=== PATIENT | female | born 1945 | race Caucasian/White ===

== ENCOUNTER 2017-01-12 16:17 | Emergency (ER) | payer MEDICARE ==
[~2017-01-12] VITALS: Ht 167.6 cm; Wt 72.6 kg
[2017-01-12] MEDS ORDERED: TETANUS,DIPTH,PERTUSS P/F (BOOSTRIX) 0.5 ML VIAL IM STA (16:45)
[2017-01-12] MEDS ORDERED: LIDOCAINE/EPI 1%-1:100,000 (XYLOCAINE) 20ML INJ STA (16:45)
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
--- NOTE | 2017-01-12 17:32 | Diagnostic Imaging Report ---
INDICATION: Bilateral leg injury. Pain in the lower legs. AP and lateral views of the bilateral tibia and fibula were obtained. FINDINGS: There is no fracture, dislocation, or other acute bony abnormality seen on either side. IMPRESSION: No acute abnormality is seen on either side. Dictated by: Dictated on workstation # [id number]
[2017-01-12] MEDS ORDERED: TRAM50TA2 PO (17:36)
[2017-01-12] MEDS ORDERED: HYDROcodone/APAP 5 MG/325 MG (LORTAB) TAB PO STA (18:27)
[2017-01-12] MEDS ORDERED: HYDR-3812 PO (18:27)
[2017-01-12 18:55] VITALS: BP 174/82
== END 2017-01-12 18:55 | disposition home or self-care (01) ==
LOC: EDUNIT# 16:17 → ER 16:19
DX: S81.811A Laceration without foreign body, right lower leg, initial encounter (principal); S80.12XA Contusion of left lower leg, initial encounter; Z23 Encounter for immunization; W23.0XXA Caught, crushed, jammed, or pinched between moving objects, initial encounter; Y99.8 Other external cause status
CPT/HCPCS: 12002; 90715; 96372

== ENCOUNTER → 2017-05-03 | Outpatient (CLI) | payer MEDICARE ==
[~2017-05-03] MED LIST: HYDR-3812 PO; TRAM50TA2 PO
== END ==
LOC: RAD 11:28
PROVIDERS: ATTEND Nurse Practitioner Family
DX: Z12.31 Encounter for screening mammogram for malignant neoplasm of breast (principal)
CPT/HCPCS: 77067

== ENCOUNTER 2017-05-21 09:10 | Outpatient (RCR) | payer MEDICARE | END 2017-05-21 09:59 | disposition home or self-care (01) | PROVIDERS: ATTEND Nurse Practitioner Family | DX: S82.832D Other fracture of upper and lower end of left fibula, subsequent encounter for closed fracture with routine healing (principal) ==

== ENCOUNTER → 2018-04-11 | Outpatient (CLI) | payer MEDICARE, OTHER ==
[~2018-04-11] MED LIST changes: +ACHD5005 PO; -HYDR-3812 PO
== END ==
LOC: CARD 07:58
PROVIDERS: ATTEND Family Medicine
DX: R06.09 Other forms of dyspnea (principal); I10 Essential (primary) hypertension
CPT/HCPCS: 93225; 93226

== ENCOUNTER → 2018-05-04 | Outpatient (CLI) | payer MEDICARE, OTHER | LOC: CARD 11:38 | PROVIDERS: ATTEND Internal Medicine Interventional Cardiology | DX: R06.02 Shortness of breath (principal); I10 Essential (primary) hypertension; E78.5 Hyperlipidemia, unspecified; M79.604 Pain in right leg; M79.605 Pain in left leg | CPT/HCPCS: 93306 ==

== ENCOUNTER → 2018-09-09 | Outpatient (CLI) | payer MEDICARE, OTHER ==
--- NOTE | 2018-09-09 10:08 | Diagnostic Imaging Report ---
PROCEDURE: MRI right joint upper extremity without contrast. TECHNIQUE: Multiplanar, multisequence non contrast-enhanced MRI of the right upper extremity was accomplished. INDICATION: Right shoulder pain. COMPARISON: There are no prior studies available for comparison. FINDINGS: This exam is less than optimal due to motion artifact. On the T2 fat-saturated coronal series, there is a small area of increased signal along the anterior most insertion of the rotator cuff. This does suggest a small rim rent tear. The supraspinatus muscle itself is not retracted or bunched however. There is hypertrophy of the acromioclavicular joint and this does result in mild narrowing of the outlet for the supraspinatus muscle. There is also small amount of fluid in the subacromial and subdeltoid bursa. This does suggest that there is an element of inflammation present. There is a thin linear area of increased signal within the biceps tendon as it courses over the proximal humerus. This may represent a partial tear of the tendon. The subscapularis tendon is intact. The labrum is thinned posteriorly and most likely torn on a degenerative basis. There is no significant joint effusion identified. There is no abnormal signal arising from the osseous structures to suggest bone edema or fracture. IMPRESSION: 1. There is a small rim rent tear along the anterior insertion of the rotator cuff. The supraspinatus muscle is not retracted or bunched however. 2. There is hypertrophy of the acromioclavicular joint and this does result in mild narrowing of the outlet for the supraspinatus muscle. The fluid in the subacromial and subdeltoid bursa also suggests that there is a small amount of inflammation present. 3. There appears to be a partial tear of the biceps tendon as it courses over the humeral head. 4. The labrum is thinned posteriorly and most likely torn on a degenerative basis. 5. There is no acute bony abnormality noted. Dictated by: Dictated on workstation # [id number]
== END ==
LOC: RAD 08:26
PROVIDERS: ATTEND Orthopaedic Surgery
DX: M75.101 Unspecified rotator cuff tear or rupture of right shoulder, not specified as traumatic (principal); M62.89 Other specified disorders of muscle
CPT/HCPCS: 73221

== ENCOUNTER → 2018-10-05 | Outpatient (CLI) | payer MEDICARE, OTHER ==
--- NOTE | 2018-10-05 09:54 | Diagnostic Imaging Report ---
INDICATION: Cough x4 weeks. EXAMINATION: PA and lateral chest. FINDINGS: Heart size and pulmonary vascularity are normal. Lungs are clear. There are no effusions or pneumothoraces. IMPRESSION: Negative chest. Dictated by: Dictated on workstation # [id number]
== END ==
LOC: RAD 08:56
PROVIDERS: ATTEND Nurse Practitioner Family
DX: R05 Cough (principal)
CPT/HCPCS: 71046

== ENCOUNTER 2019-01-31 06:42 | Emergency (ER) | payer MEDICARE, OTHER ==
[~2019-01-31] VITALS: Ht 157.5 cm; Wt 72.6 kg
--- OUTSIDE RECORDS SUMMARY | 2019-01-31 06:48 | XMS REPORT ---
Author Author MONO CARMEN Organization [facility] Address [address] [place] [address] Care Team Providers Care Sem Manager Name Role Phone MONO CARMEN Unavailable PROBLEMS Unknown Problems ALLERGIES No Information ENCOUNTERS Encounter Location Date Diagnosis [facility] [address] [facility] [id number] [place] [address] Jun, Encounter for immunization Z23 IMMUNIZATIONS Vaccine Route Administration Date Status FLULAVAL QUAD 0.5ML (6 MO & UP) 2018 IM Intramuscular Jul 08, 2018 Administered SOCIAL HISTORY Never Assessed REASON FOR VISIT Flu shot PLAN OF CARE VITAL SIGNS MEDICATIONS Unknown Medications RESULTS No Results PROCEDURES Procedure Date Ordered Result Body Site FLULAVAL QUAD 0.5ML (6 MO & UP) 2017Jul 08, 2018 ADMN FLU VAC NO FEE SCHED SAME DAY Jul 08, 2018 SINGLE IMMUNIZATION ADMIN Jul 08, 2018 INSTRUCTIONS MEDICATIONS ADMINISTERED No Known Medications
--- OUTSIDE RECORDS SUMMARY | 2019-01-31 06:50 | XMS REPORT | CCD ---
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 10/29/2016 Gastrointestinal No abdominal pain 2016 Gastrointestinal No constipation 2016 Gastrointestinal No diarrhea 10/29/2016 Gastrointestinal No nausea 10/29/2016 Gastrointestinal No vomiting 10/29/2016 Genitourinary/Nephrology No dysuria 10/29 Dermatologic No rash 10/29/2016 Psychiatric No anxiety 10/29/2016 Psychiatric No depression 10/29/2016 Constitutional No recent illness 2015 Constitutional No diaphoresis 07/20/2016 Eyes No eye discharge 07/20/2016 Eyes No eye erythema 07/20/2016 Eyes No vision change 07/20/2016 Ears/Nose/Throat/Neck No dizziness 2015 Ears/Nose/Throat/Neck No headache 2015 Ears/Nose/Throat/Neck No hoarseness 07/20 Ears/Nose/Throat/Neck No nasal discharge 07/20/2016 Ears/Nose/Throat/Neck No sore throat Ears/Nose/Throat/Neck No sinus congestion 07/20/2016 Cardiovascular No chest pain/pressure Respiratory No chest tightness 2015 Respiratory No cigarette smoking 2015 Respiratory No cough 07/20/2016 Respiratory No dyspnea 07/20/2016 Respiratory No pedal edema 07/20/2016 Respiratory No snoring 07/20/2016 Respiratory No wheezing 07/20/2016 Gastrointestinal No abdominal pain 2015 Gastrointestinal No constipation 2015 Gastrointestinal No diarrhea 07/20/2016 Gastrointestinal No nausea 07/20/2016 Gastrointestinal No vomiting 07/20/2016 Genitourinary/Nephrology No dysuria 07/20 Dermatologic No rash 07/20/2016 Psychiatric No anxiety 07/20/2016 Psychiatric No depression 07/20/2016 Constitutional No chills 06/24/2016 Constitutional No diaphoresis 06/24/2016 Constitutional No fever 06/24/2016 Eyes No eye discharge 06/24/2016 Eyes No eye erythema 06/24/2016 Cardiovascular No chest pain/pressure Cardiovascular No dyspnea 06/24/2016 Respiratory No cough 06/24/2016 Neurologic No alteration of consciousness 06/24/2016 Constitutional No recent illness 2015 Ears/Nose/Throat/Neck No nasal allergies 06/24/2016 Dermatologic actinic keratosis 2015 Neurologic No mental status change 2015 Constitutional recent illness 06/15/2016 Constitutional No night sweats 2015 Constitutional No anorexia 06/15/2016 Constitutional No chills 06/15/2016 Constitutional No diaphoresis 06/15/2016 Constitutional No fatigue 06/15/2016 Constitutional No fever 06/15/2016 Constitutional No insomnia 06/15/2016 Constitutional No malaise 06/15/2016 Constitutional No weight loss 06/15/2016 Constitutional weight gain 06/15/2016 Eyes No eye erythema 06/15/2016 Eyes No eye discharge 06/15/2016 Ears/Nose/Throat/Neck No dizziness 2015 Ears/Nose/Throat/Neck No headache 2015 Cardiovascular No chest pain/pressure Cardiovascular No dyspnea 06/15/2016 Cardiovascular No edema 06/15/2016 Respiratory No cough 06/15/2016 Gastrointestinal No abdominal pain 2015 Gastrointestinal No constipation 2015 Gastrointestinal No diarrhea 06/15/2016 Gastrointestinal gastroesophageal reflux 06/15/2016 Genitourinary/Nephrology No dysuria 06/15 Musculoskeletal joint complaint 2015 Neurologic No alteration of consciousness 06/15/2016 Dermatologic No erythema 06/15/2016 Constitutional No chills 01/15/2016 Constitutional No diaphoresis 01/15/2016 Constitutional fatigue 01/15/2016 Constitutional No fever 01/15/2016 Constitutional No insomnia 01/15/2016 Constitutional No malaise 01/15/2016 Eyes No eye discharge 01/15/2016 Eyes No eye erythema 01/15/2016 Ears/Nose/Throat/Neck No nasal allergies 01/15/2016 Ears/Nose/Throat/Neck No nasal discharge 01/15/2016 Cardiovascular No chest pain/pressure Gastrointestinal No abdominal pain 2015 Gastrointestinal No constipation 2015 Gastrointestinal No diarrhea 01/15/2016 Gastrointestinal No nausea 01/15/2016 Musculoskeletal No joint complaint 2015 Dermatologic rash 01/15/2016 Dermatologic sores 01/15/2016 Psychiatric No anxiety 01/15/2016 Psychiatric No depression 01/15/2016 Gastrointestinal No vomiting 01/15/2016 Neurologic No alteration of consciousness 01/15/2016 Constitutional recent illness 12/11/2015 Constitutional No anorexia 12/11/2015 Constitutional No night sweats 2015 Constitutional No chills 12/11/2015 Constitutional No diaphoresis 12/11/2015 Constitutional fatigue 12/11/2015 Constitutional No fever 12/11/2015 Constitutional No insomnia 12/11/2015 Constitutional No malaise 12/11/2015 Eyes No eye discharge 12/11/2015 Eyes No eye erythema 12/11/2015 Ears/Nose/Throat/Neck headache 2015 Ears/Nose/Throat/Neck nasal allergies Ears/Nose/Throat/Neck nasal discharge Ears/Nose/Throat/Neck sinus congestion Ears/Nose/Throat/Neck No sore throat Cardiovascular No chest pain/pressure Gastrointestinal No abdominal pain 2015 Gastrointestinal No constipation 2015 Gastrointestinal No diarrhea 12/11/2015 Gastrointestinal No nausea 12/11/2015 Gastrointestinal No vomiting 12/11/2015 Genitourinary/Nephrology No dysuria 12/10 Musculoskeletal No joint complaint 2015 Dermatologic No rash 12/11/2015 Dermatologic No sores 12/11/2015 Psychiatric No anxiety 12/11/2015 Psychiatric No depression 12/11/2015 Constitutional No recent illness 2014 Constitutional No anorexia 08/13/2015 Constitutional No night sweats 2014 Constitutional No chills 08/13/2015 Constitutional No diaphoresis 08/13/2015 Constitutional No fatigue 08/13/2015 Constitutional No fever 08/13/2015 Constitutional No insomnia 08/13/2015 Constitutional No malaise 08/13/2015 Eyes No eye discharge 08/13/2015 Eyes No eye erythema 08/13/2015 Ears/Nose/Throat/Neck No dizziness 2014 Ears/Nose/Throat/Neck nasal allergies Ears/Nose/Throat/Neck nasal discharge Ears/Nose/Throat/Neck No otalgia 2014 Ears/Nose/Throat/Neck No sinus congestion 08/13/2015 Ears/Nose/Throat/Neck No sore throat Cardiovascular No chest pain/pressure Respiratory No cough 08/13/2015 Gastrointestinal No nausea 08/13/2015 Gastrointestinal No vomiting 08/13/2015 Musculoskeletal No joint complaint 2014 Dermatologic No rash 08/13/2015 Dermatologic No sores 08/13/2015 Ears/Nose/Throat/Neck tinnitus 2014 Cardiovascular No dyspnea 08/13/2015 Cardiovascular No edema 08/13/2015 Respiratory No chest congestion 2014 Gastrointestinal No constipation 2014 Gastrointestinal No diarrhea 08/13/2015 Neurologic No alteration of consciousness 08/13/2015 Neurologic tinnitus 08/13/2015 Constitutional No recent illness 2014 Constitutional No anorexia 01/24/2015 Constitutional No night sweats 2014 Constitutional No chills 01/24/2015 Constitutional No diaphoresis 01/24/2015 Constitutional No fatigue 01/24/2015 Constitutional No fever 01/24/2015 Constitutional No insomnia 01/24/2015 Constitutional No malaise 01/24/2015 Constitutional No weight loss 01/24/2015 Constitutional No weight gain 01/24/2015 Eyes No eye discharge 01/24/2015 Eyes No eye erythema 01/24/2015 Eyes eye tearing 01/24/2015 Ears/Nose/Throat/Neck No dizziness 2014 Ears/Nose/Throat/Neck nasal allergies Ears/Nose/Throat/Neck nasal discharge Ears/Nose/Throat/Neck No otalgia 2014 Ears/Nose/Throat/Neck sinus congestion Ears/Nose/Throat/Neck No sore throat Cardiovascular No chest pain/pressure Respiratory No cough 01/24/2015 Gastrointestinal No vomiting 01/24/2015 Gastrointestinal No nausea 01/24/2015 Genitourinary/Nephrology No dysuria 01/24 Musculoskeletal No joint complaint 2014 Dermatologic No sores 01/24/2015 Dermatologic No rash 01/24/2015 Constitutional No recent illness 2013 Constitutional No diaphoresis 07/26/2014 Eyes No eye discharge 07/26/2014 Eyes No eye erythema 07/26/2014 Eyes No vision change 07/26/2014 Ears/Nose/Throat/Neck No dizziness 2013 Ears/Nose/Throat/Neck No headache 2013 Ears/Nose/Throat/Neck No hoarseness 07/26 Ears/Nose/Throat/Neck No nasal discharge 07/26/2014 Ears/Nose/Throat/Neck No sore throat Ears/Nose/Throat/Neck No sinus congestion 07/26/2014 Cardiovascular No chest pain/pressure Respiratory No chest tightness 2013 Respiratory No cigarette smoking 2013 Respiratory No cough 07/26/2014 Respiratory No dyspnea 07/26/2014 Respiratory No pedal edema 07/26/2014 Respiratory No snoring 07/26/2014 Respiratory No wheezing 07/26/2014 Gastrointestinal No abdominal pain 2013 Gastrointestinal No constipation 2013 Gastrointestinal No diarrhea 07/26/2014 Gastrointestinal No nausea 07/26/2014 Gastrointestinal No vomiting 07/26/2014 Genitourinary/Nephrology No dysuria 07/26 Dermatologic No rash 07/26/2014 Psychiatric No anxiety 07/26/2014 Psychiatric No depression 07/26/2014 Dermatologic mole change 07/26/2014 Constitutional recent illness 01/01/2014 Constitutional No anorexia 01/01/2014 Constitutional No night sweats 2013 Constitutional No chills 01/01/2014 Constitutional fatigue 01/01/2014 Constitutional No diaphoresis 01/01/2014 Constitutional No fever 01/01/2014 Constitutional No insomnia 01/01/2014 Constitutional No malaise 01/01/2014 Eyes No eye erythema 01/01/2014 Eyes No eye discharge 01/01/2014 Ears/Nose/Throat/Neck headache 2013 Ears/Nose/Throat/Neck nasal discharge 03/2014 Ears/Nose/Throat/Neck nasal allergies 03/2014 Ears/Nose/Throat/Neck sinus congestion Ears/Nose/Throat/Neck No sore throat 03/2014 Cardiovascular No chest pain/pressure 03/2014 Gastrointestinal No abdominal pain 2013 Gastrointestinal No constipation 2013 Gastrointestinal No diarrhea 01/01/2014 Gastrointestinal No vomiting 01/01/2014 Gastrointestinal No nausea 01/01/2014 Genitourinary/Nephrology No dysuria 01/01 Musculoskeletal No joint complaint 2013 Dermatologic No sores 01/01/2014 Dermatologic No rash 01/01/2014 Constitutional No recent illness 2013 Constitutional No anorexia 12/01/2013 Constitutional No night sweats 2013 Constitutional No chills 12/01/2013 Constitutional No diaphoresis 12/01/2013 Constitutional No fatigue 12/01/2013 Constitutional No fever 12/01/2013 Constitutional No insomnia 12/01/2013 Constitutional No malaise 12/01/2013 Eyes No eye discharge 12/01/2013 Eyes No eye erythema 12/01/2013 Cardiovascular No chest pain/pressure 03/2014 Respiratory No productive sputum 2013 Respiratory No chest congestion 2013 Respiratory No cough 12/01/2013 Gastrointestinal No abdominal pain 2013 Gastrointestinal No diarrhea 12/01/2013 Gastrointestinal No constipation 2013 Gastrointestinal No vomiting 12/01/2013 Gastrointestinal No nausea 12/01/2013 Genitourinary/Nephrology No dysuria 12/01 Dermatologic No rash 12/01/2013 Dermatologic No sores 12/01/2013 Constitutional No recent illness 2013 Constitutional No diaphoresis 10/31/2013 Eyes No eye discharge 10/31/2013 Eyes No eye erythema 10/31/2013 Eyes No vision change 10/31/2013 Ears/Nose/Throat/Neck No dizziness 2013 Ears/Nose/Throat/Neck No headache 2013 Ears/Nose/Throat/Neck No hoarseness 10/31 Ears/Nose/Throat/Neck No nasal discharge 10/31/2013 Ears/Nose/Throat/Neck No sinus congestion 10/31/2013 Ears/Nose/Throat/Neck No sore throat 12/2013 Cardiovascular No chest pain/pressure 12/2013 Gastrointestinal No abdominal pain 2013 Gastrointestinal No constipation 2013 Gastrointestinal No diarrhea 10/31/2013 Gastrointestinal No nausea 10/31/2013 Gastrointestinal No vomiting 10/31/2013 Genitourinary/Nephrology No dysuria 10/31 Dermatologic No rash 10/31/2013 Psychiatric No anxiety 10/31/2013 Psychiatric No depression 10/31/2013 Respiratory No chest tightness 2013 Respiratory No cigarette smoking 2013 Respiratory No cough 10/31/2013 Respiratory No dyspnea 10/31/2013 Respiratory No pedal edema 10/31/2013 Respiratory No snoring 10/31/2013 Respiratory No wheezing 10/31/2013 Constitutional No recent illness 2012 Constitutional No anorexia 06/29/2013 Constitutional No night sweats 2012 Constitutional No chills 06/29/2013 Constitutional No diaphoresis 06/29/2013 Constitutional No fatigue 06/29/2013 Constitutional No fever 06/29/2013 Constitutional No insomnia 06/29/2013 Constitutional No malaise 06/29/2013 Constitutional recent illness 02/08/2013 Constitutional No chills 02/08/2013 Constitutional No fatigue 02/08/2013 Constitutional No fever 02/08/2013 Constitutional No insomnia 02/08/2013 Constitutional No malaise 02/08/2013 Cardiovascular No chest pain/pressure Cardiovascular No dyspnea 02/08/2013 Cardiovascular No edema 02/08/2013 Cardiovascular No exercise intolerance Cardiovascular No fatigue 02/08/2013 Cardiovascular No near-syncope/dizziness 02/08/2013 Musculoskeletal No stiffness 02/08/2013 Musculoskeletal No swelling 02/08/2013 Musculoskeletal No muscle weakness 2012 Musculoskeletal No myalgias 02/08/2013 Dermatologic No rash 02/08/2013 Dermatologic No scar 02/08/2013 Psychiatric No anxiety 02/08/2013 Psychiatric No depression 02/08/2013 Ears/Nose/Throat/Neck No dizziness 2012 Ears/Nose/Throat/Neck No dysphagia 2012 Ears/Nose/Throat/Neck No headache 2012 Ears/Nose/Throat/Neck No hearing loss Ears/Nose/Throat/Neck No nasal allergies 02/08/2013 Ears/Nose/Throat/Neck sore throat 2012 Ears/Nose/Throat/Neck No postnasal drip 02/08/2013 Ears/Nose/Throat/Neck No sinus congestion 02/08/2013 Ears/Nose/Throat/Neck hoarseness 2012 Genitourinary/Nephrology urinary urgency 02/08/2013 Neurologic No dizziness 02/08/2013 Neurologic No dyskinesia or tremor 2012 Neurologic No gait abnormality 2012 Constitutional No recent illness 2012 Constitutional No chills 01/02/2013 Constitutional No fatigue 01/02/2013 Constitutional No fever 01/02/2013 Constitutional No insomnia 01/02/2013 Constitutional No malaise 01/02/2013 Cardiovascular No chest pain/pressure 04/2013 Cardiovascular No dyspnea 01/02/2013 Cardiovascular No edema 01/02/2013 Cardiovascular No exercise intolerance Cardiovascular No fatigue 01/02/2013 Cardiovascular No near-syncope/dizziness 01/02/2013 Respiratory No chest tightness 2012 Respiratory No cigarette smoking 2012 Respiratory No cough 01/02/2013 Respiratory No dyspnea 01/02/2013 Respiratory No pedal edema 01/02/2013 Respiratory No snoring 01/02/2013 Respiratory No wheezing 01/02/2013 Musculoskeletal No stiffness 01/02/2013 Musculoskeletal No swelling 01/02/2013 Musculoskeletal No muscle weakness 2012 Musculoskeletal No myalgias 01/02/2013 Dermatologic No rash 01/02/2013 Dermatologic No scar 01/02/2013 Psychiatric No anxiety 01/02/2013 Psychiatric No depression 01/02/2013 Constitutional No recent illness 2011 Constitutional No anorexia 05/16/2012 Constitutional No night sweats 2011 Constitutional No chills 05/16/2012 Constitutional No diaphoresis 05/16/2012 Constitutional No fatigue 05/16/2012 Constitutional No fever 05/16/2012 Constitutional No insomnia 05/16/2012 Constitutional No malaise 05/16/2012 Eyes No eye discharge 05/16/2012 Eyes No eye erythema 05/16/2012 Eyes No vision change 05/16/2012 Ears/Nose/Throat/Neck No dizziness 2011 Ears/Nose/Throat/Neck No headache 2011 Ears/Nose/Throat/Neck No hoarseness 05/16 Ears/Nose/Throat/Neck No nasal discharge 05/16/2012 Ears/Nose/Throat/Neck No sinus congestion 05/16/2012 Ears/Nose/Throat/Neck No sore throat Gastrointestinal No abdominal pain 2011 Gastrointestinal No constipation 2011 Gastrointestinal No diarrhea 05/16/2012 Gastrointestinal No nausea 05/16/2012 Gastrointestinal No vomiting 05/16/2012 Dermatologic No rash 05/16/2012 Constitutional No recent illness 2011 Constitutional No diaphoresis 04/25/2012 Eyes No eye discharge 04/25/2012 Eyes No eye erythema 04/25/2012 Eyes No vision change 04/25/2012 Ears/Nose/Throat/Neck No dizziness 2011 Ears/Nose/Throat/Neck No headache 2011 Ears/Nose/Throat/Neck No hoarseness 04/25 Ears/Nose/Throat/Neck No nasal discharge 04/25/2012 Ears/Nose/Throat/Neck No sinus congestion 04/25/2012 Ears/Nose/Throat/Neck No sore throat Gastrointestinal No abdominal pain 2011 Gastrointestinal No constipation 2011 Gastrointestinal No diarrhea 04/25/2012 Gastrointestinal No nausea 04/25/2012 Gastrointestinal No vomiting 04/25/2012 Genitourinary/Nephrology No dysuria 04/25 Dermatologic No rash 04/25/2012 Psychiatric No anxiety 04/25/2012 Psychiatric No depression 04/25/2012 Constitutional No fever 04/25/2012 Constitutional No fatigue 04/25/2012 Psychiatric No depression 12/07/2011 Eyes No vision change 12/07/2011 Ears/Nose/Throat/Neck No headache 2011 Constitutional fever 12/07/2011 Constitutional fatigue 12/07/2011 Ears/Nose/Throat/Neck No dizziness 2011 Cardiovascular No chest pain/pressure 08/2012 Gastrointestinal No constipation 2011 Gastrointestinal No diarrhea 12/07/2011 Gastrointestinal No nausea 12/07/2011 Gastrointestinal No vomiting 12/07/2011 Constitutional No recent illness 2011 Constitutional No diaphoresis 12/07/2011 Eyes No eye discharge 12/07/2011 Eyes No eye erythema 12/07/2011 Ears/Nose/Throat/Neck No hoarseness 12/06 Ears/Nose/Throat/Neck No nasal discharge 12/07/2011 Ears/Nose/Throat/Neck No sinus congestion 12/07/2011 Ears/Nose/Throat/Neck No sore throat 08/2012 Gastrointestinal No abdominal pain 2011 Genitourinary/Nephrology No dysuria 12/06 Dermatologic No rash 12/07/2011 Psychiatric No anxiety 12/07/2011 Constitutional No recent illness 2011 Constitutional No diaphoresis 11/17/2011 Constitutional fatigue 11/17/2011 Constitutional fever 11/17/2011 Eyes No eye discharge 11/17/2011 Eyes No eye erythema 11/17/2011 Ears/Nose/Throat/Neck No dizziness 2011 Ears/Nose/Throat/Neck No hoarseness 11/17 Ears/Nose/Throat/Neck No nasal discharge 11/17/2011 Ears/Nose/Throat/Neck No sinus congestion 11/17/2011 Ears/Nose/Throat/Neck No sore throat Cardiovascular No chest pain/pressure Gastrointestinal No abdominal pain 2011 Gastrointestinal No constipation 2011 Gastrointestinal No diarrhea 11/17/2011 Gastrointestinal No nausea 11/17/2011 Gastrointestinal No vomiting 11/17/2011 Genitourinary/Nephrology No dysuria 11/17 Dermatologic No rash 11/17/2011 Psychiatric No anxiety 11/17/2011 Psychiatric No depression 11/17/2011 Constitutional No recent illness 2010 Constitutional No fever 08/18/2011 Eyes No eye discharge 08/18/2011 Eyes No eye erythema 08/18/2011 Cardiovascular No chest pain/pressure Gastrointestinal No nausea 08/18/2011 Gastrointestinal No vomiting 08/18/2011 Gastrointestinal No constipation 2010 Gastrointestinal No diarrhea 08/18/2011 Gastrointestinal No abdominal pain 2010 Ears/Nose/Throat/Neck No dizziness 2010 Ears/Nose/Throat/Neck No hoarseness 08/18 Ears/Nose/Throat/Neck No nasal discharge 08/18/2011 Ears/Nose/Throat/Neck No sinus congestion 08/18/2011 Ears/Nose/Throat/Neck No sore throat Genitourinary/Nephrology No dysuria 08/18 Dermatologic No rash 08/18/2011 Constitutional fatigue 08/18/2011 Constitutional No diaphoresis 08/18/2011 Respiratory cough 08/18/2011 Respiratory No productive sputum 2010 Respiratory No chest tightness 2010 Respiratory No chest congestion 2010 Psychiatric No anxiety 08/18/2011 Psychiatric No depression 08/18/2011 Physical Exam Exam Name System Name Item Name Status Result Effective Dates Notes Full Exam - Dermatology Constitutional general appearance Overall: well nourished 02/25/2017 None Full Exam - Dermatology Constitutional general appearance Overall: well developed 02/25/2017 None Full Exam - Dermatology Constitutional general appearance Overall: in no acute distress 02/25/2017 None Full Exam - Dermatology Constitutional general appearance Overall: of normal body habitus 02/25/2017 None Full Exam - Dermatology Constitutional general appearance Overall: well groomed 02/25/2017 None Full Exam - Dermatology Respiratory auscultation Overall: breath sounds clear bilaterally 02/25/2017 None Full Exam - Dermatology Respiratory respiratory effort/rhythm Overall: no retractions 02/25/2017 None Full Exam - Dermatology Respiratory respiratory effort/rhythm Overall: normal rate 02/25/2017 None Full Exam - Dermatology Cardiovascular peripheral vascular system Overall: warm extremities 02/25/2017 None Full Exam - Dermatology Cardiovascular peripheral vascular system Edema present: pitting 02/25/2017 None Full Exam - Dermatology Cardiovascular peripheral vascular system Edema present: of severity 1+ - 4+: L>R 02/25/2017 None Full Exam - Dermatology Cardiovascular peripheral vascular system Tenderness: the left leg 02/25/2017 None Full Exam - Dermatology Cardiovascular peripheral vascular system Tenderness: the right leg 02/25/2017 None Full Exam - Dermatology Integument insp & palp - left lower extremity Location: on the [place] 02/25/2017 large hematoma left lower leg --Improved Full Exam - Dermatology Psychiatric orientation Overall: oriented to person, place and time 02/25/2017 None Full Exam - Dermatology Constitutional general appearance Overall: well nourished 01/15/2017 None Full Exam - Dermatology Constitutional general appearance Overall: well developed 01/15/2017 None Full Exam - Dermatology Constitutional general appearance Overall: in no acute distress 01/15/2017 None Full Exam - Dermatology Constitutional general appearance Overall: of normal body habitus 01/15/2017 None Full Exam - Dermatology Constitutional general appearance Overall: well groomed 01/15/2017 None Full Exam - Dermatology Psychiatric orientation Overall: oriented to person, place and time 01/15/2017 None Full Exam - Dermatology Respiratory auscultation Overall: breath sounds clear bilaterally 01/15/2017 None Full Exam - Dermatology Respiratory respiratory effort/rhythm Overall: no retractions 01/15/2017 None Full Exam - Dermatology Respiratory respiratory effort/rhythm Overall: normal rate 01/15/2017 None Full Exam - Dermatology Cardiovascular peripheral vascular system Overall: warm extremities 01/15/2017 None Full Exam - Dermatology Cardiovascular peripheral vascular system Edema present: pitting 01/15/2017 None Full Exam - Dermatology Cardiovascular peripheral vascular system Edema present: of severity 1+ - 4+: L>R 01/15/2017 None Full Exam - Dermatology Cardiovascular peripheral vascular system Tenderness: the left leg 01/15/2017 None Full Exam - Dermatology Cardiovascular peripheral vascular system Tenderness: the right leg 01/15/2017 None Full Exam - Dermatology Integument insp & palp - left lower extremity Location: on the [place] 01/15/2017 large hematoma left lower leg Full Exam - Dermatology Integument insp & palp - right lower extremity Location: on the [place] 01/15/2017 laceration with sutures x 4 with surrounding erythema to mid lower leg noted, warm to touch Full Exam - General 1994 Constitutional general appearance Development: well developed 10/29/2016 None Full Exam - General 1994 Constitutional general appearance Development: appears stated age 0210/29/2016 None Full Exam - General 1994 Constitutional general appearance Hygiene/Attention to Grooming: good hygiene 10/29/2016 None Full Exam - General 1994 Eyes conjunctiva /eyelids Overall: conjunctiva clear 10/29/2016 None Full Exam - General 1994 Eyes conjunctiva /eyelids Overall: cornea clear 10/29/2016 None Full Exam - General 1994 Eyes conjunctiva /eyelids Overall: eyelids normal 10/29/2016 None Full Exam - General 1994 Eyes pupils and irises Overall: pupils equal, round, reactive to light and accomodation 10/29/2016 None Full Exam - General 1994 Ears/Nose/Throat otoscopic exam Overall: external auditory canals clear 10/29/2016 None Full Exam - General 1994 Ears/Nose/Throat otoscopic exam Overall: tympanic membranes clear 10/29/2016 None Full Exam - General 1994 Ears/Nose/Throat lips/teeth/gingiva Overall: benign lips 10/29/2016 None Full Exam - General 1995 Ears/Nose/Throat lips/teeth/gingiva Overall: normal dentition 10/29/2016 None Full Exam - General 1994 Ears/Nose/Throat oral cavity/pharynx/larynx Overall: oral mucosa clear 10/29/2016 None Full Exam - General 1995 Ears/Nose/Throat oral cavity/pharynx/larynx Overall: oropharyngeal mucosa clear 10/29/2016 None Full Exam - General 1995 Ears/Nose/Throat oral cavity/pharynx/larynx Overall: hypopharynx benign 10/29/2016 None Full Exam - General 1995 Ears/Nose/Throat oral cavity/pharynx/larynx Overall: no masses 10/29/2016 None Full Exam - General 1994 Respiratory auscultation Overall: breath sounds clear bilaterally 10/29/2016 None Full Exam - General 1994 Respiratory respiratory effort/rhythm Overall: no retractions 10/29/2016 None Full Exam - General 1994 Respiratory respiratory effort/rhythm Overall: normal rate 10/29/2016 None Full Exam - General 1994 Cardiovascular extremities Overall: no clubbing 10/29/2016 None Full Exam - General 1994 Cardiovascular auscultation of heart Overall: regular rate 10/29/2016 None Full Exam - General 1994 Cardiovascular auscultation of heart Overall: normal heart sounds 10/29/2016 None Full Exam - General 1994 Abdomen abdominal exam Overall: no tenderness 10/29/2016 None Full Exam - General 1994 Abdomen abdominal exam Overall: normal bowel sounds 10/29/2016 None Full Exam - General 1994 Integument inspection of skin Overall: few scattered moles, no gross abnormalities 10/29/2016 None Full Exam - General 1994 Neurologic deep tendon reflexes Overall: deep tendon reflexes intact 10/29/2016 None Full Exam - General 1994 Neurologic cranial nerves Overall: crainial nerves 2 - 12 grossly intact 10/29/2016 None Full Exam - General 1994 Psychiatric orientation/consciousness Overall: oriented to person, place and time 10/29/2016 None Full Exam - General 1994 Psychiatric mood and affect Overall: normal mood and affect 10/29/2016 None Full Exam - General 1994 Constitutional general appearance Development: well developed 07/20/2016 None Full Exam - General 1994 Constitutional general appearance Development: appears stated age 1007/20/2016 None Full Exam - General 1994 Constitutional general appearance Hygiene/Attention to Grooming: good hygiene 07/20/2016 None Full Exam - General 1994 Eyes conjunctiva /eyelids Overall: conjunctiva clear 07/20/2016 None Full Exam - General 1994 Eyes conjunctiva /eyelids Overall: cornea clear 07/20/2016 None Full Exam - General 1994 Eyes conjunctiva /eyelids Overall: eyelids normal 07/20/2016 None Full Exam - General 1994 Eyes pupils and irises Overall: pupils equal, round, reactive to light and accomodation 07/20/2016 None Full Exam - General 1994 Ears/Nose/Throat otoscopic exam Overall: external auditory canals clear 07/20/2016 None Full Exam - General 1994 Ears/Nose/Throat otoscopic exam Overall: tympanic membranes clear 07/20/2016 None Full Exam - General 1994 Ears/Nose/Throat lips/teeth/gingiva Overall: benign lips 07/20/2016 None Full Exam - General 1994 Ears/Nose/Throat lips/teeth/gingiva Overall: normal dentition 07/20/2016 None Full Exam - General 1994 Ears/Nose/Throat oral cavity/pharynx/larynx Overall: oral mucosa clear 07/20/2016 None Full Exam - General 1994 Ears/Nose/Throat oral cavity/pharynx/larynx Overall: oropharyngeal mucosa clear 07/20/2016 None Full Exam - General 1994 Ears/Nose/Throat oral cavity/pharynx/larynx Overall: hypopharynx benign 07/20/2016 None Full Exam - General 1994 Ears/Nose/Throat oral cavity/pharynx/larynx Overall: no masses 07/20/2016 None Full Exam - General 1994 Respiratory auscultation Overall: breath sounds clear bilaterally 07/20/2016 None Full Exam - General 1994 Respiratory respiratory effort/rhythm Overall: no retractions 07/20/2016 None Full Exam - General 1994 Respiratory respiratory effort/rhythm Overall: normal rate 07/20/2016 None Full Exam - General 1994 Cardiovascular extremities Overall: no clubbing 07/20/2016 None Full Exam - General 1994 Cardiovascular auscultation of heart Overall: regular rate 07/20/2016 None Full Exam - General 1994 Cardiovascular auscultation of heart Overall: normal heart sounds 07/20/2016 None Full Exam - General 1994 Abdomen abdominal exam Overall: no tenderness 07/20/2016 None Full Exam - General 1994 Abdomen abdominal exam Overall: normal bowel sounds 07/20/2016 None Full Exam - General 1994 Integument inspection of skin Overall: few scattered moles, no gross abnormalities 07/20/2016 None Full Exam - General 1994 Neurologic deep tendon reflexes Overall: deep tendon reflexes intact 07/20/2016 None Full Exam - General 1994 Neurologic cranial nerves Overall: crainial nerves 2 - 12 grossly intact 07/20/2016 None Full Exam - General 1994 Psychiatric orientation/consciousness Overall: oriented to person, place and time 07/20/2016 None Full Exam - General 1994 Psychiatric mood and affect Overall: normal mood and affect 07/20/2016 None Full Exam - General 1994 Constitutional general appearance Hygiene/Attention to Grooming: good hygiene 06/24/2016 None Full Exam - General 1994 Eyes conjunctiva /eyelids Overall: conjunctiva clear 06/24/2016 None Full Exam - General 1994 Eyes conjunctiva /eyelids Overall: cornea clear 06/24/2016 None Full Exam - General 1994 Eyes conjunctiva /eyelids Overall: eyelids normal 06/24/2016 None Full Exam - General 1994 Ears/Nose/Throat lips/teeth/gingiva Overall: benign lips 06/24/2016 None Full Exam - General 1994 Ears/Nose/Throat lips/teeth/gingiva Overall: normal dentition 06/24/2016 None Full Exam - General 1994 Ears/Nose/Throat oral cavity/pharynx/larynx Overall: oral mucosa clear 06/24/2016 None Full Exam - General 1994 Respiratory respiratory effort/rhythm Overall: no retractions 06/24/2016 None Full Exam - General 1994 Respiratory respiratory effort/rhythm Overall: normal rate 06/24/2016 None Full Exam - General 1994 Cardiovascular extremities Overall: no clubbing 06/24/2016 None Full Exam - General 1994 Neurologic cranial nerves Overall: crainial nerves 2 - 12 grossly intact 06/24/2016 None Full Exam - General 1994 Psychiatric orientation/consciousness Overall: oriented to person, place and time 06/24/2016 None Full Exam - General 1994 Psychiatric mood and affect Overall: normal mood and affect 06/24/2016 None Full Exam - General 1994 Constitutional general appearance Overall: well developed 06/24/2016 None Full Exam - General 1994 Constitutional general appearance Overall: in no acute distress 06/24/2016 None Full Exam - General 1994 Constitutional general appearance Overall: well nourished 06/24/2016 None Full Exam - General 1994 Integument inspection of skin Location: right leg 06/24/2016 lateral thigh - AK - Cryotherapy performed Full Exam - General 1994 Psychiatric appearance Overall: well-groomed, good eye contact 06/24/2016 None Full Exam - General 1994 Constitutional general appearance Development: well developed 06/15/2016 None Full Exam - General 1994 Constitutional general appearance Development: appears stated age 0906/15/2016 None Full Exam - General 1994 Constitutional general appearance Hygiene/Attention to Grooming: good hygiene 06/15/2016 None Full Exam - General 1994 Eyes conjunctiva /eyelids Overall: conjunctiva clear 06/15/2016 None Full Exam - General 1994 Eyes conjunctiva /eyelids Overall: cornea clear 06/15/2016 None Full Exam - General 1994 Eyes conjunctiva /eyelids Overall: eyelids normal 06/15/2016 None Full Exam - General 1994 Eyes pupils and irises Overall: pupils equal, round, reactive to light and accomodation 06/15/2016 None Full Exam - General 1994 Ears/Nose/Throat otoscopic exam Overall: external auditory canals clear 06/15/2016 None Full Exam - General 1994 Ears/Nose/Throat otoscopic exam Overall: tympanic membranes clear 06/15/2016 None Full Exam - General 1994 Ears/Nose/Throat lips/teeth/gingiva Overall: benign lips 06/15/2016 None Full Exam - General 1994 Ears/Nose/Throat lips/teeth/gingiva Overall: normal dentition 06/15/2016 None Full Exam - General 1994 Ears/Nose/Throat oral cavity/pharynx/larynx Overall: oral mucosa clear 06/15/2016 None Full Exam - General 1994 Ears/Nose/Throat oral cavity/pharynx/larynx Overall: oropharyngeal mucosa clear 06/15/2016 None Full Exam - General 1994 Ears/Nose/Throat oral cavity/pharynx/larynx Overall: hypopharynx benign 06/15/2016 None Full Exam - General 1994 Ears/Nose/Throat oral cavity/pharynx/larynx Overall: no masses 06/15/2016 None Full Exam - General 1994 Respiratory auscultation Overall: breath sounds clear bilaterally 06/15/2016 None Full Exam - General 1994 Respiratory respiratory effort/rhythm Overall: no retractions 06/15/2016 None Full Exam - General 1994 Respiratory respiratory effort/rhythm Overall: normal rate 06/15/2016 None Full Exam - General 1994 Cardiovascular extremities Overall: no clubbing 06/15/2016 None Full Exam - General 1994 Cardiovascular auscultation of heart Overall: regular rate 06/15/2016 None Full Exam - General 1994 Cardiovascular auscultation of heart Overall: normal heart sounds 06/15/2016 None Full Exam - General 1994 Abdomen abdominal exam Overall: no tenderness 06/15/2016 None Full Exam - General 1994 Abdomen abdominal exam Overall: normal bowel sounds 06/15/2016 None Full Exam - General 1994 Neurologic deep tendon reflexes Overall: deep tendon reflexes intact 06/15/2016 None Full Exam - General 1994 Neurologic cranial nerves Overall: crainial nerves 2 - 12 grossly intact 06/15/2016 None Full Exam - General 1994 Psychiatric orientation/consciousness Overall: oriented to person, place and time 06/15/2016 None Full Exam - General 1994 Psychiatric mood and affect Overall: normal mood and affect 06/15/2016 None Full Exam - General 1994 Integument inspection of skin Overall: no rash, lesions 06/15/2016 skin color slightly darker at ankles Full Exam - ENT Constitutional general appearance Overall: well nourished 01/15/2016 None Full Exam - ENT Constitutional general appearance Overall: well developed 01/15/2016 None Full Exam - ENT Constitutional general appearance Overall: in no acute distress 01/15/2016 None Full Exam - ENT Respiratory inspection Overall: no retractions 01/15/2016 None Full Exam - ENT Respiratory inspection Overall: normal rate None Full Exam - ENT Cardiovascular auscultation of heart Overall: regular rate 01/15/2016 None Full Exam - ENT Cardiovascular auscultation of heart Overall: normal heart sounds 01/15/2016 None Full Exam - ENT Cardiovascular auscultation of heart Overall: no murmurs 01/15/2016 None Full Exam - ENT Lymphatic palpation of lymph nodes Overall: anterior cervical chain benign 01/15/2016 None Full Exam - ENT Lymphatic palpation of lymph nodes Overall: posterior cervical chain benign 01/15/2016 None Full Exam - ENT Neurologic orientation Overall: oriented to person, place and time 01/15/2016 None Full Exam - ENT Ears/Nose/Throat lips/ teeth/gingiva Overall: benign lips 01/15/2016 None Full Exam - ENT Neurologic mood and affect Overall: normal mood 01/15/2016 None Full Exam - ENT Neurologic mood and affect Overall: normal affect 01/15/2016 None Full Exam - ENT Integument inspection of skin Location: right arm 01/15/2016 wrist area Full Exam - ENT Integument inspection of skin Rash/Lesions: patch 01/15/2016 erythematous, with sore in the middle and small area of induration Full Exam - ENT Constitutional general appearance Overall: well nourished 12/11/2015 None Full Exam - ENT Constitutional general appearance Overall: well developed 12/11/2015 None Full Exam - ENT Constitutional general appearance Overall: in no acute distress 12/11/2015 None Full Exam - ENT Ears/Nose/Throat otoscopic exam Overall: external auditory canals normal 12/11/2015 None Full Exam - ENT Ears/Nose/Throat otoscopic exam Overall: tympanic membranes normal 12/11/2015 None Full Exam - ENT Ears/Nose/Throat oropharynx Overall: oral mucosa clear 12/11/2015 None Full Exam - ENT Face and Head palpation Left maxillary sinus: tender 12/11/2015 None Full Exam - ENT Face and Head palpation Right maxillary sinus: tender 12/11/2015 None Full Exam - ENT Face and Head palpation Left frontal sinus: tender 12/11/2015 None Full Exam - ENT Face and Head palpation Right frontal sinus: tender 12/11/2015 None Full Exam - ENT Respiratory inspection Overall: no retractions 12/11/2015 None Full Exam - ENT Respiratory inspection Overall: normal rate None Full Exam - ENT Respiratory inspection Rate: a normal exam None Full Exam - ENT Respiratory inspection Rhythm: a normal exam None Full Exam - ENT Respiratory auscultation Overall: breath sounds clear bilaterally 12/11/2015 None Full Exam - ENT Respiratory auscultation Diffuse: a normal exam 12/11/2015 None Full Exam - ENT Respiratory auscultation Left upper lung field: a normal exam 12/11/2015 None Full Exam - ENT Respiratory auscultation Left lower lung field: a normal exam 12/11/2015 None Full Exam - ENT Respiratory auscultation Right upper lung field: a normal exam 12/11/2015 None Full Exam - ENT Respiratory auscultation Right middle lung field: a normal exam 12/11/2015 None Full Exam - ENT Respiratory auscultation Right lower lung field: a normal exam 12/11/2015 None Full Exam - ENT Cardiovascular auscultation of heart Overall: regular rate 12/11/2015 None Full Exam - ENT Cardiovascular auscultation of heart Overall: normal heart sounds 12/11/2015 None Full Exam - ENT Cardiovascular auscultation of heart Overall: no murmurs 12/11/2015 None Full Exam - ENT Cardiovascular auscultation of heart Rate: normal rate 12/11/2015 None Full Exam - ENT Cardiovascular auscultation of heart Rhythm: regular rhythm 12/11/2015 None Full Exam - ENT Cardiovascular auscultation of heart S1: a normal exam 12/11/2015 None Full Exam - ENT Cardiovascular auscultation of heart S2: a normal exam 12/11/2015 None Full Exam - ENT Cardiovascular auscultation of heart S3 (ventricular gallop): present 12/11/2015 None Full Exam - ENT Cardiovascular auscultation of heart S4 (atrial gallop): present 12/11/2015 None Full Exam - ENT Lymphatic palpation of lymph nodes Overall: anterior cervical chain benign 12/11/2015 None Full Exam - ENT Lymphatic palpation of lymph nodes Overall: posterior cervical chain benign 12/11/2015 None Full Exam - ENT Neurologic orientation Overall: oriented to person, place and time 12/11/2015 None Full Exam - ENT Constitutional general appearance Overall: well nourished 08/13/2015 None Full Exam - ENT Constitutional general appearance Overall: well developed 08/13/2015 None Full Exam - ENT Constitutional general appearance Overall: in no acute distress 08/13/2015 None Full Exam - ENT Ears/Nose/Throat otoscopic exam Overall: external auditory canals normal 08/13/2015 None Full Exam - ENT Ears/Nose/Throat otoscopic exam Overall: tympanic membranes normal 08/13/2015 None Full Exam - ENT Ears/Nose/Throat oropharynx Overall: oral mucosa clear 08/13/2015 None Full Exam - ENT Face and Head palpation Overall: no sinus tenderness 08/13/2015 None Full Exam - ENT Respiratory inspection Overall: no retractions 08/13/2015 None Full Exam - ENT Respiratory inspection Overall: normal rate None Full Exam - ENT Respiratory auscultation Overall: breath sounds clear bilaterally 08/13/2015 None Full Exam - ENT Cardiovascular auscultation of heart Overall: regular rate 08/13/2015 None Full Exam - ENT Cardiovascular auscultation of heart Overall: normal heart sounds 08/13/2015 None Full Exam - ENT Lymphatic palpation of lymph nodes Overall: anterior cervical chain benign 08/13/2015 None Full Exam - ENT Lymphatic palpation of lymph nodes Overall: posterior cervical chain benign 08/13/2015 None Full Exam - ENT Neurologic orientation Overall: oriented to person, place and time 08/13/2015 None Full Exam - ENT Constitutional general appearance Overall: well nourished 01/24/2015 None Full Exam - ENT Constitutional general appearance Overall: well developed 01/24/2015 None Full Exam - ENT Constitutional general appearance Overall: in no acute distress 01/24/2015 None Full Exam - ENT Ears/Nose/Throat otoscopic exam Overall: external auditory canals normal 01/24/2015 None Full Exam - ENT Ears/Nose/Throat otoscopic exam Overall: tympanic membranes normal 01/24/2015 None Full Exam - ENT Ears/Nose/Throat oropharynx Overall: oral mucosa clear 01/24/2015 None Full Exam - ENT Face and Head palpation Overall: no sinus tenderness 01/24/2015 None Full Exam - ENT Respiratory inspection Overall: no retractions 01/24/2015 None Full Exam - ENT Respiratory inspection Overall: normal rate None Full Exam - ENT Respiratory auscultation Overall: breath sounds clear bilaterally 01/24/2015 None Full Exam - ENT Cardiovascular auscultation of heart Overall: regular rate 01/24/2015 None Full Exam - ENT Cardiovascular auscultation of heart Overall: normal heart sounds 01/24/2015 None Full Exam - ENT Lymphatic palpation of lymph nodes Overall: anterior cervical chain benign 01/24/2015 None Full Exam - ENT Lymphatic palpation of lymph nodes Overall: posterior cervical chain benign 01/24/2015 None Full Exam - ENT Neurologic orientation Overall: oriented to person, place and time 01/24/2015 None Full Exam - General 1994 Constitutional general appearance Development: well developed 07/26/2014 None Full Exam - General 1994 Constitutional general appearance Development: appears stated age 1007/26/2014 None Full Exam - General 1994 Constitutional general appearance Hygiene/Attention to Grooming: good hygiene 07/26/2014 None Full Exam - General 1994 Eyes conjunctiva /eyelids Overall: conjunctiva clear 07/26/2014 None Full Exam - General 1994 Eyes conjunctiva /eyelids Overall: cornea clear 07/26/2014 None Full Exam - General 1994 Eyes conjunctiva /eyelids Overall: eyelids normal 07/26/2014 None Full Exam - General 1994 Eyes pupils and irises Overall: pupils equal, round, reactive to light and accomodation 07/26/2014 None Full Exam - General 1994 Ears/Nose/Throat otoscopic exam Overall: external auditory canals clear 07/26/2014 None Full Exam - General 1994 Ears/Nose/Throat otoscopic exam Overall: tympanic membranes clear 07/26/2014 None Full Exam - General 1994 Ears/Nose/Throat lips/teeth/gingiva Overall: benign lips 07/26/2014 None Full Exam - General 1994 Ears/Nose/Throat lips/teeth/gingiva Overall: normal dentition 07/26/2014 None Full Exam - General 1994 Ears/Nose/Throat oral cavity/pharynx/larynx Overall: oral mucosa clear 07/26/2014 None Full Exam - General 1994 Ears/Nose/Throat oral cavity/pharynx/larynx Overall: oropharyngeal mucosa clear 07/26/2014 None Full Exam - General 1994 Ears/Nose/Throat oral cavity/pharynx/larynx Overall: hypopharynx benign 07/26/2014 None Full Exam - General 1994 Ears/Nose/Throat oral cavity/pharynx/larynx Overall: no masses 07/26/2014 None Full Exam - General 1994 Respiratory auscultation Overall: breath sounds clear bilaterally 07/26/2014 None Full Exam - General 1994 Respiratory respiratory effort/rhythm Overall: no retractions 07/26/2014 None Full Exam - General 1994 Respiratory respiratory effort/rhythm Overall: normal rate 07/26/2014 None Full Exam - General 1994 Cardiovascular extremities Overall: no clubbing 07/26/2014 None Full Exam - General 1994 Cardiovascular auscultation of heart Overall: regular rate 07/26/2014 None Full Exam - General 1994 Cardiovascular auscultation of heart Overall: normal heart sounds 07/26/2014 None Full Exam - General 1994 Abdomen abdominal exam Overall: no tenderness 07/26/2014 None Full Exam - General 1994 Abdomen abdominal exam Overall: normal bowel sounds 07/26/2014 None Full Exam - General 1994 Neurologic deep tendon reflexes Overall: deep tendon reflexes intact 07/26/2014 None Full Exam - General 1994 Neurologic cranial nerves Overall: crainial nerves 2 - 12 grossly intact 07/26/2014 None Full Exam - General 1994 Psychiatric orientation/consciousness Overall: oriented to person, place and time 07/26/2014 None Full Exam - General 1994 Psychiatric mood and affect Overall: normal mood and affect 07/26/2014 None Full Exam - General 1994 Integument inspection of skin Consistency: thick 07/26/2014 None Full Exam - General 1994 Integument inspection of skin Consistency: dry 07/26/2014 None Full Exam - General 1994 Integument inspection of skin Location: chest 07/26/2014 one nodular seborrheic keratosis on chest and a small red skin tag on right nipple Full Exam - ENT Constitutional general appearance Overall: well nourished 01/01/2014 None Full Exam - ENT Constitutional general appearance Overall: well developed 01/01/2014 None Full Exam - ENT Constitutional general appearance Overall: in no acute distress 01/01/2014 None Full Exam - ENT Neurologic orientation Overall: oriented to person, place and time 01/01/2014 None Full Exam - ENT Lymphatic palpation of lymph nodes Overall: anterior cervical chain benign 01/01/2014 None Full Exam - ENT Lymphatic palpation of lymph nodes Overall: posterior cervical chain benign 01/01/2014 None Full Exam - ENT Cardiovascular auscultation of heart S4 (atrial gallop): present 01/01/2014 None Full Exam - ENT Cardiovascular auscultation of heart S2: a normal exam 01/01/2014 None Full Exam - ENT Cardiovascular auscultation of heart S3 (ventricular gallop): present 01/01/2014 None Full Exam - ENT Cardiovascular auscultation of heart Rhythm: regular rhythm 01/01/2014 None Full Exam - ENT Cardiovascular auscultation of heart S1: a normal exam 01/01/2014 None Full Exam - ENT Cardiovascular auscultation of heart Rate: normal rate 01/01/2014 None Full Exam - ENT Cardiovascular auscultation of heart Overall: normal heart sounds 01/01/2014 None Full Exam - ENT Cardiovascular auscultation of heart Overall: no murmurs 01/01/2014 None Full Exam - ENT Cardiovascular auscultation of heart Overall: regular rate 01/01/2014 None Full Exam - ENT Respiratory inspection Rhythm: a normal exam None Full Exam - ENT Respiratory inspection Overall: no retractions 01/01/2014 None Full Exam - ENT Respiratory inspection Overall: normal rate 03/2014 None Full Exam - ENT Respiratory inspection Rate: a normal exam 03/2014 None Full Exam - ENT Respiratory auscultation Overall: breath sounds clear bilaterally 01/01/2014 None Full Exam - ENT Respiratory auscultation Left upper lung field: a normal exam 01/01/2014 None Full Exam - ENT Respiratory auscultation Right lower lung field: a normal exam 01/01/2014 None Full Exam - ENT Respiratory auscultation Right upper lung field: a normal exam 01/01/2014 None Full Exam - ENT Respiratory auscultation Right middle lung field: a normal exam 01/01/2014 None Full Exam - ENT Respiratory auscultation Diffuse: a normal exam 01/01/2014 None Full Exam - ENT Respiratory auscultation Left lower lung field: a normal exam 01/01/2014 None Full Exam - ENT Ears/Nose/Throat otoscopic exam Overall: external auditory canals normal 01/01/2014 None Full Exam - ENT Ears/Nose/Throat otoscopic exam Overall: tympanic membranes normal 01/01/2014 None Full Exam - ENT Ears/Nose/Throat oropharynx Overall: oral mucosa clear 01/01/2014 None Full Exam - ENT Face and Head palpation Left maxillary sinus: tender 01/01/2014 None Full Exam - ENT Face and Head palpation Right maxillary sinus: tender 01/01/2014 None Full Exam - ENT Face and Head palpation Left frontal sinus: tender 01/01/2014 None Full Exam - ENT Face and Head palpation Right frontal sinus: tender 01/01/2014 None Full Exam - ENT Neurologic orientation Overall: oriented to person, place and time 12/01/2013 None Full Exam - ENT Lymphatic palpation of lymph nodes Overall: anterior cervical chain benign 12/01/2013 None Full Exam - ENT Lymphatic palpation of lymph nodes Overall: posterior cervical chain benign 12/01/2013 None Full Exam - ENT Cardiovascular auscultation of heart Overall: regular rate 12/01/2013 None Full Exam - ENT Cardiovascular auscultation of heart Overall: normal heart sounds 12/01/2013 None Full Exam - ENT Respiratory inspection Overall: no retractions 12/01/2013 None Full Exam - ENT Respiratory inspection Overall: normal rate 03/2014 None Full Exam - ENT Respiratory auscultation Overall: breath sounds clear bilaterally 12/01/2013 None Full Exam - ENT Face and Head palpation Overall: no sinus tenderness 12/01/2013 None Full Exam - ENT Ears/Nose/Throat otoscopic exam Overall: external auditory canals normal 12/01/2013 None Full Exam - ENT Ears/Nose/Throat otoscopic exam Overall: tympanic membranes normal 12/01/2013 None Full Exam - ENT Ears/Nose/Throat oropharynx Overall: oral mucosa clear 12/01/2013 None Full Exam - ENT Constitutional general appearance Overall: well nourished 12/01/2013 None Full Exam - ENT Constitutional general appearance Overall: well developed 12/01/2013 None Full Exam - ENT Constitutional general appearance Overall: in no acute distress 12/01/2013 None Full Exam - General 1994 Constitutional general appearance Development: appears stated age 0210/31/2013 None Full Exam - General 1994 Constitutional general appearance Development: well developed 10/31/2013 None Full Exam - General 1994 Constitutional general appearance Hygiene/Attention to Grooming: good hygiene 10/31/2013 None Full Exam - General 1994 Eyes conjunctiva /eyelids Overall: conjunctiva clear 10/31/2013 None Full Exam - General 1994 Eyes conjunctiva /eyelids Overall: cornea clear 10/31/2013 None Full Exam - General 1994 Eyes conjunctiva /eyelids Overall: eyelids normal 10/31/2013 None Full Exam - General 1994 Eyes pupils and irises Overall: pupils equal, round, reactive to light and accomodation 10/31/2013 None Full Exam - General 1994 Ears/Nose/Throat otoscopic exam Overall: external auditory canals clear 10/31/2013 None Full Exam - General 1994 Ears/Nose/Throat otoscopic exam Overall: tympanic membranes clear 10/31/2013 None Full Exam - General 1994 Ears/Nose/Throat lips/teeth/gingiva Overall: benign lips 10/31/2013 None Full Exam - General 1995 Ears/Nose/Throat lips/teeth/gingiva Overall: normal dentition 10/31/2013 None Full Exam - General 1994 Ears/Nose/Throat oral cavity/pharynx/larynx Overall: hypopharynx benign 10/31/2013 None Full Exam - General 1994 Ears/Nose/Throat oral cavity/pharynx/larynx Overall: no masses 10/31/2013 None Full Exam - General 1995 Ears/Nose/Throat oral cavity/pharynx/larynx Overall: oral mucosa clear 10/31/2013 None Full Exam - General 1994 Ears/Nose/Throat oral cavity/pharynx/larynx Overall: oropharyngeal mucosa clear 10/31/2013 None Full Exam - General 1994 Respiratory auscultation Overall: breath sounds clear bilaterally 10/31/2013 None Full Exam - General 1994 Respiratory respiratory effort/rhythm Overall: no retractions 10/31/2013 None Full Exam - General 1994 Respiratory respiratory effort/rhythm Overall: normal rate 10/31/2013 None Full Exam - General 1994 Cardiovascular extremities Overall: no clubbing 10/31/2013 None Full Exam - General 1994 Cardiovascular auscultation of heart Overall: normal heart sounds 10/31/2013 None Full Exam - General 1994 Cardiovascular auscultation of heart Overall: regular rate 10/31/2013 None Full Exam - General 1994 Abdomen abdominal exam Overall: no tenderness 10/31/2013 None Full Exam - General 1994 Abdomen abdominal exam Overall: normal bowel sounds 10/31/2013 None Full Exam - General 1994 Integument inspection of skin Overall: few scattered moles, no gross abnormalities 10/31/2013 None Full Exam - General 1994 Neurologic deep tendon reflexes Overall: deep tendon reflexes intact 10/31/2013 None Full Exam - General 1994 Neurologic cranial nerves Overall: crainial nerves 2 - 12 grossly intact 10/31/2013 None Full Exam - General 1994 Psychiatric orientation/consciousness Overall: oriented to person, place and time 10/31/2013 None Full Exam - General 1994 Psychiatric mood and affect Overall: normal mood and affect 10/31/2013 None Full Exam - General 1994 Constitutional general appearance Overall: well developed 06/29/2013 None Full Exam - General 1994 Constitutional general appearance Overall: in no acute distress 06/29/2013 None Full Exam - General 1994 Constitutional general appearance Overall: well nourished 06/29/2013 None Full Exam - General 1994 Psychiatric orientation/consciousness Overall: oriented to person, place and time 06/29/2013 None Full Exam - General 1994 Integument inspection of skin Location: neck 06/29/2013 irritated skin tag right neck Full Exam - General 1994 Integument inspection of skin Location: chest 06/29/2013 None Full Exam - General 1994 Integument inspection of skin Rash/Lesions: papule 06/29/2013 thick "stuck on" lesion near collar bone. Full Exam - Pulmonary Constitutional general appearance Overall: well nourished 02/08/2013 None Full Exam - Pulmonary Constitutional general appearance Overall: well developed 02/08/2013 None Full Exam - Pulmonary Constitutional general appearance Overall: in no acute distress 02/08/2013 None Full Exam - Pulmonary Eyes conjunctiva/ eyelids Overall: conjunctiva clear 02/08/2013 None Full Exam - Pulmonary Eyes pupils and irises Overall: pupils equal, round, reactive to light and accomodation 02/08/2013 None Full Exam - Pulmonary Ears/Nose/Throat oropharynx Overall: oral mucosa clear 02/08/2013 None Full Exam - Pulmonary Respiratory auscultation Left upper lung field: a normal exam 02/08/2013 None Full Exam - Pulmonary Respiratory auscultation Left lower lung field: crackles 02/08/2013 None Full Exam - Pulmonary Respiratory auscultation Right upper lung field: a normal exam 02/08/2013 None Full Exam - Pulmonary Respiratory auscultation Right middle lung field: a normal exam 02/08/2013 None Full Exam - Pulmonary Respiratory auscultation Right lower lung field: a normal exam 02/08/2013 None Full Exam - Pulmonary Respiratory respiratory effort/rhythm Overall: no retractions 02/08/2013 None Full Exam - Pulmonary Respiratory respiratory effort/rhythm Overall: normal rate 02/08/2013 None Full Exam - Pulmonary Cardiovascular auscultation of heart Overall: regular rate 02/08/2013 None Full Exam - Pulmonary Cardiovascular auscultation of heart Overall: normal heart sounds 02/08/2013 None Full Exam - Pulmonary Cardiovascular auscultation of heart Overall: no murmurs 02/08/2013 None Full Exam - Pulmonary Cardiovascular examination of vasculature Overall: no clubbing 02/08/2013 None Full Exam - Pulmonary Cardiovascular examination of vasculature Overall: no varicose veins 02/08/2013 None Full Exam - Pulmonary Cardiovascular examination of vasculature Overall: normal pulses 02/08/2013 None Full Exam - Pulmonary Abdomen abdominal exam Bowel sounds: hyperactive 02/08/2013 None Full Exam - Pulmonary Abdomen abdominal exam Left upper quadrant: non-tender to palpation 02/08/2013 None Full Exam - Pulmonary Abdomen abdominal exam Left lower quadrant: tender to palpation 02/08/2013 None Full Exam - Pulmonary Abdomen abdominal exam Right upper quadrant: tender to palpation 02/08/2013 None Full Exam - Pulmonary Abdomen abdominal exam Right lower quadrant: non-tender to palpation 02/08/2013 None Full Exam - Pulmonary Lymphatic palpation of nodes Overall: anterior cervical chain benign 02/08/2013 None Full Exam - Pulmonary Lymphatic palpation of nodes Overall: posterior cervical chain benign 02/08/2013 None Full Exam - Pulmonary Neurologic gait Overall: no ataxia, no unsteadiness 02/08/2013 None Full Exam - Pulmonary Psychiatric orientation/consciousness Overall: oriented to person, place and time 02/08/2013 None Full Exam - Pulmonary Respiratory auscultation Right lower lung field: expiratory wheezes 02/08/2013 None Full Exam - Pulmonary Constitutional general appearance Overall: well nourished 01/02/2013 None Full Exam - Pulmonary Constitutional general appearance Overall: well developed 01/02/2013 None Full Exam - Pulmonary Constitutional general appearance Overall: in no acute distress 01/02/2013 None Full Exam - Pulmonary Eyes conjunctiva/ eyelids Overall: conjunctiva clear 01/02/2013 None Full Exam - Pulmonary Eyes pupils and irises Overall: pupils equal, round, reactive to light and accomodation 01/02/2013 None Full Exam - Pulmonary Ears/Nose/Throat oropharynx Overall: oral mucosa clear 01/02/2013 None Full Exam - Pulmonary Respiratory auscultation Left upper lung field: a normal exam 01/02/2013 None Full Exam - Pulmonary Respiratory auscultation Left lower lung field: crackles 01/02/2013 None Full Exam - Pulmonary Respiratory auscultation Right upper lung field: a normal exam 01/02/2013 None Full Exam - Pulmonary Respiratory auscultation Right middle lung field: a normal exam 01/02/2013 None Full Exam - Pulmonary Respiratory auscultation Right lower lung field: a normal exam 01/02/2013 None Full Exam - Pulmonary Respiratory respiratory effort/rhythm Overall: no retractions 01/02/2013 None Full Exam - Pulmonary Respiratory respiratory effort/rhythm Overall: normal rate 01/02/2013 None Full Exam - Pulmonary Cardiovascular auscultation of heart Overall: regular rate 01/02/2013 None Full Exam - Pulmonary Cardiovascular auscultation of heart Overall: normal heart sounds 01/02/2013 None Full Exam - Pulmonary Cardiovascular auscultation of heart Overall: no murmurs 01/02/2013 None Full Exam - Pulmonary Cardiovascular examination of vasculature Overall: no clubbing 01/02/2013 None Full Exam - Pulmonary Cardiovascular examination of vasculature Overall: no varicose veins 01/02/2013 None Full Exam - Pulmonary Cardiovascular examination of vasculature Overall: normal pulses 01/02/2013 None Full Exam - Pulmonary Lymphatic palpation of nodes Overall: anterior cervical chain benign 01/02/2013 None Full Exam - Pulmonary Lymphatic palpation of nodes Overall: posterior cervical chain benign 01/02/2013 None Full Exam - Pulmonary Neurologic gait Overall: no ataxia, no unsteadiness 01/02/2013 None Full Exam - Pulmonary Psychiatric orientation/consciousness Overall: oriented to person, place and time 01/02/2013 None Full Exam - Pulmonary Abdomen abdominal exam Bowel sounds: hyperactive 01/02/2013 None Full Exam - Pulmonary Abdomen abdominal exam Left upper quadrant: non-tender to palpation 01/02/2013 None Full Exam - Pulmonary Abdomen abdominal exam Left lower quadrant: tender to palpation 01/02/2013 None Full Exam - Pulmonary Abdomen abdominal exam Right upper quadrant: tender to palpation 01/02/2013 None Full Exam - Pulmonary Abdomen abdominal exam Right lower quadrant: non-tender to palpation 01/02/2013 None Full Exam - Pulmonary Respiratory auscultation Left upper lung field: a normal exam 05/16/2012 None Full Exam - Pulmonary Respiratory auscultation Right upper lung field: a normal exam 05/16/2012 None Full Exam - Pulmonary Respiratory auscultation Right middle lung field: a normal exam 05/16/2012 None Full Exam - Pulmonary Respiratory auscultation Right lower lung field: a normal exam 05/16/2012 None Full Exam - Pulmonary Respiratory respiratory effort/rhythm Overall: no retractions 05/16/2012 None Full Exam - Pulmonary Respiratory respiratory effort/rhythm Overall: normal rate 05/16/2012 None Full Exam - Pulmonary Cardiovascular auscultation of heart Overall: regular rate 05/16/2012 None Full Exam - Pulmonary Cardiovascular auscultation of heart Overall: normal heart sounds 05/16/2012 None Full Exam - Pulmonary Cardiovascular auscultation of heart Overall: no murmurs 05/16/2012 None Full Exam - Pulmonary Cardiovascular examination of vasculature Overall: no clubbing 05/16/2012 None Full Exam - Pulmonary Cardiovascular examination of vasculature Overall: no varicose veins 05/16/2012 None Full Exam - Pulmonary Cardiovascular examination of vasculature Overall: normal pulses 05/16/2012 None Full Exam - Pulmonary Cardiovascular examination of vasculature Edema: pitting 05/16/2012 1 Full Exam - Pulmonary Cardiovascular examination of vasculature Edema: to leg 05/16/2012 left leg Full Exam - Pulmonary Constitutional general appearance Overall: well nourished 05/16/2012 None Full Exam - Pulmonary Constitutional general appearance Overall: well developed 05/16/2012 None Full Exam - Pulmonary Constitutional general appearance Overall: in no acute distress 05/16/2012 None Full Exam - Pulmonary Eyes conjunctiva/ eyelids Overall: conjunctiva clear 05/16/2012 None Full Exam - Pulmonary Eyes pupils and irises Overall: pupils equal, round, reactive to light and accomodation 05/16/2012 None Full Exam - Pulmonary Ears/Nose/Throat oropharynx Overall: oral mucosa clear 05/16/2012 None Full Exam - Pulmonary Lymphatic palpation of nodes Overall: anterior cervical chain benign 05/16/2012 None Full Exam - Pulmonary Lymphatic palpation of nodes Overall: posterior cervical chain benign 05/16/2012 None Full Exam - Pulmonary Neurologic gait Overall: no ataxia, no unsteadiness 05/16/2012 None Full Exam - Pulmonary Psychiatric orientation/consciousness Overall: oriented to person, place and time 05/16/2012 None Full Exam - Pulmonary Constitutional general appearance Overall: well nourished 04/25/2012 None Full Exam - Pulmonary Constitutional general appearance Overall: well developed 04/25/2012 None Full Exam - Pulmonary Constitutional general appearance Overall: in no acute distress 04/25/2012 None Full Exam - Pulmonary Eyes conjunctiva/ eyelids Overall: conjunctiva clear 04/25/2012 None Full Exam - Pulmonary Eyes pupils and irises Overall: pupils equal, round, reactive to light and accomodation 04/25/2012 None Full Exam - Pulmonary Ears/Nose/Throat oropharynx Overall: oral mucosa clear 04/25/2012 None Full Exam - Pulmonary Respiratory auscultation Left upper lung field: a normal exam 04/25/2012 None Full Exam - Pulmonary Respiratory auscultation Left lower lung field: crackles 04/25/2012 None Full Exam - Pulmonary Respiratory auscultation Right upper lung field: a normal exam 04/25/2012 None Full Exam - Pulmonary Respiratory auscultation Right middle lung field: a normal exam 04/25/2012 None Full Exam - Pulmonary Respiratory auscultation Right lower lung field: a normal exam 04/25/2012 None Full Exam - Pulmonary Respiratory respiratory effort/rhythm Overall: no retractions 04/25/2012 None Full Exam - Pulmonary Respiratory respiratory effort/rhythm Overall: normal rate 04/25/2012 None Full Exam - Pulmonary Cardiovascular auscultation of heart Overall: regular rate 04/25/2012 None Full Exam - Pulmonary Cardiovascular auscultation of heart Overall: normal heart sounds 04/25/2012 None Full Exam - Pulmonary Cardiovascular auscultation of heart Overall: no murmurs 04/25/2012 None Full Exam - Pulmonary Cardiovascular examination of vasculature Overall: no clubbing 04/25/2012 None Full Exam - Pulmonary Cardiovascular examination of vasculature Overall: no varicose veins 04/25/2012 None Full Exam - Pulmonary Cardiovascular examination of vasculature Overall: normal pulses 04/25/2012 None Full Exam - Pulmonary Lymphatic palpation of nodes Overall: anterior cervical chain benign 04/25/2012 None Full Exam - Pulmonary Lymphatic palpation of nodes Overall: posterior cervical chain benign 04/25/2012 None Full Exam - Pulmonary Neurologic gait Overall: no ataxia, no unsteadiness 04/25/2012 None Full Exam - Pulmonary Psychiatric orientation/consciousness Overall: oriented to person, place and time 04/25/2012 None Full Exam - Pulmonary Cardiovascular examination of vasculature Edema: pitting 04/25/2012 1 Full Exam - Pulmonary Cardiovascular examination of vasculature Edema: to leg 04/25/2012 left leg Full Exam - Pulmonary Neurologic gait Overall: no ataxia, no unsteadiness 12/07/2011 None Full Exam - Pulmonary Psychiatric orientation/consciousness Overall: oriented to person, place and time 12/07/2011 None Full Exam - Pulmonary Respiratory respiratory effort/rhythm Overall: no retractions 12/07/2011 None Full Exam - Pulmonary Respiratory respiratory effort/rhythm Overall: normal rate 12/07/2011 None Full Exam - Pulmonary Respiratory auscultation Left upper lung field: a normal exam 12/07/2011 None Full Exam - Pulmonary Respiratory auscultation Left lower lung field: crackles 12/07/2011 None Full Exam - Pulmonary Respiratory auscultation Right upper lung field: a normal exam 12/07/2011 None Full Exam - Pulmonary Respiratory auscultation Right middle lung field: a normal exam 12/07/2011 None Full Exam - Pulmonary Respiratory auscultation Right lower lung field: a normal exam 12/07/2011 None Full Exam - Pulmonary Cardiovascular auscultation of heart Overall: regular rate 12/07/2011 None Full Exam - Pulmonary Cardiovascular auscultation of heart Overall: normal heart sounds 12/07/2011 None Full Exam - Pulmonary Cardiovascular auscultation of heart Overall: no murmurs 12/07/2011 None Full Exam - Pulmonary Cardiovascular examination of vasculature Overall: no clubbing 12/07/2011 None Full Exam - Pulmonary Cardiovascular examination of vasculature Overall: no varicose veins 12/07/2011 None Full Exam - Pulmonary Cardiovascular examination of vasculature Overall: normal pulses 12/07/2011 None Full Exam - Pulmonary Constitutional general appearance Overall: well nourished 12/07/2011 None Full Exam - Pulmonary Constitutional general appearance Overall: well developed 12/07/2011 None Full Exam - Pulmonary Constitutional general appearance Overall: in no acute distress 12/07/2011 None Full Exam - Pulmonary Ears/Nose/Throat oropharynx Overall: oral mucosa clear 12/07/2011 None Full Exam - Pulmonary Eyes conjunctiva/ eyelids Overall: conjunctiva clear 12/07/2011 None Full Exam - Pulmonary Eyes pupils and irises Overall: pupils equal, round, reactive to light and accomodation 12/07/2011 None Full Exam - Pulmonary Lymphatic palpation of nodes Overall: anterior cervical chain benign 12/07/2011 None Full Exam - Pulmonary Lymphatic palpation of nodes Overall: posterior cervical chain benign 12/07/2011 None Full Exam - Pulmonary Constitutional general appearance Overall: well nourished 11/17/2011 None Full Exam - Pulmonary Constitutional general appearance Overall: well developed 11/17/2011 None Full Exam - Pulmonary Constitutional general appearance Overall: in no acute distress 11/17/2011 None Full Exam - Pulmonary Eyes conjunctiva/ eyelids Overall: conjunctiva clear 11/17/2011 None Full Exam - Pulmonary Eyes pupils and irises Overall: pupils equal, round, reactive to light and accomodation 11/17/2011 None Full Exam - Pulmonary Ears/Nose/Throat oropharynx Overall: oral mucosa clear 11/17/2011 None Full Exam - Pulmonary Respiratory respiratory effort/rhythm Overall: no retractions 11/17/2011 None Full Exam - Pulmonary Respiratory respiratory effort/rhythm Overall: normal rate 11/17/2011 None Full Exam - Pulmonary Cardiovascular auscultation of heart Overall: regular rate 11/17/2011 None Full Exam - Pulmonary Cardiovascular auscultation of heart Overall: normal heart sounds 11/17/2011 None Full Exam - Pulmonary Cardiovascular auscultation of heart Overall: no murmurs 11/17/2011 None Full Exam - Pulmonary Cardiovascular examination of vasculature Overall: no clubbing 11/17/2011 None Full Exam - Pulmonary Cardiovascular examination of vasculature Overall: no varicose veins 11/17/2011 None Full Exam - Pulmonary Cardiovascular examination of vasculature Overall: normal pulses 11/17/2011 None Full Exam - Pulmonary Lymphatic palpation of nodes Overall: anterior cervical chain benign 11/17/2011 None Full Exam - Pulmonary Lymphatic palpation of nodes Overall: posterior cervical chain benign 11/17/2011 None Full Exam - Pulmonary Neurologic gait Overall: no ataxia, no unsteadiness 11/17/2011 None Full Exam - Pulmonary Psychiatric orientation/consciousness Overall: oriented to person, place and time 11/17/2011 None Full Exam - Pulmonary Respiratory auscultation Left upper lung field: a normal exam 11/17/2011 None Full Exam - Pulmonary Respiratory auscultation Left lower lung field: crackles 11/17/2011 None Full Exam - Pulmonary Respiratory auscultation Right upper lung field: a normal exam 11/17/2011 None Full Exam - Pulmonary Respiratory auscultation Right middle lung field: a normal exam 11/17/2011 None Full Exam - Pulmonary Respiratory auscultation Right lower lung field: a normal exam 11/17/2011 None Full Exam - Pulmonary Constitutional general appearance Overall: well nourished 08/18/2011 None Full Exam - Pulmonary Constitutional general appearance Overall: well developed 08/18/2011 None Full Exam - Pulmonary Constitutional general appearance Overall: in no acute distress 08/18/2011 None Full Exam - Pulmonary Eyes conjunctiva/ eyelids Overall: conjunctiva clear 08/18/2011 None Full Exam - Pulmonary Eyes pupils and irises Overall: pupils equal, round, reactive to light and accomodation 08/18/2011 None Full Exam - Pulmonary Ears/Nose/Throat oropharynx Overall: oral mucosa clear 08/18/2011 None Full Exam - Pulmonary Respiratory auscultation Overall: breath sounds clear bilaterally 08/18/2011 None Full Exam - Pulmonary Respiratory respiratory effort/rhythm Overall: no retractions 08/18/2011 None Full Exam - Pulmonary Respiratory respiratory effort/rhythm Overall: normal rate 08/18/2011 None Full Exam - Pulmonary Cardiovascular auscultation of heart Overall: regular rate 08/18/2011 None Full Exam - Pulmonary Cardiovascular auscultation of heart Overall: normal heart sounds 08/18/2011 None Full Exam - Pulmonary Cardiovascular auscultation of heart Overall: no murmurs 08/18/2011 None Full Exam - Pulmonary Cardiovascular examination of vasculature Overall: no clubbing 08/18/2011 None Full Exam - Pulmonary Cardiovascular examination of vasculature Overall: no varicose veins 08/18/2011 None Full Exam - Pulmonary Cardiovascular examination of vasculature Overall: normal pulses 08/18/2011 None Full Exam - Pulmonary Lymphatic palpation of nodes Overall: anterior cervical chain benign 08/18/2011 None Full Exam - Pulmonary Lymphatic palpation of nodes Overall: posterior cervical chain benign 08/18/2011 None Full Exam - Pulmonary Psychiatric orientation/consciousness Overall: oriented to person, place and time 08/18/2011 None Full Exam - Pulmonary Neurologic gait Overall: no ataxia, no unsteadiness 08/18/2011 None Procedures Procedure Codes Date DESTRUCT PREMALG LESION CPT-4: 49427Krcfpps ADMIN INFLUENZA VIRUS VAC CPT-4: Q6312Corzevk ADMIN PNEUMOCOCCAL VACCINE SNOMED CT: 40180311 CPT-4: A0855Yuqnqdj 06/15/2016 PNEUMOCOCCAL VACC [address]: 68755697 CPT-4: 55353Mycreht 06/15/2016 FLU VACC PRSV FREE INC ANTIG Formatting Model/CDA Sections, Assigned to/Vianney Bronson CPT-4: 68468Pohtkeo 06/15/2016 THER/PROPH/DIAG INJ SC/IM CPT-4: 01374Olthrtf TRIAMCINOLONE ACET INJ NOS CPT-4: S3957Bvqqnzg TRIAMCINOLONE ACET INJ NOS CPT-4: Q7813Oahhknw IMMUNIZATION ADMIN CPT-4: 16893Cglbhwd 08/2014 FLU VAC NO PRSV 4 DARREL 3 YRS+ Assigned to CPT-4: 07193Xhyshov 08/08/2014 TRIAMCINOLONE ACET INJ NOS CPT-4: H0280Fbyrbuj 03/2014 ROCEPHIN, PER 250 MG CPT-4: Z7315Bycyuhz 03/2014 TRIAMCINOLONE ACET INJ NOS CPT-4: V3032Tzelyuu 03/2014 REMOVAL OF SKIN TAGS <W/15 CPT-4: 30610Qthvywl 11/2012 TRIAMCINOLONE ACET INJ NOS CPT-4: Z9620Ujsxcgk ROCEPHIN, PER 250 MG CPT-4: C2844Nvwdaqt 90587 EST. PATIENT, LEVEL III CPT-4: 96888Lxdalaz TRIAMCINOLONE ACET INJ NOS CPT-4: I0720Marqskg ROCEPHIN, PER 250 MG CPT-4: P8373Mqpgqbw TRIAMCINOLONE ACET INJ NOS CPT-4: S1219Mbggpmx THER/PROPH/DIAG INJ SC/IM CPT-4: 49766Lbreyqk Vital Signs Date Vital 02/25/2017 Blood Pressure 1: 126/78 Code : 8480-6 Heart Rate 1: 81 bpm Height: 5'4" SpO2: 95% Weight: 01/15/2017 Blood Pressure 1: 136/78 Code : 8480-6 Heart Rate 1: 80 bpm Height: 5'4" SpO2: 96% Temperature: 37.0 (C) / 98.6 (F) Weight: 10/29/2016 Blood Pressure 1: 124/70 Code : 8480-6 BMI: 37.8 Code : 86688-0 Heart Rate 1 : 74 bpm Height: 5'4" SpO2: 97% Temperature: 37.1 (C) / 98.7 (F) Weight: 220 lbs 07/20/2016 Blood Pressure 1: 134/80 Code : 8480-6 BMI: 36.9 Code : 92464-5 Heart Rate 1 : 71 bpm Height: 5'4" SpO2: 98% Weight: 215 lbs 06/24/2016 Blood Pressure 1: 134/74 Code : 8480-6 BMI: 37.1 Code : 27653-0 Heart Rate 1 : 85 bpm Height: 5'4" SpO2: 97% Weight: 216 lbs 06/15/2016 Blood Pressure 1: 130/80 Code : 8480-6 BMI: 37.1 Code : 90830-2 Heart Rate 1 : 73 bpm Height: 5'4" SpO2: 97% Weight: 216 lbs 01/15/2016 Blood Pressure 1: 128/80 Code : 8480-6 BMI: 35.7 Code : 07094-0 Heart Rate 1 : 79 bpm Height: 5'4" SpO2: 97% Weight: 208 lbs 12/11/2015 Blood Pressure 1: 134/80 Code : 8480-6 BMI: 34.7 Code : 85185-0 Heart Rate 1 : 65 bpm Height: 5'4" SpO2: 98% Temperature: 36.7 (C) / 98.1 (F) Weight: 202 lbs 08/13/2015 Blood Pressure 1: 120/82 Code : 8480-6 BMI: 34.2 Code : 20935-8 Heart Rate 1 : 74 bpm Height: 5'4" SpO2: 98% Weight: 199 lbs 01/24/2015 Blood Pressure 1: 138/82 Code : 8480-6 BMI: 36.2 Code : 36480-2 Heart Rate 1 : 69 bpm Height: 5'6" SpO2: 94% Temperature: 36.5 (C) / 97.7 (F) Weight: 224 lbs 07/26/2014 Blood Pressure 1: 142/96 Code : 8480-6 BMI: 35.2 Code : 07910-3 Heart Rate 1 : 68 bpm Height: 5'6" Weight: 218 lbs 01/01/2014 Blood Pressure 1: 104/70 Code : 8480-6 BMI: 35.0 Code : 39111-1 Heart Rate 1 : 68 bpm Height: 5'6" Temperature: 36.8 (C) / 98.2 (F) Weight: 217 lbs 12/01/2013 Blood Pressure 1: 112/78 Code : 8480-6 Heart Rate 1: 84 bpm Temperature: 36.7 (C) / 98.0 (F) Weight: 213 lbs 10/31/2013 Blood Pressure 1: 102/70 Code : 8480-6 BMI: 34.9 Code : 80544-1 Heart Rate 1 : 64 bpm Height: 5'6" Weight: 216 lbs 06/29/2013 Blood Pressure 1: 130/84 Code : 8480-6 BMI: 34.5 Code : 34618-9 Heart Rate 1 : 80 bpm Height: 5'6" Weight: 214 lbs 02/08/2013 Blood Pressure 1: 122/80 Code : 8480-6 BMI: 32.9 Code : 59277-0 Heart Rate 1 : 72 bpm Height: 5'6" Temperature: 37.4 (C) / 99.3 (F) Weight: 204 lbs 01/02/2013 Blood Pressure 1: 118/88 Code : 8480-6 BMI: 34.7 Code : 27441-8 Heart Rate 1 : 88 bpm Height: 5'6" Weight: 215 lbs 05/16/2012 Blood Pressure 1: 132/88 Code : 8480-6 Heart Rate 1: 71 bpm Weight: 216 lbs 8 oz 04/25/2012 Blood Pressure 1: 116/72 Code : 8480-6 Heart Rate 1: 72 bpm Respiratory Rate : 16 bpm Weight: 216 lbs 12/07/2011 Blood Pressure 1: 120/82 Code : 8480-6 Heart Rate 1: 72 bpm Respiratory Rate : 16 bpm Weight: 11/17/2011 Blood Pressure 1: 98/60 Code : 8480-6 Heart Rate 1: 80 bpm SpO2: 98% Temperature: 36.4 (C) / 97.6 (F) Weight: 218 lbs 08/18/2011 Blood Pressure 1: 112/76 Code : 8480-6 BMI: 35.3 Code : 66522-6 Heart Rate 1 : 68 bpm Height: 5'6" Respiratory Rate: 16 bpm Temperature: 36.5 ( C) / 97.7 (F) Weight: 219 lbs Functional Status No Functional Status data History of Present Illness Symptom Name Status Result Effective Date Notes Hospital Follow Up _ pain 02/25/2017 laceration right anterior leg, hematoma left lower anterior leg Hospital Follow Up Quality acute illness 02/25/2017 None Hospital Follow Up Location bilateral lower legs 02/25/2017 None Hospital Follow Up Onset of Symptom 3 days ago 02/25/201701/12 Hospital Follow Up Onset and Resolution sudden in onset 02/25/2017 None Hospital Follow Up Severity moderate 02/25/2017 None Hospital Follow Up Significant Medical Conditions trauma 02/25/2017 None Hospital Follow Up Pertinent Findings pain 02/25/2017 None Hospital Follow Up Pertinent Findings Denies fever 02/25/2017 None office procedure Procedure to be performed cryosurgery 02/25/2017 None office procedure Procedure to be performed other:skin tag removal 02/25/2017 None office procedure Reason for Procedure patient preference 02/25/2017 None Hospital Follow Up _ pain 01/15/2017 laceration right anterior leg, hematoma left lower anterior leg Hospital Follow Up Quality acute illness 01/15/2017 None Hospital Follow Up Location bilateral lower legs 01/15/2017 None Hospital Follow Up Onset of Symptom 3 days ago 01/15/201718 Hospital Follow Up Onset and Resolution sudden in onset 01/15/2017 None Hospital Follow Up Severity moderate 01/15/2017 None Hospital Follow Up Significant Medical Conditions trauma 01/15/2017 None Hospital Follow Up Mechanism of injury direct trauma 01/15/2017 None Hospital Follow Up Pertinent Findings pain 01/15/2017 None Hospital Follow Up Pertinent Findings Denies fever 01/15/2017 None sinus congestion Quality constant 10/29/2016 None sinus congestion Onset and Resolution ongoing 10/29/2016 None cough Location in the throat 10/29/2016 None cough Location in the lung 10/29/2016 None cough Quality constant 10/29/2016 None cough Quality dry 10/2016 None cough Onset and Resolution ongoing 10/29/2016 None cough Onset of Symptom 4 weeks ago 10/29/2016 None hypertension Onset and Resolution ongoing 07/20/2016 None hypertension Onset of Symptom during adulthood 07/20/2016 None hypertension Blood Pressure Values not checking blood pressure at home 07/20/2016 None hypertension Alleviating Factors medication 07/20/2016 None hypertension Pertinent Findings Denies dizziness 07/20/2016 None hypertension Pertinent Findings Denies dyspnea 07/20/2016 None hypertension Pertinent Findings edema 07/20/2016 None edema Onset and Resolution ongoing 07/20/2016 None edema Location on the left leg 07/20/2016 None edema Location on the right leg 07/20/2016 None actinic keratosis Location on the right leg 07/20/2016 None actinic keratosis Onset and Resolution ongoing 07/20/2016 None skin lesion Quality enlarging 06/24/2016 None skin lesion Quality flat 06/24/2016 None skin lesion Location right Hip 06/24/2016 None skin lesion Pertinent Findings Denies fever 06/24/2016 None edema Onset and Resolution ongoing 06/15/2016 None edema Limitation on Activities does not limit activities 06/15/2016 None edema Frequency of Episodes daily 06/15/2016 None edema Pertinent Findings Denies dyspnea 06/15/2016 None edema Pertinent Findings Denies limb pain / tenderness 06/15/2016 None edema Pertinent Findings Denies limb redness 06/15/2016 None arthropod bite Location on the right arm 01/15/2016 None arthropod bite Quality constant 01/15/2016 None arthropod bite Onset and Resolution ongoing 01/15/2016 None arthropod bite Onset of Symptom 2 days ago 01/15/2016 None arthropod bite Frequency of Episodes daily 01/15/2016 None cough Quality acute None cough Quality intermittent 12/11/2015 None cough Onset and Resolution sudden in onset 12/11/2015 None cough Onset of Symptom 10 days ago 12/11/2015 None cough Pertinent Findings fever 12/11/2015 a week ago today, but not since then cough Pertinent Findings Denies chills 12/11/2015 None cough Pertinent Findings Denies chest discomfort 12/11/2015 Heaviness tinnitus Location in both ears 08/13/2015 None tinnitus Quality acute 08/13/2015 None tinnitus Quality ringing 08/13/2015 None tinnitus Onset and Resolution gradual in onset 08/13/2015 None tinnitus Onset of Symptom months ago 08/13/2015 None tinnitus Limitation on Activities does not limit activities 08/13/2015 None tinnitus Triggers no known associated factors 08/13/2015 None tinnitus Pertinent Findings Denies fever 08/13/2015 None tinnitus Pertinent Findings Denies cough 08/13/2015 None cough Onset of Symptom _ weeks ago 01/24/2015 None cough Frequency of Episodes increasing 01/24/2015 None cough Pertinent Findings Denies fever 01/24/2015 None cough Pertinent Findings chest discomfort 01/24/2015 yesterday chest heaviness, but denies today cough Pertinent Findings facial pain 01/24/2015 pressure behind eyes cough Pertinent Findings nasal congestion 01/24/2015 None cough Pertinent Findings sputum production 01/24/2015 in the mornings cough Pertinent Findings post nasal drip 01/24/2015 None sinus congestion Quality pressure 01/24/2015 None sinus congestion Onset of Symptom _ weeks ago 01/24/2015 None sinus congestion Pertinent Findings facial pain 01/24/2015 pressure behind eyes sinus congestion Pertinent Findings cough 01/24/2015 None sinus congestion Pertinent Findings Denies fever 01/24/2015 None sinus congestion Pertinent Findings decreased energy level 01/24/2015 None skin lesion Quality raised 07/26/2014 mole on left upper chest. One on right nipple hypertension Quality chronic 07/26/2014 None hypertension Onset and Resolution ongoing 07/26/2014 None hypertension Onset of Symptom during adulthood 07/26/2014 None hypertension Blood Pressure Values not checking blood pressure at home 07/26/2014 None hypertension Frequency of Episodes unchanged 07/26/2014 None hypertension Alleviating Factors medication 07/26/2014 None hypertension Exacerbating Factors change in dietary habits 07/26/2014 None hypertension Exacerbating Factors stress 07/26/2014 None hypertension Pertinent Findings Denies dizziness 07/26/2014 None hypertension Pertinent Findings Denies dyspnea 07/26/2014 None hypertension Pertinent Findings edema 07/26/2014 left ankle says it is better when she takes her medicine it goes away. Also says that leg bothers her at night gets achy but she puts it on a pillow and it gets better. Denies pain during day skin lesion Quality enlarging 07/26/2014 irritating lesion on left chest wall cough Onset of Symptom 4 days ago 01/01/2014 was given a zpak cough Location in the lung 01/01/2014 None cough Quality acute None cough Quality worsening 01/01/2014 None cough Pertinent Findings Denies fever 01/01/2014 None cough Pertinent Findings Denies apnea 01/01/2014 None cough Pertinent Findings chest discomfort 01/01/2014 describes it as a heaviness cough Pertinent Findings hoarseness 01/01/2014 states also some head pressure and thinks part of it might be allergies cough Onset and Resolution ongoing 01/01/2014 None cough Limitation on Activities does not limit activities 01/01/2014 None cough Frequency of Episodes increasing 01/01/2014 None cough Triggers known allergens 01/01/2014 None cough Alleviating Factors OTC medications 01/01/2014 None cough Pertinent Findings Denies dyspnea 01/01/2014 None cough Pertinent Findings facial pain 01/01/2014 None cough Pertinent Findings nasal polyposis 01/01/2014 None cough Pertinent Findings Denies tachypnea 01/01/2014 None cough Pertinent Findings Denies vomiting 01/01/2014 None cough Pertinent Findings Denies sputum production 01/01/2014 None earache Location both ears 12/01/2013 None earache Onset of Symptom 1 weeks ago 12/01/2013 None sore throat Quality dull 12/01/2013 None sore throat Location on both sides 12/01/2013 None sore throat Pertinent Findings Denies cough 12/01/2013 None sore throat Pertinent Findings Denies decreased energy level 12/01/2013 None sore throat Onset of Symptom 1 weeks ago 12/01/2013 None sore throat Limitation on Activities does not limit oral intake 12/01/2013 None sore throat Frequency of Episodes unchanged 12/01/2013 None sore throat Significant Medical Conditions allergic rhinitis 12/01/2013 None sore throat Triggers no known associated factors 12/01/2013 None earache Severity mild 12/01/2013 None earache Triggers no known triggers 12/01/2013 None sore throat Pertinent Findings Denies ill contacts 12/01/2013 None sore throat Pertinent Findings Denies fever 12/01/2013 None sore throat Pertinent Findings Denies nasal congestion 12/01/2013 None sore throat Pertinent Findings Denies vomiting 12/01/2013 None hypertension Quality chronic 10/31/2013 None hypertension Blood Pressure Values not checking blood pressure at home 10/31/2013 None hypertension Pertinent Findings edema 10/31/2013 None hypertension Pertinent Findings Denies dyspnea 10/31/2013 None hypertension Pertinent Findings Denies dizziness 10/31/2013 None hypertension Onset and Resolution ongoing 10/31/2013 None hypertension Onset of Symptom during adulthood 10/31/2013 None hypertension Alleviating Factors medication 10/31/2013 None hypertension Exacerbating Factors stress 10/31/2013 None hypertension Exacerbating Factors change in dietary habits 10/31/2013 None hypertension Frequency of Episodes unchanged 10/31/2013 None skin lesion Quality chronic 06/29/2013 None skin lesion Quality raised 06/29/2013 None skin lesion Quality red 06/29/2013 None skin lesion Location in the lower neck area 06/29/2013 right-irritated skin tag. skin lesion Onset and Resolution ongoing 06/29/2013 None changing lesion Location-Major on the neck 06/29/2013 None changing lesion Location-Head/Neck on the anterior neck 06/29/2013 None changing lesion Color brown 06/29/2013 None changing lesion Quality worsening 06/29/2013 None changing lesion Quality dry 06/29/2013 None changing lesion Onset and Resolution ongoing 06/29/2013 None changing lesion Length of Episodes unknown 06/29/2013 None changing lesion Limitation on Activities does not limit activities 06/29/2013 None changing lesion Severity mild 06/29/2013 None cough Quality productive 02/08/2013 None cough Quality acute complains of dry mouth. cough Location in the lung 02/08/2013 None cough Onset and Resolution sudden in onset 02/08/2013 None cough Onset of Symptom 4 days ago 02/08/2013 None cough Pertinent Findings chest discomfort 02/08/2013 None cough Pertinent Findings Denies chills 02/08/2013 None cough Pertinent Findings Denies dyspnea 02/08/2013 None cough Pertinent Findings hoarseness 02/08/2013 None cough Pertinent Findings Denies muscle aches 02/08/2013 None cough Pertinent Findings Denies lethargy 02/08/2013 None cough Pertinent Findings Denies nasal congestion 02/08/2013 None cough Pertinent Findings sputum production 02/08/2013 patient states she coughs green phlegm every morning cough Alleviating Factors OTC medications 02/08/2013 cough syrup with codeine-helped diarrhea Quality acute 02/08/2013 --Improved diarrhea Quality intermittent 02/08/2013 has had diarrhea after every meal since last wednesday. has taken imodium and tums with no relief --Improved diarrhea Pertinent Findings Denies abdominal distension 02/08/2013 -- Improved diarrhea Quality acute 01/02/2013 None diarrhea Quality intermittent 01/02/2013 has had diarrhea after every meal since last wednesday. has taken imodium and tums with no relief diarrhea Onset and Resolution ongoing 01/02/2013 None diarrhea Onset of Symptom 1 weeks ago 01/02/2013 None diarrhea Pertinent Findings Denies abdominal distension 01/02/2013 None diarrhea Pertinent Findings Denies cramping 01/02/2013 None diarrhea Pertinent Findings Denies dysphagia 01/02/2013 None diarrhea Pertinent Findings Denies dyspepsia 01/02/2013 None diarrhea Pertinent Findings Denies edema 01/02/2013 None diarrhea Pertinent Findings Denies flatulence 01/02/2013 None diarrhea Pertinent Findings Denies heartburn 01/02/2013 None diarrhea Pertinent Findings Denies nausea 01/02/2013 None diarrhea Pertinent Findings Denies bloating 01/02/2013 None diarrhea Pertinent Findings Denies lightheadedness 01/02/2013 None diarrhea Ill Contacts sick individuals 01/02/2013 urbano was sick the same day she became ill diarrhea Triggers no known associated factors 01/02/2013 None edema Onset and Resolution ongoing 05/16/2012 None edema Onset of Symptom 1 months ago 05/16/2012 None edema Limitation on Activities does not limit activities 05/16/2012 None edema Significant Medications diuretics 05/16/2012 None edema Triggers no known associated factors 05/16/2012 None edema Pertinent Findings Denies tachycardia 05/16/2012 None edema Pertinent Findings Denies weight loss 05/16/2012 None edema Pertinent Findings Denies tachypnea 05/16/2012 None edema Pertinent Findings Denies limb pain / tenderness 05/16/2012 None edema Pertinent Findings Denies dyspnea 05/16/2012 None edema Pertinent Findings Denies dyspnea on exertion 04/25/2012 None edema Pertinent Findings Denies limb redness 04/25/2012 None edema Pertinent Findings Denies palpitations 04/25/2012 None edema Pertinent Findings Denies tachypnea 04/25/2012 None edema Quality acute None edema Onset and Resolution sudden in onset 04/25/2012 None edema Onset of Symptom 2 weeks ago 04/25/2012 None edema Location on both ankles 04/25/2012 None edema Quality painless 04/25/2012 None edema Quality pitting 04/25/2012 None edema Limitation on Activities does not limit activities 04/25/2012 None edema Triggers no known associated factors 04/25/2012 None edema Alleviating Factors rest 04/25/2012 None edema Alleviating Factors recumbency 04/25/2012 None edema Exacerbating Factors standing 04/25/2012 None edema Exacerbating Factors salty foods 04/25/2012 None edema Pertinent Findings Denies back pain 04/25/2012 None edema Pertinent Findings Denies dyspnea 04/25/2012 None edema Pertinent Findings Denies lightheadedness 04/25/2012 None blood pressure followup Pertinent Findings dizziness 12/07/2011 None cough Location in the lung 12/07/2011 None cough Quality hacking 12/07/2011 None cough Onset and Resolution ongoing 12/07/2011 None cough Limitation on Activities moderately limits activities 12/07/2011 None blood pressure followup Quality chronic 12/07/2011 None blood pressure followup Onset and Resolution ongoing 12/07/2011 None blood pressure followup Blood Pressure Values not checking blood pressure at home 12/07/2011 None blood pressure followup Triggers stress 12/07/2011 None blood pressure followup Alleviating Factors medication 12/07/2011 None blood pressure followup Pertinent Findings Denies anxiety 12/07/2011 None blood pressure followup Pertinent Findings Denies confusion 12/07/2011 None cough Location in the lung 11/17/2011 None cough Quality hacking 11/17/2011 None cough Onset and Resolution ongoing 11/17/2011 None cough Onset of Symptom 2 weeks ago 11/17/2011 None cough Limitation on Activities moderately limits activities 11/17/2011 None cough Quality hacking 08/18/2011 None cough Onset and Resolution sudden in onset 08/18/2011 None cough Onset of Symptom 5 days ago 08/18/2011 None cough Frequency of Episodes increasing 08/18/2011 None cough Triggers no known associated factors 08/18/2011 None cough Location in the lung 08/18/2011 None Advance Directives No Advance Directive data Encounters Encounter Performer Location Codes Date ) 35075 EST. PATIENT, LEVEL II Diagnosis: Contusion of left lower leg, subsequent encounter[ICD10: S80.12XD] Joceline Lopez MD, [facility] CPT-4: 14548 02/25/2017 ([id number]) 39174 EST. PATIENT, LEVEL III Diagnosis: Cellulitis of right lower limb[ICD10: L03.115] Diagnosis: Contusion of left lower leg, initial encounter[ICD10: S80.12XA] Diagnosis: Laceration without foreign body, right lower leg, initial encounter[ ICD10: S81.811A] Joceline Lopez MD, [facility] CPT-4: 01827 01/15/2017 ([id number]) 12691 EST. PATIENT, LEVEL III Diagnosis: Acute recurrent maxillary sinusitis[ICD10: J01.01] Diagnosis: Cough[ICD10: R05] Ann-Marie Lopez MD, [facility] CPT-4: 08018 10/29/2016 ([id number]) 95519 EST. PATIENT, LEVEL IV Diagnosis: Essential (primary) hypertension[ICD10: I10] Diagnosis: Varicose veins of left lower extremity with inflammation[ICD10: I83.12] Diagnosis: Localized edema[ICD10: R60.0] Ann-Marie Lopez MD, [facility] CPT- 4: 98028 07/20/2016 55640 EST. PATIENT, LEVEL III Diagnosis: Actinic keratosis[ICD10: L57.0] Xochilt Lopez MD, [facility] CPT-4 : 20074 06/24/2016 ([id number]) 01984 EST. PATIENT, LEVEL III Diagnosis: Asymptomatic varicose veins of bilateral lower extremities[ICD10: I83.93] Joceline Lopez MD, [facility] CPT-4: 26349 78292 EST. PATIENT, LEVEL III Diagnosis: Rash and other nonspecific skin eruption[ICD10: R21] Xochilt Lopez MD, [facility] CPT-4: 84261 01/15/2016 ([id number]) 63408 EST. PATIENT, LEVEL III Diagnosis: Cough[ICD10: R05] Diagnosis: Dyspnea, unspecified[ICD10: R06.00] Diagnosis: Acute sinusitis, unspecified[ICD10: J01.90] Ann-Marie Lopez MD, [facility] CPT-4: 53055 12/11/2015 37673 EST. PATIENT, LEVEL III Diagnosis: Allergic rhinitis, unspecified[ICD10: J30.9] Diagnosis: Tinnitus, bilateral[ICD10: H93.13] Xochilt Lopez MD, [facility] CPT-4: 73225 08/13/2015 ([id number]) 68252 EST. PATIENT, LEVEL III Diagnosis: ALLERGIC RHINITIS[ICD9: 477.9] Joceline Lopez MD, [facility] CPT-4: 90464 01/24/2015 ([id number]) PER PM REEVAL EST PAT 65+ YR Diagnosis: Routine medical exam[ICD9: V70.0] Ann-Marie Lopez MD, [facility] CPT-4: 84178 07/26/2014 ([id number]) 36421 EST. PATIENT, LEVEL III Diagnosis: ACUTE SINUSITIS[ICD9: 461.9] Diagnosis: ACUTE BRONCHITIS[ICD9: 466.0] Diagnosis: COUGH[ICD9: 786.2] Joceline Lopez MD, [facility] CPT-4: 07726 01/01/2014 ([id number]) 17935 EST. PATIENT, LEVEL III Diagnosis: ALLERGIC RHINITIS[ICD9: 477.9] Joceline Lopez MD, [facility] CPT-4: 73940 12/01/2013 ([id number]) 67502 EST. PATIENT, LEVEL IV Diagnosis: ESSENTIAL HYPERTENSION[SNOMED: 89161921] Diagnosis: Urinary urgency[ICD9: 788.63] Ann-Marie Lopez MD, [facility] CPT- 4: 46043 10/31/2013 ([id number]) 28661 EST. PATIENT, LEVEL III Diagnosis: Cough[ICD9: 786.2] Diagnosis: Diarrhea[ICD9: 787.91] Ann-Marie Lopez MD, [facility] CPT-4: 77843 02/08/2013 ([id number]) 77137 EST. PATIENT, LEVEL III Diagnosis: Diarrhea[ICD9: 787.91] Diagnosis: Abdominal discomfort[ICD9: 789.00] Diagnosis: Fecal urgency[ICD9: 787.63] Ann-Marie Lopez MD, [facility] CPT- 4: 60937 01/02/2013 ([id number]) 44413 EST. PATIENT, LEVEL III Diagnosis: EDEMA[ICD9: 782.3] [facility] CPT-4: 51172 04/25/2012 ([id number]) 32756 EST. PATIENT, LEVEL III Diagnosis: ESSENTIAL HYPERTENSION[SNOMED: 15744819] Diagnosis: BACTERIAL PNEUMONIA[ICD9: 482.9] [facility] CPT-4: 57557 12/07/2011 ([id number]) 30792 EST. PATIENT, LEVEL IV Diagnosis: COUGH[ICD9: 786.2] Diagnosis: FEVER NOS[ICD9: 780.60] [facility] CPT-4: 85553 11/17/2011 67330 EST. PATIENT, LEVEL IV Diagnosis: Acute bronchitis[ICD9: 466.0] Diagnosis: Cough[ICD9: 786.2] Diagnosis: Dyspnea[ICD9: 786.09] Joceline Lopez MD, [facility] CPT-4: 93698 08/18/2011 Plan of Care Planned Activity Notes Codes Status Date Visit Plan: Contusion/hematoma-left lower [id number]-cckibxcw to monitor Laceration-right jtv-zjrfvnd-sjs neosporin as directed Skin tag-right neck-fell off in the office before having it removed-no treatment today in the office- monitor area 02/25/2017 Appointment: Joceline Mario WPtel: [address] [place], [place] [phone] (30 min) [facility] 02/25/2017 Patient Education: Patient Medication Summary Completed 02/25/2017 Appointment: Nurse Visit 01/25/2017 Visit Plan: Cellulitis - right lower leg-RX for abx and instructed on use- return to clinic as previously directed, call for acute change in symptoms, worsening redness, warmth, discharge.Laceration-right lower leg-return in 10 days for suture removal Contusion-left lower qhj-xamcvgsuu-ibfjjnnx current treatment 01/15/2017 App[facility]ment: [facility] [phone] [phone] (30 min) Complex 01/15/2017 Patient Education: Patient Medication Summary Completed 01/15/2017 Visit Plan: Sinus congestion - RX for zyrtec D - call if not improving, if fever develops may need to consider antibiotic 10/29/2016 Patient Education: Patient Medication Summary Completed 10/29/2016 Patient Education: Obesity Completed 10/29/2016 Referral: Cornelius Beth Patient informed. Referral info faxed. Completed Visit Plan: Hypertension - well controlled - continue with current medications , continue with no added salt diet. Pt has been encouraged to exercise daily.The pt has been advised to call the office if there are any acute concerns about change in blood pressure readings at home.Edema - pt has been advised to elevate legs to prevent dependent edema, compression has been recommended to help to naturally decrease peripheral edema. Diuretic use has been discussed and pt has been instructed in appropriate use of such medication as necessary to further attempt to reduce peripheral edema. 07/20/2016 Patient Education: Patient Medication Summary Completed 07/20/2016 Care Plan: Referral Order SNOMED-CT : [id number] Pending 07/20/2016 Visit Plan: Irritated AK to right lateral thigh - Patient agrees to cryotherapy of the lesion. Liquid nitrogen was utilized to freeze the offending lesion x 3. Patient tolerated procedure with minimal discomfort. - Pt was instructed to keep the area clean, wash with antibacterial soap, use triple antibiotic ointment, call if redness, pustular drainage, or any other acute concerns. 06/24/2016 Appointment: [facility] [phone] [phone] (15 min) Moderate 06/24/2016 Patient Education: Patient Medication Summary Completed 06/24/2016 Patient Education: Obesity Completed 06/24/2016 Visit Plan: Varicose veins-recommend compression stockings-on in the am and off at HS-discussed the need for weight loss as well-instructed patient to call if symptoms persist, worsen, or new symptoms develop. Patient verbalized understanding of plan. 06/15/2016 Appointment: Fabiano Joceline WPtel: [phone] [phone] (15 min) Moderate 06/15/2016 Patient Education: Patient Medication Summary Completed 06/15/2016 Patient Education: Obesity Completed 06/15/2016 [facility]ointment: [facility] [phone] [phone] ([facility] min) Moderate 06/08/2016 Visit Plan: Rash/Cellulitis - continue with oral antibiotics as previously directed, return to clinic as previously directed, call for acute change in symptoms, worsening redness, warmth, discharge. 01/15/2016 Patient Education: Patient Medication Summary Completed 01/15/2016 Visit Plan: Sinusitis - Pt has acute infection - pain in face, maxillary region , Pt informed to use decongestant, RX given to patient, sinus rinses also recommended. Call if symptoms do not show improvement. 12/11/2015 Patient Education: Patient Medication Summary Completed 12/11/2015 Patient Education: Obesity Completed 12/11/2015 Visit Plan: Allergies - chronic - recommended pt to use allergy medication as prescribed. Pt has been counseled as to the appropriate use of the medication. Pt to call if allergy symptoms are not controlled with the medication.If using nasal spray, instructions as follows: Nasal spray- use twice daily, one spray per nostril twice daily, after 30 minutes, rinse out nose with saline spray.. Use opposite hand per nostril to spray in the nasal steroid allergy sprayTinnitus - Pt states that she has had ringing in both ears for a few months now. Denies headache, dizziness, syncope, nausea, vomitting, and ear pain. Will give steroid shot today. Pt currently taking an antihistamine over the counter. Will encourage patient to use nasal spray. Pt is to notify clinic if symptoms worsen or do not improve. 08/13/2015 Appointment: (15 min) Moderate 08/13/2015 Patient Education: Patient Medication Summary Completed 08/13/2015 Visit Plan: Allergies - chronic - recommended pt to use allergy medication as prescribed. Pt has been counseled as to the appropriate use of the medication. Pt to call if allergy symptoms are not controlled with the medication.If using nasal spray, instructions as follows: Nasal spray- use twice daily, one spray per nostril twice daily, after 30 minutes, rinse out nose with saline spray.. Use opposite hand per nostril to spray in the nasal steroid allergy spray.Kenalog injection today in the office. 01/24/2015 Patient Education: Patient Medication Summary Completed 01/24/2015 Appointment: Ann-Marie Lopez WPtel: [phone] [id number] [place] Injection 08/08/2014 Patient Education: Patient Medication Summary Completed 08/08/2014 Visit Plan: Well Adult - pt was counseled about diet, exercise, and encouraged to follow a heart healthy diet and increase activity level. The patient was instructed to RTC yearly for well adult exams and PRN for acute illnesses. The pt was also instructed to have yearly labs for check of cholesterol, thyroid, chem panel, CBC, and renal functioning.Hypertension - well controlled - continue with current medications, continue with no added salt diet. Pt has been encouraged to exercise daily.The pt has been advised to call the office if there are any acute concerns about change in blood pressure readings at home. 07/26/2014 Appointment: Ann-Marie Lopez WPtel: [phone] [id number] Follow up 07/26/2014 Patient Education: Patient Medication Summary Completed 07/26/2014 Visit Plan: Sinusitis - Pt has acute infection - pain in face, maxillary region , Pt informed to use decongestant, RX given to patient, sinus rinses also recommended. Call if symptoms do not show improvement. Bronchitis - acute case of bronchitis identified. Pt has been given antibiotics, breathing treatments as appropriate, and pt has been instructed to call if symptoms are not improved , or if symptoms acutely worsen. 01/01/2014 Patient Education: Patient Medication Summary Completed 01/01/2014 Visit Plan: Allergies - chronic - recommended pt to use allergy medication as prescribed. Pt has been counseled as the the appropriate use of the medication. Pt to call if allergy symptoms are not controlled with the medication.Kenalog injection today in the office-zpack if symptoms do not resolve. Recommend patient start a daily anti histamine. 12/01/2013 Appointment: Joceline Mario WPtel: [address] [place], [place] [id number] Sick 12/01/2013 Patient Education: Patient Medication Summary Completed 12/01/2013 Visit Plan: Hypertension - well controlled - continue with current medications , continue with no added salt diet. Pt has been encouraged to exercise daily.The pt has been advised to call the office if there are any acute concerns about change in blood pressure readings at home. Urge incontinence -Pt has urge incontinence - the patient has been counseled about potential triggers for increase in sensation of the urgency - the pt has been counseled to avoid caffinated products, spicy products, and to urinate every 2-3 hours to prevent the incontinence associated with the urgency. Pt is to continue with current treatment plan and call if symptoms worsen. 10/31/2013 Appointment: Ann-Marie Lopez WPtel: [address] [place] [address] Other 10/31/2013 Patient Education: Patient Medication Summary Completed 10/31/2013 Patient Education: Hypertension Completed 10/31/2013 Appointment: Ann-Marie Lopez WPtel: [address] [place] [address] Surgical Procedure 07/04/2013 Visit Plan: Wound Instructions - Pt was instruced to keep the wound clean, wash with antibacterial soap, use triple antibiotic ointment, call if redness, pustular drainage, or any other acute conerns. 06/29/2013 Appointment: Joceline Mario WPtel: [address] [place], [place] [id number] [place] [address] Surgical Procedure 06/29/2013 Patient Education: Patient Medication Summary Completed 06/29/2013 Visit Plan: Diarrhea - discussed need to avoid milk based products - probiotic , increase fiber in diet, and call if symptoms worsen or do not improve.Bronchitis - acute case of bronchitis identified. Pt has been given antibiotics, breathing treatments as appropriate, and pt has been instructed to call if symptoms are not improved, or if symptoms acutely worsen.Cough - called out RX for phenergan with codeine. 02/08/2013 Appointment: Ann-Marie Lopez WPtel: [address] [place] [address] Sick 02/08/2013 Patient Education: Patient Medication Summary Completed 02/08/2013 Visit Plan: Diarrhea - recommended bland diet, no milk or fatty foods, recommended a gallbladder ultrasound and for pt to have stool studies and start on a probiotic. 01/02/2013 Appointment: Ann-Marie Lopez WPtel: [address] [place], [place] [id number] Sick 01/02/2013 Patient Education: Patient Medication Summary Completed 01/02/2013 Appointment: Ann-Marie Lopez WPtel: [address] [place] [address] Follow up 06/20/2012 Visit Plan: Edema - uncontrolled swelling. I have informed the patient of ways to naturally decrease the swelling in their lower legs - cut back on salt to 2 - 3 grams/day, the lower the sodium content of food, the healthier and less potential for swelling, however don't completely cut all sodium from diet. Pt was also counseled to elevate lower legs and/or use compression socks from toes to thigh. Use lasix as directed-refilled today-take potassium when taking lasix. Check labs-order provided 05/16/2012 Appointment: Ann-Marie Lopez WPtel: [address] [place] [address] Other 05/16/2012 Patient Education: Patient Medication Summary Completed 05/16/2012 Visit Plan: Edema - pt has been advised to elevate legs to prevent dependent edema, compression has been recommended to help to naturally decrease peripheral edema. Diuretic use has been discussed and pt has been instructed in appropriate use of such medication as necessary to further attempt to reduce peripheral edema. 04/25/2012 Appointment: Ann-Marie Lopez WPtel: [address] [place], [place] [id number] Other 04/25/2012 Patient Education: Patient Medication Summary Completed 04/25/2012 Appointment: Ann-Marie Lopez WPtel: [address] [place], [place] [id number] Other 12/08/2011 Visit Plan: Hypertension - well controlled - continue with current medications , continue with no added salt diet. Pt has been encouraged to exercise daily.The pt has been advised to call the office if there are any acute concerns about change in blood pressure readings at home.Pneumonia - Pt has been diagnosed with pneumonia by physical exam.Antibiotics have been re-ordered as the pt is not quite over the illness.. The pt is aware of the diagnosis and the need for acute treatment of this illness. 12/07/2011 Appointment: [place] WPtel: [phone] [id number] Other 12/07/2011 Patient Education: Patient Medication Summary Completed 12/07/2011 Patient Education: High Blood Pressure: Essential Hypertension Completed 2011 Visit Plan: Pneumonia - Pt has been diagnosed with pneumonia by physical exam. A chest xray has been ordered as have antibiotics. The pt is aware of the diagnosis and the need for acute treatment of this illness.cough and fever - check labs - chem and cbcxray did show + left lower lobe pneumonia 11/17/2011 Patient Education: Patient Medication Summary Completed 11/17/2011 Visit Plan: Acute bronchitis - Pt advised to increase fluids, vitamin C. Discussed natural and expected course of this diagnosis and need to alert me if symtpoms do not follow expected course, or if any worse. RX sent to patient's pharmacy.Cough - pt to use OTC medication for the cough - call if not improving.Pt to use samples of inhaled steroid - dulera to help to decrease airway inflammation and also to improve airway relaxation.She is to call if the symptoms are NOT improved or if they WORSEN. Doctor's eval of the patient - I personally evaluated the patient with the nurse practicioner. I have reviewed the patient's chart, I have reviewed the patient's past medical history, problem list, medication list, and personal history. I agree with the documentation by the nurse practicioner in the HPI, physical exam, and the assessment and plan. 08/18/2011 Visit Plan: Acute bronchitis - Pt advised to increase fluids, vitamin C. Discussed natural and expected course of this diagnosis and need to alert me if symtpoms do not follow expected course, or if any worse. RX sent to patient's pharmacy. 08/18/2011 Appointment: Ann-Marie Lopez WPtel: [phone] [id number] Other 08/18/2011 Patient Education: Patient Medication Summary Completed 08/18/2011 Referral: Cornelius Beth Referral Appointment Requested Instructions Comment . Acute bronchitis - Pt advised to increase fluids, vitamin C. Discussed natural and expected course of this diagnosis and need to alert me if symtpoms do not follow expected course, or if any worse. RX sent to patient's pharmacy. Cough - pt to use OTC medication for the cough - call if not improving. Pt to use samples of inhaled steroid - dulera to help to decrease airway inflammation and also to improve airway relaxation. She is to call if the symptoms are NOT improved or if they WORSEN. Doctor's eval of the patient - I personally evaluated the patient with the nurse practicioner. I have reviewed the patient's chart, I have reviewed the patient's past medical history, problem list, medication list, and personal history. I agree with the documentation by the nurse practicioner in the HPI, physical exam, and the assessment and plan. I sent a prescription for Zithromax (the antibiotic) to [facility]. Take 1 pill x 3 day then 1/2 daily x 6 days. I also sent a prescription for a prednisone taper. Start it tomorrow and take as directed. Dulera 100mcg/5mcg inhaler-take 2 puffs twice daily for a week. Wash your mouth out afterwards. Return next week for your pneumonia vaccine as long as no fever. Call for increased shortness of breath, fever, or other concerns. . Acute bronchitis - Pt advised to increase fluids, vitamin C. Discussed natural and expected course of this diagnosis and need to alert me if symtpoms do not follow expected course, or if any worse. RX sent to patient's pharmacy. . Pneumonia - Pt has been diagnosed with pneumonia by physical exam. A chest xray has been ordered as have antibiotics. The pt is aware of the diagnosis and the need for acute treatment of this illness. cough and fever - check labs - chem and cbc xray did show + left lower lobe pneumonia . Rash/Cellulitis - continue with oral antibiotics as previously directed, return to clinic as previously directed, call for acute change in symptoms, worsening redness, warmth, discharge. . Varicose veins-recommend compression stockings-on in the am and off at HS-discussed the need for weight loss as well-instructed patient to call if symptoms persist, worsen, or new symptoms develop. Patient verbalized understanding of plan. . Diarrhea - recommended bland diet, no milk or fatty foods , recommended a gallbladder ultrasound and for pt to have stool studies and start on a probiotic. . Hypertension - well controlled - continue with current medications, continue with no added salt diet. Pt has been encouraged to exercise daily. The pt has been advised to call the office if there are any acute concerns about change in blood pressure readings at home. Urge incontinence -Pt has urge incontinence - the patient has been counseled about potential triggers for increase in sensation of the urgency - the pt has been counseled to avoid caffinated products, spicy products, and to urinate every 2-3 hours to prevent the incontinence associated with the urgency. Pt is to continue with current treatment plan and call if symptoms worsen. [employer] or [employer] - take three times daily x 10days . Sinusitis - Pt has acute infection - pain in face, maxillary region, Pt informed to use decongestant, RX given to patient, sinus rinses also recommended. Call if symptoms do not show improvement. . Sinus congestion - RX for zyrtec D - call if not improving, if fever develops may need to consider antibiotic . Edema - pt has been advised to elevate legs to prevent dependent edema, compression has been recommended to help to naturally decrease peripheral edema. Diuretic use has been discussed and pt has been instructed in appropriate use of such medication as necessary to further attempt to reduce peripheral edema. . Hypertension - well controlled - continue with current medications, continue with no added salt diet. Pt has been encouraged to exercise daily. The pt has been advised to call the office if there are any acute concerns about change in blood pressure readings at home. Edema - pt has been advised to elevate legs to prevent dependent edema, compression has been recommended to help to naturally decrease peripheral edema. Diuretic use has been discussed and pt has been instructed in appropriate use of such medication as necessary to further attempt to reduce peripheral edema. . Hypertension - well controlled - continue with current medications, continue with no added salt diet. Pt has been encouraged to exercise daily. The pt has been advised to call the office if there are any acute concerns about change in blood pressure readings at home. Pneumonia - Pt has been diagnosed with pneumonia by physical exam.Antibiotics have been re-ordered as the pt is not quite over the illness.. The pt is aware of the diagnosis and the need for acute treatment of this illness. . Wound Instructions - Pt was instruced to keep the wound clean, wash with antibacterial soap, use triple antibiotic ointment, call if redness, pustular drainage, or any other acute conerns. . Cellulitis - right lower leg-RX for abx and instructed on use- return to clinic as previously directed, call for acute change in symptoms, worsening redness, warmth, discharge. Laceration-right lower leg-return in 10 days for suture removal Contusion-left lower cgd-ucohnqlry-qkxqzpxo current treatment . Irritated AK to right lateral thigh - Patient agrees to cryotherapy of the lesion. Liquid nitrogen was utilized to freeze the offending lesion x 3. Patient tolerated procedure with minimal discomfort. - Pt was instructed to keep the area clean, wash with antibacterial soap, use triple antibiotic ointment, call if redness, pustular drainage, or any other acute concerns. . Diarrhea - discussed need to avoid milk based products - probiotic, increase fiber in diet, and call if symptoms worsen or do not improve. Bronchitis - acute case of bronchitis identified. Pt has been given antibiotics , breathing treatments as appropriate, and pt has been instructed to call if symptoms are not improved, or if symptoms acutely worsen. Cough - called out RX for phenergan with codeine. . Allergies - chronic - recommended pt to use allergy medication as prescribed. Pt has been counseled as to the appropriate use of the medication. Pt to call if allergy symptoms are not controlled with the medication. If using nasal spray, instructions as follows: Nasal spray- use twice daily, one spray per nostril twice daily, after 30 minutes, rinse out nose with saline spray.. Use opposite hand per nostril to spray in the nasal steroid allergy spray. Kenalog injection today in the office. take blood pressure two to three times a week - and fax to dr. lopez in 2 weeks - @[phone] . Well Adult - pt was counseled about diet, exercise, and encouraged to follow a heart healthy diet and increase activity level. The patient was instructed to RTC yearly for well adult exams and PRN for acute illnesses. The pt was also instructed to have yearly labs for check of cholesterol, thyroid, chem panel, CBC, and renal functioning. Hypertension - well controlled - continue with current medications, continue with no added salt diet. Pt has been encouraged to exercise daily. The pt has been advised to call the office if there are any acute concerns about change in blood pressure readings at home. . Allergies - chronic - recommended pt to use allergy medication as prescribed. Pt has been counseled as the the appropriate use of the medication. Pt to call if allergy symptoms are not controlled with the medication. Kenalog injection today in the office-zpack if symptoms do not resolve. Recommend patient start a daily anti histamine. . Edema - uncontrolled swelling. I have informed the patient of ways to naturally decrease the swelling in their lower legs - cut back on salt to 2 - 3 grams/day, the lower the sodium content of food, the healthier and less potential for swelling, however don't completely cut all sodium from diet. Pt was also counseled to elevate lower legs and/or use compression socks from toes to thigh. Use lasix as directed-refilled today-take potassium when taking lasix. Check labs-order provided phenergan with codeine . Sinusitis - Pt has acute infection - pain in face, maxillary region, Pt informed to use decongestant, RX given to patient, sinus rinses also recommended. Call if symptoms do not show improvement. Bronchitis - acute case of bronchitis identified. Pt has been given antibiotics, breathing treatments as appropriate, and pt has been instructed to call if symptoms are not improved, or if symptoms acutely worsen. flonase nasal spray. If using nasal spray, instructions as follows: Nasal spray- use twice daily, one spray per nostril twice daily, after 30 minutes, rinse out nose with saline spray.. Use opposite hand per nostril to spray in the nasal steroid allergy spray . Allergies - chronic - recommended pt to use allergy medication as prescribed. Pt has been counseled as to the appropriate use of the medication. Pt to call if allergy symptoms are not controlled with the medication. If using nasal spray, instructions as follows: Nasal spray- use twice daily, one spray per nostril twice daily, after 30 minutes, rinse out nose with saline spray.. Use opposite hand per nostril to spray in the nasal steroid allergy spray Tinnitus - Pt states that she has had ringing in both ears for a few months now. Denies headache, dizziness, syncope, nausea, vomitting, and ear pain. Will give steroid shot today. Pt currently taking an antihistamine over the counter. Will encourage patient to use nasal spray. Pt is to notify clinic if symptoms worsen or do not improve. . Contusion/hematoma-left lower wxy-ubspxcmwt-tiupbdym to monitor Laceration-right hsi-cjpkdoy-ixd neosporin as directed Skin tag-right neck-fell off in the office before having it removed-no treatment today in the office-monitor area
--- OUTSIDE RECORDS SUMMARY | 2019-01-31 06:52 | XMS REPORT | CCD ---
Author Author Joceline Mario MD, [facility] Address [address] [place] [address] Phone Care Team Providers Care Police Patrol Officer Name Role Phone PP Unavailable CCM Unavailable Summary Purpose Interface Exchange Insurance Providers Payer name Policy type / Coverage type Covered alliance party ID Effective Begin Date Effective End Date WPS Medicare Part B Medicare Part B [id number] 2017 Unknown Cigna Medicare Part B [id number] Unknown Family history Mother Diagnosis Age At [...] employed SRS 08/18/[address]: [id number] Nonsmoker 08/18/2011 Has the patient ever used illegal drugs? Unknown Has never used illegal drugs 08/18/2011 Allergies, Adverse Reactions, Alerts Substance Reaction Codes Entered Date Inactivated Date Status Tape Unknown 08/18/2011 No Inactive Date Active * NO KNOWN DRUG ALLERGIES bactrim doesnt work for her Unknown 08/18/2011 No Inactive Date Active Past Medical History Illness Codes Condition Status Onset Date Resolved Date Acute bronchitis, unspecified ICD-9: 466.0 ICD-10: J20.9 Active 09/10/2017 Unknown Cough ICD-9: 786.2 ICD-10: R05 Active 11/29/2018 Unknown Acute laryngopharyngitis ICD-9: 465.0 ICD-10: J06.0 Active 09/22/2018 Unknown Other allergic rhinitis ICD-9: 477.8 ICD-10: J30.89 Active 09/22/2018 Unknown Encounter for screening mammogram for malignant neoplasm of breast ICD-9: V76.10 ICD-10: Z12.31 Active 05/04/2018 Unknown Dyspnea, unspecified ICD-9: 786.09 ICD-10: R06.00 Active 03/29/2018 Unknown Essential (primary) hypertension ICD-9: 401.1 ICD-10: I10 Active 07/19/2016 Unknown Pain in left knee ICD- 9: 719.46 ICD-10: M25.562 Active 03/29/2018 Unknown Pain in right knee ICD -9: 719.46 ICD-10: M25.561 Active 03/29/2018 Unknown Otalgia, right ear ICD -9: 388.72 ICD-10: H92.01 Active 05/18/2017 Unknown Other specified disorders of teeth and supporting structures ICD-9: 525.9 ICD-10: K08.89 Active 05/18/2017 Unknown Acute suppurative otitis media without spontaneous rupture of ear drum, right ear ICD-9: 382.00 ICD-10: H66.001 Active 05/12/2017 Unknown Contusion of left lower leg, subsequent encounter [...] ICD-9: 461.0 ICD-10: J01.01 Active 10/29/2016 Unknown Localized edema ICD-9 : 782.3 ICD-10: [...] ICD-9: 461.9 ICD-10: J01.90 Active 01/01/2014 Unknown Allergic rhinitis, unspecified ICD-9: 477.9 ICD-10: [...] Problems Condition Codes Effective Dates Condition Status Acute bronchitis, unspecified ICD-9: 466.0 ICD-10: J20.9 09/10/2017 Active Cough ICD-9: 786.2 ICD-10: R05 11/29/2018 Active Acute laryngopharyngitis ICD-9: 465.0 ICD-10: J06.0 09/22/2018 Active Other allergic rhinitis ICD-9: 477.8 ICD-10: J30.89 09/22/2018 Active Encounter for screening mammogram for malignant neoplasm of breast ICD-9: V76.10 ICD-10: Z12.31 05/04/2018 Active Dyspnea, unspecified ICD-9: 786.09 ICD-10: R06.00 03/29/2018 Active Essential (primary) hypertension ICD-9: 401.1 ICD-10: I10 07/19/2016 Active Pain in left knee ICD- 9: 719.46 ICD-10: M25.562 03/29/2018 Active Pain in right knee ICD -9: 719.46 ICD-10: M25.561 03/29/2018 Active Otalgia, right ear ICD -9: 388.72 ICD-10: H92.01 05/18/2017 Active Other specified disorders of teeth and supporting structures ICD-9: 525.9 ICD-10: K08.89 05/18/2017 Active Acute suppurative otitis media without spontaneous rupture of ear drum, right ear ICD-9: 382.00 ICD-10: H66.001 05/12/2017 Active Contusion of left lower leg, subsequent encounter ICD-9: V58.89 ICD-10: S80.12XD 02/25/2017 Active Cellulitis of right lower limb ICD-9: 682.6 ICD-10: L03.115 01/15/2017 Active Contusion of left lower leg, initial encounter ICD-9: 924.10 ICD-10: S80.12XA 01/15/2017 Active Laceration without foreign body, right lower leg, initial encounter ICD-9: 891.2 ICD-10: S81.811A 01/15/2017 Active Acute recurrent maxillary sinusitis ICD-9: 461.0 ICD-10: J01.01 10/29/2016 Active Localized edema ICD-9 : 782.3 ICD-10: [...] unspecified ICD-9: 461.9 ICD-10: J01.90 01/01/2014 Active Allergic rhinitis, unspecified ICD-9: 477.9 ICD-10: [...] Start Date Stop Date Status Fill Instructions ProAir HFA 90 mcg/actuation aerosol inhaler RxNorm: 6643342 2 Puff(s) INH TID as needed dyspnea 12/22/2018 No Stop Date Active Phenergan with Codeine Syrup RxNorm: 5-10 Milliliter(s) PO Q6 PRN as needed 12/08/2018 No Stop Date Active Kenalog 40 mg/mL suspension for injection RxNorm: 9450566 1 Milliliter(s) Inj 11/29/2018 11/29/2018 Inactive ceftriaxone 500 mg solution for injection RxNorm: 7642730 Inj 11/29/2018 11/29/2018 Inactive Zithromax Z-Seng 250 mg tablet RxNorm: 901408 1 Tablet(s) PO UD 11/29/2018 12/03/2018 Inactive prednisone 20 mg tablet RxNorm: 753342 1 Tablet(s) PO BID 11/2912/03/2018 Inactive Augmentin 500 mg-125 mg tablet RxNorm: 375693 1 Tablet(s) PO TID 10/06/2018 10/05/2018 Inactive DC doxycycline order Augmentin 500 mg-125 mg tablet RxNorm: 305937 1 Tablet(s) PO TID 10/06/2018 10/15/2018 Inactive DC doxycycline order doxycycline hyclate 100 mg capsule RxNorm: 5373701 1 Capsule(s) PO BID 10/05/2018 10/05/2018 Inactive ProAir HFA 90 mcg/actuation aerosol inhaler RxNorm: 9775041 2 Puff(s) INH TID as needed dyspnea 10/05/2018 12/21/2018 Inactive prednisone 20 mg tablet RxNorm: 199631 2 Tablet(s) PO daily 09/26/2018 Inactive Keflex 500 mg capsule RxNorm: 054854 1 Capsule(s) PO TID 201710/01/2018 Inactive ProAir HFA 90 mcg/actuation aerosol inhaler RxNorm: 0472200 2 Puff(s) INH TID as needed dyspnea 03/29/2018 10/04/2018 Inactive Keflex 500 mg capsule RxNorm: 900987 1 Capsule(s) PO TID 201703/01/2018 Inactive Keflex 500 mg capsule RxNorm: 671437 1 Capsule(s) PO TID 201703/08/2018 Inactive trospium ER 60 mg capsule,extended release 24 hr RxNorm: 484084 1 Capsule(s) PO daily 01/04/2018 12/29/2018 Active D/C Vesicare - insurance denied trospium ER 60 mg capsule,extended release 24 hr RxNorm: 492564 1 Capsule(s) PO daily 01/04/2018 01/03/2018 Inactive metoprolol succinate ER 25 mg tablet,extended release 24 hr RxNorm: 817796 TAKE ONE TABLET BY MOUTH EVERY DAY 12/27/2017 06/24/2018 Inactive Zyrtec-D 5 mg-120 mg tablet,extended release RxNorm: 1565651 1 Tablet(s) PO BID as needed 12/16/2017 01/04/2018 Inactive Zithromax Z-Seng 250 mg tablet RxNorm: 996000 1 Tablet(s) PO UD 09/10/2017 09/14/2017 Inactive ceftriaxone 500 mg solution for injection RxNorm: 7109753 500 Milligram(s) Inj 09/10/2017 09/10/2017 Inactive Kenalog 40 mg/mL suspension for injection RxNorm: 2645540 1 Milliliter(s) Inj 09/10/2017 09/10/2017 Inactive hydrochlorothiazide 25 mg tablet RxNorm: 298457 TAKE ONE TABLET BY MOUTH EVERY DAY 08/09/2017 08/03/2018 Inactive hydrochlorothiazide 25 mg tablet RxNorm: 378023 TAKE ONE TABLET BY MOUTH EVERY DAY 08/09/2017 08/08/2017 Inactive Vesicare 10 mg tablet RxNorm: 810265 TAKE 1/2 TABLET BY MOUTH DAILY 08/09/2017 01/03/2018 Inactive Vesicare 10 mg tablet RxNorm: 609787 TAKE 1/2 TABLET BY MOUTH DAILY 08/09/2017 08/08/2017 Inactive Augmentin 875 mg-125 mg tablet RxNorm: 821602 1 Tablet(s) PO BID take a probiotic when taking the antibiotic 05/18/2017 Inactive Kenalog 40 mg/mL suspension for injection RxNorm: 6607505 1 Milliliter(s) Inj 05/18/2017 05/18/2017 Inactive hydrocodone 5 mg-acetaminophen 325 mg tablet RxNorm: 723699 1 Tablet(s) PO Q4H as needed for pain 01/19/2017 01/23/2017 Inactive Keflex 500 mg capsule RxNorm: 257511 1 Capsule(s) PO TID 201601/21/2017 Inactive Zyrtec-D 5 mg-120 mg tablet,extended release RxNorm: 0812882 1 Tablet(s) PO BID 10/29/2016 11/07/2016 Inactive metoprolol succinate ER 25 mg tablet,extended release 24 hr RxNorm: 533434 TAKE ONE TABLET BY MOUTH EVERY DAY 08/26/2016 02/21/2017 Inactive Xyzal 5 mg tablet RxNorm: 406100 Tablet(s) as needed TAKE ONE TABLET BY MOUTH DAILY 06/15/2016 08/13/2016 Inactive hydrochlorothiazide 25 mg tablet RxNorm: 465092 TAKE ONE TABLET BY MOUTH EVERY DAY 06/09/2016 04/04/2017 Inactive Vesicare 10 mg tablet RxNorm: 393048 1/2 Tablet(s) PO daily TAKE 1/2 TABLET BY MOUTH EVERY DAY 03/16/2016 12/10/2016 Inactive Vesicare 10 mg tablet RxNorm: 909408 1/2 Tablet(s) PO daily TAKE 1/2 TABLET BY MOUTH EVERY DAY 03/16/2016 03/15/2016 Inactive Vesicare 10 mg tablet RxNorm: 962531 1/2 Tablet(s) PO daily TAKE 1/2 TABLET BY MOUTH EVERY DAY 03/16/2016 03/15/2016 Inactive metoprolol succinate ER 25 mg tablet,extended release 24 hr RxNorm: 532698 TAKE ONE TABLET BY MOUTH EVERY DAY 03/02/2016 06/29/2016 Inactive Xyzal 5 mg tablet RxNorm: 754239 TAKE ONE TABLET BY MOUTH DAILY 01/07/2016 03/06/2016 Inactive cefdinir 300 mg capsule RxNorm: 540652 1 Capsule(s) PO BID 12/17/2015 Inactive Vesicare 10 mg tablet RxNorm: 625083 1/2 Tablet(s) TAKE 1/2 TABLET BY MOUTH EVERY DAY 12/11/2015 03/15/2016 Inactive ProAir HFA 90 mcg/actuation aerosol inhaler RxNorm: 214545 2 Puff(s) INH TID x 3 days then bid x 3 days then prn dyspnea 12/11/2015 03/28/2018 Inactive Kenalog 40 mg/mL suspension for injection RxNorm: 9083412 1 Milliliter(s) Inj 08/13/2015 08/13/2015 Inactive acyclovir 800 mg tablet RxNorm: 410854 1 Tablet(s) PO TID 07/1907/18/2015 Inactive acyclovir 800 mg tablet RxNorm: 715736 1 Tablet(s) PO TID 07/1907/28/2015 Inactive metoprolol succinate ER 25 mg tablet,extended release 24 hr RxNorm: 513472 TAKE ONE TABLET BY MOUTH EVERY DAY 05/21/2015 11/16/2015 Inactive hydrochlorothiazide 25 mg tablet RxNorm: 012712 TAKE ONE TABLET BY MOUTH EVERY DAY 05/02/2015 06/08/2016 Inactive Vesicare 10 mg tablet RxNorm: 990125 TAKE ONE TABLET BY MOUTH EVERY DAY 02/05/2015 12/10/2015 Inactive Xyzal 5 mg tablet RxNorm: 591229 1 Tablet(s) PO daily 201404/23/2015 Inactive Kenalog 40 mg/mL suspension for injection RxNorm: 0312053 1 Milliliter(s) Inj 01/24/2015 01/24/2015 Inactive Flonase Allergy Relief 50 mcg/actuation nasal spray, suspension RxNorm: 2 [place] NASAL daily 01/24/2015 12/10/2015 Inactive [place] Allergy 180 mg tablet RxNorm: 730219 1 Tablet(s) PO daily 12/17/2014 12/16/2014 Inactive [place] Allergy 180 mg tablet RxNorm: 318719 1 Tablet(s) PO daily 12/17/2014 02/14/2015 Inactive metoprolol succinate ER 25 mg tablet,extended release 24 hr RxNorm: 704181 Tablet (s) PO TAKE ONE TABLET BY MOUTH EVERY DAY 09/11/2014 05/20/2015 Inactive gemfibrozil 600 mg tablet RxNorm: 472957 1 Tablet(s) PO BID 11/201302/24/2015 Inactive gemfibrozil 600 mg tablet RxNorm: 740881 1 Tablet(s) PO BID 11/201307/29/2014 Inactive hydrochlorothiazide 25 mg tablet RxNorm: 076953 TAKE ONE TABLET BY MOUTH EVERY DAY 04/29/2014 05/01/2015 Inactive Kenalog 40 mg/mL suspension for injection RxNorm: 5886012 Milliliter(s) Inj 01/01/2014 01/01/2014 Inactive cefdinir 300 mg capsule RxNorm: 643180 1 Capsule(s) PO BID 03/201401/07/2014 Inactive Flonase 50 mcg/actuation nasal spray,suspension RxNorm: 129827 2 [place] NASAL daily 01/01/2014 01/07/2014 Inactive Rocephin 500 mg solution for injection RxNorm: 763436 1 Inj 03/201401/01/2014 Inactive Zithromax 500 mg tablet RxNorm: 394552 1 Tablet(s) PO daily 12/201301/02/2014 Inactive metoprolol succinate ER 25 mg tablet,extended release 24 hr RxNorm: 336103 Tablet (s) PO TAKE ONE TABLET BY MOUTH EVERY DAY 12/25/2013 09/10/2014 Inactive Vesicare 10 mg tablet RxNorm: 428778 1 Tablet(s) PO daily TAKE ONE TABLET BY MOUTH EVERY DAY 12/18/2013 01/11/2015 Inactive Kenalog 40 mg/mL suspension for injection RxNorm: 6216139 Milliliter(s) Inj 12/01/2013 12/01/2013 Inactive Zithromax 500 mg tablet RxNorm: 024150 1 Tablet(s) PO daily 03/201412/05/2013 Inactive tolterodine ER 4 mg capsule,extended release 24 hr RxNorm: 053374 1 Capsule(s) PO daily 10/31/2013 12/17/2013 Inactive replaces vesicare hydrochlorothiazide 25 mg tablet RxNorm: 458437 Tablet(s) PO TAKE ONE TABLET BY MOUTH EVERY DAY 10/24/2013 04/28/2014 Inactive hydrochlorothiazide 25 mg tablet RxNorm: 624487 Tablet(s) PO TAKE ONE TABLET BY MOUTH EVERY DAY 08/21/2013 10/23/2013 Inactive hydrochlorothiazide 25 mg tablet RxNorm: 638966 Tablet(s) PO TAKE ONE TABLET BY MOUTH EVERY DAY 02/23/2013 08/20/2013 Inactive Vesicare 10 mg tablet RxNorm: 733128 Tablet(s) PO TAKE ONE TABLET BY MOUTH EVERY DAY 02/13/2013 10/30/2013 Inactive Vesicare 10 mg tablet RxNorm: 475186 Tablet(s) PO TAKE ONE TABLET BY MOUTH EVERY DAY 02/13/2013 10/30/2013 Inactive Kenalog 40 mg/mL Susp for Injection RxNorm: 6141730 1 Milliliter(s) Inj 02/08/2013 02/08/2013 Inactive azithromycin 500 mg tablet RxNorm: 8138693 1 Tablet(s) PO daily 02/08/2013 02/14/2013 Inactive Rocephin 500 mg Solution for Injection RxNorm: 8225285 Inj 02/08/2013 Inactive Diflucan 150 mg tablet RxNorm: 996046 1 Tablet(s) PO daily 02/17/2013 Inactive Diflucan 150 mg tablet RxNorm: 508505 1 Tablet(s) PO daily 03/201302/07/2013 Inactive Flagyl 500 mg tablet RxNorm: 222268 1 Tablet(s) PO TID 201201/17/2013 Inactive Cipro 500 mg tablet RxNorm: 879720 1 Tablet(s) PO BID 201201/17/2013 Inactive Flagyl 500 mg tablet RxNorm: 179225 1 Tablet(s) PO TID 201201/27/2013 Inactive Cipro 500 mg tablet RxNorm: 927119 1 Tablet(s) PO BID 201201/27/2013 Inactive metoprolol succinate ER 25 mg tablet,extended release 24 hr RxNorm: 835608 Tablet (s) PO TAKE ONE TABLET BY MOUTH EVERY DAY 12/08/2012 12/24/2013 Inactive Lasix 20 mg tablet RxNorm: 895022 Tablet(s) PO TAKE ONE TABLET BY MOUTH EVERY DAY NEEDED 10/27/2012 08/12/2015 Inactive potassium chloride ER 10 mEq tablet,extended release RxNorm: 028302 1 Tablet(s) PO QDAY PRN 09/12/2012 03/10/2013 Inactive metoprolol succinate ER 25 mg tablet,extended release 24 hr RxNorm: 333896 Tablet (s) PO TAKE ONE TABLET BY MOUTH EVERY DAY 09/09/2012 12/07/2012 Inactive simvastatin 20 mg tablet RxNorm: 460262 Tablet(s) PO 201101/17/2013 Inactive TAKE ONE TABLET BY MOUTH EVERY DAY Lasix 20 mg tablet RxNorm: 321278 Tablet(s) PO 07/15/2012 10/26/2012 Inactive TAKE ONE TABLET BY MOUTH EVERY DAY NEEDED hydrochlorothiazide 25 mg tablet RxNorm: 031968 1 Tablet(s) PO 05/16/2012 02/09/2013 Inactive Vesicare 10 mg tablet RxNorm: 541542 1/2 Tablet(s) PO daily 05/19/2013 Inactive metoprolol succinate ER 25 mg 24 hr Tab RxNorm: 755895 1 Tablet(s) PO daily 03/16/2012 09/11/2012 Inactive metoprolol succinate ER 25 mg tablet,extended release 24 hr RxNorm: 837569 1 Tablet(s) PO daily 03/14/2012 03/15/2012 Inactive Vesicare 10 mg tablet RxNorm: 560273 1 Tablet(s) PO daily 201104/24/2012 Inactive metoprolol succinate ER 25 mg 24 hr Tab RxNorm: 961691 1 Tablet(s) PO daily 01/12/2012 03/13/2012 Inactive simvastatin 20 mg tablet RxNorm: 784258 1 Tablet(s) PO daily 08/15/2012 Inactive levofloxacin 500 mg Tab RxNorm: 855419 1 Tablet(s) PO daily 08/201212/13/2011 Inactive hydrochlorothiazide 12.5 mg tablet RxNorm: 453524 1 Tablet(s) PO daily 12/07/2011 05/15/2012 Inactive Kenalog 40 mg/mL Susp for Injection RxNorm: 0390254 1 Milliliter(s) Inj 11/17/2011 11/17/2011 Inactive cefdinir 300 mg Cap RxNorm: 232835 1 Capsule(s) PO BID 201111/26/2011 Inactive Diflucan 150 mg tablet RxNorm: 166631 1 Tablet(s) PO daily 11/21/2011 Inactive Rocephin 500 mg Solution for Injection RxNorm: 4982089 1 Milliliter(s) Inj 11/17/2011 11/17/2011 Inactive azithromycin 500 mg Tab RxNorm: 4188821 1 Tablet(s) PO daily 11/21/2011 Inactive metoprolol succinate ER 25 mg 24 hr Tab RxNorm: 316398 1 Tablet(s) PO daily 11/12/2011 01/11/2012 Inactive metoprolol succinate ER 25 mg 24 hr Tab RxNorm: 390500 1 Tablet(s) PO daily 11/12/2011 11/11/2011 Inactive hydrochlorothiazide 25 mg Tab RxNorm: 161351 1 Tablet(s) PO daily 09/01/2011 12/06/2011 Inactive prednisone 5 mg Tab RxNorm: 679871 Tablet(s) PO 08/18/2011 08/23/2011 Inactive 6 day taper: 6-5-4-3-2-1 Kenalog 40 mg/mL Susp for Injection RxNorm: 1266834 Milliliter(s) Inj 08/18/2011 08/18/2011 Inactive metoprolol succinate ER 25 mg tablet,extended release 24 hr RxNorm: 151278 1 Tablet(s) PO daily No Start Date Active hydrocodone 10 mg-acetaminophen 325 mg tablet RxNorm: 126792 1 Tablet(s) PO as needed No Start Date Active Cipro 500 mg tablet RxNorm: 591274 Oral No Start Date 01/17/2013 Inactive Phenergan with Codeine Syrup RxNorm: 5-10 Milliliter(s) PO Q6 PRN No Start Date 07/25/2014 Inactive potassium chloride ER 10 mEq tablet,extended release RxNorm: 863075 1 Tablet(s) PO QDAY PRN No Start Date 09/11/2012 Inactive simvastatin 20 mg Tab RxNorm: 633074 1 Tablet(s) PO daily No Start Date 12/10/2011 Inactive Lasix 20 mg tablet RxNorm: 992484 1 Tablet(s) PO QDAY PRN No Start Date 07/14/2012 Inactive Vesicare 10 mg Tab RxNorm: 958344 1 Tablet(s) PO daily No Start Date 01/21/2012 Inactive Zithromax 500 mg Tab RxNorm: 9781373 Tablet(s) PO No Start Date 11/16/2011 Inactive 1 tab daily x 3 days, then 1/2 tab daily x 6 days. hydrochlorothiazide 25 mg Tab RxNorm: 467171 1 Tablet(s) PO daily No Start Date 08/31/2011 Inactive Medication Administered Medication Codes Instructions Start Date Status Kenalog 40 mg/mL suspension for injection RxNorm: 6862902 1Milliliter 11/29/2018 No longer Active ceftriaxone 500 mg solution for injection RxNorm: 4213422 11/29/2018 No longer Active Kenalog 40 mg/mL suspension for injection RxNorm: 7158089 1Milliliter 09/10/2017 No longer Active ceftriaxone 500 mg solution for injection RxNorm: 0598290 500Milligram 09/10/2017 No longer Active Kenalog 40 mg/mL suspension for injection RxNorm: 3008493 1Milliliter 05/18/2017 No longer Active Kenalog 40 mg/mL suspension for injection RxNorm: 4593770 1Milliliter 08/13/2015 No longer Active Kenalog 40 mg/mL suspension for injection RxNorm: 7899182 1Milliliter 01/24/2015 No longer Active Rocephin 500 mg solution for injection RxNorm: 127663 1 01/01/2014 No longer Active Kenalog 40 mg/mL suspension for injection RxNorm: 2127735 Milliliter 01/01/2014 No longer Active Kenalog 40 mg/mL suspension for injection RxNorm: 4933121 Milliliter 12/01/2013 No longer Active Rocephin 500 mg Solution for Injection RxNorm: 1482372 02/08/2013 No longer Active Kenalog 40 mg/mL Susp for Injection RxNorm: 9536649 1Milliliter 02/08/2013 No longer Active Rocephin 500 mg Solution for Injection RxNorm: 7276827 1Milliliter 11/17/2011 No longer Active Kenalog 40 mg/mL Susp for Injection RxNorm: 5845211 1Milliliter 11/17/2011 No longer Active Kenalog 40 mg/mL Susp for Injection RxNorm: 6651748 Milliliter 08/18/2011 No longer Active Immunizations Vaccine Codes Date Status Influenza CVX: 141 06/23/2017 completed Influenza CVX: 141 06/15/2016 completed Pneumococcal (Adult) CVX: 133 06/15/2016 completed Influenza CVX: 141 08/08/2014 completed Zoster CVX: 121 05/23/2012 completed Influenza CVX: 141 07/27/2011 completed Assessments Condition Codes Effective Dates Cough ICD-10: R05 ICD-9: 786.2 11/29/2018 Acute bronchitis, unspecified ICD-10: J20.9 ICD-9: 466.0 11/29/2018 Acute laryngopharyngitis ICD-10: J06.0 ICD-9: 465.0 10/05/2018 Other allergic rhinitis ICD-10: J30.89 ICD-9: 477.8 10/05/2018 Encounter for screening mammogram for malignant neoplasm of breast ICD-10: Z12.31 ICD-9: V76.10 05/04/2018 Pain in left knee ICD-10: M25.562 ICD-9: 719.46 03/29/2018 Shortness of breath ICD-10: R06.02 ICD-9: 786.05 03/29/2018 Pain in right knee ICD-10: M25.561 ICD-9: 719.46 03/29/2018 Essential (primary) hypertension ICD-10: I10 ICD-9: 401.1 03/29/2018 Otalgia, right ear ICD-10: H92.01 ICD-9: 388.72 05/18/2017 Other specified disorders of teeth and supporting structures ICD-10: K08.89 ICD-9: 525.9 05/18/2017 Acute suppurative otitis media without spontaneous rupture of ear drum, right ear ICD-10: H66.001 ICD-9: 382.00 05/12/2017 Contusion of left lower leg, subsequent encounter ICD-10: S80.12XD ICD-9: V58.89 02/25/2017 Contusion of left lower leg, initial encounter ICD-10: S80.12XA ICD-9: 924.10 01/15/2017 Cellulitis of right lower limb ICD-10: L03.115 ICD-9: 682.6 01/15/2017 Laceration without foreign body, right lower leg, initial encounter ICD-10: S81.811A ICD-9: 891.2 01/15/2017 Acute recurrent maxillary sinusitis ICD-10: J01.01 ICD-9: 461.0 10/29/2016 Varicose veins of left lower extremity with [...] urgency ICD-9: 788.63 10/31/2013 ESSENTIAL HYPERTENSION SNOMED: 33060222 ICD-9: 401.9 10/31/2013 Skin tag ICD-9: 701.9 06/29/2013 Diarrhea ICD-9: 787.91 02/08/2013 Fecal urgency ICD-9: 787.63 01/02/2013 Abdominal discomfort ICD-9: 789.00 2012 EDEMA ICD-9: 782.3 05/16/2012 BACTERIAL PNEUMONIA ICD-9: 482.9 2011 FEVER NOS ICD-9: 780.60 11/17/2011 Dyspnea ICD-9: 786.09 08/18/2011 Reason For Visit Reason For Visit Effective Dates Notes cough 11/29/2018 cough 10/05/2018 cough 09/22/2018 fatigue 03/29/2018 cough 09/10/2017 earache 05/18/2017 earache 05/12/2017 office procedure 02/25/2017 skin tag removal Hospital [...] Item Item Code Result Date Comp Metabolic Hdl102 NA 140 mEq/L 03/23/2018 Comp Metabolic Xsp951 K 3.4 mEq/L 03/23/2018 Comp Metabolic Ebw029 CL 103 mEq/L 03/23/2018 Comp Metabolic Rmd036 CO2 27.0 mEq/L 03/23/2018 Comp Metabolic Ebn050 ANION GAP 13 03/23/2018 Comp Metabolic Wgl873 GLUCOSE 115 mg/dL 03/23/2018 Comp Metabolic Dny912 Creat 0.9 mg/dL 03/23/2018 Comp Metabolic Ztn402 eGFR 69 ml/min/1.73m2 03/23/2018 Comp Metabolic Wha677 BUN 14 mg/dL 03/23/2018 Comp Metabolic Pkm629 B/C Ratio 16.5 Ratio 03/23/2018 Comp Metabolic Kac998 CALCIUM 9.1 mg/dL 03/23/2018 Comp Metabolic Wre563 ALK PHOS 84 U/L 03/23/2018 Comp Metabolic Xee260 AST(SGOT) 22 U/L 03/23/2018 Comp Metabolic Smq839 ALT(SGPT) 20 U/L 03/23/2018 Comp Metabolic Qie839 BILI T 0.8 mg/dL 03/23/2018 Comp Metabolic Ufj471 ALBUMIN 4.0 g/dL 03/23/2018 Comp Metabolic Gqm247 TPRO 7.0 g/dL 03/23/2018 Comp Metabolic Nza559 GLOB 3.0 g/dL 03/23/2018 Comp Metabolic Hew002 A/G Ratio 1.3 Ratio 03/23/2018 Comp Metabolic Qlg763 Osmo 281 mOsmo 03/23/2018 Cbc With Differential Ord2 WBC 8.43 K/ul 03/23/2018 Cbc With Differential Ord2 RBC 4.77 M/ul 03/23/2018 Cbc With Differential Ord2 HGB 14.5 g/dl 03/23/2018 Cbc With Differential Ord2 HCT 44.3 % 03/23/2018 Cbc With Differential Ord2 Neut% 63.7 % 03/23/2018 Cbc With Differential Ord2 MCV 92.9 fl 03/23/2018 Cbc With Differential Ord2 Lymph% 20.5 % 03/23/2018 Cbc With Differential Ord2 MCH 30.4 pg 03/23/2018 Cbc With Differential Ord2 [place]% 10.7 % 03/23/2018 Cbc With Differential Ord2 MCHC 32.7 pg 03/23/2018 Cbc With Differential Ord2 Eos% 4.9 % 03/23/2018 Cbc With Differential Ord2 PLT 323 K/ul 03/23/2018 Cbc With Differential Ord2 Baso% 0.2 % 03/23/2018 Cbc With Differential Ord2 RDW 13.6 % 03/23/2018 Cbc With Differential Ord2 Neut ABS# 5.37 K/ul 03/23/2018 Cbc With Differential Ord2 Lymph ABS# 1.73 K/ul 03/23/2018 Cbc With Differential Ord2 [place] ABS# 0.9 K/ul 03/23/2018 Cbc With Differential Ord2 Eos ABS# 0.4 K/ul 03/23/2018 Cbc With Differential Ord2 Baso ABS# 0.0 K/ul 03/23/2018 Tsh Ord6 TSH (3rd IS) 2.11 uIU/mL 03/23/2018 Bili D Ord93 BILI D 0.1 mg/dL 03/23/2018 Bili D Ord93 BILI I 0.7 mg/dL 03/23/2018 Lipid Ord30 CHOL 135 mg/dL 03/23/2018 Lipid Ord30 HDL 46.0 mg/dl 03/23/2018 Lipid Ord30 TRIG 111 mg/dL 03/23/2018 Lipid Ord30 LDL 67 mg/dL 03/23/2018 Lipid Ord30 C/HDL 2.9 Ratio 03/23/2018 Comp Metabolic Tvv970 NA 141 mEq/L 08/04/2017 Comp Metabolic Dkw565 K 3.6 mEq/L 08/04/2017 Comp Metabolic Msf796 CL 101 mEq/L 08/04/2017 Comp Metabolic Rhs963 CO2 32.0 mEq/L 08/04/2017 Comp Metabolic Zlq832 ANION GAP 12 08/04/2017 Comp Metabolic Hqe720 GLUCOSE 99 mg/dL 08/04/2017 Comp Metabolic Svc995 Creat 1.0 mg/dL 08/04/2017 Comp Metabolic Lnv750 eGFR 60 ml/min/1.73m2 08/04/2017 Comp Metabolic Ctr139 BUN 21 mg/dL 08/04/2017 Comp Metabolic Imv566 B/C Ratio 21.9 Ratio 08/04/2017 Comp Metabolic Pli653 CALCIUM 9.4 mg/dL 08/04/2017 Comp Metabolic Wft241 ALK PHOS 107 U/L 08/04/2017 Comp Metabolic Ste975 AST(SGOT) 21 U/L 08/04/2017 Comp Metabolic Gzn713 ALT(SGPT) 21 U/L 08/04/2017 Comp Metabolic Vuv018 BILI T 0.6 mg/dL 08/04/2017 Comp Metabolic Kqc147 ALBUMIN 4.0 g/dL 08/04/2017 Comp Metabolic Uco694 TPRO 7.2 g/dL 08/04/2017 Comp Metabolic Pge051 GLOB 3.2 g/dL 08/04/2017 Comp Metabolic Ire738 A/G Ratio 1.2 Ratio 08/04/2017 Comp Metabolic Cqz925 Osmo 284 mOsmo 08/04/2017 Cbc With Differential Ord2 WBC 7.99 K/ul 08/04/2017 Cbc With Differential Ord2 RBC 4.70 M/ul 08/04/2017 Cbc With Differential Ord2 HGB 14.6 g/dl 08/04/2017 Cbc With Differential Ord2 HCT 44.6 % 08/04/2017 Cbc With Differential Ord2 Neut% 63.4 % 08/04/2017 Cbc With Differential Ord2 MCV 94.9 fl 08/04/2017 Cbc With Differential Ord2 Lymph% 22.4 % 08/04/2017 Cbc With Differential Ord2 MCH 31.1 pg 08/04/2017 Cbc With Differential Ord2 [place]% 7.8 % 08/04/2017 Cbc With Differential Ord2 MCHC 32.7 pg 08/04/2017 Cbc With Differential Ord2 Eos% 6.1 % 08/04/2017 Cbc With Differential Ord2 PLT 337 K/ul 08/04/2017 Cbc With Differential Ord2 Baso% 0.3 % 08/04/2017 Cbc With Differential Ord2 RDW 14.0 % 08/04/2017 Cbc With Differential Ord2 Neut ABS# 5.07 K/ul 08/04/2017 Cbc With Differential Ord2 Lymph ABS# 1.79 K/ul 08/04/2017 Cbc With Differential Ord2 [place] ABS# 0.6 K/ul 08/04/2017 Cbc With Differential Ord2 Eos ABS# 0.5 K/ul 08/04/2017 Cbc With Differential Ord2 Baso ABS# 0.0 K/ul 08/04/2017 Tsh Ord6 hTSH II 2.45 uIU/mL 08/04/2017 Lipid Ord30 CHOL 217 mg/dL 08/04/2017 Lipid Ord30 HDL 59.0 mg/dl 08/04/2017 Lipid Ord30 TRIG 97 mg/dL 08/04/2017 Lipid Ord30 LDL 139 mg/dL 08/04/2017 Lipid Ord30 C/HDL 3.7 Ratio 08/04/2017 Comp Metabolic Dgy721 NA 138 mEq/L 07/21/2016 Comp Metabolic Tkw779 K 3.8 mEq/L 07/21/2016 Comp Metabolic Qbk670 CL 102 mEq/L 07/21/2016 Comp Metabolic Xhx461 CO2 30.0 mEq/L 07/21/2016 Comp Metabolic Amn565 ANION GAP 10 07/21/2016 Comp Metabolic Pie257 GLUCOSE 101 mg/dL 07/21/2016 Comp Metabolic Ohq448 Creat 0.9 mg/dL 07/21/2016 Comp Metabolic Gya556 eGFR 63 ml/min/1.73m2 07/21/2016 Comp Metabolic Arj205 BUN 19 mg/dL 07/21/2016 Comp Metabolic Luj434 B/C Ratio 20.4 Ratio 07/21/2016 Comp Metabolic Eik998 CALCIUM 9.3 mg/dL 07/21/2016 Comp Metabolic Kts228 ALK PHOS 83 U/L 07/21/2016 Comp Metabolic Esz045 AST(SGOT) 20 U/L 07/21/2016 Comp Metabolic Skm122 ALT(SGPT) 18 U/L 07/21/2016 Comp Metabolic Yxg783 BILI T 0.6 mg/dL 07/21/2016 Comp Metabolic Axo869 ALBUMIN 4.0 g/dL 07/21/2016 Comp Metabolic Aqv947 TPRO 7.2 g/dL 07/21/2016 Comp Metabolic Tck204 GLOB 3.3 g/dL 07/21/2016 Comp Metabolic Ozv884 A/G Ratio 1.2 Ratio 07/21/2016 Comp Metabolic Gvu345 Osmo 278 mOsmo 07/21/2016 Cbc With Differential Ord2 WBC 7.06 K/ul 07/21/2016 Cbc With Differential Ord2 RBC 4.80 M/ul 07/21/2016 Cbc With Differential Ord2 HGB 14.3 g/dl 07/21/2016 Cbc With Differential Ord2 HCT 43.6 % 07/21/2016 Cbc With Differential Ord2 Neut% 55.3 % 07/21/2016 Cbc With Differential Ord2 MCV 90.8 fl 07/21/2016 Cbc With Differential Ord2 Lymph% 29.7 % 07/21/2016 Cbc With Differential Ord2 MCH 29.8 pg 07/21/2016 Cbc With Differential Ord2 [place]% 9.6 % 07/21/2016 Cbc With Differential Ord2 MCHC 32.8 pg 07/21/2016 Cbc With Differential Ord2 Eos% 5.0 % 07/21/2016 Cbc With Differential Ord2 PLT 331 K/ul 07/21/2016 Cbc With Differential Ord2 Baso% 0.4 % 07/21/2016 Cbc With Differential Ord2 RDW 15.5 % 07/21/2016 Cbc With Differential Ord2 Neut ABS# 3.90 K/ul 07/21/2016 Cbc With Differential Ord2 Lymph ABS# 2.10 K/ul 07/21/2016 Cbc With Differential Ord2 [place] ABS# 0.7 K/ul 07/21/2016 Cbc With Differential [...] of Systems System Result Effective Dates Constitutional recent illness 11/29/2018 Constitutional No anorexia 11/29/2018 Constitutional No night sweats 2018 Constitutional No chills 11/29/2018 Constitutional No diaphoresis 11/29/2018 Constitutional No fatigue 11/29/2018 Constitutional No fever 11/29/2018 Constitutional No insomnia 11/29/2018 Constitutional No malaise 11/29/2018 Constitutional No weight loss 11/29/2018 Constitutional No weight gain 11/29/2018 Eyes No eye discharge 11/29/2018 Eyes No eye erythema 11/29/2018 Ears/Nose/Throat/Neck nasal allergies 01/2019 Ears/Nose/Throat/Neck nasal discharge 01/2019 Ears/Nose/Throat/Neck No otalgia 2018 Ears/Nose/Throat/Neck sinus congestion Ears/Nose/Throat/Neck sore throat 2018 Cardiovascular No chest pain/pressure 01/2019 Respiratory cough 11/29/2018 Respiratory productive sputum 11/29/2018 Gastrointestinal No vomiting 11/29/2018 Gastrointestinal No nausea 11/29/2018 Gastrointestinal No diarrhea 11/29/2018 Genitourinary/Nephrology No dysuria 11/29 Musculoskeletal No joint complaint 2018 Dermatologic No rash 11/29/2018 Constitutional recent illness 10/05/2018 Constitutional No chills 10/05/2018 Constitutional No diaphoresis 10/05/2018 Constitutional No fever 10/05/2018 Eyes No eye erythema 10/05/2018 Ears/Nose/Throat/Neck nasal allergies 05/2019 Ears/Nose/Throat/Neck nasal discharge 05/2019 Ears/Nose/Throat/Neck postnasal drip 05/2019 Ears/Nose/Throat/Neck sinus congestion Ears/Nose/Throat/Neck sore throat 2018 Cardiovascular No chest pain/pressure 05/2019 Cardiovascular No dyspnea 10/05/2018 Respiratory chest congestion 10/05/2018 Respiratory cough 10/05/2018 Respiratory No dyspnea 10/05/2018 Gastrointestinal No constipation 2018 Gastrointestinal No diarrhea 10/05/2018 Gastrointestinal No nausea 10/05/2018 Gastrointestinal No vomiting 10/05/2018 Dermatologic No rash 10/05/2018 Neurologic No alteration of consciousness 10/05/2018 Neurologic No mental status change 2018 Constitutional fatigue 10/05/2018 Constitutional malaise 10/05/2018 Constitutional recent illness 09/22/2018 Constitutional No chills 09/22/2018 Constitutional No diaphoresis 09/22/2018 Constitutional No fever 09/22/2018 Eyes No eye erythema 09/22/2018 Ears/Nose/Throat/Neck nasal allergies Ears/Nose/Throat/Neck nasal discharge Ears/Nose/Throat/Neck postnasal drip Ears/Nose/Throat/Neck sinus congestion Ears/Nose/Throat/Neck sore throat 2017 Cardiovascular No chest pain/pressure Cardiovascular No dyspnea 09/22/2018 Respiratory No chest congestion 2017 Respiratory cough 09/22/2018 Respiratory No dyspnea 09/22/2018 Gastrointestinal No constipation 2017 Gastrointestinal No diarrhea 09/22/2018 Gastrointestinal No nausea 09/22/2018 Gastrointestinal No vomiting 09/22/2018 Dermatologic No rash 09/22/2018 Neurologic No alteration of consciousness 09/22/2018 Neurologic No mental status change 2017 Constitutional No recent illness 2017 Constitutional No diaphoresis 03/29/2018 Eyes No eye erythema 03/29/2018 Eyes No vision change 03/29/2018 Ears/Nose/Throat/Neck No dizziness 2017 Ears/Nose/Throat/Neck No headache 2017 Ears/Nose/Throat/Neck No hoarseness 03/29 Ears/Nose/Throat/Neck No nasal discharge 03/29/2018 Ears/Nose/Throat/Neck No sore throat 11/2017 Ears/Nose/Throat/Neck No sinus congestion 03/29/2018 Cardiovascular No chest pain/pressure 11/2017 Respiratory No chest tightness 2017 Respiratory No cough 03/29/2018 Respiratory No dyspnea 03/29/2018 Respiratory No snoring 03/29/2018 Respiratory No wheezing 03/29/2018 Gastrointestinal No abdominal pain 2017 Gastrointestinal No constipation 2017 Gastrointestinal No diarrhea 03/29/2018 Gastrointestinal No nausea 03/29/2018 Gastrointestinal No vomiting 03/29/2018 Dermatologic No rash 03/29/2018 Psychiatric No anxiety 03/29/2018 Psychiatric No depression 03/29/2018 Musculoskeletal stiffness 03/29/2018 Musculoskeletal joint complaint 2017 Constitutional recent illness 09/10/2017 Constitutional No anorexia 09/10/2017 Constitutional No night sweats 2016 Constitutional No chills 09/10/2017 Constitutional No diaphoresis 09/10/2017 Constitutional No fatigue 09/10/2017 Constitutional No fever 09/10/2017 Constitutional No insomnia 09/10/2017 Constitutional No malaise 09/10/2017 Constitutional No weight loss 09/10/2017 Constitutional No weight gain 09/10/2017 Eyes No eye discharge 09/10/2017 Eyes No eye erythema 09/10/2017 Ears/Nose/Throat/Neck No dizziness 2016 Ears/Nose/Throat/Neck No headache 2016 Ears/Nose/Throat/Neck No nasal discharge 09/10/2017 Cardiovascular No chest pain/pressure Cardiovascular No dyspnea 09/10/2017 Cardiovascular No edema 09/10/2017 Respiratory productive sputum 09/10/2017 Respiratory chest congestion 09/10/2017 Respiratory cough 09/10/2017 Gastrointestinal No abdominal pain 2016 Gastrointestinal No constipation 2016 Gastrointestinal No diarrhea 09/10/2017 Genitourinary/Nephrology No dysuria 09/10 Musculoskeletal No joint complaint 2016 Dermatologic No rash 09/10/2017 Neurologic No alteration of consciousness 09/10/2017 Constitutional recent illness 05/18/2017 Constitutional No chills 05/18/2017 Constitutional No diaphoresis 05/18/2017 Constitutional No fatigue 05/18/2017 Constitutional No fever 05/18/2017 Constitutional No malaise 05/18/2017 Eyes No blindness 05/18/2017 Ears/Nose/Throat/Neck dental pain 2016 Ears/Nose/Throat/Neck nasal discharge Ears/Nose/Throat/Neck otalgia 05/18/2017 Ears/Nose/Throat/Neck postnasal drip Ears/Nose/Throat/Neck sinus congestion Cardiovascular No chest pain/pressure Cardiovascular No dyspnea 05/18/2017 Respiratory No cough 05/18/2017 Respiratory No dyspnea 05/18/2017 Gastrointestinal No abdominal pain 2016 Gastrointestinal No constipation 2016 Gastrointestinal No diarrhea 05/18/2017 Gastrointestinal No nausea 05/18/2017 Gastrointestinal No vomiting 05/18/2017 Dermatologic No rash 05/18/2017 Neurologic No mental status change 2016 Ears/Nose/Throat/Neck nasal allergies Neurologic neck pain 05/18/2017 Constitutional recent illness 05/12/2017 Constitutional No chills 05/12/2017 Constitutional No diaphoresis 05/12/2017 Constitutional No fatigue 05/12/2017 Constitutional No fever 05/12/2017 Constitutional No malaise 05/12/2017 Eyes No eye erythema 05/12/2017 Ears/Nose/Throat/Neck nasal discharge Ears/Nose/Throat/Neck nasal allergies Ears/Nose/Throat/Neck sinus congestion Ears/Nose/Throat/Neck postnasal drip Ears/Nose/Throat/Neck otalgia 05/12/2017 Ears/Nose/Throat/Neck dental pain 2016 Cardiovascular No chest pain/pressure Cardiovascular No dyspnea 05/12/2017 Respiratory No cough 05/12/2017 Respiratory No dyspnea 05/12/2017 Gastrointestinal No abdominal pain 2016 Gastrointestinal No constipation 2016 Gastrointestinal No diarrhea 05/12/2017 Gastrointestinal No vomiting 05/12/2017 Gastrointestinal No nausea 05/12/2017 Dermatologic No rash 05/12/2017 Neurologic No alteration of consciousness 05/12/2017 Neurologic No mental status change 2016 Constitutional No recent illness 2016 Constitutional No [...] Result Effective Dates Notes Full Exam - ENT Constitutional general appearance Overall: well nourished 11/29/2018 None Full Exam - ENT Constitutional general appearance Overall: well developed 11/29/2018 None Full Exam - ENT Constitutional general appearance Overall: in no acute distress 11/29/2018 None Full Exam - ENT Ears/Nose/Throat otoscopic exam Overall: external auditory canals normal 11/29/2018 None Full Exam - ENT Ears/Nose/Throat otoscopic exam Overall: tympanic membranes normal 11/29/2018 None Full Exam - ENT Ears/Nose/Throat oropharynx Overall: oral mucosa clear 11/29/2018 None Full Exam - ENT Face and Head palpation Overall: no sinus tenderness 11/29/2018 None Full Exam - ENT Respiratory inspection Overall: no retractions 11/29/2018 None Full Exam - ENT Respiratory inspection Overall: normal rate 01/2019 None Full Exam - ENT Respiratory inspection Rate: a normal exam 01/2019 None Full Exam - ENT Respiratory inspection Rhythm: a normal exam None Full Exam - ENT Respiratory auscultation Overall: breath sounds clear bilaterally 11/29/2018 None Full Exam - ENT Respiratory auscultation Diffuse: a normal exam 11/29/2018 None Full Exam - ENT Respiratory auscultation Left upper lung field: a normal exam 11/29/2018 None Full Exam - ENT Respiratory auscultation Left lower lung field: a normal exam 11/29/2018 None Full Exam - ENT Respiratory auscultation Right upper lung field: a normal exam 11/29/2018 None Full Exam - ENT Respiratory auscultation Right middle lung field: a normal exam 11/29/2018 None Full Exam - ENT Respiratory auscultation Right lower lung field: a normal exam 11/29/2018 None Full Exam - ENT Cardiovascular auscultation of heart Overall: regular rate 11/29/2018 None Full Exam - ENT Cardiovascular auscultation of heart Overall: normal heart sounds 11/29/2018 None Full Exam - ENT Cardiovascular auscultation of heart Overall: no murmurs 11/29/2018 None Full Exam - ENT Cardiovascular auscultation of heart S1: a normal exam 11/29/2018 None Full Exam - ENT Cardiovascular auscultation of heart S2: a normal exam 11/29/2018 None Full Exam - ENT Lymphatic palpation of lymph nodes Overall: anterior cervical chain benign 11/29/2018 None Full Exam - ENT Lymphatic palpation of lymph nodes Overall: posterior cervical chain benign 11/29/2018 None Full Exam - ENT Neurologic orientation Overall: oriented to person, place and time 11/29/2018 None Full Exam - Cardiology Psychiatric orientation/consciousness Overall: oriented to person, place and time 11/29/2018 None Full Exam - Cardiology Ears/Nose/Throat oral mucosa Overall: oral mucosa clear 11/29/2018 None Full Exam - ENT Constitutional general appearance Overall: well nourished 10/05/2018 None Full Exam - ENT Constitutional general appearance Overall: well developed 10/05/2018 None Full Exam - ENT Constitutional general appearance Overall: in no acute distress 10/05/2018 None Full Exam - ENT Ears/Nose/Throat otoscopic exam Overall: external auditory canals normal 10/05/2018 None Full Exam - ENT Ears/Nose/Throat otoscopic exam Left tympanic membrane: air -fluid level 10/05/2018 None Full Exam - ENT Ears/Nose/Throat otoscopic exam Right tympanic membrane: air-fluid level 10/05/2018 None Full Exam - ENT Ears/Nose/Throat lips/ teeth/gingiva Overall: benign lips 10/05/2018 None Full Exam - ENT Ears/Nose/Throat oropharynx Overall: oral mucosa clear 10/05/2018 None Full Exam - ENT Ears/Nose/Throat oropharynx Posterior Pharynx: clear post nasal drainage 10/05/2018 None Full Exam - ENT Ears/Nose/Throat oropharynx Posterior Pharynx: erythema 10/05/2018 None Full Exam - ENT Respiratory inspection Overall: no retractions 10/05/2018 None Full Exam - ENT Respiratory inspection Overall: normal rate 05/2019 None Full Exam - ENT Cardiovascular auscultation of heart Rate: normal rate 10/05/2018 None Full Exam - ENT Cardiovascular auscultation of heart Rhythm: regular rhythm 10/05/2018 None Full Exam - ENT Lymphatic palpation of lymph nodes Overall: anterior cervical chain benign 10/05/2018 None Full Exam - ENT Lymphatic palpation of lymph nodes Overall: posterior cervical chain benign 10/05/2018 None Full Exam - ENT Neurologic mood and affect Overall: normal mood 10/05/2018 None Full Exam - ENT Neurologic mood and affect Overall: normal affect 10/05/2018 None Full Exam - ENT Neurologic orientation Overall: oriented to person, place and time 10/05/2018 None Full Exam - ENT Respiratory auscultation Diffuse: diminished None Full Exam - ENT Respiratory auscultation Right lower lung field: rhonchi 10/05/2018 None Full Exam - ENT Constitutional general appearance Overall: well nourished 09/22/2018 None Full Exam - ENT Constitutional general appearance Overall: well developed 09/22/2018 None Full Exam - ENT Constitutional general appearance Overall: in no acute distress 09/22/2018 None Full Exam - ENT Ears/Nose/Throat otoscopic exam Overall: external auditory canals normal 09/22/2018 None Full Exam - ENT Ears/Nose/Throat otoscopic exam Left tympanic membrane: air -fluid level 09/22/2018 None Full Exam - ENT Ears/Nose/Throat otoscopic exam Right tympanic membrane: air-fluid level 09/22/2018 None Full Exam - ENT Ears/Nose/Throat lips/ teeth/gingiva Overall: benign lips 09/22/2018 None Full Exam - ENT Ears/Nose/Throat oropharynx Overall: oral mucosa clear 09/22/2018 None Full Exam - ENT Ears/Nose/Throat oropharynx Posterior Pharynx: clear post nasal drainage 09/22/2018 None Full Exam - ENT Ears/Nose/Throat oropharynx Posterior Pharynx: erythema 09/22/2018 None Full Exam - ENT Respiratory inspection Overall: no retractions 09/22/2018 None Full Exam - ENT Respiratory inspection Overall: normal rate None Full Exam - ENT Respiratory auscultation Overall: breath sounds clear bilaterally 09/22/2018 None Full Exam - ENT Cardiovascular auscultation of heart Rate: normal rate 09/22/2018 None Full Exam - ENT Cardiovascular auscultation of heart Rhythm: regular rhythm 09/22/2018 None Full Exam - ENT Lymphatic palpation of lymph nodes Overall: anterior cervical chain benign 09/22/2018 None Full Exam - ENT Lymphatic palpation of lymph nodes Overall: posterior cervical chain benign 09/22/2018 None Full Exam - ENT Neurologic mood and affect Overall: normal mood 09/22/2018 None Full Exam - ENT Neurologic mood and affect Overall: normal affect 09/22/2018 None Full Exam - ENT Neurologic orientation Overall: oriented to person, place and time 09/22/2018 None Full Exam - General 1994 Constitutional general appearance Development: well developed 03/29/2018 None Full Exam - General 1994 Constitutional general appearance Development: appears stated age 0703/29/2018 None Full Exam - General 1994 Constitutional general appearance Hygiene/Attention to Grooming: good hygiene 03/29/2018 None Full Exam - General 1994 Eyes conjunctiva /eyelids Overall: conjunctiva clear 03/29/2018 None Full Exam - General 1994 Eyes conjunctiva /eyelids Overall: cornea clear 03/29/2018 None Full Exam - General 1994 Eyes conjunctiva /eyelids Overall: eyelids normal 03/29/2018 None Full Exam - General 1994 Eyes pupils and irises Overall: pupils equal, round, reactive to light and accomodation 03/29/2018 None Full Exam - General 1994 Ears/Nose/Throat otoscopic exam Overall: external auditory canals clear 03/29/2018 None Full Exam - General 1994 Ears/Nose/Throat otoscopic exam Overall: tympanic membranes clear 03/29/2018 None Full Exam - General 1994 Ears/Nose/Throat lips/teeth/gingiva Overall: benign lips 03/29/2018 None Full Exam - General 1994 Ears/Nose/Throat lips/teeth/gingiva Overall: normal dentition 03/29/2018 None Full Exam - General 1994 Ears/Nose/Throat oral cavity/pharynx/larynx Overall: oral mucosa clear 03/29/2018 None Full Exam - General 1994 Ears/Nose/Throat oral cavity/pharynx/larynx Overall: oropharyngeal mucosa clear 03/29/2018 None Full Exam - General 1994 Ears/Nose/Throat oral cavity/pharynx/larynx Overall: hypopharynx benign 03/29/2018 None Full Exam - General 1994 Ears/Nose/Throat oral cavity/pharynx/larynx Overall: no masses 03/29/2018 None Full Exam - General 1994 Respiratory auscultation Overall: breath sounds clear bilaterally 03/29/2018 None Full Exam - General 1994 Respiratory respiratory effort/rhythm Overall: no retractions 03/29/2018 None Full Exam - General 1994 Respiratory respiratory effort/rhythm Overall: normal rate 03/29/2018 None Full Exam - General 1994 Cardiovascular extremities Overall: no clubbing 03/29/2018 None Full Exam - General 1994 Cardiovascular auscultation of heart Overall: regular rate 03/29/2018 None Full Exam - General 1994 Cardiovascular auscultation of heart Overall: normal heart sounds 03/29/2018 None Full Exam - General 1994 Abdomen abdominal exam Overall: no tenderness 03/29/2018 None Full Exam - General 1994 Abdomen abdominal exam Overall: normal bowel sounds 03/29/2018 None Full Exam - General 1994 Integument inspection of skin Overall: few scattered moles, no gross abnormalities 03/29/2018 None Full Exam - General 1994 Neurologic deep tendon reflexes Overall: deep tendon reflexes intact 03/29/2018 None Full Exam - General 1994 Neurologic cranial nerves Overall: crainial nerves 2 - 12 grossly intact 03/29/2018 None Full Exam - General 1994 Psychiatric orientation/consciousness Overall: oriented to person, place and time 03/29/2018 None Full Exam - General 1994 Psychiatric mood and affect Overall: normal mood and affect 03/29/2018 None Full Exam - General 1994 Musculoskeletal lower extremity Palpation - knee: crepitus 03/29/2018 None Full Exam - ENT Constitutional general appearance Overall: well nourished 09/10/2017 None Full Exam - ENT Constitutional general appearance Overall: well developed 09/10/2017 None Full Exam - ENT Constitutional general appearance Overall: in no acute distress 09/10/2017 None Full Exam - ENT Ears/Nose/Throat otoscopic exam Overall: external auditory canals normal 09/10/2017 None Full Exam - ENT Ears/Nose/Throat otoscopic exam Overall: tympanic membranes normal 09/10/2017 None Full Exam - ENT Ears/Nose/Throat oropharynx Overall: oral mucosa clear 09/10/2017 None Full Exam - ENT Respiratory inspection Overall: no retractions 09/10/2017 None Full Exam - ENT Respiratory inspection Overall: normal rate None Full Exam - ENT Respiratory inspection Rate: a normal exam None Full Exam - ENT Respiratory inspection Rhythm: a normal exam None Full Exam - ENT Respiratory auscultation Overall: breath sounds clear bilaterally 09/10/2017 None Full Exam - ENT Respiratory auscultation Diffuse: a normal exam 09/10/2017 None Full Exam - ENT Respiratory auscultation Left upper lung field: a normal exam 09/10/2017 None Full Exam - ENT Respiratory auscultation Left lower lung field: a normal exam 09/10/2017 None Full Exam - ENT Respiratory auscultation Right upper lung field: a normal exam 09/10/2017 None Full Exam - ENT Respiratory auscultation Right middle lung field: a normal exam 09/10/2017 None Full Exam - ENT Respiratory auscultation Right lower lung field: a normal exam 09/10/2017 None Full Exam - ENT Cardiovascular auscultation of heart Overall: regular rate 09/10/2017 None Full Exam - ENT Cardiovascular auscultation of heart Overall: normal heart sounds 09/10/2017 None Full Exam - ENT Cardiovascular auscultation of heart Overall: no murmurs 09/10/2017 None Full Exam - ENT Cardiovascular auscultation of heart S1: a normal exam 09/10/2017 None Full Exam - ENT Cardiovascular auscultation of heart S2: a normal exam 09/10/2017 None Full Exam - ENT Lymphatic palpation of lymph nodes Overall: anterior cervical chain benign 09/10/2017 None Full Exam - ENT Lymphatic palpation of lymph nodes Overall: posterior cervical chain benign 09/10/2017 None Full Exam - ENT Neurologic orientation Overall: oriented to person, place and time 09/10/2017 None Full Exam - ENT Face and Head palpation Overall: no sinus tenderness 09/10/2017 None Full Exam - ENT Constitutional general appearance Overall: well nourished 05/18/2017 None Full Exam - ENT Constitutional general appearance Overall: well developed 05/18/2017 None Full Exam - ENT Constitutional general appearance Overall: in no acute distress 05/18/2017 None Full Exam - ENT Ears/Nose/Throat lips/ teeth/gingiva Overall: benign lips 05/18/2017 None Full Exam - ENT Ears/Nose/Throat oropharynx Posterior Pharynx: no post nasal drainage 05/18/2017 None Full Exam - ENT Ears/Nose/Throat oropharynx Posterior Pharynx: erythema 05/18/2017 None Full Exam - ENT Face and Head palpation Right maxillary sinus: tender 05/18/2017 None Full Exam - ENT Respiratory inspection Overall: no retractions 05/18/2017 None Full Exam - ENT Respiratory inspection Overall: normal rate None Full Exam - ENT Respiratory auscultation Overall: breath sounds clear bilaterally 05/18/2017 None Full Exam - ENT Cardiovascular auscultation of heart Overall: regular rate 05/18/2017 None Full Exam - ENT Cardiovascular auscultation of heart Overall: normal heart sounds 05/18/2017 None Full Exam - ENT Lymphatic palpation of lymph nodes Overall: anterior cervical chain benign 05/18/2017 None Full Exam - ENT Lymphatic palpation of lymph nodes Overall: posterior cervical chain benign 05/18/2017 None Full Exam - ENT Musculoskeletal head and neck Overall: head atraumatic 05/18/2017 None Full Exam - ENT Musculoskeletal gait and station Overall: normal gait 05/18/2017 None Full Exam - ENT Musculoskeletal gait and station Overall: normal station 05/18/2017 None Full Exam - ENT Neurologic mood and affect Overall: normal mood 05/18/2017 None Full Exam - ENT Neurologic mood and affect Overall: normal affect 05/18/2017 None Full Exam - ENT Neurologic orientation Overall: oriented to person, place and time 05/18/2017 None Full Exam - ENT Neurologic cranial nerves /coordination Overall: cranial nerves 2- 12 grossly intact 05/18/2017 None Full Exam - ENT Ears/Nose/Throat otoscopic exam Overall: tympanic membranes normal 05/18/2017 None Full Exam - ENT Constitutional general appearance Overall: well nourished 05/12/2017 None Full Exam - ENT Constitutional general appearance Overall: well developed 05/12/2017 None Full Exam - ENT Constitutional general appearance Overall: in no acute distress 05/12/2017 None Full Exam - ENT Ears/Nose/Throat otoscopic exam Right tympanic membrane: erythematous 05/12/2017 None Full Exam - ENT Ears/Nose/Throat otoscopic exam Left tympanic membrane: erythematous 05/12/2017 mild Full Exam - ENT Ears/Nose/Throat otoscopic exam Left external auditory canal: partial cerumen occlusion 05/12/2017 None Full Exam - ENT Ears/Nose/Throat otoscopic exam Right external auditory canal: partial cerumen occlusion 05/12/2017 None Full Exam - ENT Ears/Nose/Throat lips/ teeth/gingiva Overall: benign lips 05/12/2017 None Full Exam - ENT Ears/Nose/Throat oropharynx Posterior Pharynx: no post nasal drainage 05/12/2017 None Full Exam - ENT Ears/Nose/Throat oropharynx Posterior Pharynx: erythema 05/12/2017 None Full Exam - ENT Face and Head palpation Right maxillary sinus: tender 05/12/2017 None Full Exam - ENT Respiratory inspection Overall: no retractions 05/12/2017 None Full Exam - ENT Respiratory inspection Overall: normal rate None Full Exam - ENT Respiratory auscultation Overall: breath sounds clear bilaterally 05/12/2017 None Full Exam - ENT Cardiovascular auscultation of heart Overall: normal heart sounds 05/12/2017 None Full Exam - ENT Cardiovascular auscultation of heart Overall: regular rate 05/12/2017 None Full Exam - ENT Lymphatic palpation of lymph nodes Overall: anterior cervical chain benign 05/12/2017 None Full Exam - ENT Lymphatic palpation of lymph nodes Overall: posterior cervical chain benign 05/12/2017 None Full Exam - ENT Musculoskeletal head and neck Overall: head atraumatic 05/12/2017 None Full Exam - ENT Musculoskeletal gait and station Overall: normal gait 05/12/2017 None Full Exam - ENT Musculoskeletal gait and station Overall: normal station 05/12/2017 None Full Exam - ENT Neurologic mood and affect Overall: normal mood 05/12/2017 None Full Exam - ENT Neurologic mood and affect Overall: normal affect 05/12/2017 None Full Exam - ENT Neurologic orientation Overall: oriented to person, place and time 05/12/2017 None Full Exam - ENT Neurologic cranial nerves /coordination Overall: cranial nerves 2- 12 grossly intact 05/12/2017 None Full Exam - Dermatology Constitutional general [...] lips 10/29/2016 None Full Exam - General 1994 Ears/Nose/Throat lips/teeth/gingiva Overall: normal dentition 10/29/2016 None Full Exam - General 1994 Ears/Nose/Throat oral cavity/pharynx/larynx Overall: oral mucosa clear 10/29/2016 None Full Exam - General 1994 Ears/Nose/Throat oral cavity/pharynx/larynx Overall: oropharyngeal mucosa clear 10/29/2016 None Full Exam - General 1994 Ears/Nose/Throat oral cavity/pharynx/larynx Overall: hypopharynx benign 10/29/2016 None Full Exam - General 1994 Ears/Nose/Throat oral cavity/pharynx/larynx Overall: no masses 10/29/2016 [...] time 01/24/2015 None Full Exam - General 1995 Constitutional general appearance Development: well developed 07/26/2014 [...] lips 10/31/2013 None Full Exam - General 1994 Ears/Nose/Throat lips/teeth/gingiva Overall: normal dentition 10/31/2013 None Full Exam - General 1994 Ears/Nose/Throat oral cavity/pharynx/larynx Overall: hypopharynx benign 10/31/2013 None Full Exam - General 1995 Ears/Nose/Throat oral cavity/pharynx/larynx Overall: no masses 10/31/2013 None Full Exam - General 1995 Ears/Nose/Throat oral cavity/pharynx/larynx Overall: oral mucosa clear 10/31/2013 None Full Exam - General 1995 [...] chest 06/29/2013 None Full Exam - General 1995 Integument inspection of skin Rash/Lesions: papule 06/29/2013 [...] unsteadiness 08/18/2011 None Procedures Procedure Codes Date ROCEPHIN, PER 250 MG CPT-4: J0696 11/29/2018 TRIAMCINOLONE ACET INJ NOS CPT-4: J3301 11/29/2018 TRIAMCINOLONE ACET INJ NOS CPT-4: J3301 09/10/2017 ROCEPHIN, PER 250 MG CPT-4: J0696 09/10/2017 THER/PROPH/DIAG INJ SC/IM CPT-4: 79990 05/18/2017 TRIAMCINOLONE ACET INJ NOS CPT-4: J3301 05/18/2017 DESTRUCT PREMALG LESION CPT-4: 65966 06/24/2016 ADMIN INFLUENZA VIRUS VAC CPT-4: G0008 06/15/2016 ADMIN PNEUMOCOCCAL VACCINE SNOMED CT: 12682918 CPT-4: G0009 06/15/2016 PNEUMOCOCCAL VACC [address]: 80145898 CPT-4: 24187 06/15/2016 FLU VACC PRSV FREE INC ANTIG Formatting Model/CDA Sections, Assigned to/Vianney Bronson CPT-4: 24781Hjvtnsx 06/15/2016 THER/PROPH/DIAG INJ SC/IM CPT-4: 54396 08/13/2015 TRIAMCINOLONE ACET INJ NOS CPT-4: J3301 08/13/2015 TRIAMCINOLONE ACET INJ NOS CPT-4: J3301 01/24/2015 IMMUNIZATION ADMIN CPT -4: 76945 08/08/2014 FLU VAC NO PRSV 4 DARREL 3 YRS+ Assigned to CPT-4: 25618Ureivyc 08/08/2014 TRIAMCINOLONE ACET INJ NOS CPT-4: J3301 01/01/2014 ROCEPHIN, PER 250 MG CPT-4: J0696 01/01/2014 TRIAMCINOLONE ACET INJ NOS CPT-4: J3301 12/01/2013 REMOVAL OF SKIN TAGS <W/15 CPT-4: 48387 06/29/2013 TRIAMCINOLONE ACET INJ NOS CPT-4: J3301 02/08/2013 ROCEPHIN, PER 250 MG CPT-4: J0696 02/08/2013 13765 EST. PATIENT, LEVEL III CPT-4: 06614 05/16/2012 TRIAMCINOLONE ACET INJ NOS CPT-4: J3301 11/17/2011 ROCEPHIN, PER 250 MG CPT-4: J0696 11/17/2011 TRIAMCINOLONE ACET INJ NOS CPT-4: J3301 08/18/2011 THER/PROPH/DIAG INJ SC/IM CPT-4: 32393 08/18/2011 Vital Signs Date Vital 11/29/2018 Blood Pressure 1: 110/64 Code : 8480-6 BMI: 38.1 Code : 47699-0 Heart Rate 1 : 79 bpm Height: 5'4" SpO2: 97% Temperature: 37.1 (C) / 98.8 (F) Weight: 222 lbs 10/05/2018 BMI: 38.1 Code: 26381-7 Heart Rate 1: 88 bpm Height: 5'4" Weight: 222 lbs 09/22/2018 Blood Pressure 1: 132/74 Code : 8480-6 BMI: 38.4 Code : 82753-8 Heart Rate 1 : 74 bpm Height: 5'4" SpO2: 96% Weight: 224 lbs 03/29/2018 Blood Pressure 1: 130/82 Code : 8480-6 BMI: 38.1 Code : 95745-0 Heart Rate 1 : 71 bpm Height: 5'4" SpO2: 96% Weight: 222 lbs 09/10/2017 Blood Pressure 1: 130/78 Code : 8480-6 BMI: 37.1 Code : 55388-1 Heart Rate 1 : 76 bpm Height: 5'4" SpO2: 97% Temperature: 36.9 (C) / 98.4 (F) Weight: 216 lbs 07/26/2017 Blood Pressure 1: 118/80 Code : 8480-6 Heart Rate 1: 71 bpm SpO2: 96% 05/18/2017 Blood Pressure 1: 12280 Code : 8480-6 BMI: 36.9 Code : 88958-1 Heart Rate 1 : 83 bpm Height: 5'4" SpO2: 96% Weight: 215 lbs 05/12/2017 Blood Pressure 1: 132/80 Code : 8480-6 BMI: 36.7 Code : 48719-4 Heart Rate 1 : 86 bpm Height: 5'4" SpO2: 97% Weight: 214 lbs 02/25/2017 Blood Pressure 1: 126 Code : 8480-6 Heart Rate 1: 81 bpm Height: 5'4" SpO2: 95% Weight: 01/15/2017 Blood Pressure 1: 136 Code : 8480-6 Heart Rate 1: 80 bpm Height: 5'4" SpO2: 96% Temperature: 37.0 (C) / 98.6 (F) Weight: 10/29/2016 Blood Pressure 1: 124/70 Code : 8480-6 BMI: 37.8 Code : 58649-3 Heart Rate 1 : 74 bpm Height: 5'4" SpO2: 97% Temperature: 37.1 (C) / 98.7 (F) Weight: 220 lbs 07/20/2016 Blood Pressure 1: 134/80 Code : 8480-6 BMI: 36.9 Code : 40816-6 Heart Rate 1 : 71 bpm Height: 5'4" SpO2: 98% Weight: 215 lbs 06/24/2016 Blood Pressure 1: 134/74 Code : 8480-6 BMI: 37.1 Code : 74589-3 Heart Rate 1 : 85 bpm Height: 5'4" SpO2: 97% Weight: 216 lbs 06/15/2016 Blood Pressure 1: 130/80 Code : 8480-6 BMI: 37.1 Code : 15869-3 Heart Rate 1 : 73 bpm Height: 5'4" SpO2: 97% Weight: 216 lbs 01/15/2016 Blood Pressure 1: 128/80 Code : 8480-6 BMI: 35.7 Code : 05803-8 Heart Rate 1 : 79 bpm Height: 5'4" SpO2: 97% Weight: 208 lbs 12/11/2015 Blood Pressure 1: 134/80 Code : 8480-6 BMI: 34.7 Code : 39779-5 Heart Rate 1 : 65 bpm Height: 5'4" SpO2: 98% Temperature: 36.7 (C) / 98.1 (F) Weight: 202 lbs 08/13/2015 Blood Pressure 1: 120/82 Code : 8480-6 BMI: 34.2 Code : 68105-0 Heart Rate 1 : 74 bpm Height: 5'4" SpO2: 98% Weight: 199 lbs 01/24/2015 Blood Pressure 1: 138/82 Code : 8480-6 BMI: 36.2 Code : 87357-0 Heart Rate 1 : 69 bpm Height: 5'6" SpO2: 94% Temperature: 36.5 (C) / 97.7 (F) Weight: 224 lbs 07/26/2014 Blood Pressure 1: 142/96 Code : 8480-6 BMI: 35.2 Code : 49027-3 Heart Rate 1 : 68 bpm Height: 5'6" Weight: 218 lbs 01/01/2014 Blood Pressure 1: 104/70 Code : 8480-6 BMI: 35.0 Code : 51945-8 Heart Rate 1 : 68 bpm Height: 5'6" Temperature: 36.8 (C) / 98.2 (F) Weight: 217 lbs 12/01/2013 Blood Pressure 1: 112/78 Code : 8480-6 Heart Rate 1: 84 bpm Temperature: 36.7 (C) / 98.0 (F) Weight: 213 lbs 10/31/2013 Blood Pressure 1: 102/70 Code : 8480-6 BMI: 34.9 Code : 97671-2 Heart Rate 1 : 64 bpm Height: 5'6" Weight: 216 lbs 06/29/2013 Blood Pressure 1: 130/84 Code : 8480-6 BMI: 34.5 Code : 68686-4 Heart Rate 1 : 80 bpm Height: 5'6" Weight: 214 lbs 02/08/2013 Blood Pressure 1: 122/80 Code : 8480-6 BMI: 32.9 Code : 29893-6 Heart Rate 1 : 72 bpm Height: 5'6" Temperature: 37.4 (C) / 99.3 (F) Weight: 204 lbs 01/02/2013 Blood Pressure 1: 118/88 Code : 8480-6 BMI: 34.7 Code : 95135-5 Heart Rate 1 : 88 bpm Height: [...] Code : 8480-6 BMI: 35.3 Code : 59547-0 Heart Rate 1 : 68 bpm Height: 5'6" Respiratory Rate: 16 bpm Temperature: 36.5 ( C) / 97.7 (F) Weight: 219 lbs Functional Status No Functional Status data History of Present Illness Symptom Name Status Result Effective Date Notes Location in the throat 11/29/2018 None Quality constant 01/2019 None Quality hacking 11/29 None Onset and Resolution sudden in onset 11/29/2018 None Onset of Symptom 1 days ago 11/29/2018 None Onset and Resolution sudden in onset 11/29/2018 None Onset of Symptom 1 days ago 11/29/2018 None Limitation on Activities does not limit activities 11/29/2018 None Frequency of Episodes increasing 11/29/2018 None Triggers no known associated factors 11/29/2018 None Pertinent Findings Denies dyspnea 11/29/2018 None Pertinent Findings nasal congestion 11/29/2018 None Location in the lung 10/05/2018 None Quality acute 2018 None Onset and Resolution ongoing 10/05/2018 None Pertinent Findings Denies dyspnea 10/05/2018 None Location in the lung 09/22/2018 None Quality acute 2017 None Pertinent Findings Denies fever 09/22/2018 None fatigue Onset and Resolution gradual in onset 03/29/2018 None fatigue Onset of Symptom 2 months ago 03/29/2018 None knee pain Location on the left 03/29/2018 None knee pain Location on the right 03/29/2018 None knee pain Quality intermittent 03/29/2018 None knee pain Onset and Resolution gradual in onset 03/29/2018 None knee pain Onset of Symptom 2 months ago 03/29/2018 None cough Location in the lung 09/10/2017 None cough Location in the throat 09/10/2017 None cough Quality constant 09/10/2017 None cough Quality hacking 09/10/2017 None cough Quality productive 09/10/2017 None cough Onset and Resolution sudden in onset 09/10/2017 None cough Onset of Symptom 2 weeks ago 09/10/2017 None cough Triggers no known associated factors 09/10/2017 None cough Pertinent Findings Denies dyspnea 09/10/2017 None cough Pertinent Findings Denies fever 09/10/2017 None cough Pertinent Findings Denies vomiting 09/10/2017 None cough Pertinent Findings Denies tachypnea 09/10/2017 None cough Limitation on Activities does not limit activities 09/10/2017 None cough Frequency of Episodes unchanged 09/10/2017 None earache Location right ear 05/18/2017 None earache Onset and Resolution sudden in onset 05/18/2017 None earache Onset of Symptom 1 weeks ago 05/18/2017 None earache Frequency of Episodes daily 05/18/2017 None earache Quality sharp pain 05/18/2017 None neck pain Location diffusely 05/18/2017 None neck pain Quality aching 05/18/2017 None neck pain Onset and Resolution sudden in onset 05/18/2017 None neck pain Quality discomfort 05/18/2017 None earache Location right ear 05/12/2017 None earache Onset and Resolution sudden in onset 05/12/2017 None earache Onset of Symptom 1 weeks ago 05/12/2017 None earache Frequency of Episodes daily 05/12/2017 None Hospital Follow Up _ pain 02/25/2017 laceration [...] Up Onset of Symptom 3 days ago 01/15/201701/12 Hospital Follow Up Onset and Resolution sudden [...] data Encounters Encounter Performer Location Codes Date ( 02448 EST. PATIENT, LEVEL III Diagnosis: Cough[ICD10: R05] Diagnosis: Acute bronchitis, unspecified[ICD10: J20.9] Joceline Lopez MD, [facility] CPT-4: 65790 11/29/2018 38670 EST. PATIENT, LEVEL III Diagnosis: Cough[ICD10: R05] Diagnosis: Acute laryngopharyngitis[ICD10: J06.0] Diagnosis: Other allergic rhinitis[ICD10: J30.89] Xochilt Lopez MD, [facility] CPT-4: 35956 10/05/2018 40193 EST. PATIENT, LEVEL III Diagnosis: Acute laryngopharyngitis[ICD10: J06.0] Diagnosis: Other allergic rhinitis[ICD10: J30.89] Diagnosis: Cough[ICD10: R05] Xochilt Lopez MD, [facility] CPT-4: 71404 09/22/2018 ([id number]) 80714 EST. PATIENT, LEVEL IV Diagnosis: Essential (primary) hypertension[ICD10: I10] Diagnosis: Pain in left knee[ICD10: M25.562] Diagnosis: Pain in right knee[ICD10: M25.561] Diagnosis: Shortness of breath[ICD10: R06.02] Ann-Marie Lopez MD, [facility] CPT-4: 81317 03/29/2018 ([id number]) 39708 EST. PATIENT, LEVEL III Diagnosis: Cough[ICD10: R05] Diagnosis: Acute bronchitis, unspecified[ICD10: J20.9] Joceline Lopez MD, [facility] CPT-4: 69216 09/10/2017 ([id number]) Miscellaneous no charge Diagnosis: Essential (primary) hypertension[ICD10: I10] Joceline Lopez MD, [facility] CPT-4: 34233 07/26/2017 ([id number]) 25750 EST. PATIENT, LEVEL III Diagnosis: Otalgia, right ear[ICD10: H92.01] Diagnosis: Other specified disorders of teeth and supporting structures[ICD10: K08.89] Ann-Marie Lopez MD, [facility] CPT-4: 06426 2016 57484 EST. PATIENT, LEVEL III Diagnosis: Acute suppurative otitis media without spontaneous rupture of ear drum, right ear[ICD10: H66.001] Xochilt Lopez MD, [facility] CPT-4: 07889 05/12/2017 ([id number]) 48857 EST. PATIENT, LEVEL II Diagnosis: Contusion of left lower leg, subsequent encounter[ICD10: S80.12XD] Joceline Lopez MD, [facility] CPT-4: 73782 02/25/2017 ([id number]) 76853 EST. PATIENT, LEVEL III Diagnosis: Cellulitis of right lower limb[ICD10: L03.115] Diagnosis: Contusion of left lower leg, initial encounter[ICD10: S80.12XA] Diagnosis: Laceration without foreign body, right lower leg, initial encounter[ ICD10: S81.811A] Joceline Lopez MD, [facility] CPT-4: 68873 01/15/2017 ([id number]) 74545 EST. PATIENT, LEVEL III Diagnosis: Acute recurrent maxillary sinusitis[ICD10: J01.01] Diagnosis: Cough[ICD10: R05] Ann-Marie Lopez MD, [facility] CPT-4: 84860 10/29/2016 ([id number]) 90347 EST. PATIENT, LEVEL IV Diagnosis: Essential (primary) hypertension[ICD10: I10] Diagnosis: Varicose veins of left lower extremity with inflammation[ICD10: I83.12] Diagnosis: Localized edema[ICD10: R60.0] Ann-Marie Lopez MD, [facility] CPT- 4: 80688 07/20/2016 23006 EST. PATIENT, LEVEL III Diagnosis: Actinic keratosis[ICD10: L57.0] Xochilt Lopez MD, [facility] CPT-4 : 84759 06/24/2016 ([id number]) 83880 EST. PATIENT, LEVEL III Diagnosis: Asymptomatic varicose veins of bilateral lower extremities[ICD10: I83.93] Joceline Lopez MD [facility] CPT-4: 55290 97389 EST. PATIENT, LEVEL III Diagnosis: Rash and other nonspecific skin eruption[ICD10: R21] Xochilt Lopez MD [facility] CPT-4: 06755 01/15/2016 ([id number]) 97027 EST. PATIENT, LEVEL III Diagnosis: Cough[ICD10: R05] Diagnosis: Dyspnea, unspecified[ICD10: R06.00] Diagnosis: Acute sinusitis, unspecified[ICD10: J01.90] Ann-Marie Lopez MD [facility] CPT-4: 86534 12/11/2015 05577 EST. PATIENT, LEVEL III Diagnosis: Allergic rhinitis, unspecified[ICD10: J30.9] Diagnosis: Tinnitus, bilateral[ICD10: H93.13] Xochilt Lopez MD [facility] CPT-4: 92453 08/13/2015 ([id number]) 98780 EST. PATIENT, LEVEL III Diagnosis: ALLERGIC RHINITIS[ICD9: 477.9] Joceline Lopez MD, [facility] CPT-4: 39097 01/24/2015 ([id number]) PER PM REEVAL EST PAT 65+ YR Diagnosis: Routine medical exam[ICD9: V70.0] Ann-Marie Lopez MD, [facility] CPT-4: 44616 07/26/2014 ([id number]) 76230 EST. PATIENT, LEVEL III Diagnosis: ACUTE SINUSITIS[ICD9: 461.9] Diagnosis: ACUTE BRONCHITIS[ICD9: 466.0] Diagnosis: COUGH[ICD9: 786.2] Joceline Lopez MD, [facility] CPT-4: 42545 01/01/2014 ([id number]) 91738 EST. PATIENT, LEVEL III Diagnosis: ALLERGIC RHINITIS[ICD9: 477.9] Joceline Lopez MD, [facility] CPT-4: 96883 12/01/2013 ([id number]) 75062 EST. PATIENT, LEVEL IV Diagnosis: ESSENTIAL HYPERTENSION[SNOMED: 77527171] Diagnosis: Urinary urgency[ICD9: 788.63] Ann-Marie Lopez MD [facility] CPT- 4: 78700 10/31/2013 ([id number]) 66964 EST. PATIENT, LEVEL III Diagnosis: Cough[ICD9: 786.2] Diagnosis: Diarrhea[ICD9: 787.91] Ann-Marie Lopez MD, [facility] CPT-4: 11707 02/08/2013 ([id number]) 27055 EST. PATIENT, LEVEL III Diagnosis: Diarrhea[ICD9: 787.91] Diagnosis: Abdominal discomfort[ICD9: 789.00] Diagnosis: Fecal urgency[ICD9: 787.63] Ann-Marie Lopez MD, [facility] CPT- 4: 95212 01/02/2013 ([id number]) 86819 EST. PATIENT, LEVEL III Diagnosis: EDEMA[ICD9: 782.3] Ann-Marie Lopez MD, [facility] CPT-4: 62335 04/25/2012 ([id number]) 43892 EST. PATIENT, LEVEL III Diagnosis: ESSENTIAL HYPERTENSION[SNOMED: 90098949] Diagnosis: BACTERIAL PNEUMONIA[ICD9: 482.9] Ann-Marie Lopez MD, [facility] CPT-4: 06710 12/07/2011 ([id number]) 63342 EST. PATIENT, LEVEL IV Diagnosis: COUGH[ICD9: 786.2] Diagnosis: FEVER NOS[ICD9: 780.60] Ann-Marie Lopez MD, [facility] CPT-4: 41232 11/17/2011 80831 EST. PATIENT, LEVEL IV Diagnosis: Acute bronchitis[ICD9: 466.0] Diagnosis: Cough[ICD9: 786.2] Diagnosis: Dyspnea[ICD9: 786.09] Joceline Lopez MD, [facility] CPT-4: 42380 08/18/2011 Plan of Care Planned Activity Notes Codes Status Date Appointment: Joceline Mario WPtel: [address] [place], [place] [phone] (30 min) Complex 12/08/2018 Visit Plan: Bronchitis - acute case of bronchitis identified. Pt has been given antibiotics, breathing treatments as appropriate, and pt has been instructed to call if symptoms are not improved, or if symptoms acutely worsen. 11/29/2018 Appointment: Joceline Mario WPtel: [address] [place], [place] [phone] [place] (15 min) Moderate 11/29/2018 Patient Education: Patient Medication Summary Completed 11/29/2018 Visit Plan: URI - Pt advised to increase fluids, vitamin C. Discussed natural and expected course of this diagnosis and need to alert me if symptoms do not follow expected course, or if any worse. RX sent to patient' s pharmacy. Allergies - chronic - recommended pt to [...] spray in the nasal steroid allergy spray. 10/05/2018 Appointment: Xochilt Gardner WPtel: [phone] (15 min) Moderate 10/05/2018 Patient Education: Patient Medication Summary Completed 10/05/2018 Visit Plan: Allergies - chronic - recommended [...] spray in the nasal steroid allergy spray. URI - Pt advised to increase fluids, vitamin C. Discussed natural and expected course of this diagnosis and need to alert me if symptoms do not follow expected course, or if any worse. RX sent to patient's pharmacy. 09/22/2018 Appointment: Xochilt Gardner WPtel: [facility] [place] (15 min) Moderate 09/22/2018 Patient Education: Patient Medication Summary Completed 09/22/2018 Patient Education: Patient Medication Summary Completed 05/04/2018 Care Plan: SCREENINGMAMMOGRAPHYDIGITAL LOINC : 79832-4 Pending 05/04/2018 Appointment: Ann-Marie Lopez WPtel: [address] [place], [place] [phone] [place] (15 min) Moderate 04/21/2018 Visit Plan: Hypertension - well controlled - continue with current medications, continue with no added salt diet. Pt has been encouraged to exercise daily. The pt has been advised to call the office if there are any acute concerns about change in blood pressure readings at home. Dyspnea on exertion - Referral back to dr. beth for stress testing. 24 hour holter monitor - week of the . Knee pain - bilateral lower extremities - recommended pt to see Dr. Cope about her knee pain. 03/29/2018 Appointment: Ann-Marie Lopez WPtel: [phone] [facility] (15 min) Moderate 03/29/2018 Patient Education: Patient Medication Summary Completed 03/29/2018 Appointment: Nurse Visit 03/02/2018 Visit Plan: Bronchitis - acute case of bronchitis identified. Pt has been given antibiotics, breathing treatments as appropriate, and pt has been instructed to call if symptoms are not improved, or if symptoms acutely worsen. 09/10/2017 Appointment: Joceline Mario WPtel: [phone] [phone] [place] (15 min) Moderate 09/10/2017 Patient Education: Patient Medication Summary Completed 09/10/2017 Appointment: Nurse Visit 07/26/2017 Patient Education: Patient Medication Summary Completed 07/26/2017 Visit Plan: Otalgia - right tooth pain - rx for extension of antibiotics - the pain in your ear is probably from the tooth on the right causing inflammation and possible nerve irritation. kenalog shot today. 05/18/2017 Patient Education: Patient Medication Summary Completed 05/18/2017 Patient Education: Obesity Completed 05/18/2017 Visit Plan: Otitis Media - pt is to continue amoxicillin as directed from dentist - notify clinic if symptoms do not resolve and will extend abx - discussed the diagnosis with the patient, script sent electronically to the pharmacy for treatment of the infection. The disease course was discussed and the need to notify the clinic if symptoms do not improve or if they acutely worsen. 05/12/2017 Appointment: [facility] Gardner [phone] [facility] (10 min) Simple 05/12/2017 Patient Education: Patient Medication Summary Completed 05/12/2017 Visit Plan: Contusion/hematoma-left lower leg-improving- continue to monitor Laceration-right pap-itglvxu-jyq neosporin as directed Skin tag-right neck-fell off in the office before having it removed-no treatment today in the office-monitor area 02/25/2017 Appointment: Joceline Mario WPtel: [phone] [phone] (30 min) Complex 02/25/2017 Patient Education: Patient Medication Summary Completed 02/25/2017 Appointment: Nurse Visit 01/25/2017 Visit Plan: Cellulitis - right lower leg-RX for abx and instructed on use- return to clinic as previously directed, call for acute change in symptoms, worsening redness, warmth, discharge. Laceration-right lower leg-return in 10 days for suture removal Contusion-left lower leg- improving-continue current treatment 01/15/2017 Appointment: [phone] [phone] (30 min) Complex 01/15/2017 Patient Education: Patient [...] 07/20/2016 Care Plan: Referral Order SNOMED-CT : [id number] Pending 07/20/2016 Visit Plan: Irritated [place] to [...] acute concerns. 06/24/2016 Appointment: Joceline Mario WPtel: [phone] [phone] (15 min) Moderate 06/24/2016 Patient Education: Patient Medication Summary Completed 06/24/2016 Patient Education: Obesity Completed 06/24/2016 Visit Plan: Varicose veins-recommend compression stockings- on in the am and off at HS-discussed the need for weight loss as well- instructed patient to call if symptoms persist, worsen, or new symptoms develop. Patient verbalized understanding of plan. 06/15/2016 Appointment: Joceline Mario WPtel: [phone] [phone] (15 min) Moderate 06/15/2016 Patient Education: Patient Medication Summary Completed 06/15/2016 Patient Education: Obesity Completed 06/15/2016 Appointment: Ann-Marie Lopez WPtel: [phone] [facility] [place] (15 min) Moderate 06/08/2016 Visit Plan: Rash/Cellulitis [...] spray. Kenalog injection today in the office. 01/24/2015 Patient Education: Patient Medication Summary Completed 01/24/2015 Appointment: [phone] [place] Injection 08/08/2014 Patient Education: Patient Medication [...] at home. 07/26/2014 Appointment: [phone] [facility] [place] Follow up 07/26/2014 Patient Education: Patient Medication [...] not improved, or if symptoms acutely worsen. 01/01/2014 Patient [...] anti histamine. 12/01/2013 Appointment: Joceline Mario WPtel: [address] [place], [place] [phone] [place] [address] 12/01/2013 Patient Education: Patient Medication Summary Completed [...] products, spicy products, and to urinate every 2- 3 hours to prevent the incontinence associated with the urgency. Pt is to continue with current treatment plan and call if symptoms worsen. 10/31/2013 Appointment: Ann-Marie Lopez WPtel: [address] [place], [place] [phone] Other 10/31/2013 Patient Education: Patient Medication Summary Completed 10/31/2013 Patient Education: Hypertension Completed 10/31/2013 Appointment: Ann-Marie Lopez WPtel: [address] [place], [place] [id number] Surgical Procedure 07/04/2013 Visit Plan: Wound Instructions - Pt was instruced to keep the wound clean, wash with antibacterial soap, use triple antibiotic ointment, call if redness, pustular drainage, or any other acute conerns. 06/29/2013 Appointment: Joceline Mario WPtel: [id number] Surgical Procedure 06/29/2013 Patient Education: Patient Medication [...] with codeine. 02/08/2013 Appointment: Ann-Marie Lopez WPtel: [facility] Sick 02/08/2013 Patient Education: Patient Medication Summary Completed 02/08/2013 Visit Plan: Diarrhea - recommended bland diet, no milk or fatty foods, recommended a gallbladder ultrasound and for pt to have stool studies and start on a probiotic. 01/02/2013 Appointment: Ann-Marie Lopez WPtel: [address] [place] [address] Sick 01/02/2013 Patient Education: Patient Medication Summary Completed 01/02/2013 Appointment: Ann-Marie Lopez WPtel: [address] [place] [address] Follow up 06/20/2012 Visit Plan: Edema - [...] labs-order provided 05/16/2012 Appointment: Ann-Marie Lopez WPtel: [facility] [place] [id number] Other 05/16/2012 Patient Education: Patient Medication Summary [...] peripheral edema. 04/25/2012 Appointment: Ann-Marie Lopez WPtel: [address] [place] [address] Other 04/25/2012 Patient Education: Patient Medication Summary Completed 04/25/2012 Appointment: Ann-Marie Lopez WPtel: [address] [place] [address] Other 12/08/2011 Visit Plan: Hypertension - well controlled - continue with current medications, continue with no added salt diet. Pt has been encouraged to exercise daily. The pt has been advised to call the office if there are any acute concerns about change in blood pressure readings at home. Pneumonia - Pt has been diagnosed with pneumonia by physical exam.Antibiotics have been re- ordered as the pt is not quite over the illness.. The pt is aware of the diagnosis and the need for acute treatment of this illness. 12/07/2011 Appointment: John Ann-Marie WPtel: [address] [place] [address] Other 12/07/2011 Patient Education: Patient Medication Summary [...] worse. RX sent to patient's pharmacy. 08/18/2011 Visit Plan: Acute bronchitis - Pt [...] exam, and the assessment and plan. 08/18/2011 Appointment: Ann[facility] Lopez [facility]Ptel[id number] [facility] 08/18/2011 Patient Education: Patient Medication Summary Completed 08/18/2011 Referral: Cornelius Beth Referral Appointment Requested Instructions Comment . Pneumonia - Pt has been diagnosed with pneumonia by physical exam. A chest xray has been ordered as have antibiotics. The pt is aware of the diagnosis and the need for acute treatment of this illness. cough and fever - check labs - chem and cbc xray did show + left lower lobe pneumonia . Diarrhea - recommended bland diet, no milk or fatty foods , recommended a gallbladder ultrasound and for pt to have stool studies and start on a probiotic. Nambii or [employer] - take three times daily x 10days . Sinusitis - Pt has acute infection - pain in face, maxillary region, Pt informed to use decongestant, RX given to patient, sinus rinses also recommended. Call if symptoms do not show improvement. . Hypertension - well controlled - continue [...] to further attempt to reduce peripheral edema. rx for extension of antibiotics - the pain in your ear is probably from the tooth on the right causing inflammation and possible nerve irritation. kenalog shot today. . Otalgia - right tooth pain - rx for extension of antibiotics - the pain in your ear is probably from the tooth on the right causing inflammation and possible nerve irritation. kenalog shot today. . Edema - pt has been advised to elevate legs to prevent dependent edema, compression has been recommended to help to naturally decrease peripheral edema. Diuretic use has been discussed and pt has been instructed in appropriate use of such medication as necessary to further attempt to reduce peripheral edema. rocephin and kenalog today start zpack today call wednesday if not better and we can add on cefdinir . Bronchitis - acute case of bronchitis identified. Pt has been given antibiotics, breathing treatments as appropriate, and pt has been instructed to call if symptoms are not improved, or if symptoms acutely worsen. . Sinus congestion - RX for zyrtec D - call if not improving, if fever develops may need to consider antibiotic . Hypertension - well controlled - continue [...] treatment plan and call if symptoms worsen. . Varicose veins-recommend compression stockings-on in the am and off at HS-discussed the need for weight loss as well-instructed patient to call if symptoms persist, worsen, or new symptoms develop. Patient verbalized understanding of plan. . Hypertension - well controlled - continue with current medications, continue with no added salt diet. Pt has been encouraged to exercise daily. The pt has been advised to call the office if there are any acute concerns about change in blood pressure readings at home. Dyspnea on exertion - Referral back to dr. beth for stress testing. 24 hour holter monitor - week of the . Knee pain - bilateral lower extremities - recommended pt to see Dr. Cope about her knee pain. . Rash/Cellulitis - continue with oral antibiotics as previously directed, return to clinic as previously directed, call for acute change in symptoms, worsening redness, warmth, discharge. I sent a prescription for Zithromax (the antibiotic) to [facility]. Take 1 pill x 3 day then [...] worse. RX sent to patient's pharmacy. . Acute bronchitis - Pt advised to [...] physical exam, and the assessment and plan. . Edema - uncontrolled swelling. I have [...] potassium when taking lasix. Check labs-order provided . Allergies - chronic - recommended pt to use allergy medication as prescribed. Pt has been counseled as the the appropriate use of the medication. Pt to call if allergy symptoms are not controlled with the medication. Kenalog injection today in the office-zpack if symptoms do not resolve. Recommend patient start a daily anti histamine. take blood pressure two to three times a week - and fax to dr. lopez in 2 weeks - @[phone] . Well Adult - pt was counseled [...] spray. Kenalog injection today in the office. . Diarrhea - discussed need to avoid [...] out RX for phenergan with codeine. . Irritated AK to right lateral thigh - Patient agrees to cryotherapy of the lesion. Liquid nitrogen was utilized to freeze the offending lesion x 3. Patient tolerated procedure with minimal discomfort. - Pt was instructed to keep the area clean, wash with antibacterial soap, use triple antibiotic ointment, call if redness, pustular drainage, or any other acute concerns. . Allergies - chronic - recommended pt [...] spray in the nasal steroid allergy spray. URI - Pt advised to increase fluids, vitamin C. Discussed natural and expected course of this diagnosis and need to alert me if symptoms do not follow expected course, or if any worse. RX sent to patient's pharmacy. . Cellulitis - right lower leg-RX for abx and instructed on use- return to clinic as previously directed, call for acute change in symptoms, worsening redness, warmth, discharge. Laceration-right lower leg-return in 10 days for suture removal Contusion-left lower ygj-wkaywwwur-cmfywstx current treatment . Wound Instructions - Pt was instruced to keep the wound clean, wash with antibacterial soap, use triple antibiotic ointment, call if redness, pustular drainage, or any other acute conerns. . URI - Pt advised to increase fluids, vitamin C. Discussed natural and expected course of this diagnosis and need to alert me if symptoms do not follow expected course, or if any worse. RX sent to patient's pharmacy. Allergies - chronic - recommended pt to [...] spray in the nasal steroid allergy spray. . Hypertension - well controlled - continue [...] for acute treatment of this illness. . Otitis Media - pt is to continue amoxicillin as directed from dentist - notify clinic if symptoms do not resolve and will extend abx - discussed the diagnosis with the patient, script sent electronically to the pharmacy for treatment of the infection. The disease course was discussed and the need to notify the clinic if symptoms do not improve or if they acutely worsen. use inhaler as needed for cough/shortness of breath/ wheezing take anti histamine such as vale or zyrtec daily rocephin and kenalog injections today start prednisone tomorrow call if you are not better or if any worse otherwise, you are due for routine labs and appointment in February . Bronchitis - acute case of bronchitis identified. Pt has been given antibiotics, breathing treatments as appropriate, and pt has been instructed to call if symptoms are not improved, or if symptoms acutely worsen. phenergan with codeine . Sinusitis - Pt [...] or do not improve. . Contusion/hematoma-left lower sai-eiigafflx-xfpekbet to monitor Laceration-right nin-tiwohyv-vwd neosporin as directed Skin tag-right neck-fell off in the office before having it removed-no treatment today in the office-monitor area
--- OUTSIDE RECORDS SUMMARY | 2019-01-31 06:56 | XMS REPORT | CCD ---
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 08/18/[address]: 116160911 Nonsmoker 08/18/2011 Has the patient ever used [...] Start Date Stop Date Status Fill Instructions Phenergan with Codeine Syrup RxNorm: 5-10 Milliliter(s) PO Q6 PRN as needed 12/08/2018 No Stop Date Active Kenalog 40 mg/mL suspension for injection RxNorm: 2316168 1 Milliliter(s) Inj 11/29/2018 11/29/2018 Inactive ceftriaxone 500 mg solution for injection RxNorm: 5419434 Inj 11/29/2018 11/29/2018 Inactive Zithromax Z-Seng 250 mg tablet RxNorm: 899489 1 Tablet(s) PO UD 11/29/2018 12/03/2018 Inactive prednisone 20 mg tablet RxNorm: 163315 1 Tablet(s) PO BID 11/2912/03/2018 Inactive Augmentin 500 mg-125 mg tablet RxNorm: 903106 1 Tablet(s) PO TID 10/06/2018 10/05/2018 Inactive DC doxycycline order Augmentin 500 mg-125 mg tablet RxNorm: 850241 1 Tablet(s) PO TID 10/06/2018 10/15/2018 Inactive DC doxycycline order ProAir HFA 90 mcg/actuation aerosol inhaler RxNorm: 6157222 2 Puff(s) INH TID as needed dyspnea 10/05/2018 No Stop Date Active doxycycline hyclate 100 mg capsule RxNorm: 8907362 1 Capsule(s) PO BID 10/05/2018 10/05/2018 Inactive prednisone 20 mg tablet RxNorm: 738740 2 Tablet(s) PO daily 09/26/2018 Inactive Keflex 500 mg capsule RxNorm: 560017 1 Capsule(s) PO TID 201710/01/2018 Inactive ProAir HFA 90 mcg/actuation aerosol inhaler RxNorm: 8297303 2 Puff(s) INH TID as needed dyspnea 03/29/2018 10/04/2018 Inactive Keflex 500 mg capsule RxNorm: 381388 1 Capsule(s) PO TID 201703/01/2018 Inactive Keflex 500 mg capsule RxNorm: 182294 1 Capsule(s) PO TID 201703/08/2018 Inactive trospium ER 60 mg capsule,extended release 24 hr RxNorm: 297671 1 Capsule(s) PO daily 01/04/2018 12/29/2018 Active D/C Vesicare - insurance denied trospium ER 60 mg capsule,extended release 24 hr RxNorm: 233006 1 Capsule(s) PO daily 01/04/2018 01/03/2018 Inactive metoprolol succinate ER 25 mg tablet,extended release 24 hr RxNorm: 763633 TAKE ONE TABLET BY MOUTH EVERY DAY 12/27/2017 06/24/2018 Inactive Zyrtec-D 5 mg-120 mg tablet,extended release RxNorm: 7139060 1 Tablet(s) PO BID as needed 12/16/2017 01/04/2018 Inactive Zithromax Z-Seng 250 mg tablet RxNorm: 075457 1 Tablet(s) PO UD 09/10/2017 09/14/2017 Inactive ceftriaxone 500 mg solution for injection RxNorm: 4077419 500 Milligram(s) Inj 09/10/2017 09/10/2017 Inactive Kenalog 40 mg/mL suspension for injection RxNorm: 3108938 1 Milliliter(s) Inj 09/10/2017 09/10/2017 Inactive hydrochlorothiazide 25 mg tablet RxNorm: 858573 TAKE ONE TABLET BY MOUTH EVERY DAY 08/09/2017 08/03/2018 Inactive hydrochlorothiazide 25 mg tablet RxNorm: 219491 TAKE ONE TABLET BY MOUTH EVERY DAY 08/09/2017 08/08/2017 Inactive Vesicare 10 mg tablet RxNorm: 695533 TAKE 1/2 TABLET BY MOUTH DAILY 08/09/2017 01/03/2018 Inactive Vesicare 10 mg tablet RxNorm: 168535 TAKE 1/2 TABLET BY MOUTH DAILY 08/09/2017 08/08/2017 Inactive Augmentin 875 mg-125 mg tablet RxNorm: 528434 1 Tablet(s) PO BID take a probiotic when taking the antibiotic 05/18/2017 Inactive Kenalog 40 mg/mL suspension for injection RxNorm: 2376916 1 Milliliter(s) Inj 05/18/2017 05/18/2017 Inactive hydrocodone 5 mg-acetaminophen 325 mg tablet RxNorm: 941448 1 Tablet(s) PO Q4H as needed for pain 01/19/2017 01/23/2017 Inactive Keflex 500 mg capsule RxNorm: 020344 1 Capsule(s) PO TID 201601/21/2017 Inactive Zyrtec-D 5 mg-120 mg tablet,extended release RxNorm: 3996740 1 Tablet(s) PO BID 10/29/2016 11/07/2016 Inactive metoprolol succinate ER 25 mg tablet,extended release 24 hr RxNorm: 263544 TAKE ONE TABLET BY MOUTH EVERY DAY 08/26/2016 02/21/2017 Inactive Xyzal 5 mg tablet RxNorm: 412178 Tablet(s) as needed TAKE ONE TABLET BY MOUTH DAILY 06/15/2016 08/13/2016 Inactive hydrochlorothiazide 25 mg tablet RxNorm: 881026 TAKE ONE TABLET BY MOUTH EVERY DAY 06/09/2016 04/04/2017 Inactive Vesicare 10 mg tablet RxNorm: 905207 1/2 Tablet(s) PO daily TAKE 1/2 TABLET BY MOUTH EVERY DAY 03/16/2016 12/10/2016 Inactive Vesicare 10 mg tablet RxNorm: 858938 1/2 Tablet(s) PO daily TAKE 1/2 TABLET BY MOUTH EVERY DAY 03/16/2016 03/15/2016 Inactive Vesicare 10 mg tablet RxNorm: 988743 1/2 Tablet(s) PO daily TAKE 1/2 TABLET BY MOUTH EVERY DAY 03/16/2016 03/15/2016 Inactive metoprolol succinate ER 25 mg tablet,extended release 24 hr RxNorm: 927745 TAKE ONE TABLET BY MOUTH EVERY DAY 03/02/2016 06/29/2016 Inactive Xyzal 5 mg tablet RxNorm: 175239 TAKE ONE TABLET BY MOUTH DAILY 01/07/2016 03/06/2016 Inactive cefdinir 300 mg capsule RxNorm: 720403 1 Capsule(s) PO BID 12/17/2015 Inactive Vesicare 10 mg tablet RxNorm: 209840 1/2 Tablet(s) TAKE 1/2 TABLET BY MOUTH EVERY DAY 12/11/2015 03/15/2016 Inactive ProAir HFA 90 mcg/actuation aerosol inhaler RxNorm: 580724 2 Puff(s) INH TID x 3 days then bid x 3 days then prn dyspnea 12/11/2015 03/28/2018 Inactive Kenalog 40 mg/mL suspension for injection RxNorm: 1194452 1 Milliliter(s) Inj 08/13/2015 08/13/2015 Inactive acyclovir 800 mg tablet RxNorm: 948899 1 Tablet(s) PO TID 07/1907/18/2015 Inactive acyclovir 800 mg tablet RxNorm: 661158 1 Tablet(s) PO TID 07/1907/28/2015 Inactive metoprolol succinate ER 25 mg tablet,extended release 24 hr RxNorm: 117632 TAKE ONE TABLET BY MOUTH EVERY DAY 05/21/2015 11/16/2015 Inactive hydrochlorothiazide 25 mg tablet RxNorm: 589956 TAKE ONE TABLET BY MOUTH EVERY DAY 05/02/2015 06/08/2016 Inactive Vesicare 10 mg tablet RxNorm: 942287 TAKE ONE TABLET BY MOUTH EVERY DAY 02/05/2015 12/10/2015 Inactive Xyzal 5 mg tablet RxNorm: 936503 1 Tablet(s) PO daily 201404/23/2015 Inactive Kenalog 40 mg/mL suspension for injection RxNorm: 6888097 1 Milliliter(s) Inj 01/24/2015 01/24/2015 Inactive Flonase Allergy Relief 50 mcg/actuation nasal spray, suspension RxNorm: 2 Orange NASAL daily 01/24/2015 12/10/2015 Inactive Debbi Allergy 180 mg tablet RxNorm: 195847 1 Tablet(s) PO daily 12/17/2014 12/16/2014 Inactive Debbi Allergy 180 mg tablet RxNorm: 548285 1 Tablet(s) PO daily 12/17/2014 02/14/2015 Inactive metoprolol succinate ER 25 mg tablet,extended release 24 hr RxNorm: 594338 Tablet (s) PO TAKE ONE TABLET BY MOUTH EVERY DAY 09/11/2014 05/20/2015 Inactive gemfibrozil 600 mg tablet RxNorm: 603778 1 Tablet(s) PO BID 11/201302/24/2015 Inactive gemfibrozil 600 mg tablet RxNorm: 903113 1 Tablet(s) PO BID 11/201307/29/2014 Inactive hydrochlorothiazide 25 mg tablet RxNorm: 055181 TAKE ONE TABLET BY MOUTH EVERY DAY 04/29/2014 05/01/2015 Inactive Kenalog 40 mg/mL suspension for injection RxNorm: 4508455 Milliliter(s) Inj 01/01/2014 01/01/2014 Inactive cefdinir 300 mg capsule RxNorm: 341207 1 Capsule(s) PO BID 03/201401/07/2014 Inactive Flonase 50 mcg/actuation nasal spray,suspension RxNorm: 939242 2 Orange NASAL daily 01/01/2014 01/07/2014 Inactive Rocephin 500 mg solution for injection RxNorm: 647990 1 Inj 03/201401/01/2014 Inactive Zithromax 500 mg tablet RxNorm: 606867 1 Tablet(s) PO daily 12/201301/02/2014 Inactive metoprolol succinate ER 25 mg tablet,extended release 24 hr RxNorm: 850317 Tablet (s) PO TAKE ONE TABLET BY MOUTH EVERY DAY 12/25/2013 09/10/2014 Inactive Vesicare 10 mg tablet RxNorm: 688295 1 Tablet(s) PO daily TAKE ONE TABLET BY MOUTH EVERY DAY 12/18/2013 01/11/2015 Inactive Kenalog 40 mg/mL suspension for injection RxNorm: 0943785 Milliliter(s) Inj 12/01/2013 12/01/2013 Inactive Zithromax 500 mg tablet RxNorm: 574442 1 Tablet(s) PO daily 03/201412/05/2013 Inactive tolterodine ER 4 mg capsule,extended release 24 hr RxNorm: 519847 1 Capsule(s) PO daily 10/31/2013 12/17/2013 Inactive replaces vesicare hydrochlorothiazide 25 mg tablet RxNorm: 680150 Tablet(s) PO TAKE ONE TABLET BY MOUTH EVERY DAY 10/24/2013 04/28/2014 Inactive hydrochlorothiazide 25 mg tablet RxNorm: 641125 Tablet(s) PO TAKE ONE TABLET BY MOUTH EVERY DAY 08/21/2013 10/23/2013 Inactive hydrochlorothiazide 25 mg tablet RxNorm: 023249 Tablet(s) PO TAKE ONE TABLET BY MOUTH EVERY DAY 02/23/2013 08/20/2013 Inactive Vesicare 10 mg tablet RxNorm: 701775 Tablet(s) PO TAKE ONE TABLET BY MOUTH EVERY DAY 02/13/2013 10/30/2013 Inactive Vesicare 10 mg tablet RxNorm: 223177 Tablet(s) PO TAKE ONE TABLET BY MOUTH EVERY DAY 02/13/2013 10/30/2013 Inactive Kenalog 40 mg/mL Susp for Injection RxNorm: 1118184 1 Milliliter(s) Inj 02/08/2013 02/08/2013 Inactive azithromycin 500 mg tablet RxNorm: 6499198 1 Tablet(s) PO daily 02/08/2013 02/14/2013 Inactive Rocephin 500 mg Solution for Injection RxNorm: 3391629 Inj 02/08/2013 Inactive Diflucan 150 mg tablet RxNorm: 044122 1 Tablet(s) PO daily 02/17/2013 Inactive Diflucan 150 mg tablet RxNorm: 297905 1 Tablet(s) PO daily 03/201302/07/2013 Inactive Flagyl 500 mg tablet RxNorm: 073165 1 Tablet(s) PO TID 201201/17/2013 Inactive Cipro 500 mg tablet RxNorm: 444057 1 Tablet(s) PO BID 201201/17/2013 Inactive Flagyl 500 mg tablet RxNorm: 354500 1 Tablet(s) PO TID 201201/27/2013 Inactive Cipro 500 mg tablet RxNorm: 639798 1 Tablet(s) PO BID 201201/27/2013 Inactive metoprolol succinate ER 25 mg tablet,extended release 24 hr RxNorm: 094820 Tablet (s) PO TAKE ONE TABLET BY MOUTH EVERY DAY 12/08/2012 12/24/2013 Inactive Lasix 20 mg tablet RxNorm: 795998 Tablet(s) PO TAKE ONE TABLET BY MOUTH EVERY DAY NEEDED 10/27/2012 08/12/2015 Inactive potassium chloride ER 10 mEq tablet,extended release RxNorm: 025641 1 Tablet(s) PO QDAY PRN 09/12/2012 03/10/2013 Inactive metoprolol succinate ER 25 mg tablet,extended release 24 hr RxNorm: 424839 Tablet (s) PO TAKE ONE TABLET BY MOUTH EVERY DAY 09/09/2012 12/07/2012 Inactive simvastatin 20 mg tablet RxNorm: 956802 Tablet(s) PO 201101/17/2013 Inactive TAKE ONE TABLET BY MOUTH EVERY DAY Lasix 20 mg tablet RxNorm: 160152 Tablet(s) PO 07/15/2012 10/26/2012 Inactive TAKE ONE TABLET BY MOUTH EVERY DAY NEEDED hydrochlorothiazide 25 mg tablet RxNorm: 516590 1 Tablet(s) PO 05/16/2012 02/09/2013 Inactive Vesicare 10 mg tablet RxNorm: 666868 1/2 Tablet(s) PO daily 05/19/2013 Inactive metoprolol succinate ER 25 mg 24 hr Tab RxNorm: 872010 1 Tablet(s) PO daily 03/16/2012 09/11/2012 Inactive metoprolol succinate ER 25 mg tablet,extended release 24 hr RxNorm: 588685 1 Tablet(s) PO daily 03/14/2012 03/15/2012 Inactive Vesicare 10 mg tablet RxNorm: 698152 1 Tablet(s) PO daily 201104/24/2012 Inactive metoprolol succinate ER 25 mg 24 hr Tab RxNorm: 344953 1 Tablet(s) PO daily 01/12/2012 03/13/2012 Inactive simvastatin 20 mg tablet RxNorm: 353564 1 Tablet(s) PO daily 08/15/2012 Inactive levofloxacin 500 mg Tab RxNorm: 255935 1 Tablet(s) PO daily 08/201212/13/2011 Inactive hydrochlorothiazide 12.5 mg tablet RxNorm: 267528 1 Tablet(s) PO daily 12/07/2011 05/15/2012 Inactive Kenalog 40 mg/mL Susp for Injection RxNorm: 8385012 1 Milliliter(s) Inj 11/17/2011 11/17/2011 Inactive cefdinir 300 mg Cap RxNorm: 948604 1 Capsule(s) PO BID 201111/26/2011 Inactive Diflucan 150 mg tablet RxNorm: 329234 1 Tablet(s) PO daily 11/21/2011 Inactive Rocephin 500 mg Solution for Injection RxNorm: 4082314 1 Milliliter(s) Inj 11/17/2011 11/17/2011 Inactive azithromycin 500 mg Tab RxNorm: 6803780 1 Tablet(s) PO daily 11/21/2011 Inactive metoprolol succinate ER 25 mg 24 hr Tab RxNorm: 940203 1 Tablet(s) PO daily 11/12/2011 01/11/2012 Inactive metoprolol succinate ER 25 mg 24 hr Tab RxNorm: 801250 1 Tablet(s) PO daily 11/12/2011 11/11/2011 Inactive hydrochlorothiazide 25 mg Tab RxNorm: 781523 1 Tablet(s) PO daily 09/01/2011 12/06/2011 Inactive prednisone 5 mg Tab RxNorm: 296142 Tablet(s) PO 08/18/2011 08/23/2011 Inactive 6 day taper: 6-5-4-3-2-1 Kenalog 40 mg/mL Susp for Injection RxNorm: 1040881 Milliliter(s) Inj 08/18/2011 08/18/2011 Inactive metoprolol succinate ER 25 mg tablet,extended release 24 hr RxNorm: 292152 1 Tablet(s) PO daily No Start Date Active hydrocodone 10 mg-acetaminophen 325 mg tablet RxNorm: 696504 1 Tablet(s) PO as needed No Start Date Active Cipro 500 mg tablet RxNorm: 385695 Oral No Start Date 01/17/2013 Inactive Phenergan with Codeine Syrup RxNorm: 5-10 Milliliter(s) PO Q6 PRN No Start Date 07/25/2014 Inactive potassium chloride ER 10 mEq tablet,extended release RxNorm: 271937 1 Tablet(s) PO QDAY PRN No Start Date 09/11/2012 Inactive simvastatin 20 mg Tab RxNorm: 233436 1 Tablet(s) PO daily No Start Date 12/10/2011 Inactive Lasix 20 mg tablet RxNorm: 319162 1 Tablet(s) PO QDAY PRN No Start Date 07/14/2012 Inactive Vesicare 10 mg Tab RxNorm: 538073 1 Tablet(s) PO daily No Start Date 01/21/2012 Inactive Zithromax 500 mg Tab RxNorm: 3748658 Tablet(s) PO No Start Date 11/16/2011 Inactive 1 tab daily x 3 days, then 1/2 tab daily x 6 days. hydrochlorothiazide 25 mg Tab RxNorm: 942163 1 Tablet(s) PO daily No Start Date 08/31/2011 Inactive Medication Administered Medication Codes Instructions Start Date Status Kenalog 40 mg/mL suspension for injection RxNorm: 2450639 1Milliliter 11/29/2018 No longer Active ceftriaxone 500 mg solution for injection RxNorm: 8769349 11/29/2018 No longer Active Kenalog 40 mg/mL suspension for injection RxNorm: 4172349 1Milliliter 09/10/2017 No longer Active ceftriaxone 500 mg solution for injection RxNorm: 1252774 500Milligram 09/10/2017 No longer Active Kenalog 40 mg/mL suspension for injection RxNorm: 1275574 1Milliliter 05/18/2017 No longer Active Kenalog 40 mg/mL suspension for injection RxNorm: 0684580 1Milliliter 08/13/2015 No longer Active Kenalog 40 mg/mL suspension for injection RxNorm: 4060028 1Milliliter 01/24/2015 No longer Active Rocephin 500 mg solution for injection RxNorm: 997488 1 01/01/2014 No longer Active Kenalog 40 mg/mL suspension for injection RxNorm: 7631966 Milliliter 01/01/2014 No longer Active Kenalog 40 mg/mL suspension for injection RxNorm: 2034681 Milliliter 12/01/2013 No longer Active Rocephin 500 mg Solution for Injection RxNorm: 8505267 02/08/2013 No longer Active Kenalog 40 mg/mL Susp for Injection RxNorm: 6178968 1Milliliter 02/08/2013 No longer Active Rocephin 500 mg Solution for Injection RxNorm: 5002897 1Milliliter 11/17/2011 No longer Active Kenalog 40 mg/mL Susp for Injection RxNorm: 0363112 1Milliliter 11/17/2011 No longer Active Kenalog 40 mg/mL Susp for Injection RxNorm: 9388140 Milliliter 08/18/2011 No longer Active Immunizations Vaccine [...] urgency ICD-9: 788.63 10/31/2013 ESSENTIAL HYPERTENSION SNOMED: 93208037 ICD-9: 401.9 10/31/2013 Skin tag ICD-9: 701.9 [...] Item Item Code Result Date Comp Metabolic Zit388 NA 140 mEq/L 03/23/2018 Comp Metabolic Qnk644 K 3.4 mEq/L 03/23/2018 Comp Metabolic Rlu126 CL 103 mEq/L 03/23/2018 Comp Metabolic Oam945 CO2 27.0 mEq/L 03/23/2018 Comp Metabolic Ngy964 ANION GAP 13 03/23/2018 Comp Metabolic Aod234 GLUCOSE 115 mg/dL 03/23/2018 Comp Metabolic Omw085 Creat 0.9 mg/dL 03/23/2018 Comp Metabolic Yke520 eGFR 69 ml/min/1.73m2 03/23/2018 Comp Metabolic Wby910 BUN 14 mg/dL 03/23/2018 Comp Metabolic Zhh955 B/C Ratio 16.5 Ratio 03/23/2018 Comp Metabolic Him677 CALCIUM 9.1 mg/dL 03/23/2018 Comp Metabolic Eej301 ALK PHOS 84 U/L 03/23/2018 Comp Metabolic Phn843 AST(SGOT) 22 U/L 03/23/2018 Comp Metabolic Mry033 ALT(SGPT) 20 U/L 03/23/2018 Comp Metabolic Mtw505 BILI T 0.8 mg/dL 03/23/2018 Comp Metabolic Dav951 ALBUMIN 4.0 g/dL 03/23/2018 Comp Metabolic Zmv904 TPRO 7.0 g/dL 03/23/2018 Comp Metabolic Hld904 GLOB 3.0 g/dL 03/23/2018 Comp Metabolic Itx689 A/G Ratio 1.3 Ratio 03/23/2018 Comp Metabolic Ooq876 Osmo 281 mOsmo 03/23/2018 Cbc With Differential [...] 30.4 pg 03/23/2018 Cbc With Differential Ord2 [place]% 10.7 % 03/23/2018 Cbc With Differential Ord2 [...] 1.73 K/ul 03/23/2018 Cbc With Differential Ord2 [place] ABS# 0.9 K/ul 03/23/2018 Cbc With Differential [...] Ord30 C/HDL 2.9 Ratio 03/23/2018 Comp Metabolic Ecc761 NA 141 mEq/L 08/04/2017 Comp Metabolic Eji413 K 3.6 mEq/L 08/04/2017 Comp Metabolic Odk753 CL 101 mEq/L 08/04/2017 Comp Metabolic Mxv196 CO2 32.0 mEq/L 08/04/2017 Comp Metabolic Dpc123 ANION GAP 12 08/04/2017 Comp Metabolic Dwu253 GLUCOSE 99 mg/dL 08/04/2017 Comp Metabolic Gtd336 Creat 1.0 mg/dL 08/04/2017 Comp Metabolic Crq644 eGFR 60 ml/min/1.73m2 08/04/2017 Comp Metabolic Hhl727 BUN 21 mg/dL 08/04/2017 Comp Metabolic Ecr139 B/C Ratio 21.9 Ratio 08/04/2017 Comp Metabolic Pvg162 CALCIUM 9.4 mg/dL 08/04/2017 Comp Metabolic Xck601 ALK PHOS 107 U/L 08/04/2017 Comp Metabolic Bzq542 AST(SGOT) 21 U/L 08/04/2017 Comp Metabolic Api769 ALT(SGPT) 21 U/L 08/04/2017 Comp Metabolic Vre722 BILI T 0.6 mg/dL 08/04/2017 Comp Metabolic Rtn434 ALBUMIN 4.0 g/dL 08/04/2017 Comp Metabolic Xsg185 TPRO 7.2 g/dL 08/04/2017 Comp Metabolic Jth825 GLOB 3.2 g/dL 08/04/2017 Comp Metabolic Xvg515 A/G Ratio 1.2 Ratio 08/04/2017 Comp Metabolic Cfp299 Osmo 284 mOsmo 08/04/2017 Cbc With Differential [...] 31.1 pg 08/04/2017 Cbc With Differential Ord2 [place]% 7.8 % 08/04/2017 Cbc With Differential Ord2 [...] 1.79 K/ul 08/04/2017 Cbc With Differential Ord2 [place] ABS# 0.6 K/ul 08/04/2017 Cbc With Differential Ord2 Eos ABS# 0.5 K/ul 08/04/2017 Cbc With Differential Ord2 Baso ABS# 0.0 K/ul 08/04/2017 Tsh Ord6 hTSH II 2.45 uIU/mL 08/04/2017 Lipid Ord30 CHOL 217 mg/dL 08/04/2017 Lipid Ord30 HDL 59.0 mg/dl 08/04/2017 Lipid Ord30 TRIG 97 mg/dL 08/04/2017 Lipid Ord30 LDL 139 mg/dL 08/04/2017 Lipid Ord30 C/HDL 3.7 Ratio 08/04/2017 Comp Metabolic Mcv125 NA 138 mEq/L 07/21/2016 Comp Metabolic Hvs437 K 3.8 mEq/L 07/21/2016 Comp Metabolic Jjd607 CL 102 mEq/L 07/21/2016 Comp Metabolic Qrx758 CO2 30.0 mEq/L 07/21/2016 Comp Metabolic Zuo387 ANION GAP 10 07/21/2016 Comp Metabolic Bal391 GLUCOSE 101 mg/dL 07/21/2016 Comp Metabolic Oyy029 Creat 0.9 mg/dL 07/21/2016 Comp Metabolic Ldw616 eGFR 63 ml/min/1.73m2 07/21/2016 Comp Metabolic Udk817 BUN 19 mg/dL 07/21/2016 Comp Metabolic Kmv863 B/C Ratio 20.4 Ratio 07/21/2016 Comp Metabolic Prf515 CALCIUM 9.3 mg/dL 07/21/2016 Comp Metabolic Tav741 ALK PHOS 83 U/L 07/21/2016 Comp Metabolic Hgl909 AST(SGOT) 20 U/L 07/21/2016 Comp Metabolic Tww564 ALT(SGPT) 18 U/L 07/21/2016 Comp Metabolic Gcb966 BILI T 0.6 mg/dL 07/21/2016 Comp Metabolic Idg840 ALBUMIN 4.0 g/dL 07/21/2016 Comp Metabolic Aan836 TPRO 7.2 g/dL 07/21/2016 Comp Metabolic Jtd790 GLOB 3.3 g/dL 07/21/2016 Comp Metabolic Iiq139 A/G Ratio 1.2 Ratio 07/21/2016 Comp Metabolic Nry615 Osmo 278 mOsmo 07/21/2016 Cbc With Differential [...] 29.8 pg 07/21/2016 Cbc With Differential Ord2 [place]% 9.6 % 07/21/2016 Cbc With Differential Ord2 [...] 2.10 K/ul 07/21/2016 Cbc With Differential Ord2 [place] ABS# 0.7 K/ul 07/21/2016 Cbc With Differential [...] Exam - General 1995 Ears/Nose/Throat lips/teeth/gingiva Overall: benign lips 10/29/2016 None [...] dentition 10/31/2013 None Full Exam - General 1995 Ears/Nose/Throat oral cavity/pharynx/larynx Overall: hypopharynx benign 10/31/2013 [...] bilaterally 10/31/2013 None Full Exam - General 1995 Respiratory respiratory effort/rhythm Overall: no retractions 10/31/2013 [...] CPT-4: J0696 09/10/2017 THER/PROPH/DIAG INJ SC/IM CPT-4: 72518 05/18/2017 TRIAMCINOLONE ACET INJ NOS CPT-4: J3301 05/18/2017 DESTRUCT PREMALG LESION CPT-4: 08665 06/24/2016 ADMIN INFLUENZA VIRUS VAC CPT-4: G0008 06/15/2016 ADMIN PNEUMOCOCCAL VACCINE SNOMED CT: 18764305 CPT-4: G0009 06/15/2016 PNEUMOCOCCAL VACC [address]: 70765266 CPT-4: 21706 06/15/2016 FLU VACC PRSV FREE INC ANTIG Formatting Model/CDA Sections, Assigned to/Vianney Bronson CPT-4: 15547Maoaphk 06/15/2016 THER/PROPH/DIAG INJ SC/IM CPT-4: 74941 08/13/2015 TRIAMCINOLONE ACET INJ NOS CPT-4: J3301 08/13/2015 TRIAMCINOLONE ACET INJ NOS CPT-4: J3301 01/24/2015 IMMUNIZATION ADMIN CPT -4: 46436 08/08/2014 FLU VAC NO PRSV 4 DARREL 3 YRS+ Assigned to CPT-4: 74007Haedyuo 08/08/2014 TRIAMCINOLONE ACET INJ NOS CPT-4: J3301 01/01/2014 ROCEPHIN, PER 250 MG CPT-4: J0696 01/01/2014 TRIAMCINOLONE ACET INJ NOS CPT-4: J3301 12/01/2013 REMOVAL OF SKIN TAGS <W/15 CPT-4: 48041 06/29/2013 TRIAMCINOLONE ACET INJ NOS CPT-4: J3301 02/08/2013 ROCEPHIN, PER 250 MG CPT-4: J0696 02/08/2013 80738 EST. PATIENT, LEVEL III CPT-4: 57108 05/16/2012 TRIAMCINOLONE ACET INJ NOS CPT-4: J3301 11/17/2011 ROCEPHIN, PER 250 MG CPT-4: J0696 11/17/2011 TRIAMCINOLONE ACET INJ NOS CPT-4: J3301 08/18/2011 THER/PROPH/DIAG INJ SC/IM CPT-4: 26780 08/18/2011 Vital Signs Date Vital 11/29/2018 Blood Pressure 1: 110/64 Code : 8480-6 BMI: 38.1 Code : 18386-1 Heart Rate 1 : 79 bpm Height: 5'4" SpO2: 97% Temperature: 37.1 (C) / 98.8 (F) Weight: 222 lbs 10/05/2018 BMI: 38.1 Code: 11355-9 Heart Rate 1: 88 bpm Height: 5'4" Weight: 222 lbs 09/22/2018 Blood Pressure 1: 132/74 Code : 8480-6 BMI: 38.4 Code : 70727-2 Heart Rate 1 : 74 bpm Height: 5'4" SpO2: 96% Weight: 224 lbs 03/29/2018 Blood Pressure 1: 130/82 Code : 8480-6 BMI: 38.1 Code : 39799-6 Heart Rate 1 : 71 bpm Height: 5'4" SpO2: 96% Weight: 222 lbs 09/10/2017 Blood Pressure 1: 130/78 Code : 8480-6 BMI: 37.1 Code : 59701-8 Heart Rate 1 : 76 bpm Height: 5'4" SpO2: 97% Temperature: 36.9 (C) / 98.4 (F) Weight: 216 lbs 07/26/2017 Blood Pressure 1: 118/80 Code : 8480-6 Heart Rate 1: 71 bpm SpO2: 96% 05/18/2017 Blood Pressure 1: 122/80 Code : 8480-6 BMI: 36.9 Code : 07224-0 Heart Rate 1 : 83 bpm Height: 5'4" SpO2: 96% Weight: 215 lbs 05/12/2017 Blood Pressure 1: 132/80 Code : 8480-6 BMI: 36.7 Code : 69176-3 Heart Rate 1 : 86 bpm Height: 5'4" SpO2: 97% Weight: 214 lbs 02/25/2017 Blood Pressure 1: 12678 Code : 8480-6 Heart Rate 1: 81 bpm Height: 5'4" SpO2: 95% Weight: 01/15/2017 Blood Pressure 1: 13678 Code : 8480-6 Heart Rate 1: 80 bpm Height: 5'4" SpO2: 96% Temperature: 37.0 (C) / 98.6 (F) Weight: 10/29/2016 Blood Pressure 1: 124/70 Code : 8480-6 BMI: 37.8 Code : 00047-7 Heart Rate 1 : 74 bpm Height: 5'4" SpO2: 97% Temperature: 37.1 (C) / 98.7 (F) Weight: 220 lbs 07/20/2016 Blood Pressure 1: 134/80 Code : 8480-6 BMI: 36.9 Code : 69836-7 Heart Rate 1 : 71 bpm Height: 5'4" SpO2: 98% Weight: 215 lbs 06/24/2016 Blood Pressure 1: 134/74 Code : 8480-6 BMI: 37.1 Code : 75961-2 Heart Rate 1 : 85 bpm Height: 5'4" SpO2: 97% Weight: 216 lbs 06/15/2016 Blood Pressure 1: 130/80 Code : 8480-6 BMI: 37.1 Code : 35283-2 Heart Rate 1 : 73 bpm Height: 5'4" SpO2: 97% Weight: 216 lbs 01/15/2016 Blood Pressure 1: 128/80 Code : 8480-6 BMI: 35.7 Code : 35031-7 Heart Rate 1 : 79 bpm Height: 5'4" SpO2: 97% Weight: 208 lbs 12/11/2015 Blood Pressure 1: 134/80 Code : 8480-6 BMI: 34.7 Code : 87831-8 Heart Rate 1 : 65 bpm Height: 5'4" SpO2: 98% Temperature: 36.7 (C) / 98.1 (F) Weight: 202 lbs 08/13/2015 Blood Pressure 1: 120/82 Code : 8480-6 BMI: 34.2 Code : 06073-0 Heart Rate 1 : 74 bpm Height: 5'4" SpO2: 98% Weight: 199 lbs 01/24/2015 Blood Pressure 1: 138/82 Code : 8480-6 BMI: 36.2 Code : 53533-6 Heart Rate 1 : 69 bpm Height: 5'6" SpO2: 94% Temperature: 36.5 (C) / 97.7 (F) Weight: 224 lbs 07/26/2014 Blood Pressure 1: 142/96 Code : 8480-6 BMI: 35.2 Code : 22831-9 Heart Rate 1 : 68 bpm Height: 5'6" Weight: 218 lbs 01/01/2014 Blood Pressure 1: 104/70 Code : 8480-6 BMI: 35.0 Code : 76515-6 Heart Rate 1 : 68 bpm Height: 5'6" Temperature: 36.8 (C) / 98.2 (F) Weight: 217 lbs 12/01/2013 Blood Pressure 1: 112/78 Code : 8480-6 Heart Rate 1: 84 bpm Temperature: 36.7 (C) / 98.0 (F) Weight: 213 lbs 10/31/2013 Blood Pressure 1: 102/70 Code : 8480-6 BMI: 34.9 Code : 51498-5 Heart Rate 1 : 64 bpm Height: 5'6" Weight: 216 lbs 06/29/2013 Blood Pressure 1: 130/84 Code : 8480-6 BMI: 34.5 Code : 07037-3 Heart Rate 1 : 80 bpm Height: 5'6" Weight: 214 lbs 02/08/2013 Blood Pressure 1: 122/80 Code : 8480-6 BMI: 32.9 Code : 64993-0 Heart Rate 1 : 72 bpm Height: 5'6" Temperature: 37.4 (C) / 99.3 (F) Weight: 204 lbs 01/02/2013 Blood Pressure 1: 118/88 Code : 8480-6 BMI: 34.7 Code : 40437-1 Heart Rate 1 : 88 bpm Height: [...] Code : 8480-6 BMI: 35.3 Code : 77197-8 Heart Rate 1 : 68 bpm Height: [...] Up Onset of Symptom 3 days ago 02/25/201718 Hospital Follow Up Onset and Resolution sudden [...] Up Onset of Symptom 3 days ago 01/15/2017 4/18 Hospital Follow Up Onset and Resolution sudden [...] data Encounters Encounter Performer Location Codes Date (213 EST. PATIENT, LEVEL III Diagnosis: Cough[ICD10: R05] Diagnosis: Acute bronchitis, unspecified[ICD10: J20.9] Joceline Lopez MD, [facility] CPT-4: 43836 11/29/2018 16593 EST. PATIENT, LEVEL III Diagnosis: Cough[ICD10: R05] Diagnosis: Acute laryngopharyngitis[ICD10: J06.0] Diagnosis: Other allergic rhinitis[ICD10: J30.89] Xochilt Lopez MD, [facility] CPT-4: 82323 10/05/2018 61021 EST. PATIENT, LEVEL III Diagnosis: Acute laryngopharyngitis[ICD10: J06.0] Diagnosis: Other allergic rhinitis[ICD10: J30.89] Diagnosis: Cough[ICD10: R05] Xochilt Lopez MD, [facility] CPT-4: 16843 09/22/2018 ([id number]) 00857 EST. PATIENT, LEVEL IV Diagnosis: Essential (primary) hypertension[ICD10: I10] Diagnosis: Pain in left knee[ICD10: M25.562] Diagnosis: Pain in right knee[ICD10: M25.561] Diagnosis: Shortness of breath[ICD10: R06.02] Ann-Marie Lopez MD, [facility] CPT-4: 68441 03/29/2018 ([id number]) 32678 EST. PATIENT, LEVEL III Diagnosis: Cough[ICD10: R05] Diagnosis: Acute bronchitis, unspecified[ICD10: J20.9] Joceline Lopez MD, [facility] CPT-4: 74130 09/10/2017 ([id number]) Miscellaneous no charge Diagnosis: Essential (primary) hypertension[ICD10: I10] Joceline Lopez MD, [facility] CPT-4: 00530 07/26/2017 ([id number]) 79367 EST. PATIENT, LEVEL III Diagnosis: Otalgia, right ear[ICD10: H92.01] Diagnosis: Other specified disorders of teeth and supporting structures[ICD10: K08.89] Ann-Marie Lopez MD, [facility] CPT-4: 96542 2016 74455 EST. PATIENT, LEVEL III Diagnosis: Acute suppurative otitis media without spontaneous rupture of ear drum, right ear[ICD10: H66.001] Xochilt Lopez MD, [facility] CPT-4: 97537 05/12/2017 ([id number]) 09412 EST. PATIENT, LEVEL II Diagnosis: Contusion of left lower leg, subsequent encounter[ICD10: S80.12XD] Joceline Lopez MD, [facility] CPT-4: 30081 02/25/2017 ([id number]) 15150 EST. PATIENT, LEVEL III Diagnosis: Cellulitis of right lower limb[ICD10: L03.115] Diagnosis: Contusion of left lower leg, initial encounter[ICD10: S80.12XA] Diagnosis: Laceration without foreign body, right lower leg, initial encounter[ ICD10: S81.811A] Joceline Lopez MD [facility] CPT-4: 38691 01/15/2017 ([id number]) 06146 EST. PATIENT, LEVEL III Diagnosis: Acute recurrent maxillary sinusitis[ICD10: J01.01] Diagnosis: Cough[ICD10: R05] Ann-Marie Lopez MD, [facility] CPT-4: 96103 10/29/2016 ([id number]) 18045 EST. PATIENT, LEVEL IV Diagnosis: Essential (primary) hypertension[ICD10: I10] Diagnosis: Varicose veins of left lower extremity with inflammation[ICD10: I83.12] Diagnosis: Localized edema[ICD10: R60.0] Ann-Marie Lopez MD, [facility] CPT- 4: 59898 07/20/2016 85985 EST. PATIENT, LEVEL III Diagnosis: Actinic keratosis[ICD10: L57.0] Xochilt Lopez MD, [facility] CPT-4 : 07563 06/24/2016 ([id number]) 11482 EST. PATIENT, LEVEL III Diagnosis: Asymptomatic varicose veins of bilateral lower extremities[ICD10: I83.93] Joceline Lopez MD, [facility] CPT-4: 51381 30789 EST. PATIENT, LEVEL III Diagnosis: Rash and other nonspecific skin eruption[ICD10: R21] Xochilt Lopez MD, [facility] CPT-4: 60876 01/15/2016 ([id number]) 11460 EST. PATIENT, LEVEL III Diagnosis: Cough[ICD10: R05] Diagnosis: Dyspnea, unspecified[ICD10: R06.00] Diagnosis: Acute sinusitis, unspecified[ICD10: J01.90] Ann-Marie Lopez MD, [facility] CPT-4: 43247 12/11/2015 44628 EST. PATIENT, LEVEL III Diagnosis: Allergic rhinitis, unspecified[ICD10: J30.9] Diagnosis: Tinnitus, bilateral[ICD10: H93.13] Xochilt Lopez MD, [facility] CPT-4: 43668 08/13/2015 ([id number]) 06102 EST. PATIENT, LEVEL III Diagnosis: ALLERGIC RHINITIS[ICD9: 477.9] Joceline Lopez MD, [facility] CPT-4: 47404 01/24/2015 ([id number]) PER PM REEVAL EST PAT 65+ YR Diagnosis: Routine medical exam[ICD9: V70.0] Ann-Marie Lopez MD, [facility] CPT-4: 11133 07/26/2014 ([id number]) 29093 EST. PATIENT, LEVEL III Diagnosis: ACUTE SINUSITIS[ICD9: 461.9] Diagnosis: ACUTE BRONCHITIS[ICD9: 466.0] Diagnosis: COUGH[ICD9: 786.2] Joceline Lopez MD, [facility] CPT-4: 36511 01/01/2014 ([id number]) 81504 EST. PATIENT, LEVEL III Diagnosis: ALLERGIC RHINITIS[ICD9: 477.9] Joceline Lopez MD, [facility] CPT-4: 71352 12/01/2013 ([id number]) 39560 EST. PATIENT, LEVEL IV Diagnosis: ESSENTIAL HYPERTENSION[SNOMED: 08538383] Diagnosis: Urinary urgency[ICD9: 788.63] Ann-Marie Lopez MD, [facility] CPT- 4: 27682 10/31/2013 ([id number]) 84561 EST. PATIENT, LEVEL III Diagnosis: Cough[ICD9: 786.2] Diagnosis: Diarrhea[ICD9: 787.91] Ann-Marie Lopez MD, [facility] CPT-4: 22906 02/08/2013 ([id number]) 48551 EST. PATIENT, LEVEL III Diagnosis: Diarrhea[ICD9: 787.91] Diagnosis: Abdominal discomfort[ICD9: 789.00] Diagnosis: Fecal urgency[ICD9: 787.63] Ann-Marie Lopez MD, [facility] CPT- 4: 68541 01/02/2013 ([id number]) 18857 EST. PATIENT, LEVEL III Diagnosis: EDEMA[ICD9: 782.3] Ann-Marie Lopez MD, [facility] CPT-4: 69746 04/25/2012 ([id number]) 46042 EST. PATIENT, LEVEL III Diagnosis: ESSENTIAL HYPERTENSION[SNOMED: 00886055] Diagnosis: BACTERIAL PNEUMONIA[ICD9: 482.9] Ann-Marie Lopez MD, [facility] CPT-4: 73626 12/07/2011 ([id number]) 72073 EST. PATIENT, LEVEL IV Diagnosis: COUGH[ICD9: 786.2] Diagnosis: FEVER NOS[ICD9: 780.60] Ann-Marie Lopez MD, [facility] CPT-4: 45423 11/17/2011 31654 EST. PATIENT, LEVEL IV Diagnosis: Acute bronchitis[ICD9: 466.0] Diagnosis: Cough[ICD9: 786.2] Diagnosis: Dyspnea[ICD9: 786.09] Joceline Lopez MD, [facility] CPT-4: 81990 08/18/2011 Plan of Care Planned Activity Notes Codes Status Date Visit Plan: Bronchitis - acute case of bronchitis identified. Pt has been given antibiotics, breathing treatments as appropriate, and pt has been instructed to call if symptoms are not improved, or if symptoms acutely worsen. 11/29/2018 Appointment: Joceline Mario WPtel: [address] [place], [place] [phone] (15 min) Moderate 11/29/2018 Patient Education: Patient [...] allergy spray. 10/05/2018 Appointment: Xochilt Gardner WPtel: [address] [place] [address] (15 min) Moderate 10/05/2018 Patient Education: Patient [...] patient's pharmacy. 09/22/2018 Appointment: Xochilt Gardner WPtel: [address] [place] [address] (15 min) Moderate 09/22/2018 Patient Education: Patient Medication Summary Completed 09/22/2018 Patient Education: Patient Medication Summary Completed 05/04/2018 [facility] Plan[id number] Pending 05/04/2018 Appointment: Ann-Marie Lopez WPtel: [address] [place] [address] (15 min) Moderate 04/21/2018 Visit Plan: Hypertension [...] pain. 03/29/2018 Appointment: Ann-Marie Lopez WPtel: [phone] [facility] [place] (15 min) Moderate 03/29/2018 Patient Education: Patient Medication Summary Completed 03/29/2018 Appointment: Nurse Visit 03/02/2018 Visit Plan: Bronchitis - acute case of bronchitis identified. Pt has been given antibiotics, breathing treatments as appropriate, and pt has been instructed to call if symptoms are not improved, or if symptoms acutely worsen. 09/10/2017 Appointment: Joceline Mario WPtel: [phone] [place] (15 min) Moderate 09/10/2017 Patient Education: [...] acutely worsen. 05/12/2017 Appointment: Xochilt Gardner WPtel: [facility] [place] (10 min) Simple 05/12/2017 Patient Education: Patient Medication Summary Completed 05/12/2017 Visit Plan: Contusion/hematoma-left lower leg-improving- continue to monitor Laceration-right joy-xsltywf-mnf neosporin as directed Skin tag-right neck-fell off in the office before having it removed-no treatment today in the office-monitor area 02/25/2017 Appointment: Joceline Mario WPtel: [phone] [phone] (30 min) Complex 02/25/2017 Patient Education: Patient [...] current treatment 01/15/2017 App[facility]ment[phone] (30 min) Complex 01/15/2017 Patient Education: [...] 07/20/2016 Care Plan: Referral Order SNOMED-CT : [id number] Pending 07/20/2016 Visit Plan: Irritated [place] to [...] acute concerns. 06/24/2016 Appointment: Joceline Mario WPtel: [phone] [phone] (15 min) Moderate 06/24/2016 Patient Education: Patient Medication Summary Completed 06/24/2016 Patient Education: Obesity Completed 06/24/2016 Visit Plan: Varicose veins-recommend compression stockings- on in the am and off at HS-discussed the need for weight loss as well- instructed patient to call if symptoms persist, worsen, or new symptoms develop. Patient verbalized understanding of plan. 06/15/2016 Appointment: Joceline Mario WPtel: [phone] [phone] (15 min) Moderate 06/15/2016 Patient Education: Patient Medication Summary Completed 06/15/2016 Patient Education: Obesity Completed 06/15/2016 Appointment: Ann-Marie Lopez WPtel: [phone] [facility] (15 min) Moderate 06/08/2016 Visit Plan: Rash/Cellulitis [...] Completed 01/24/2015 Appointment: Ann-Marie Lopez WPtel: [phone] [facility] [place] Injection 08/08/2014 Patient Education: Patient Medication [...] at home. 07/26/2014 Appointment: [phone] Follow up 07/26/2014 Patient Education: Patient Medication [...] anti histamine. 12/01/2013 Appointment: Joceline Mario WPtel: [address] [place] [address] Sick 12/01/2013 Patient Education: Patient Medication Summary [...] symptoms worsen. 10/31/2013 Appointment: Ann-Marie Lopez WPtel: [address] [place], [place] [address] Other 10/31/2013 Patient Education: Patient Medication Summary Completed 10/31/2013 Patient Education: Hypertension Completed 10/31/2013 Appointment: Ann-Marie Lopez WPtel: [address] [place] [address] Surgical Procedure 07/04/2013 Visit Plan: Wound Instructions - Pt was instruced to keep the wound clean, wash with antibacterial soap, use triple antibiotic ointment, call if redness, pustular drainage, or any other acute conerns. 06/29/2013 Appointment: Joceline Mario WPtel: [address] [place] [address] Surgical Procedure 06/29/2013 Patient Education: Patient Medication [...] for phenergan with codeine. 02/08/2013 Appointment: Ann-Marie Lopeztel: [address] [place] [address] Sick 02/08/2013 Patient Education: Patient Medication Summary Completed 02/08/2013 Visit Plan: Diarrhea - recommended bland diet, no milk or fatty foods, recommended a gallbladder ultrasound and for pt to have stool studies and start on a probiotic. 01/02/2013 Appointment: Ann-Marie Lopez WPtel: [address] [place] [address] Sick 01/02/2013 Patient Education: Patient Medication Summary Completed 01/02/2013 Appointment: Ann-Marie Lopez WPtel: [address] [place] [address] Follow up 06/20/2012 Visit Plan: Edema - [...] labs-order provided 05/16/2012 Appointment: Ann-Marie Lopez WPtel: [address] [place] [address] Other 05/16/2012 Patient Education: Patient Medication Summary [...] peripheral edema. 04/25/2012 Appointment: Ann-Marie Lopez WPtel: [facility] Other 04/25/2012 Patient Education: Patient Medication Summary Completed 04/25/2012 Appointment: Ann-Marie Lopezl: [phone] [facility] Other 12/08/2011 Visit Plan: Hypertension - well [...] acute treatment of this illness. 12/07/2011 Appointment: Ann-Marie Lopez WPtel: [phone] [facility] Other 12/07/2011 Patient Education: Patient Medication Summary [...] RX sent to patient's pharmacy. 08/18/2011 Appointment: [place] WPtel: [facility] Other 08/18/2011 Patient Education: Patient Medication Summary [...] in symptoms, worsening redness, warmth, discharge. . Hypertension - well controlled - continue [...] Dr. Cope about her knee pain. . Varicose veins-recommend compression stockings-on in the [...] treatment plan and call if symptoms worsen. [employer] or [employer] - take three times daily x 10days . Sinusitis - Pt has acute infection - pain in face, maxillary region, Pt informed to use decongestant, RX given to patient, sinus rinses also recommended. Call if symptoms do not show improvement. . Sinus congestion - RX for zyrtec D - call if not improving, if fever develops may need to consider antibiotic rocephin and kenalog today start zpack today call wednesday if not better and we can add on cefdinir . Bronchitis - acute case of bronchitis identified. Pt has been given antibiotics, breathing treatments as appropriate, and pt has been instructed to call if symptoms are not improved, or if symptoms acutely worsen. . Edema - pt has been advised [...] possible nerve irritation. kenalog shot today. . Hypertension - well controlled - continue [...] further attempt to reduce peripheral edema. . Otitis Media - pt is to [...] not improve or if they acutely worsen. . Hypertension - well controlled - continue [...] for acute treatment of this illness. . URI - Pt advised to increase [...] in the nasal steroid allergy spray. . Wound Instructions - Pt was instruced [...] 10 days for suture removal Contusion-left lower qks-iweizbbci-qygclfdr current treatment . Allergies - chronic - recommended pt [...] worse. RX sent to patient's pharmacy. . Irritated [place] to right lateral thigh [...] to dr. lopez in 2 weeks - @[phone] . Well Adult - pt was counseled [...] potassium when taking lasix. Check labs-order provided use inhaler as needed for cough/shortness of breath/ wheezing take anti histamine such as debbi or zyrtec daily rocephin and kenalog injections [...] or do not improve. . Contusion/hematoma-left lower wnr-bzpzlxdkl-dwaqcbkr to monitor Laceration-right kfp-oeuhlnc-oud neosporin as directed Skin tag-right neck-fell off in the office before having it removed-no treatment today in the office-monitor area
--- OUTSIDE RECORDS SUMMARY | 2019-01-31 07:00 | XMS REPORT | CCD ---
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 08/18/[address]: 281094610 Nonsmoker 08/18/2011 Has the patient ever used [...] Start Date Stop Date Status Fill Instructions Kenalog 40 mg/mL suspension for injection RxNorm: 7843312 1 Milliliter(s) Inj 11/29/2018 11/29/2018 Inactive ceftriaxone 500 mg solution for injection RxNorm: 3025001 Inj 11/29/2018 11/29/2018 Inactive Zithromax Z-Seng 250 mg tablet RxNorm: 787790 1 Tablet(s) PO UD 11/29/2018 12/03/2018 Active prednisone 20 mg tablet RxNorm: 114953 1 Tablet(s) PO BID 11/2912/03/2018 Active Augmentin 500 mg-125 mg tablet RxNorm: 024883 1 Tablet(s) PO TID 10/06/2018 10/05/2018 Inactive DC doxycycline order Augmentin 500 mg-125 mg tablet RxNorm: 444803 1 Tablet(s) PO TID 10/06/2018 10/15/2018 Inactive DC doxycycline order ProAir HFA 90 mcg/actuation aerosol inhaler RxNorm: 7168466 2 Puff(s) INH TID as needed dyspnea 10/05/2018 No Stop Date Active doxycycline hyclate 100 mg capsule RxNorm: 0125435 1 Capsule(s) PO BID 10/05/2018 10/05/2018 Inactive prednisone 20 mg tablet RxNorm: 003205 2 Tablet(s) PO daily 09/26/2018 Inactive Keflex 500 mg capsule RxNorm: 016598 1 Capsule(s) PO TID 201710/01/2018 Inactive ProAir HFA 90 mcg/actuation aerosol inhaler RxNorm: 8836214 2 Puff(s) INH TID as needed dyspnea 03/29/2018 10/04/2018 Inactive Keflex 500 mg capsule RxNorm: 428083 1 Capsule(s) PO TID 201703/01/2018 Inactive Keflex 500 mg capsule RxNorm: 836914 1 Capsule(s) PO TID 201703/08/2018 Inactive trospium ER 60 mg capsule,extended release 24 hr RxNorm: 069329 1 Capsule(s) PO daily 01/04/2018 12/29/2018 Active D/C Vesicare - insurance denied trospium ER 60 mg capsule,extended release 24 hr RxNorm: 576201 1 Capsule(s) PO daily 01/04/2018 01/03/2018 Inactive metoprolol succinate ER 25 mg tablet,extended release 24 hr RxNorm: 451538 TAKE ONE TABLET BY MOUTH EVERY DAY 12/27/2017 06/24/2018 Inactive Zyrtec-D 5 mg-120 mg tablet,extended release RxNorm: 1693951 1 Tablet(s) PO BID as needed 12/16/2017 01/04/2018 Inactive Zithromax Z-Seng 250 mg tablet RxNorm: 235503 1 Tablet(s) PO UD 09/10/2017 09/14/2017 Inactive ceftriaxone 500 mg solution for injection RxNorm: 1486818 500 Milligram(s) Inj 09/10/2017 09/10/2017 Inactive Kenalog 40 mg/mL suspension for injection RxNorm: 4468337 1 Milliliter(s) Inj 09/10/2017 09/10/2017 Inactive hydrochlorothiazide 25 mg tablet RxNorm: 611467 TAKE ONE TABLET BY MOUTH EVERY DAY 08/09/2017 08/03/2018 Inactive hydrochlorothiazide 25 mg tablet RxNorm: 209630 TAKE ONE TABLET BY MOUTH EVERY DAY 08/09/2017 08/08/2017 Inactive Vesicare 10 mg tablet RxNorm: 727551 TAKE 1/2 TABLET BY MOUTH DAILY 08/09/2017 01/03/2018 Inactive Vesicare 10 mg tablet RxNorm: 414277 TAKE 1/2 TABLET BY MOUTH DAILY 08/09/2017 08/08/2017 Inactive Augmentin 875 mg-125 mg tablet RxNorm: 937990 1 Tablet(s) PO BID take a probiotic when taking the antibiotic 05/18/2017 Inactive Kenalog 40 mg/mL suspension for injection RxNorm: 8909449 1 Milliliter(s) Inj 05/18/2017 05/18/2017 Inactive hydrocodone 5 mg-acetaminophen 325 mg tablet RxNorm: 304236 1 Tablet(s) PO Q4H as needed for pain 01/19/2017 01/23/2017 Inactive Keflex 500 mg capsule RxNorm: 505795 1 Capsule(s) PO TID 201601/21/2017 Inactive Zyrtec-D 5 mg-120 mg tablet,extended release RxNorm: 3657582 1 Tablet(s) PO BID 10/29/2016 11/07/2016 Inactive metoprolol succinate ER 25 mg tablet,extended release 24 hr RxNorm: 053857 TAKE ONE TABLET BY MOUTH EVERY DAY 08/26/2016 02/21/2017 Inactive Xyzal 5 mg tablet RxNorm: 838350 Tablet(s) as needed TAKE ONE TABLET BY MOUTH DAILY 06/15/2016 08/13/2016 Inactive hydrochlorothiazide 25 mg tablet RxNorm: 369519 TAKE ONE TABLET BY MOUTH EVERY DAY 06/09/2016 04/04/2017 Inactive Vesicare 10 mg tablet RxNorm: 398000 1/2 Tablet(s) PO daily TAKE 1/2 TABLET BY MOUTH EVERY DAY 03/16/2016 12/10/2016 Inactive Vesicare 10 mg tablet RxNorm: 590695 1/2 Tablet(s) PO daily TAKE 1/2 TABLET BY MOUTH EVERY DAY 03/16/2016 03/15/2016 Inactive Vesicare 10 mg tablet RxNorm: 444817 1/2 Tablet(s) PO daily TAKE 1/2 TABLET BY MOUTH EVERY DAY 03/16/2016 03/15/2016 Inactive metoprolol succinate ER 25 mg tablet,extended release 24 hr RxNorm: 139996 TAKE ONE TABLET BY MOUTH EVERY DAY 03/02/2016 06/29/2016 Inactive Xyzal 5 mg tablet RxNorm: 891252 TAKE ONE TABLET BY MOUTH DAILY 01/07/2016 03/06/2016 Inactive cefdinir 300 mg capsule RxNorm: 026544 1 Capsule(s) PO BID 12/17/2015 Inactive Vesicare 10 mg tablet RxNorm: 238096 1/2 Tablet(s) TAKE 1/2 TABLET BY MOUTH EVERY DAY 12/11/2015 03/15/2016 Inactive ProAir HFA 90 mcg/actuation aerosol inhaler RxNorm: 980149 2 Puff(s) INH TID x 3 days then bid x 3 days then prn dyspnea 12/11/2015 03/28/2018 Inactive Kenalog 40 mg/mL suspension for injection RxNorm: 0548966 1 Milliliter(s) Inj 08/13/2015 08/13/2015 Inactive acyclovir 800 mg tablet RxNorm: 303288 1 Tablet(s) PO TID 07/1907/18/2015 Inactive acyclovir 800 mg tablet RxNorm: 505554 1 Tablet(s) PO TID 07/1907/28/2015 Inactive metoprolol succinate ER 25 mg tablet,extended release 24 hr RxNorm: 871426 TAKE ONE TABLET BY MOUTH EVERY DAY 05/21/2015 11/16/2015 Inactive hydrochlorothiazide 25 mg tablet RxNorm: 161252 TAKE ONE TABLET BY MOUTH EVERY DAY 05/02/2015 06/08/2016 Inactive Vesicare 10 mg tablet RxNorm: 347262 TAKE ONE TABLET BY MOUTH EVERY DAY 02/05/2015 12/10/2015 Inactive Xyzal 5 mg tablet RxNorm: 318709 1 Tablet(s) PO daily 201404/23/2015 Inactive Kenalog 40 mg/mL suspension for injection RxNorm: 8831999 1 Milliliter(s) Inj 01/24/2015 01/24/2015 Inactive Flonase Allergy Relief 50 mcg/actuation nasal spray, suspension RxNorm: 2 [place] NASAL daily 01/24/2015 12/10/2015 Inactive Debbi Allergy 180 mg tablet RxNorm: 010074 1 Tablet(s) PO daily 12/17/2014 12/16/2014 Inactive Debbi Allergy 180 mg tablet RxNorm: 367848 1 Tablet(s) PO daily 12/17/2014 02/14/2015 Inactive metoprolol succinate ER 25 mg tablet,extended release 24 hr RxNorm: 239439 Tablet (s) PO TAKE ONE TABLET BY MOUTH EVERY DAY 09/11/2014 05/20/2015 Inactive gemfibrozil 600 mg tablet RxNorm: 666906 1 Tablet(s) PO BID 11/201302/24/2015 Inactive gemfibrozil 600 mg tablet RxNorm: 557556 1 Tablet(s) PO BID 11/201307/29/2014 Inactive hydrochlorothiazide 25 mg tablet RxNorm: 984470 TAKE ONE TABLET BY MOUTH EVERY DAY 04/29/2014 05/01/2015 Inactive Kenalog 40 mg/mL suspension for injection RxNorm: 6815502 Milliliter(s) Inj 01/01/2014 01/01/2014 Inactive cefdinir 300 mg capsule RxNorm: 809585 1 Capsule(s) PO BID 03/201401/07/2014 Inactive Flonase 50 mcg/actuation nasal spray,suspension RxNorm: 954394 2 [place] NASAL daily 01/01/2014 01/07/2014 Inactive Rocephin 500 mg solution for injection RxNorm: 435722 1 Inj 03/201401/01/2014 Inactive Zithromax 500 mg tablet RxNorm: 679940 1 Tablet(s) PO daily 12/201301/02/2014 Inactive metoprolol succinate ER 25 mg tablet,extended release 24 hr RxNorm: 737429 Tablet (s) PO TAKE ONE TABLET BY MOUTH EVERY DAY 12/25/2013 09/10/2014 Inactive Vesicare 10 mg tablet RxNorm: 134325 1 Tablet(s) PO daily TAKE ONE TABLET BY MOUTH EVERY DAY 12/18/2013 01/11/2015 Inactive Kenalog 40 mg/mL suspension for injection RxNorm: 7394951 Milliliter(s) Inj 12/01/2013 12/01/2013 Inactive Zithromax 500 mg tablet RxNorm: 028688 1 Tablet(s) PO daily 03/201412/05/2013 Inactive tolterodine ER 4 mg capsule,extended release 24 hr RxNorm: 415145 1 Capsule(s) PO daily 10/31/2013 12/17/2013 Inactive replaces vesicare hydrochlorothiazide 25 mg tablet RxNorm: 908458 Tablet(s) PO TAKE ONE TABLET BY MOUTH EVERY DAY 10/24/2013 04/28/2014 Inactive hydrochlorothiazide 25 mg tablet RxNorm: 019389 Tablet(s) PO TAKE ONE TABLET BY MOUTH EVERY DAY 08/21/2013 10/23/2013 Inactive hydrochlorothiazide 25 mg tablet RxNorm: 771773 Tablet(s) PO TAKE ONE TABLET BY MOUTH EVERY DAY 02/23/2013 08/20/2013 Inactive Vesicare 10 mg tablet RxNorm: 220230 Tablet(s) PO TAKE ONE TABLET BY MOUTH EVERY DAY 02/13/2013 10/30/2013 Inactive Vesicare 10 mg tablet RxNorm: 874779 Tablet(s) PO TAKE ONE TABLET BY MOUTH EVERY DAY 02/13/2013 10/30/2013 Inactive Kenalog 40 mg/mL Susp for Injection RxNorm: 5370120 1 Milliliter(s) Inj 02/08/2013 02/08/2013 Inactive azithromycin 500 mg tablet RxNorm: 1330341 1 Tablet(s) PO daily 02/08/2013 02/14/2013 Inactive Rocephin 500 mg Solution for Injection RxNorm: 895550 Inj 02/0802/08/2013 Inactive Diflucan 150 mg tablet RxNorm: 559085 1 Tablet(s) PO daily 02/17/2013 Inactive Diflucan 150 mg tablet RxNorm: 991905 1 Tablet(s) PO daily 03/201302/07/2013 Inactive Flagyl 500 mg tablet RxNorm: 627734 1 Tablet(s) PO TID 201201/17/2013 Inactive Cipro 500 mg tablet RxNorm: 387351 1 Tablet(s) PO BID 201201/17/2013 Inactive Flagyl 500 mg tablet RxNorm: 088259 1 Tablet(s) PO TID 201201/27/2013 Inactive Cipro 500 mg tablet RxNorm: 701180 1 Tablet(s) PO BID 201201/27/2013 Inactive metoprolol succinate ER 25 mg tablet,extended release 24 hr RxNorm: 100982 Tablet (s) PO TAKE ONE TABLET BY MOUTH EVERY DAY 12/08/2012 12/24/2013 Inactive Lasix 20 mg tablet RxNorm: 709882 Tablet(s) PO TAKE ONE TABLET BY MOUTH EVERY DAY NEEDED 10/27/2012 08/12/2015 Inactive potassium chloride ER 10 mEq tablet,extended release RxNorm: 078457 1 Tablet(s) PO QDAY PRN 09/12/2012 03/10/2013 Inactive metoprolol succinate ER 25 mg tablet,extended release 24 hr RxNorm: 051293 Tablet (s) PO TAKE ONE TABLET BY MOUTH EVERY DAY 09/09/2012 12/07/2012 Inactive simvastatin 20 mg tablet RxNorm: 373538 Tablet(s) PO 201101/17/2013 Inactive TAKE ONE TABLET BY MOUTH EVERY DAY Lasix 20 mg tablet RxNorm: 166219 Tablet(s) PO 07/15/2012 10/26/2012 Inactive TAKE ONE TABLET BY MOUTH EVERY DAY NEEDED hydrochlorothiazide 25 mg tablet RxNorm: 716824 1 Tablet(s) PO 05/16/2012 02/09/2013 Inactive Vesicare 10 mg tablet RxNorm: 578291 1/2 Tablet(s) PO daily 05/19/2013 Inactive metoprolol succinate ER 25 mg 24 hr Tab RxNorm: 169392 1 Tablet(s) PO daily 03/16/2012 09/11/2012 Inactive metoprolol succinate ER 25 mg tablet,extended release 24 hr RxNorm: 068631 1 Tablet(s) PO daily 03/14/2012 03/15/2012 Inactive Vesicare 10 mg tablet RxNorm: 117222 1 Tablet(s) PO daily 201104/24/2012 Inactive metoprolol succinate ER 25 mg 24 hr Tab RxNorm: 793942 1 Tablet(s) PO daily 01/12/2012 03/13/2012 Inactive simvastatin 20 mg tablet RxNorm: 625186 1 Tablet(s) PO daily 08/15/2012 Inactive levofloxacin 500 mg Tab RxNorm: 015657 1 Tablet(s) PO daily 08/201212/13/2011 Inactive hydrochlorothiazide 12.5 mg tablet RxNorm: 363921 1 Tablet(s) PO daily 12/07/2011 05/15/2012 Inactive Kenalog 40 mg/mL Susp for Injection RxNorm: 5196055 1 Milliliter(s) Inj 11/17/2011 11/17/2011 Inactive cefdinir 300 mg Cap RxNorm: 174494 1 Capsule(s) PO BID 201111/26/2011 Inactive Diflucan 150 mg tablet RxNorm: 432998 1 Tablet(s) PO daily 11/21/2011 Inactive Rocephin 500 mg Solution for Injection RxNorm: 569238 1 Milliliter(s) Inj 11/17/2011 11/17/2011 Inactive azithromycin 500 mg Tab RxNorm: 4145114 1 Tablet(s) PO daily 11/21/2011 Inactive metoprolol succinate ER 25 mg 24 hr Tab RxNorm: 040485 1 Tablet(s) PO daily 11/12/2011 01/11/2012 Inactive metoprolol succinate ER 25 mg 24 hr Tab RxNorm: 163490 1 Tablet(s) PO daily 11/12/2011 11/11/2011 Inactive hydrochlorothiazide 25 mg Tab RxNorm: 418645 1 Tablet(s) PO daily 09/01/2011 12/06/2011 Inactive prednisone 5 mg Tab RxNorm: 424790 Tablet(s) PO 08/18/2011 08/23/2011 Inactive 6 day taper: 6-5-4-3-2-1 Kenalog 40 mg/mL Susp for Injection RxNorm: 9488888 Milliliter(s) Inj 08/18/2011 08/18/2011 Inactive metoprolol succinate ER 25 mg tablet,extended release 24 hr RxNorm: 282282 1 Tablet(s) PO daily No Start Date Active hydrocodone 10 mg-acetaminophen 325 mg tablet RxNorm: 176357 1 Tablet(s) PO as needed No Start Date Active Cipro 500 mg tablet RxNorm: 969304 Oral No Start Date 01/17/2013 Inactive Phenergan with Codeine Syrup RxNorm: 5-10 Milliliter(s) PO Q6 PRN No Start Date 07/25/2014 Inactive potassium chloride ER 10 mEq tablet,extended release RxNorm: 035305 1 Tablet(s) PO QDAY PRN No Start Date 09/11/2012 Inactive simvastatin 20 mg Tab RxNorm: 494961 1 Tablet(s) PO daily No Start Date 12/10/2011 Inactive Lasix 20 mg tablet RxNorm: 927268 1 Tablet(s) PO QDAY PRN No Start Date 07/14/2012 Inactive Vesicare 10 mg Tab RxNorm: 324339 1 Tablet(s) PO daily No Start Date 01/21/2012 Inactive Zithromax 500 mg Tab RxNorm: 3482640 Tablet(s) PO No Start Date 11/16/2011 Inactive 1 tab daily x 3 days, then 1/2 tab daily x 6 days. hydrochlorothiazide 25 mg Tab RxNorm: 765981 1 Tablet(s) PO daily No Start Date 08/31/2011 Inactive Medication Administered Medication Codes Instructions Start Date Status Kenalog 40 mg/mL suspension for injection RxNorm: 5531004 1Milliliter 11/29/2018 Active ceftriaxone 500 mg solution for injection RxNorm: 1242906 11/29/2018 Active Kenalog 40 mg/mL suspension for injection RxNorm: 4822577 1Milliliter 09/10/2017 No longer Active ceftriaxone 500 mg solution for injection RxNorm: 5668926 500Milligram 09/10/2017 No longer Active Kenalog 40 mg/mL suspension for injection RxNorm: 2547582 1Milliliter 05/18/2017 No longer Active Kenalog 40 mg/mL suspension for injection RxNorm: 6770829 1Milliliter 08/13/2015 No longer Active Kenalog 40 mg/mL suspension for injection RxNorm: 9846234 1Milliliter 01/24/2015 No longer Active Rocephin 500 mg solution for injection RxNorm: 336291 1 01/01/2014 No longer Active Kenalog 40 mg/mL suspension for injection RxNorm: 1072176 Milliliter 01/01/2014 No longer Active Kenalog 40 mg/mL suspension for injection RxNorm: 3903130 Milliliter 12/01/2013 No longer Active Rocephin 500 mg Solution for Injection RxNorm: 692246 02/08/2013 No longer Active Kenalog 40 mg/mL Susp for Injection RxNorm: 7590478 1Milliliter 02/08/2013 No longer Active Rocephin 500 mg Solution for Injection RxNorm: 549362 1Milliliter 11/17/2011 No longer Active Kenalog 40 mg/mL Susp for Injection RxNorm: 0252310 1Milliliter 11/17/2011 No longer Active Kenalog 40 mg/mL Susp for Injection RxNorm: 3866916 Milliliter 08/18/2011 No longer Active Immunizations Vaccine [...] urgency ICD-9: 788.63 10/31/2013 ESSENTIAL HYPERTENSION SNOMED: 65961477 ICD-9: 401.9 10/31/2013 Skin tag ICD-9: 701.9 [...] Item Item Code Result Date Comp Metabolic Ocs040 NA 140 mEq/L 03/23/2018 Comp Metabolic Pnb804 K 3.4 mEq/L 03/23/2018 Comp Metabolic Qko176 CL 103 mEq/L 03/23/2018 Comp Metabolic Nhu906 CO2 27.0 mEq/L 03/23/2018 Comp Metabolic Wau098 ANION GAP 13 03/23/2018 Comp Metabolic Qqn917 GLUCOSE 115 mg/dL 03/23/2018 Comp Metabolic Xyx841 Creat 0.9 mg/dL 03/23/2018 Comp Metabolic Srv607 eGFR 69 ml/min/1.73m2 03/23/2018 Comp Metabolic Zxn669 BUN 14 mg/dL 03/23/2018 Comp Metabolic Cyv773 B/C Ratio 16.5 Ratio 03/23/2018 Comp Metabolic Jgx970 CALCIUM 9.1 mg/dL 03/23/2018 Comp Metabolic Iuw804 ALK PHOS 84 U/L 03/23/2018 Comp Metabolic Ail129 AST(SGOT) 22 U/L 03/23/2018 Comp Metabolic Lqa526 ALT(SGPT) 20 U/L 03/23/2018 Comp Metabolic Chr213 BILI T 0.8 mg/dL 03/23/2018 Comp Metabolic Qfc184 ALBUMIN 4.0 g/dL 03/23/2018 Comp Metabolic Aon879 TPRO 7.0 g/dL 03/23/2018 Comp Metabolic Ter526 GLOB 3.0 g/dL 03/23/2018 Comp Metabolic Vvu634 A/G Ratio 1.3 Ratio 03/23/2018 Comp Metabolic Wae331 Osmo 281 mOsmo 03/23/2018 Cbc With Differential [...] 30.4 pg 03/23/2018 Cbc With Differential Ord2 [place]% 10.7 % 03/23/2018 Cbc With Differential Ord2 [...] 1.73 K/ul 03/23/2018 Cbc With Differential Ord2 [place] ABS# 0.9 K/ul 03/23/2018 Cbc With Differential [...] Ord30 C/HDL 2.9 Ratio 03/23/2018 Comp Metabolic Ckz306 NA 141 mEq/L 08/04/2017 Comp Metabolic Lvu353 K 3.6 mEq/L 08/04/2017 Comp Metabolic Nmx950 CL 101 mEq/L 08/04/2017 Comp Metabolic Hzc496 CO2 32.0 mEq/L 08/04/2017 Comp Metabolic Csk352 ANION GAP 12 08/04/2017 Comp Metabolic Psg243 GLUCOSE 99 mg/dL 08/04/2017 Comp Metabolic Xcr485 Creat 1.0 mg/dL 08/04/2017 Comp Metabolic Saz525 eGFR 60 ml/min/1.73m2 08/04/2017 Comp Metabolic Rcd001 BUN 21 mg/dL 08/04/2017 Comp Metabolic Ckp023 B/C Ratio 21.9 Ratio 08/04/2017 Comp Metabolic Rsq668 CALCIUM 9.4 mg/dL 08/04/2017 Comp Metabolic Lhw448 ALK PHOS 107 U/L 08/04/2017 Comp Metabolic Lee151 AST(SGOT) 21 U/L 08/04/2017 Comp Metabolic Iqs468 ALT(SGPT) 21 U/L 08/04/2017 Comp Metabolic Kap991 BILI T 0.6 mg/dL 08/04/2017 Comp Metabolic Vjc879 ALBUMIN 4.0 g/dL 08/04/2017 Comp Metabolic Vgq674 TPRO 7.2 g/dL 08/04/2017 Comp Metabolic Gwj887 GLOB 3.2 g/dL 08/04/2017 Comp Metabolic Avu905 A/G Ratio 1.2 Ratio 08/04/2017 Comp Metabolic Mfy545 Osmo 284 mOsmo 08/04/2017 Cbc With Differential [...] 31.1 pg 08/04/2017 Cbc With Differential Ord2 [place]% 7.8 % 08/04/2017 Cbc With Differential Ord2 [...] 1.79 K/ul 08/04/2017 Cbc With Differential Ord2 [place] ABS# 0.6 K/ul 08/04/2017 Cbc With Differential Ord2 Eos ABS# 0.5 K/ul 08/04/2017 Cbc With Differential Ord2 Baso ABS# 0.0 K/ul 08/04/2017 Tsh Ord6 hTSH II 2.45 uIU/mL 08/04/2017 Lipid Ord30 CHOL 217 mg/dL 08/04/2017 Lipid Ord30 HDL 59.0 mg/dl 08/04/2017 Lipid Ord30 TRIG 97 mg/dL 08/04/2017 Lipid Ord30 LDL 139 mg/dL 08/04/2017 Lipid Ord30 C/HDL 3.7 Ratio 08/04/2017 Comp Metabolic Ijp632 NA 138 mEq/L 07/21/2016 Comp Metabolic Abe642 K 3.8 mEq/L 07/21/2016 Comp Metabolic Dze569 CL 102 mEq/L 07/21/2016 Comp Metabolic Kiz772 CO2 30.0 mEq/L 07/21/2016 Comp Metabolic Imk514 ANION GAP 10 07/21/2016 Comp Metabolic Ugf875 GLUCOSE 101 mg/dL 07/21/2016 Comp Metabolic Nha283 Creat 0.9 mg/dL 07/21/2016 Comp Metabolic Por822 eGFR 63 ml/min/1.73m2 07/21/2016 Comp Metabolic Ykz094 BUN 19 mg/dL 07/21/2016 Comp Metabolic Rza906 B/C Ratio 20.4 Ratio 07/21/2016 Comp Metabolic Lfn160 CALCIUM 9.3 mg/dL 07/21/2016 Comp Metabolic Xav180 ALK PHOS 83 U/L 07/21/2016 Comp Metabolic Snb769 AST(SGOT) 20 U/L 07/21/2016 Comp Metabolic Was334 ALT(SGPT) 18 U/L 07/21/2016 Comp Metabolic Hjc186 BILI T 0.6 mg/dL 07/21/2016 Comp Metabolic Dut621 ALBUMIN 4.0 g/dL 07/21/2016 Comp Metabolic Sjk019 TPRO 7.2 g/dL 07/21/2016 Comp Metabolic Uut878 GLOB 3.3 g/dL 07/21/2016 Comp Metabolic Tsc044 A/G Ratio 1.2 Ratio 07/21/2016 Comp Metabolic Txe296 Osmo 278 mOsmo 07/21/2016 Cbc With Differential [...] 29.8 pg 07/21/2016 Cbc With Differential Ord2 [place]% 9.6 % 07/21/2016 Cbc With Differential Ord2 [...] 2.10 K/ul 07/21/2016 Cbc With Differential Ord2 [place] ABS# 0.7 K/ul 07/21/2016 Cbc With Differential [...] None Full Exam - General 1995 Ears/Nose/Throat otoscopic exam Overall: tympanic membranes clear [...] masses 10/31/2013 None Full Exam - General 1994 [...] CPT-4: J0696 09/10/2017 THER/PROPH/DIAG INJ SC/IM CPT-4: 83990 05/18/2017 TRIAMCINOLONE ACET INJ NOS CPT-4: J3301 05/18/2017 DESTRUCT PREMALG LESION CPT-4: 74868 06/24/2016 ADMIN INFLUENZA VIRUS VAC CPT-4: G0008 06/15/2016 ADMIN PNEUMOCOCCAL VACCINE SNOMED CT: 61330203 CPT-4: G0009 06/15/2016 PNEUMOCOCCAL VACC [address]: 06965171 CPT-4: 17623 06/15/2016 FLU VACC PRSV FREE INC ANTIG Formatting Model/CDA Sections, Assigned to/Vianney Bronson CPT-4: 36412Erxldpw 06/15/2016 THER/PROPH/DIAG INJ SC/IM CPT-4: 15424 08/13/2015 TRIAMCINOLONE ACET INJ NOS CPT-4: J3301 08/13/2015 TRIAMCINOLONE ACET INJ NOS CPT-4: J3301 01/24/2015 IMMUNIZATION ADMIN CPT -4: 05504 08/08/2014 FLU VAC NO PRSV 4 DARREL 3 YRS+ Assigned to CPT-4: 10367Segkzyn 08/08/2014 TRIAMCINOLONE ACET INJ NOS CPT-4: J3301 01/01/2014 ROCEPHIN, PER 250 MG CPT-4: J0696 01/01/2014 TRIAMCINOLONE ACET INJ NOS CPT-4: J3301 12/01/2013 REMOVAL OF SKIN TAGS <W/15 CPT-4: 19730 06/29/2013 TRIAMCINOLONE ACET INJ NOS CPT-4: J3301 02/08/2013 ROCEPHIN, PER 250 MG CPT-4: J0696 02/08/2013 01258 EST. PATIENT, LEVEL III CPT-4: 93845 05/16/2012 TRIAMCINOLONE ACET INJ NOS CPT-4: J3301 11/17/2011 ROCEPHIN, PER 250 MG CPT-4: J0696 11/17/2011 TRIAMCINOLONE ACET INJ NOS CPT-4: J3301 08/18/2011 THER/PROPH/DIAG INJ SC/IM CPT-4: 15704 08/18/2011 Vital Signs Date Vital 11/29/2018 Blood Pressure 1: 110/64 Code : 8480-6 BMI: 38.1 Code : 42247-6 Heart Rate 1 : 79 bpm Height: 5'4" SpO2: 97% Temperature: 37.1 (C) / 98.8 (F) Weight: 222 lbs 10/05/2018 BMI: 38.1 Code: 19894-2 Heart Rate 1: 88 bpm Height: 5'4" Weight: 222 lbs 09/22/2018 Blood Pressure 1: 132/74 Code : 8480-6 BMI: 38.4 Code : 04790-4 Heart Rate 1 : 74 bpm Height: 5'4" SpO2: 96% Weight: 224 lbs 03/29/2018 Blood Pressure 1: 130/82 Code : 8480-6 BMI: 38.1 Code : 87403-0 Heart Rate 1 : 71 bpm Height: 5'4" SpO2: 96% Weight: 222 lbs 09/10/2017 Blood Pressure 1: 130/78 Code : 8480-6 BMI: 37.1 Code : 48090-0 Heart Rate 1 : 76 bpm Height: 5'4" SpO2: 97% Temperature: 36.9 (C) / 98.4 (F) Weight: 216 lbs 07/26/2017 Blood Pressure 1: 118/80 Code : 8480-6 Heart Rate 1: 71 bpm SpO2: 96% 05/18/2017 Blood Pressure 1: 122/80 Code : 8480-6 BMI: 36.9 Code : 03491-8 Heart Rate 1 : 83 bpm Height: 5'4" SpO2: 96% Weight: 215 lbs 05/12/2017 Blood Pressure 1: 132/80 Code : 8480-6 BMI: 36.7 Code : 56158-2 Heart Rate 1 : 86 bpm Height: 5'4" SpO2: 97% Weight: 214 lbs 02/25/2017 Blood Pressure 1: 126/78 Code : 8480-6 Heart Rate 1: 81 bpm Height: 5'4" SpO2: 95% Weight: 01/15/2017 Blood Pressure 1: 136/78 Code : 8480-6 Heart Rate 1: 80 bpm Height: 5'4" SpO2: 96% Temperature: 37.0 (C) / 98.6 (F) Weight: 10/29/2016 Blood Pressure 1: 124/70 Code : 8480-6 BMI: 37.8 Code : 36942-1 Heart Rate 1 : 74 bpm Height: 5'4" SpO2: 97% Temperature: 37.1 (C) / 98.7 (F) Weight: 220 lbs 07/20/2016 Blood Pressure 1: 134/80 Code : 8480-6 BMI: 36.9 Code : 07545-2 Heart Rate 1 : 71 bpm Height: 5'4" SpO2: 98% Weight: 215 lbs 06/24/2016 Blood Pressure 1: 134/74 Code : 8480-6 BMI: 37.1 Code : 15532-9 Heart Rate 1 : 85 bpm Height: 5'4" SpO2: 97% Weight: 216 lbs 06/15/2016 Blood Pressure 1: 130/80 Code : 8480-6 BMI: 37.1 Code : 78727-8 Heart Rate 1 : 73 bpm Height: 5'4" SpO2: 97% Weight: 216 lbs 01/15/2016 Blood Pressure 1: 128/80 Code : 8480-6 BMI: 35.7 Code : 48950-3 Heart Rate 1 : 79 bpm Height: 5'4" SpO2: 97% Weight: 208 lbs 12/11/2015 Blood Pressure 1: 134/80 Code : 8480-6 BMI: 34.7 Code : 86182-6 Heart Rate 1 : 65 bpm Height: 5'4" SpO2: 98% Temperature: 36.7 (C) / 98.1 (F) Weight: 202 lbs 08/13/2015 Blood Pressure 1: 120/82 Code : 8480-6 BMI: 34.2 Code : 87764-7 Heart Rate 1 : 74 bpm Height: 5'4" SpO2: 98% Weight: 199 lbs 01/24/2015 Blood Pressure 1: 138/82 Code : 8480-6 BMI: 36.2 Code : 80975-1 Heart Rate 1 : 69 bpm Height: 5'6" SpO2: 94% Temperature: 36.5 (C) / 97.7 (F) Weight: 224 lbs 07/26/2014 Blood Pressure 1: 142/96 Code : 8480-6 BMI: 35.2 Code : 26975-0 Heart Rate 1 : 68 bpm Height: 5'6" Weight: 218 lbs 01/01/2014 Blood Pressure 1: 104/70 Code : 8480-6 BMI: 35.0 Code : 65897-8 Heart Rate 1 : 68 bpm Height: 5'6" Temperature: 36.8 (C) / 98.2 (F) Weight: 217 lbs 12/01/2013 Blood Pressure 1: 112/78 Code : 8480-6 Heart Rate 1: 84 bpm Temperature: 36.7 (C) / 98.0 (F) Weight: 213 lbs 10/31/2013 Blood Pressure 1: 102/70 Code : 8480-6 BMI: 34.9 Code : 97010-0 Heart Rate 1 : 64 bpm Height: 5'6" Weight: 216 lbs 06/29/2013 Blood Pressure 1: 130/84 Code : 8480-6 BMI: 34.5 Code : 46490-8 Heart Rate 1 : 80 bpm Height: 5'6" Weight: 214 lbs 02/08/2013 Blood Pressure 1: 122/80 Code : 8480-6 BMI: 32.9 Code : 39438-7 Heart Rate 1 : 72 bpm Height: 5'6" Temperature: 37.4 (C) / 99.3 (F) Weight: 204 lbs 01/02/2013 Blood Pressure 1: 118/88 Code : 8480-6 BMI: 34.7 Code : 59228-3 Heart Rate 1 : 88 bpm Height: 5'6" Weight: 215 lbs 05/16/2012 Blood Pressure 1: 132/88 Code : 8480-6 Heart Rate 1: 71 bpm Weight: 216 lbs 8 04/25/2012 Blood Pressure 1: 116/72 Code : [...] Code : 8480-6 BMI: 35.3 Code : 06187-8 Heart Rate 1 : 68 bpm Height: [...] Directive data Encounters Encounter Performer Location Codes ([id number]) [id number] EST. PATIENT, LEVEL III Diagnosis: Cough[ICD10: R05] Diagnosis: Acute bronchitis, unspecified[ICD10: J20.9] Joceline Lopez MD, [facility] CPT-4: 78222 11/29/2018 [id number] EST. PATIENT, LEVEL III Diagnosis: Cough[ICD10: R05] Diagnosis: Acute laryngopharyngitis[ICD10: J06.0] Diagnosis: Other allergic rhinitis[ICD10: J30.89] Xochilt Lopez MD, [facility] CPT-4: 43589 10/05/2018 12723 EST. PATIENT, LEVEL III Diagnosis: Acute laryngopharyngitis[ICD10: J06.0] Diagnosis: Other allergic rhinitis[ICD10: J30.89] Diagnosis: Cough[ICD10: R05] Xochilt Lopez MD, [facility] CPT-4: 25837 09/22/2018 ([id number]) 28158 EST. PATIENT, LEVEL IV Diagnosis: Essential (primary) hypertension[ICD10: I10] Diagnosis: Pain in left knee[ICD10: M25.562] Diagnosis: Pain in right knee[ICD10: M25.561] Diagnosis: Shortness of breath[ICD10: R06.02] Ann-Marie Lopez MD, [facility] CPT-4: 75701 03/29/2018 ([id number]) 55631 EST. PATIENT, LEVEL III Diagnosis: Cough[ICD10: R05] Diagnosis: Acute bronchitis, unspecified[ICD10: J20.9] Joceline Lopez MD, [facility] CPT-4: 68625 09/10/2017 ([id number]) Miscellaneous no charge Diagnosis: Essential (primary) hypertension[ICD10: I10] Joceline Lopez MD, [facility] CPT-4: 15888 07/26/2017 ([id number]) 63649 EST. PATIENT, LEVEL III Diagnosis: Otalgia, right ear[ICD10: H92.01] Diagnosis: Other specified disorders of teeth and supporting structures[ICD10: K08.89] Ann-Marie Lopez MD, [facility] CPT-4: 82376 2016 93661 EST. PATIENT, LEVEL III Diagnosis: Acute suppurative otitis media without spontaneous rupture of ear drum, right ear[ICD10: H66.001] Xochilt Lopez MD, [facility] CPT-4: 74372 05/12/2017 ([id number]) 91715 EST. PATIENT, LEVEL II Diagnosis: Contusion of left lower leg, subsequent encounter[ICD10: S80.12XD] Joceline Lopez MD, [facility] CPT-4: 24541 02/25/2017 ([id number]) 00355 EST. PATIENT, LEVEL III Diagnosis: Cellulitis of right lower limb[ICD10: L03.115] Diagnosis: Contusion of left lower leg, initial encounter[ICD10: S80.12XA] Diagnosis: Laceration without foreign body, right lower leg, initial encounter[ ICD10: S81.811A] Joceline Lopez MD, [facility] CPT-4: 10705 01/15/2017 ([id number]) 61595 EST. PATIENT, LEVEL III Diagnosis: Acute recurrent maxillary sinusitis[ICD10: J01.01] Diagnosis: Cough[ICD10: R05] Ann-Marie Lopez MD, [facility] CPT-4: 41978 10/29/2016 ([id number]) 48870 EST. PATIENT, LEVEL IV Diagnosis: Essential (primary) hypertension[ICD10: I10] Diagnosis: Varicose veins of left lower extremity with inflammation[ICD10: I83.12] Diagnosis: Localized edema[ICD10: R60.0] Ann-Marie Lopez MD, [facility] CPT- 4: 72460 07/20/2016 13456 EST. PATIENT, LEVEL III Diagnosis: Actinic keratosis[ICD10: L57.0] Xochilt Lopez MD, [facility] CPT-4 : 57975 06/24/2016 ([id number]) 22894 EST. PATIENT, LEVEL III Diagnosis: Asymptomatic varicose veins of bilateral lower extremities[ICD10: I83.93] Joceline Lopez MD, [facility] CPT-4: 84057 05817 EST. PATIENT, LEVEL III Diagnosis: Rash and other nonspecific skin eruption[ICD10: R21] Xochilt Lopez MD, [facility] CPT-4: 69955 01/15/2016 ([id number]) 56545 EST. PATIENT, LEVEL III Diagnosis: Cough[ICD10: R05] Diagnosis: Dyspnea, unspecified[ICD10: R06.00] Diagnosis: Acute sinusitis, unspecified[ICD10: J01.90] Ann-Marie Lopez MD, [facility] CPT-4: 58231 12/11/2015 14811 EST. PATIENT, LEVEL III Diagnosis: Allergic rhinitis, unspecified[ICD10: J30.9] Diagnosis: Tinnitus, bilateral[ICD10: H93.13] Xochilt Lopez MD, [facility] CPT-4: 33440 08/13/2015 ([id number]) 79487 EST. PATIENT, LEVEL III Diagnosis: ALLERGIC RHINITIS[ICD9: 477.9] Joceline Lopez MD, [facility] CPT-4: 42579 01/24/2015 ([id number]) PER PM REEVAL EST PAT 65+ YR Diagnosis: Routine medical exam[ICD9: V70.0] Ann-Marie Lopez MD, [facility] CPT-4: 09282 07/26/2014 ([id number]) 97778 EST. PATIENT, LEVEL III Diagnosis: ACUTE SINUSITIS[ICD9: 461.9] Diagnosis: ACUTE BRONCHITIS[ICD9: 466.0] Diagnosis: COUGH[ICD9: 786.2] Joceline Lopez MD, [facility] CPT-4: 73338 01/01/2014 ([id number]) 39050 EST. PATIENT, LEVEL III Diagnosis: ALLERGIC RHINITIS[ICD9: 477.9] Joceline Lopez MD, [facility] CPT-4: 11931 12/01/2013 ([id number]) 75581 EST. PATIENT, LEVEL IV Diagnosis: ESSENTIAL HYPERTENSION[SNOMED: 78482639] Diagnosis: Urinary urgency[ICD9: 788.63] Ann-Marie Lopez MD, [facility] CPT- 4: 92233 10/31/2013 ([id number]) 83193 EST. PATIENT, LEVEL III Diagnosis: Cough[ICD9: 786.2] Diagnosis: Diarrhea[ICD9: 787.91] Ann-Marie Lopez MD, [facility] CPT-4: 75444 02/08/2013 ([id number]) 60104 EST. PATIENT, LEVEL III Diagnosis: Diarrhea[ICD9: 787.91] Diagnosis: Abdominal discomfort[ICD9: 789.00] Diagnosis: Fecal urgency[ICD9: 787.63] Ann-Marie Lopez MD, [facility] CPT- 4: 45754 01/02/2013 ([id number]) 19967 EST. PATIENT, LEVEL III Diagnosis: EDEMA[ICD9: 782.3] Ann-Marie Lopez MD, [facility] CPT-4: 40566 04/25/2012 ([id number]) 28161 EST. PATIENT, LEVEL III Diagnosis: ESSENTIAL HYPERTENSION[SNOMED: 31818383] Diagnosis: BACTERIAL PNEUMONIA[ICD9: 482.9] Ann-Marie Lopez MD, [facility] CPT-4: 81520 12/07/2011 ([id number]) 26145 EST. PATIENT, LEVEL IV Diagnosis: COUGH[ICD9: 786.2] Diagnosis: FEVER NOS[ICD9: 780.60] Ann-Marie Lopez MD, [facility] CPT-4: 18004 11/17/2011 64010 EST. PATIENT, LEVEL IV Diagnosis: Acute bronchitis[ICD9: 466.0] Diagnosis: Cough[ICD9: 786.2] Diagnosis: Dyspnea[ICD9: 786.09] Joceline Lopez MD, [facility] CPT-4: 65156 08/18/2011 Plan of Care Planned Activity Notes Codes Status Date Visit Plan: Bronchitis - acute case of bronchitis identified. Pt has been given antibiotics, breathing treatments as appropriate, and pt has been instructed to call if symptoms are not improved, or if symptoms acutely worsen. 11/29/2018 Patient Education: Patient Medication Summary Completed [...] allergy spray. 10/05/2018 Appointment: Xochilt Gardner WPtel: [phone] [id number] (15 min) Moderate 10/05/2018 Patient Education: Patient [...] patient's pharmacy. 09/22/2018 Appointment: Xochilt Gardner WPtel: [facility]6 [id number] (15 min) Moderate 09/22/2018 Patient Education: Patient Medication Summary Completed 09/22/2018 Patient Education: Patient Medication Summary Completed 05/04/2018 Care Plan: SCREENINGMAMMOGRAPHYDIGITAL LOINC : 77775-3 Pending 05/04/2018 Appointment: Ann-Marie Lopez WPtel: [facility]6 [facility] (15 min) Moderate 04/21/2018 Visit Plan: Hypertension [...] extremities - recommended pt to see Dr. Cpoe about her knee pain. 03/29/2018 Appointment: Ann-Marie Lopez WPtel: [phone] [facility] (15 min) Moderate 03/29/2018 Patient Education: Patient Medication Summary Completed 03/29/2018 Appointment: Nurse Visit 03/02/2018 Visit Plan: Bronchitis - acute case of bronchitis identified. Pt has been given antibiotics, breathing treatments as appropriate, and pt has been instructed to call if symptoms are not improved, or if symptoms acutely worsen. 09/10/2017 Appointment: Joceline Mario WPtel: [phone] [phone] (15 min) Moderate 09/10/2017 Patient Education: Patient [...] acutely worsen. 05/12/2017 Appointment: Xochilt Gardner WPtel: [facility] (10 min) Simple 05/12/2017 Patient Education: Patient Medication Summary Completed 05/12/2017 Visit Plan: Contusion/hematoma-left lower leg-improving- continue to monitor Laceration-right vlr-kavyjdr-lul neosporin as directed Skin tag-right neck-fell off in the office before having it removed-no treatment today in the office-monitor area 02/25/2017 Appointment: Joceline Mario WPtel: [phone] [phone] (30 min) Complex 02/25/2017 Patient Education: Patient [...] treatment 01/15/2017 Appointment: [phone] (30 min) Complex 01/15/2017 Patient Education: Patient [...] 07/20/2016 Care Plan: Referral Order SNOMED-CT : [id number] Pending 07/20/2016 Visit Plan: Irritated [place] to [...] concerns. 06/24/2016 Appointment: [facility] Mario [facility]el[phone] (15 min) Moderate 06/24/2016 Patient Education: Patient Medication Summary Completed 06/24/2016 Patient Education: Obesity Completed 06/24/2016 Visit Plan: Varicose veins-recommend compression stockings- on in the am and off at HS-discussed the need for weight loss as well- instructed patient to call if symptoms persist, worsen, or new symptoms develop. Patient verbalized understanding of plan. 06/15/2016 Appointment: Fabiano Joceline WPtel: [phone] [phone] (15 min) Moderate 06/15/2016 Patient Education: Patient Medication Summary Completed 06/15/2016 Patient Education: Obesity Completed 06/15/2016 Appointment: [facility]el[phone] [place] (15 min) Moderate 06/08/2016 Visit Plan: [...] Completed 01/24/2015 Appointment: Ann-Marie Lopez WPtel: [phone] [facility] [place] Injection 08/08/2014 Patient Education: Patient Medication [...] home. 07/26/2014 Appointment: Ann-Marie Lopez WPtel: [phone] [facility] Follow up 07/26/2014 Patient Education: Patient Medication [...] anti histamine. 12/01/2013 Appointment: Joceline Mario WPtel: [phone] [place], [place] [phone] Sick 12/01/2013 Patient Education: Patient Medication Summary [...] symptoms worsen. 10/31/2013 Appointment: Ann-Marie Lopez WPtel: [address] [place] [address] Other 10/31/2013 Patient Education: Patient Medication Summary Completed 10/31/2013 Patient Education: Hypertension Completed 10/31/2013 Appointment: Ann-Marie Lopez WPtel: [address] [place] [address] Surgical Procedure 07/04/2013 Visit Plan: Wound Instructions - Pt was instruced to keep the wound clean, wash with antibacterial soap, use triple antibiotic ointment, call if redness, pustular drainage, or any other acute conerns. 06/29/2013 Appointment: Joceline Mario WPtel: [address] [place], [place] [phone] [place] [address] Surgical Procedure 06/29/2013 Patient Education: Patient Medication [...] with codeine. 02/08/2013 Appointment: Ann-Marie Lopez WPtel: [address] [place] [address] Sick 02/08/2013 Patient Education: Patient Medication Summary Completed 02/08/2013 Visit Plan: Diarrhea - recommended bland diet, no milk or fatty foods, recommended a gallbladder ultrasound and for pt to have stool studies and start on a probiotic. 01/02/2013 Appointment: Ann-Marie Lopeztel: [address] [place], [place] [phone] Sick 01/02/2013 Patient Education: Patient Medication Summary Completed 01/02/2013 Appointment: Ann-Marie Lopez WPtel: [address] [place], [place] [phone] Follow up 06/20/2012 Visit Plan: Edema - [...] labs-order provided 05/16/2012 Appointment: Ann-Marie Lopez WPtel: [address] [place] [address] Other 05/16/2012 Patient Education: Patient Medication Summary [...] peripheral edema. 04/25/2012 Appointment: Ann-Marie Lopez WPtel: [address] [place], [place] [phone] Other 04/25/2012 Patient Education: Patient Medication Summary Completed 04/25/2012 Appointment: Ann-Marie Lopez WPtel: [address] [place], [place] [phone] Other 12/08/2011 Visit Plan: Hypertension - well [...] this illness. 12/07/2011 Appointment: Ann-Marie Lopez WPtel: [phone] [facility] Other 12/07/2011 Patient Education: Patient Medication Summary [...] patient's pharmacy. 08/18/2011 Appointment: Ann-Marie Lopez WPtel: [phone] [facility] Other 08/18/2011 Patient Education: Patient Medication Summary [...] a prescription for Zithromax (the antibiotic) to [facility]. Take 1 pill x 3 day then [...] treatment plan and call if symptoms worsen. [employer] or [employer] - take three times daily x 10days [...] 10 days for suture removal Contusion-left lower ftd-imwwlziot-adsshyic current treatment . Allergies - chronic - [...] to dr. lopez in 2 weeks - @[id number] . [facility] - pt was counseled [...] or do not improve. . Contusion/hematoma-left lower nog-kftxdzaoe-opgacael to monitor Laceration-right zji-lgrqcny-oaf neosporin as directed Skin tag-right neck-fell off in the office before having it removed-no treatment today in the office-monitor area
--- OUTSIDE RECORDS SUMMARY | 2019-01-31 07:03 | XMS REPORT | CCD ---
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 Unknown Has never used illegal drugs 08/18/2011 Allergies, Adverse Reactions, Alerts Substance Reaction Codes Entered Date Inactivated Date Status Tape Unknown 08/18/2011 No Inactive Date Active * NO KNOWN DRUG ALLERGIES bactrim doesnt work for her Unknown 08/18/2011 No Inactive Date Active Past Medical History Illness Codes Condition Status Onset Date Resolved Date Acute laryngopharyngitis ICD-9: 465.0 ICD-10: J06.0 Active 09/22/2018 Unknown Cough ICD-9: 786.2 ICD-10: R05 Active 10/05/2018 Unknown Other allergic rhinitis ICD-9: 477.8 ICD-10: [...] -9: 719.46 ICD-10: M25.561 Active 03/29/2018 Unknown Acute bronchitis, unspecified ICD-9: 466.0 ICD-10: J20.9 Active 09/10/2017 Unknown Otalgia, right ear ICD -9: 388.72 [...] Condition Codes Effective Dates Condition Status Acute laryngopharyngitis ICD-9: 465.0 ICD-10: J06.0 09/22/2018 Active Cough ICD-9: 786.2 ICD-10: R05 10/05/2018 Active Other allergic rhinitis ICD-9: 477.8 ICD-10: [...] ICD -9: 719.46 ICD-10: M25.561 03/29/2018 Active Acute bronchitis, unspecified ICD-9: 466.0 ICD-10: J20.9 09/10/2017 Active Otalgia, right ear ICD -9: 388.72 [...] Start Date Stop Date Status Fill Instructions Augmentin 500 mg-125 mg tablet RxNorm: 167288 1 Tablet(s) PO TID 10/06/2018 10/15/2018 Active DC doxycycline order Augmentin 500 mg-125 mg tablet RxNorm: 651658 1 Tablet(s) PO TID 10/06/2018 10/05/2018 Inactive DC doxycycline order ProAir HFA 90 mcg/actuation aerosol inhaler RxNorm: 4114176 2 Puff(s) INH TID as needed dyspnea 10/05/2018 No Stop Date Active doxycycline hyclate 100 mg capsule RxNorm: 1225745 1 Capsule(s) PO BID 10/05/2018 10/05/2018 Inactive prednisone 20 mg tablet RxNorm: 519945 2 Tablet(s) PO daily 09/26/2018 Inactive Keflex 500 mg capsule RxNorm: 165962 1 Capsule(s) PO TID 201710/01/2018 Inactive ProAir HFA 90 mcg/actuation aerosol inhaler RxNorm: 2517699 2 Puff(s) INH TID as needed dyspnea 03/29/2018 10/04/2018 Inactive Keflex 500 mg capsule RxNorm: 551208 1 Capsule(s) PO TID 201703/01/2018 Inactive Keflex 500 mg capsule RxNorm: 172232 1 Capsule(s) PO TID 201703/08/2018 Inactive trospium ER 60 mg capsule,extended release 24 hr RxNorm: 587796 1 Capsule(s) PO daily 01/04/2018 12/29/2018 Active D/C Vesicare - insurance denied trospium ER 60 mg capsule,extended release 24 hr RxNorm: 132057 1 Capsule(s) PO daily 01/04/2018 01/03/2018 Inactive metoprolol succinate ER 25 mg tablet,extended release 24 hr RxNorm: 121922 TAKE ONE TABLET BY MOUTH EVERY DAY 12/27/2017 06/24/2018 Inactive Zyrtec-D 5 mg-120 mg tablet,extended release RxNorm: 6637820 1 Tablet(s) PO BID as needed 12/16/2017 01/04/2018 Inactive Zithromax Z-Seng 250 mg tablet RxNorm: 280487 1 Tablet(s) PO UD 09/10/2017 09/14/2017 Inactive ceftriaxone 500 mg solution for injection RxNorm: 7724193 500 Milligram(s) Inj 09/10/2017 09/10/2017 Inactive Kenalog 40 mg/mL suspension for injection RxNorm: 4980715 1 Milliliter(s) Inj 09/10/2017 09/10/2017 Inactive hydrochlorothiazide 25 mg tablet RxNorm: 484568 TAKE ONE TABLET BY MOUTH EVERY DAY 08/09/2017 08/03/2018 Inactive hydrochlorothiazide 25 mg tablet RxNorm: 534344 TAKE ONE TABLET BY MOUTH EVERY DAY 08/09/2017 08/08/2017 Inactive Vesicare 10 mg tablet RxNorm: 345172 TAKE 1/2 TABLET BY MOUTH DAILY 08/09/2017 01/03/2018 Inactive Vesicare 10 mg tablet RxNorm: 295604 TAKE 1/2 TABLET BY MOUTH DAILY 08/09/2017 08/08/2017 Inactive Augmentin 875 mg-125 mg tablet RxNorm: 505390 1 Tablet(s) PO BID take a probiotic when taking the antibiotic 05/18/2017 Inactive Kenalog 40 mg/mL suspension for injection RxNorm: 1669599 1 Milliliter(s) Inj 05/18/2017 05/18/2017 Inactive hydrocodone 5 mg-acetaminophen 325 mg tablet RxNorm: 987460 1 Tablet(s) PO Q4H as needed for pain 01/19/2017 01/23/2017 Inactive Keflex 500 mg capsule RxNorm: 920099 1 Capsule(s) PO TID 201601/21/2017 Inactive Zyrtec-D 5 mg-120 mg tablet,extended release RxNorm: 7197126 1 Tablet(s) PO BID 10/29/2016 11/07/2016 Inactive metoprolol succinate ER 25 mg tablet,extended release 24 hr RxNorm: 489898 TAKE ONE TABLET BY MOUTH EVERY DAY 08/26/2016 02/21/2017 Inactive Xyzal 5 mg tablet RxNorm: 328109 Tablet(s) as needed TAKE ONE TABLET BY MOUTH DAILY 06/15/2016 08/13/2016 Inactive hydrochlorothiazide 25 mg tablet RxNorm: 650063 TAKE ONE TABLET BY MOUTH EVERY DAY 06/09/2016 04/04/2017 Inactive Vesicare 10 mg tablet RxNorm: 998738 1/2 Tablet(s) PO daily TAKE 1/2 TABLET BY MOUTH EVERY DAY 03/16/2016 12/10/2016 Inactive Vesicare 10 mg tablet RxNorm: 442735 1/2 Tablet(s) PO daily TAKE 1/2 TABLET BY MOUTH EVERY DAY 03/16/2016 03/15/2016 Inactive Vesicare 10 mg tablet RxNorm: 024355 1/2 Tablet(s) PO daily TAKE 1/2 TABLET BY MOUTH EVERY DAY 03/16/2016 03/15/2016 Inactive metoprolol succinate ER 25 mg tablet,extended release 24 hr RxNorm: 621867 TAKE ONE TABLET BY MOUTH EVERY DAY 03/02/2016 06/29/2016 Inactive Xyzal 5 mg tablet RxNorm: 147631 TAKE ONE TABLET BY MOUTH DAILY 01/07/2016 03/06/2016 Inactive cefdinir 300 mg capsule RxNorm: 483106 1 Capsule(s) PO BID 12/17/2015 Inactive Vesicare 10 mg tablet RxNorm: 359906 1/2 Tablet(s) TAKE 1/2 TABLET BY MOUTH EVERY DAY 12/11/2015 03/15/2016 Inactive ProAir HFA 90 mcg/actuation aerosol inhaler RxNorm: 416977 2 Puff(s) INH TID x 3 days then bid x 3 days then prn dyspnea 12/11/2015 03/28/2018 Inactive Kenalog 40 mg/mL suspension for injection RxNorm: 1047333 1 Milliliter(s) Inj 08/13/2015 08/13/2015 Inactive acyclovir 800 mg tablet RxNorm: 982035 1 Tablet(s) PO TID 07/1907/18/2015 Inactive acyclovir 800 mg tablet RxNorm: 674787 1 Tablet(s) PO TID 07/1907/28/2015 Inactive metoprolol succinate ER 25 mg tablet,extended release 24 hr RxNorm: 499503 TAKE ONE TABLET BY MOUTH EVERY DAY 05/21/2015 11/16/2015 Inactive hydrochlorothiazide 25 mg tablet RxNorm: 163092 TAKE ONE TABLET BY MOUTH EVERY DAY 05/02/2015 06/08/2016 Inactive Vesicare 10 mg tablet RxNorm: 491088 TAKE ONE TABLET BY MOUTH EVERY DAY 02/05/2015 12/10/2015 Inactive Xyzal 5 mg tablet RxNorm: 614409 1 Tablet(s) PO daily 201404/23/2015 Inactive Kenalog 40 mg/mL suspension for injection RxNorm: 2971466 1 Milliliter(s) Inj 01/24/2015 01/24/2015 Inactive Flonase Allergy Relief 50 mcg/actuation nasal spray, suspension RxNorm: 2 [place] NASAL daily 01/24/2015 12/10/2015 Inactive [place] Allergy 180 mg tablet RxNorm: 439062 1 Tablet(s) PO daily 12/17/2014 12/16/2014 Inactive [place] Allergy 180 mg tablet RxNorm: 007120 1 Tablet(s) PO daily 12/17/2014 02/14/2015 Inactive metoprolol succinate ER 25 mg tablet,extended release 24 hr RxNorm: 330366 Tablet (s) PO TAKE ONE TABLET BY MOUTH EVERY DAY 09/11/2014 05/20/2015 Inactive gemfibrozil 600 mg tablet RxNorm: 007515 1 Tablet(s) PO BID 11/201302/24/2015 Inactive gemfibrozil 600 mg tablet RxNorm: 217388 1 Tablet(s) PO BID 11/201307/29/2014 Inactive hydrochlorothiazide 25 mg tablet RxNorm: 382547 TAKE ONE TABLET BY MOUTH EVERY DAY 04/29/2014 05/01/2015 Inactive Kenalog 40 mg/mL suspension for injection RxNorm: 3335311 Milliliter(s) Inj 01/01/2014 01/01/2014 Inactive cefdinir 300 mg capsule RxNorm: 362001 1 Capsule(s) PO BID 03/201401/07/2014 Inactive Flonase 50 mcg/actuation nasal spray,suspension RxNorm: 877709 2 [place] NASAL daily 01/01/2014 01/07/2014 Inactive Rocephin 500 mg solution for injection RxNorm: 280007 1 Inj 03/201401/01/2014 Inactive Zithromax 500 mg tablet RxNorm: 476097 1 Tablet(s) PO daily 12/201301/02/2014 Inactive metoprolol succinate ER 25 mg tablet,extended release 24 hr RxNorm: 271172 Tablet (s) PO TAKE ONE TABLET BY MOUTH EVERY DAY 12/25/2013 09/10/2014 Inactive Vesicare 10 mg tablet RxNorm: 953225 1 Tablet(s) PO daily TAKE ONE TABLET BY MOUTH EVERY DAY 12/18/2013 01/11/2015 Inactive Kenalog 40 mg/mL suspension for injection RxNorm: 6918946 Milliliter(s) Inj 12/01/2013 12/01/2013 Inactive Zithromax 500 mg tablet RxNorm: 754883 1 Tablet(s) PO daily 03/201412/05/2013 Inactive tolterodine ER 4 mg capsule,extended release 24 hr RxNorm: 133593 1 Capsule(s) PO daily 10/31/2013 12/17/2013 Inactive replaces vesicare hydrochlorothiazide 25 mg tablet RxNorm: 752720 Tablet(s) PO TAKE ONE TABLET BY MOUTH EVERY DAY 10/24/2013 04/28/2014 Inactive hydrochlorothiazide 25 mg tablet RxNorm: 106467 Tablet(s) PO TAKE ONE TABLET BY MOUTH EVERY DAY 08/21/2013 10/23/2013 Inactive hydrochlorothiazide 25 mg tablet RxNorm: 054039 Tablet(s) PO TAKE ONE TABLET BY MOUTH EVERY DAY 02/23/2013 08/20/2013 Inactive Vesicare 10 mg tablet RxNorm: 501549 Tablet(s) PO TAKE ONE TABLET BY MOUTH EVERY DAY 02/13/2013 10/30/2013 Inactive Vesicare 10 mg tablet RxNorm: 368508 Tablet(s) PO TAKE ONE TABLET BY MOUTH EVERY DAY 02/13/2013 10/30/2013 Inactive Kenalog 40 mg/mL Susp for Injection RxNorm: 8723378 1 Milliliter(s) Inj 02/08/2013 02/08/2013 Inactive azithromycin 500 mg tablet RxNorm: 0898103 1 Tablet(s) PO daily 02/08/2013 02/14/2013 Inactive Rocephin 500 mg Solution for Injection RxNorm: 795937 Inj 02/0802/08/2013 Inactive Diflucan 150 mg tablet RxNorm: 967461 1 Tablet(s) PO daily 02/17/2013 Inactive Diflucan 150 mg tablet RxNorm: 627897 1 Tablet(s) PO daily 03/201302/07/2013 Inactive Flagyl 500 mg tablet RxNorm: 624139 1 Tablet(s) PO TID 201201/17/2013 Inactive Cipro 500 mg tablet RxNorm: 772326 1 Tablet(s) PO BID 201201/17/2013 Inactive Flagyl 500 mg tablet RxNorm: 902978 1 Tablet(s) PO TID 201201/27/2013 Inactive Cipro 500 mg tablet RxNorm: 346333 1 Tablet(s) PO BID 201201/27/2013 Inactive metoprolol succinate ER 25 mg tablet,extended release 24 hr RxNorm: 777922 Tablet (s) PO TAKE ONE TABLET BY MOUTH EVERY DAY 12/08/2012 12/24/2013 Inactive Lasix 20 mg tablet RxNorm: 624155 Tablet(s) PO TAKE ONE TABLET BY MOUTH EVERY DAY NEEDED 10/27/2012 08/12/2015 Inactive potassium chloride ER 10 mEq tablet,extended release RxNorm: 583959 1 Tablet(s) PO QDAY PRN 09/12/2012 03/10/2013 Inactive metoprolol succinate ER 25 mg tablet,extended release 24 hr RxNorm: 496314 Tablet (s) PO TAKE ONE TABLET BY MOUTH EVERY DAY 09/09/2012 12/07/2012 Inactive simvastatin 20 mg tablet RxNorm: 648479 Tablet(s) PO 201101/17/2013 Inactive TAKE ONE TABLET BY MOUTH EVERY DAY Lasix 20 mg tablet RxNorm: 398562 Tablet(s) PO 07/15/2012 10/26/2012 Inactive TAKE ONE TABLET BY MOUTH EVERY DAY NEEDED hydrochlorothiazide 25 mg tablet RxNorm: 033775 1 Tablet(s) PO 05/16/2012 02/09/2013 Inactive Vesicare 10 mg tablet RxNorm: 970469 1/2 Tablet(s) PO daily 05/19/2013 Inactive metoprolol succinate ER 25 mg 24 hr Tab RxNorm: 073061 1 Tablet(s) PO daily 03/16/2012 09/11/2012 Inactive metoprolol succinate ER 25 mg tablet,extended release 24 hr RxNorm: 053272 1 Tablet(s) PO daily 03/14/2012 03/15/2012 Inactive Vesicare 10 mg tablet RxNorm: 479570 1 Tablet(s) PO daily 201104/24/2012 Inactive metoprolol succinate ER 25 mg 24 hr Tab RxNorm: 949150 1 Tablet(s) PO daily 01/12/2012 03/13/2012 Inactive simvastatin 20 mg tablet RxNorm: 972939 1 Tablet(s) PO daily 08/15/2012 Inactive levofloxacin 500 mg Tab RxNorm: 052183 1 Tablet(s) PO daily 08/201212/13/2011 Inactive hydrochlorothiazide 12.5 mg tablet RxNorm: 635147 1 Tablet(s) PO daily 12/07/2011 05/15/2012 Inactive Kenalog 40 mg/mL Susp for Injection RxNorm: 2405397 1 Milliliter(s) Inj 11/17/2011 11/17/2011 Inactive cefdinir 300 mg Cap RxNorm: 576495 1 Capsule(s) PO BID 201111/26/2011 Inactive Diflucan 150 mg tablet RxNorm: 687301 1 Tablet(s) PO daily 11/21/2011 Inactive Rocephin 500 mg Solution for Injection RxNorm: 055317 1 Milliliter(s) Inj 11/17/2011 11/17/2011 Inactive azithromycin 500 mg Tab RxNorm: 5094802 1 Tablet(s) PO daily 11/21/2011 Inactive metoprolol succinate ER 25 mg 24 hr Tab RxNorm: 215766 1 Tablet(s) PO daily 11/12/2011 01/11/2012 Inactive metoprolol succinate ER 25 mg 24 hr Tab RxNorm: 941654 1 Tablet(s) PO daily 11/12/2011 11/11/2011 Inactive hydrochlorothiazide 25 mg Tab RxNorm: 393579 1 Tablet(s) PO daily 09/01/2011 12/06/2011 Inactive prednisone 5 mg Tab RxNorm: 254216 Tablet(s) PO 08/18/2011 08/23/2011 Inactive 6 day taper: 6-5-4-3-2-1 Kenalog 40 mg/mL Susp for Injection RxNorm: 8560067 Milliliter(s) Inj 08/18/2011 08/18/2011 Inactive metoprolol succinate ER 25 mg tablet,extended release 24 hr RxNorm: 660817 1 Tablet(s) PO daily No Start Date Active hydrocodone 10 mg-acetaminophen 325 mg tablet RxNorm: 113301 1 Tablet(s) PO as needed No Start Date Active Cipro 500 mg tablet RxNorm: 844093 Oral No Start Date 01/17/2013 Inactive Phenergan with Codeine Syrup RxNorm: 5-10 Milliliter(s) PO Q6 PRN No Start Date 07/25/2014 Inactive potassium chloride ER 10 mEq tablet,extended release RxNorm: 747810 1 Tablet(s) PO QDAY PRN No Start Date 09/11/2012 Inactive simvastatin 20 mg Tab RxNorm: 090541 1 Tablet(s) PO daily No Start Date 12/10/2011 Inactive Lasix 20 mg tablet RxNorm: 319640 1 Tablet(s) PO QDAY PRN No Start Date 07/14/2012 Inactive Vesicare 10 mg Tab RxNorm: 066314 1 Tablet(s) PO daily No Start Date 01/21/2012 Inactive Zithromax 500 mg Tab RxNorm: 6774364 Tablet(s) PO No Start Date 11/16/2011 Inactive 1 tab daily x 3 days, then 1/2 tab daily x 6 days. hydrochlorothiazide 25 mg Tab RxNorm: 329429 1 Tablet(s) PO daily No Start Date 08/31/2011 Inactive Medication Administered Medication Codes Instructions Start Date Status ceftriaxone 500 mg solution for injection RxNorm: 8243038 500Milligram 09/10/2017 No longer Active Kenalog 40 mg/mL suspension for injection RxNorm: 1090930 1Milliliter 09/10/2017 No longer Active Kenalog 40 mg/mL suspension for injection RxNorm: 7168913 1Milliliter 05/18/2017 No longer Active Kenalog 40 mg/mL suspension for injection RxNorm: 2724041 1Milliliter 08/13/2015 No longer Active Kenalog 40 mg/mL suspension for injection RxNorm: 3821208 1Milliliter 01/24/2015 No longer Active Kenalog 40 mg/mL suspension for injection RxNorm: 0231963 Milliliter 01/01/2014 No longer Active Rocephin 500 mg solution for injection RxNorm: 669334 1 01/01/2014 No longer Active Kenalog 40 mg/mL suspension for injection RxNorm: 5562522 Milliliter 12/01/2013 No longer Active Rocephin 500 mg Solution for Injection RxNorm: 391017 02/08/2013 No longer Active Kenalog 40 mg/mL Susp for Injection RxNorm: 3844164 1Milliliter 02/08/2013 No longer Active Rocephin 500 mg Solution for Injection RxNorm: 323071 1Milliliter 11/17/2011 No longer Active Kenalog 40 mg/mL Susp for Injection RxNorm: 9410160 1Milliliter 11/17/2011 No longer Active Kenalog 40 mg/mL Susp for Injection RxNorm: 0451340 Milliliter 08/18/2011 No longer Active Immunizations Vaccine Codes Date Status Influenza CVX: 141 06/23/2017 completed Influenza CVX: 141 06/15/2016 completed Pneumococcal (Adult) CVX: 133 06/15/2016 completed Influenza CVX: 141 08/08/2014 completed Zoster CVX: 121 05/23/2012 completed Influenza CVX: 141 07/27/2011 completed Assessments Condition Codes Effective Dates Cough ICD-10: R05 ICD-9: 786.2 10/05/2018 Acute laryngopharyngitis ICD-10: J06.0 ICD-9: 465.0 10/05/2018 Other allergic rhinitis ICD-10: J30.89 ICD-9: 477.8 10/05/2018 Encounter for screening mammogram for malignant neoplasm of breast ICD-10: Z12.31 ICD-9: V76.10 05/04/2018 Pain in left knee ICD-10: M25.562 ICD-9: 719.46 03/29/2018 Shortness of breath ICD-10: R06.02 ICD-9: 786.05 03/29/2018 Pain in right knee ICD-10: M25.561 ICD-9: 719.46 03/29/2018 Essential (primary) hypertension ICD-10: I10 ICD-9: 401.1 03/29/2018 Acute bronchitis, unspecified ICD-10: J20.9 ICD-9: 466.0 09/10/2017 Otalgia, right ear ICD-10: H92.01 ICD-9: 388.72 [...] urgency ICD-9: 788.63 10/31/2013 ESSENTIAL HYPERTENSION SNOMED: 21084865 ICD-9: 401.9 10/31/2013 Skin tag ICD-9: 701.9 06/29/2013 Diarrhea ICD-9: 787.91 02/08/2013 Fecal urgency ICD-9: 787.63 01/02/2013 Abdominal discomfort ICD-9: 789.00 2012 EDEMA ICD-9: 782.3 05/16/2012 BACTERIAL PNEUMONIA ICD-9: 482.9 2011 FEVER NOS ICD-9: 780.60 11/17/2011 Dyspnea ICD-9: 786.09 08/18/2011 Reason For Visit Reason For Visit Effective Dates Notes cough 10/05/2018 cough 09/22/2018 fatigue 03/29/2018 cough [...] Item Item Code Result Date Comp Metabolic Blq830 NA 140 mEq/L 03/23/2018 Comp Metabolic Fox072 K 3.4 mEq/L 03/23/2018 Comp Metabolic Bgo537 CL 103 mEq/L 03/23/2018 Comp Metabolic Vcc552 CO2 27.0 mEq/L 03/23/2018 Comp Metabolic Txm972 ANION GAP 13 03/23/2018 Comp Metabolic Mjg799 GLUCOSE 115 mg/dL 03/23/2018 Comp Metabolic Lqy553 Creat 0.9 mg/dL 03/23/2018 Comp Metabolic Nfv766 eGFR 69 ml/min/1.73m2 03/23/2018 Comp Metabolic Xxz941 BUN 14 mg/dL 03/23/2018 Comp Metabolic Aqp381 B/C Ratio 16.5 Ratio 03/23/2018 Comp Metabolic Etu282 CALCIUM 9.1 mg/dL 03/23/2018 Comp Metabolic Brj563 ALK PHOS 84 U/L 03/23/2018 Comp Metabolic Fbb759 AST(SGOT) 22 U/L 03/23/2018 Comp Metabolic Hrn527 ALT(SGPT) 20 U/L 03/23/2018 Comp Metabolic Umf136 BILI T 0.8 mg/dL 03/23/2018 Comp Metabolic Lgh048 ALBUMIN 4.0 g/dL 03/23/2018 Comp Metabolic Pfy353 TPRO 7.0 g/dL 03/23/2018 Comp Metabolic Msl108 GLOB 3.0 g/dL 03/23/2018 Comp Metabolic Cdo243 A/G Ratio 1.3 Ratio 03/23/2018 Comp Metabolic Blk455 Osmo 281 mOsmo 03/23/2018 Cbc With Differential Ord2 WBC 8.43 K/ul 03/23/2018 Cbc With Differential Ord2 RBC 4.77 M/ul 03/23/2018 Cbc With Differential Ord2 HGB 14.5 g/dl 03/23/2018 Cbc With Differential Ord2 HCT 44.3 % 03/23/2018 Cbc With Differential Ord2 Neut% 63.7 % 03/23/2018 Cbc With Differential Ord2 Lymph% 20.5 % 03/23/2018 Cbc With Differential Ord2 MCV 92.9 fl 03/23/2018 Cbc With Differential Ord2 [place]% 10.7 % 03/23/2018 Cbc With Differential Ord2 MCH 30.4 pg 03/23/2018 Cbc With Differential Ord2 Eos% 4.9 % 03/23/2018 Cbc With Differential Ord2 MCHC 32.7 pg 03/23/2018 Cbc With Differential Ord2 Baso% 0.2 % 03/23/2018 Cbc With Differential Ord2 PLT 323 K/ul 03/23/2018 Cbc With Differential Ord2 RDW 13.6 % 03/23/2018 Cbc With Differential Ord2 Neut ABS# 5.37 K/ul 03/23/2018 Cbc With Differential Ord2 Lymph ABS# 1.73 K/ul 03/23/2018 Cbc With Differential Ord2 [place] ABS# 0.9 K/ul 03/23/2018 Cbc With Differential [...] Ord30 C/HDL 2.9 Ratio 03/23/2018 Comp Metabolic Jqp772 NA 141 mEq/L 08/04/2017 Comp Metabolic Fur913 K 3.6 mEq/L 08/04/2017 Comp Metabolic Cjd349 CL 101 mEq/L 08/04/2017 Comp Metabolic Kcw726 CO2 32.0 mEq/L 08/04/2017 Comp Metabolic Pfd185 ANION GAP 12 08/04/2017 Comp Metabolic Chs436 GLUCOSE 99 mg/dL 08/04/2017 Comp Metabolic Dou123 Creat 1.0 mg/dL 08/04/2017 Comp Metabolic Dtf140 eGFR 60 ml/min/1.73m2 08/04/2017 Comp Metabolic Bqc607 BUN 21 mg/dL 08/04/2017 Comp Metabolic Ycs497 B/C Ratio 21.9 Ratio 08/04/2017 Comp Metabolic Hob980 CALCIUM 9.4 mg/dL 08/04/2017 Comp Metabolic Wce523 ALK PHOS 107 U/L 08/04/2017 Comp Metabolic Gbc399 AST(SGOT) 21 U/L 08/04/2017 Comp Metabolic Gpf699 ALT(SGPT) 21 U/L 08/04/2017 Comp Metabolic Stv946 BILI T 0.6 mg/dL 08/04/2017 Comp Metabolic Bxv102 ALBUMIN 4.0 g/dL 08/04/2017 Comp Metabolic Dzi981 TPRO 7.2 g/dL 08/04/2017 Comp Metabolic Qub956 GLOB 3.2 g/dL 08/04/2017 Comp Metabolic Sll295 A/G Ratio 1.2 Ratio 08/04/2017 Comp Metabolic Yqc107 Osmo 284 mOsmo 08/04/2017 Cbc With Differential Ord2 WBC 7.99 K/ul 08/04/2017 Cbc With Differential Ord2 RBC 4.70 M/ul 08/04/2017 Cbc With Differential Ord2 HGB 14.6 g/dl 08/04/2017 Cbc With Differential Ord2 Neut% 63.4 % 08/04/2017 Cbc With Differential Ord2 HCT 44.6 % 08/04/2017 Cbc With Differential Ord2 MCV 94.9 fl 08/04/2017 Cbc With Differential Ord2 Lymph% 22.4 % 08/04/2017 Cbc With Differential Ord2 MCH 31.1 pg 08/04/2017 Cbc With Differential Ord2 [place]% 7.8 % 08/04/2017 Cbc With Differential Ord2 [...] 1.79 K/ul 08/04/2017 Cbc With Differential Ord2 [place] ABS# 0.6 K/ul 08/04/2017 Cbc With Differential Ord2 Eos ABS# 0.5 K/ul 08/04/2017 Cbc With Differential Ord2 Baso ABS# 0.0 K/ul 08/04/2017 Tsh Ord6 hTSH II 2.45 uIU/mL 08/04/2017 Lipid Ord30 CHOL 217 mg/dL 08/04/2017 Lipid Ord30 HDL 59.0 mg/dl 08/04/2017 Lipid Ord30 TRIG 97 mg/dL 08/04/2017 Lipid Ord30 LDL 139 mg/dL 08/04/2017 Lipid Ord30 C/HDL 3.7 Ratio 08/04/2017 Comp Metabolic Dhh422 NA 138 mEq/L 07/21/2016 Comp Metabolic Ycy846 K 3.8 mEq/L 07/21/2016 Comp Metabolic Ifd333 CL 102 mEq/L 07/21/2016 Comp Metabolic Nbr013 CO2 30.0 mEq/L 07/21/2016 Comp Metabolic Cnz972 ANION GAP 10 07/21/2016 Comp Metabolic Rti513 GLUCOSE 101 mg/dL 07/21/2016 Comp Metabolic Nnl684 Creat 0.9 mg/dL 07/21/2016 Comp Metabolic Xlg298 eGFR 63 ml/min/1.73m2 07/21/2016 Comp Metabolic Ukw790 BUN 19 mg/dL 07/21/2016 Comp Metabolic Yan823 B/C Ratio 20.4 Ratio 07/21/2016 Comp Metabolic Nkq336 CALCIUM 9.3 mg/dL 07/21/2016 Comp Metabolic Cjf217 ALK PHOS 83 U/L 07/21/2016 Comp Metabolic Atl685 AST(SGOT) 20 U/L 07/21/2016 Comp Metabolic Iet976 ALT(SGPT) 18 U/L 07/21/2016 Comp Metabolic Gic918 BILI T 0.6 mg/dL 07/21/2016 Comp Metabolic Lqc856 ALBUMIN 4.0 g/dL 07/21/2016 Comp Metabolic Vau789 TPRO 7.2 g/dL 07/21/2016 Comp Metabolic Crm250 GLOB 3.3 g/dL 07/21/2016 Comp Metabolic Wdx787 A/G Ratio 1.2 Ratio 07/21/2016 Comp Metabolic Tog538 Osmo 278 mOsmo 07/21/2016 Cbc With Differential Ord2 WBC 7.06 K/ul 07/21/2016 Cbc With Differential Ord2 RBC 4.80 M/ul 07/21/2016 Cbc With Differential Ord2 HGB 14.3 g/dl 07/21/2016 Cbc With Differential Ord2 HCT 43.6 % 07/21/2016 Cbc With Differential Ord2 Neut% 55.3 % 07/21/2016 Cbc With Differential Ord2 Lymph% 29.7 % 07/21/2016 Cbc With Differential Ord2 MCV 90.8 fl 07/21/2016 Cbc With Differential Ord2 MCH 29.8 pg 07/21/2016 Cbc With Differential Ord2 [place]% 9.6 % 07/21/2016 Cbc With Differential Ord2 [...] 2.10 K/ul 07/21/2016 Cbc With Differential Ord2 [place] ABS# 0.7 K/ul 07/21/2016 Cbc With Differential [...] System Result Effective Dates Constitutional recent illness 10/05/2018 Constitutional No chills [...] accomodation 10/29/2016 None Full Exam - General 1995 Ears/Nose/Throat otoscopic exam Overall: external auditory canals clear 10/29/2016 None Full Exam - General 1995 Ears/Nose/Throat otoscopic exam Overall: tympanic membranes clear 10/29/2016 None Full Exam - General 1995 Ears/Nose/Throat lips/teeth/gingiva Overall: benign lips 10/29/2016 None Full Exam - General 1995 Ears/Nose/Throat lips/teeth/gingiva Overall: normal dentition 10/29/2016 None Full Exam - General 1995 [...] unsteadiness 08/18/2011 None Procedures Procedure Codes Date TRIAMCINOLONE ACET INJ NOS CPT-4: J3301 09/10/2017 ROCEPHIN, PER 250 MG CPT-4: J0696 09/10/2017 THER/PROPH/DIAG INJ SC/IM CPT-4: 46355 05/18/2017 TRIAMCINOLONE ACET INJ NOS CPT-4: J3301 05/18/2017 DESTRUCT PREMALG LESION CPT-4: 78327 06/24/2016 ADMIN INFLUENZA VIRUS VAC CPT-4: G0008 06/15/2016 ADMIN PNEUMOCOCCAL VACCINE SNOMED CT: 53648374 CPT-4: G0009 06/15/2016 PNEUMOCOCCAL VACC [address]: 42187351 CPT-4: 71497 06/15/2016 FLU VACC PRSV FREE INC ANTIG Formatting Model/CDA Sections, Assigned to/Vianney Bronson CPT-4: [id number] 06/15/2016 THER/PROPH/DIAG INJ SC/IM CPT-4: 68516 08/13/2015 TRIAMCINOLONE ACET INJ NOS CPT-4: J3301 08/13/2015 TRIAMCINOLONE ACET INJ NOS CPT-4: J3301 01/24/2015 IMMUNIZATION ADMIN CPT -4: 27850 08/08/2014 FLU VAC NO PRSV 4 DARREL 3 YRS+ Assigned to CPT-4: [id number] 08/08/2014 TRIAMCINOLONE ACET INJ NOS CPT-4: J3301 01/01/2014 ROCEPHIN, PER 250 MG CPT-4: J0696 01/01/2014 TRIAMCINOLONE ACET INJ NOS CPT-4: J3301 12/01/2013 REMOVAL OF SKIN TAGS <W/15 CPT-4: 63136 06/29/2013 TRIAMCINOLONE ACET INJ NOS CPT-4: J3301 02/08/2013 ROCEPHIN, PER 250 MG CPT-4: J0696 02/08/2013 [id number] EST. PATIENT, LEVEL III CPT-4: 08565 05/16/2012 TRIAMCINOLONE ACET INJ NOS CPT-4: J3301 11/17/2011 ROCEPHIN, PER 250 MG CPT-4: J0696 11/17/2011 TRIAMCINOLONE ACET INJ NOS CPT-4: J3301 08/18/2011 THER/PROPH/DIAG INJ SC/IM CPT-4: 01470 08/18/2011 Vital Signs Date Vital 10/05/2018 BMI: 38.1 Code: 06756-1 Heart Rate 1: 88 bpm Height: 5'4" Weight: 222 lbs 09/22/2018 Blood Pressure 1: 132/74 Code : 8480-6 BMI: 38.4 Code : 92787-0 Heart Rate 1 : 74 bpm Height: 5'4" SpO2: 96% Weight: 224 lbs 03/29/2018 Blood Pressure 1: 130/82 Code : 8480-6 BMI: 38.1 Code : 98314-2 Heart Rate 1 : 71 bpm Height: 5'4" SpO2: 96% Weight: 222 lbs 09/10/2017 Blood Pressure 1: 130/78 Code : 8480-6 BMI: 37.1 Code : 69722-9 Heart Rate 1 : 76 bpm Height: 5'4" SpO2: 97% Temperature: 36.9 (C) / 98.4 (F) Weight: 216 lbs 07/26/2017 Blood Pressure 1: 118/80 Code : 8480-6 Heart Rate 1: 71 bpm SpO2: 96% 05/18/2017 Blood Pressure 1: 122/80 Code : 8480-6 BMI: 36.9 Code : 22712-9 Heart Rate 1 : 83 bpm Height: 5'4" SpO2: 96% Weight: 215 lbs 05/12/2017 Blood Pressure 1: 132/80 Code : 8480-6 BMI: 36.7 Code : 84812-4 Heart Rate 1 : 86 bpm Height: [...] Code : 8480-6 BMI: 37.8 Code : 39369-4 Heart Rate 1 : 74 bpm Height: 5'4" SpO2: 97% Temperature: 37.1 (C) / 98.7 (F) Weight: 220 lbs 07/20/2016 Blood Pressure 1: 134/80 Code : 8480-6 BMI: 36.9 Code : 76142-9 Heart Rate 1 : 71 bpm Height: 5'4" SpO2: 98% Weight: 215 lbs 06/24/2016 Blood Pressure 1: 134/74 Code : 8480-6 BMI: 37.1 Code : 62345-3 Heart Rate 1 : 85 bpm Height: 5'4" SpO2: 97% Weight: 216 lbs 06/15/2016 Blood Pressure 1: 130/80 Code : 8480-6 BMI: 37.1 Code : 91368-0 Heart Rate 1 : 73 bpm Height: 5'4" SpO2: 97% Weight: 216 lbs 01/15/2016 Blood Pressure 1: 128/80 Code : 8480-6 BMI: 35.7 Code : 86732-5 Heart Rate 1 : 79 bpm Height: 5'4" SpO2: 97% Weight: 208 lbs 12/11/2015 Blood Pressure 1: 134/80 Code : 8480-6 BMI: 34.7 Code : 21676-3 Heart Rate 1 : 65 bpm Height: 5'4" SpO2: 98% Temperature: 36.7 (C) / 98.1 (F) Weight: 202 lbs 08/13/2015 Blood Pressure 1: 120/82 Code : 8480-6 BMI: 34.2 Code : 81984-6 Heart Rate 1 : 74 bpm Height: 5'4" SpO2: 98% Weight: 199 lbs 01/24/2015 Blood Pressure 1: 138/82 Code : 8480-6 BMI: 36.2 Code : 81271-0 Heart Rate 1 : 69 bpm Height: 5'6" SpO2: 94% Temperature: 36.5 (C) / 97.7 (F) Weight: 224 lbs 07/26/2014 Blood Pressure 1: 142/96 Code : 8480-6 BMI: 35.2 Code : 33434-6 Heart Rate 1 : 68 bpm Height: 5'6" Weight: 218 lbs 01/01/2014 Blood Pressure 1: 104/70 Code : 8480-6 BMI: 35.0 Code : 77655-6 Heart Rate 1 : 68 bpm Height: 5'6" Temperature: 36.8 (C) / 98.2 (F) Weight: 217 lbs 12/01/2013 Blood Pressure 1: 112/78 Code : 8480-6 Heart Rate 1: 84 bpm Temperature: 36.7 (C) / 98.0 (F) Weight: 213 lbs 10/31/2013 Blood Pressure 1: 102/70 Code : 8480-6 BMI: 34.9 Code : 87723-8 Heart Rate 1 : 64 bpm Height: 5'6" Weight: 216 lbs 06/29/2013 Blood Pressure 1: 130/84 Code : 8480-6 BMI: 34.5 Code : 10886-5 Heart Rate 1 : 80 bpm Height: 5'6" Weight: 214 lbs 02/08/2013 Blood Pressure 1: 122/80 Code : 8480-6 BMI: 32.9 Code : 14692-7 Heart Rate 1 : 72 bpm Height: 5'6" Temperature: 37.4 (C) / 99.3 (F) Weight: 204 lbs 01/02/2013 Blood Pressure 1: 118/88 Code : 8480-6 BMI: 34.7 Code : 64533-5 Heart Rate 1 : 88 bpm Height: [...] Code : 8480-6 BMI: 35.3 Code : 39207-9 Heart Rate 1 : 68 bpm Height: 5'6" Respiratory Rate: 16 bpm Temperature: 36.5 ( C) / 97.7 (F) Weight: 219 lbs Functional Status No Functional Status data History of Present Illness Symptom Name Status Result Effective Date Notes Location in the lung 10/05/2018 None Quality [...] Up Onset of Symptom 3 days ago 02/25/2017 4/18 Hospital Follow Up Onset and Resolution [...] data Encounters Encounter Performer Location Codes Date EST. PATIENT, LEVEL III Diagnosis: Cough[ICD10: R05] Diagnosis: Acute laryngopharyngitis[ICD10: J06.0] Diagnosis: Other allergic rhinitis[ICD10: J30.89] [facility] CPT-4: 92342 10/05/2018 20905 EST. PATIENT, LEVEL III Diagnosis: Acute laryngopharyngitis[ICD10: J06.0] Diagnosis: Other allergic rhinitis[ICD10: J30.89] Diagnosis: Cough[ICD10: R05] [facility] CPT-4: 09648 09/22/2018 ([id number]) 97818 EST. PATIENT, LEVEL IV Diagnosis: Essential (primary) hypertension[ICD10: I10] Diagnosis: Pain in left knee[ICD10: M25.562] Diagnosis: Pain in right knee[ICD10: M25.561] Diagnosis: Shortness of breath[ICD10: R06.02] [facility] CPT-4: 31819 03/29/2018 [id number]) 45964 EST. PATIENT, LEVEL III Diagnosis: Cough[ICD10: R05] Diagnosis: Acute bronchitis, unspecified[ICD10: J20.9] [facility] CPT-4: 43592 09/10/2017 ([id number]) Miscellaneous no charge Diagnosis: Essential (primary) hypertension[ICD10: I10] Joceline Lopez MD [facility] CPT-4: 14726 07/26/2017 ([id number]) 50441 EST. PATIENT, LEVEL III Diagnosis: Otalgia, right ear[ICD10: H92.01] Diagnosis: Other specified disorders of teeth and supporting structures[ICD10: K08.89] Ann-Marie Lopez MD [facility] CPT-4: 72119 2016 75880 EST. PATIENT, LEVEL III Diagnosis: Acute suppurative otitis media without spontaneous rupture of ear drum, right ear[ICD10: H66.001] Xochilt Lopez MD, [facility] CPT-4: 00691 05/12/2017 ([id number]) 48659 EST. PATIENT, LEVEL II Diagnosis: Contusion of left lower leg, subsequent encounter[ICD10: S80.12XD] Joceline Lopez MD [facility] CPT-4: 42064 02/25/2017 ([id number]) 69855 EST. PATIENT, LEVEL III Diagnosis: Cellulitis of right lower limb[ICD10: L03.115] Diagnosis: Contusion of left lower leg, initial encounter[ICD10: S80.12XA] Diagnosis: Laceration without foreign body, right lower leg, initial encounter[ ICD10: S81.811A] Joceline Lopez MD [facility] CPT-4: 70906 01/15/2017 ([id number]) 97571 EST. PATIENT, LEVEL III Diagnosis: Acute recurrent maxillary sinusitis[ICD10: J01.01] Diagnosis: Cough[ICD10: R05] Ann-Marie Lopez MD, [facility] CPT-4: 62313 10/29/2016 ([id number]) 84526 EST. PATIENT, LEVEL IV Diagnosis: Essential (primary) hypertension[ICD10: I10] Diagnosis: Varicose veins of left lower extremity with inflammation[ICD10: I83.12] Diagnosis: Localized edema[ICD10: R60.0] Ann-Marie Lopez MD, [facility] CPT- 4: 89186 07/20/2016 70622 EST. PATIENT, LEVEL III Diagnosis: Actinic keratosis[ICD10: L57.0] Xochilt Lopez MD, [facility] CPT-4 : 29798 06/24/2016 ([id number]) 87368 EST. PATIENT, LEVEL III Diagnosis: Asymptomatic varicose veins of bilateral lower extremities[ICD10: I83.93] Joceline Lopez MD, [facility] CPT-4: 39777 55915 EST. PATIENT, LEVEL III Diagnosis: Rash and other nonspecific skin eruption[ICD10: R21] Xochilt Lopez MD, [facility] CPT-4: 51757 01/15/2016 ([id number]) 90550 EST. PATIENT, LEVEL III Diagnosis: Cough[ICD10: R05] Diagnosis: Dyspnea, unspecified[ICD10: R06.00] Diagnosis: Acute sinusitis, unspecified[ICD10: J01.90] Ann-Marie Lopez MD, [facility] CPT-4: 79219 12/11/2015 85858 EST. PATIENT, LEVEL III Diagnosis: Allergic rhinitis, unspecified[ICD10: J30.9] Diagnosis: Tinnitus, bilateral[ICD10: H93.13] Xochilt Lopez MD, [facility] CPT-4: 95085 08/13/2015 ([id number]) 25360 EST. PATIENT, LEVEL III Diagnosis: ALLERGIC RHINITIS[ICD9: 477.9] Joceline Lopez MD, [facility] CPT-4: 70188 01/24/2015 ([id number]) PER PM REEVAL EST PAT 65+ YR Diagnosis: Routine medical exam[ICD9: V70.0] Ann-Marie Lopez MD, [facility] CPT-4: 96354 07/26/2014 ([id number]) 43507 EST. PATIENT, LEVEL III Diagnosis: ACUTE SINUSITIS[ICD9: 461.9] Diagnosis: ACUTE BRONCHITIS[ICD9: 466.0] Diagnosis: COUGH[ICD9: 786.2] Joceline Lopez MD, [facility] CPT-4: 53357 01/01/2014 ([id number]) 13259 EST. PATIENT, LEVEL III Diagnosis: ALLERGIC RHINITIS[ICD9: 477.9] Joceline Lopez MD, [facility] CPT-4: 07479 12/01/2013 ([id number]) 91880 EST. PATIENT, LEVEL IV Diagnosis: ESSENTIAL HYPERTENSION[SNOMED: 21892394] Diagnosis: Urinary urgency[ICD9: 788.63] Ann-Marie Lopez MD [facility] CPT- 4: 37051 10/31/2013 ([id number]) 79155 EST. PATIENT, LEVEL III Diagnosis: Cough[ICD9: 786.2] Diagnosis: Diarrhea[ICD9: 787.91] Ann-Marie Lopez MD [facility] CPT-4: 47829 02/08/2013 ([id number]) 81377 EST. PATIENT, LEVEL III Diagnosis: Diarrhea[ICD9: 787.91] Diagnosis: Abdominal discomfort[ICD9: 789.00] Diagnosis: Fecal urgency[ICD9: 787.63] Ann-Marie Lopez MD [facility] CPT- 4: 43049 01/02/2013 ([id number]) 03250 EST. PATIENT, LEVEL III Diagnosis: EDEMA[ICD9: 782.3] Ann-Marie Lopez MD [facility] CPT-4: 31839 04/25/2012 ([id number]) 65760 EST. PATIENT, LEVEL III Diagnosis: ESSENTIAL HYPERTENSION[SNOMED: 42031872] Diagnosis: BACTERIAL PNEUMONIA[ICD9: 482.9] Ann-Marie Lopez MD [facility] CPT-4: 07883 12/07/2011 ([id number]) 07617 EST. PATIENT, LEVEL IV Diagnosis: COUGH[ICD9: 786.2] Diagnosis: FEVER NOS[ICD9: 780.60] Ann-Marie Lopez MD, [facility] CPT-4: 37159 11/17/2011 29557 EST. PATIENT, LEVEL IV Diagnosis: Acute bronchitis[ICD9: 466.0] Diagnosis: Cough[ICD9: 786.2] Diagnosis: Dyspnea[ICD9: 786.09] Joceline Lopez MD, [facility] CPT-4: 34574 08/18/2011 Plan of Care Planned Activity Notes Codes Status Date Visit Plan: URI - Pt advised to [...] allergy spray. 10/05/2018 Appointment: Xochilt Gardner WPtel: [facility] (15 min) Moderate 10/05/2018 Patient Education: Patient [...] patient's pharmacy. 09/22/2018 Appointment: Xochilt Gardner WPtel: [facility] (15 min) Moderate 09/22/2018 Patient Education: Patient Medication Summary Completed 09/22/2018 Patient Education: Patient Medication Summary Completed 05/04/2018 Care Plan: [facility] 832[facility]5 Pending 05/04/2018 Appointment: Ann-Marie Lopez WPtel: [address] [place], [place] [id number] (15 min) Moderate 04/21/2018 Visit Plan: Hypertension [...] knee pain. 03/29/2018 Appointment: Ann-Marie Lopez WPtel: [phone] [facility] (15 min) Moderate 03/29/2018 Patient Education: Patient Medication Summary Completed 03/29/2018 Appointment: Nurse Visit 03/02/2018 Visit Plan: Bronchitis - acute case of bronchitis identified. Pt has been given antibiotics, breathing treatments as appropriate, and pt has been instructed to call if symptoms are not improved, or if symptoms acutely worsen. 09/10/2017 Appointment: Joceline Mario WPtel: [phone] (15 min) Moderate 09/10/2017 Patient Education: Patient [...] worsen. 05/12/2017 Appointment: Xochilt Gardner WPtel: [phone] [facility] [place] (10 min) Simple 05/12/2017 Patient Education: Patient Medication Summary Completed 05/12/2017 Visit Plan: Contusion/hematoma-left lower leg-improving- continue to monitor Laceration-right qzy-zjnwbil-xsj neosporin as directed Skin tag-right neck-fell off in the office before having it removed-no treatment today in the office-monitor area 02/25/2017 Appointment: [phone] (30 min) Complex 02/25/2017 Patient Education: Patient [...] treatment 01/15/2017 Appointment: [phone] [phone] (30 min) Complex 01/15/2017 Patient Education: Patient [...] 07/20/2016 Care Plan: Referral Order SNOMED-CT : [id number] Pending 07/20/2016 Visit Plan: Irritated [place] to [...] acute concerns. 06/24/2016 Appointment: Joceline Mario WPtel: [phone] [phone] (15 min) Moderate 06/24/2016 Patient Education: Patient Medication Summary Completed 06/24/2016 Patient Education: Obesity Completed 06/24/2016 Visit Plan: Varicose veins-recommend compression stockings- on in the am and off at HS-discussed the need for weight loss as well- instructed patient to call if symptoms persist, worsen, or new symptoms develop. Patient verbalized understanding of plan. 06/15/2016 Appointment: Joceline Mario WPtel: [phone] [phone] (15 min) Moderate 06/15/2016 Patient Education: Patient Medication Summary Completed 06/15/2016 Patient Education: Obesity Completed 06/15/2016 Appointment: Ann-Marie Lopez WPtel: [phone] [facility] [place] (15 min) Moderate 06/08/2016 Visit Plan: [...] Summary Completed 01/24/2015 Appointment: Ann-Marie Lopez WPtel: [phone] [facility] [place] Injection 08/08/2014 Patient Education: Patient [...] at home. 07/26/2014 Appointment: Ann-Marie Lopez WPtel: [phone] [facility] Follow up 07/26/2014 Patient Education: Patient Medication [...] anti histamine. 12/01/2013 Appointment: Joceline Mario WPtel: [address] [place] [address] 12/01/2013 Patient Education: Patient Medication Summary Completed [...] symptoms worsen. 10/31/2013 Appointment: Ann-Marie Lopez WPtel: [address] [place] [address] 10/31/2013 Patient Education: Patient Medication Summary Completed 10/31/2013 Patient Education: Hypertension Completed 10/31/2013 Appointment: Ann-Marie Lopez WPtel: [address] [place] [address] Surgical Procedure 07/04/2013 Visit Plan: Wound Instructions - Pt was instruced to keep the wound clean, wash with antibacterial soap, use triple antibiotic ointment, call if redness, pustular drainage, or any other acute conerns. 06/29/2013 Appointment: Joceline Mario WPtel: [address] [place] [address] Surgical Procedure 06/29/2013 Patient Education: Patient Medication [...] with codeine. 02/08/2013 Appointment: Ann-Marie Lopez WPtel: [address] [place] [address] Sick 02/08/2013 Patient Education: Patient Medication Summary Completed 02/08/2013 Visit Plan: Diarrhea - recommended bland diet, no milk or fatty foods, recommended a gallbladder ultrasound and for pt to have stool studies and start on a probiotic. 01/02/2013 Appointment: Ann-Marie Lopez WPtel: [address] [place] [address] Sick 01/02/2013 Patient Education: Patient Medication Summary Completed 01/02/2013 Appointment: Ann-Marie Lopez WPtel: [address] [place] [address] Follow up 06/20/2012 Visit Plan: Edema - [...] labs-order provided 05/16/2012 Appointment: Ann-Marie Lopez WPtel: [address] [place] [address] Other 05/16/2012 Patient Education: Patient Medication Summary [...] peripheral edema. 04/25/2012 Appointment: Ann-Marie Lopez WPtel: [address] [place] [address] Other 04/25/2012 Patient Education: Patient Medication Summary Completed 04/25/2012 Appointment: Ann-Marie Lopez WPtel: [phone] [facility] Other 12/08/2011 Visit Plan: Hypertension - [...] this illness. 12/07/2011 Appointment: Ann-Marie Lopez WPtel: [phone] [facility] Other 12/07/2011 Patient Education: Patient Medication [...] RX sent to patient's pharmacy. 08/18/2011 Appointment: [phone] [facility] 08/18/2011 Patient Education: Patient Medication [...] treatment plan and [facility] symptoms worsen[facility] take three times daily x 10days [...] 10 days for suture removal Contusion-left lower rny-gnwjvnmwz-vtlzksxs current treatment . Allergies - chronic - [...] to dr. lopez in 2 weeks - @[id number] . Well Adult - pt was counseled [...] or do not improve. . Contusion/hematoma-left lower pgf-yprihfhay-qwqkijyl to monitor Laceration-right wod-plpzeho-wdu neosporin as directed Skin tag-right neck-fell off in the office before having it removed-no treatment today in the office-monitor area
--- OUTSIDE RECORDS SUMMARY | 2019-01-31 07:06 | XMS REPORT | CCD ---
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 08/18/[address]: 883932999 Nonsmoker 08/18/2011 Has the patient ever used [...] Start Date Stop Date Status Fill Instructions doxycycline hyclate 100 mg capsule RxNorm: 6560647 1 Capsule(s) PO BID 10/05/2018 10/14/2018 Active ProAir HFA 90 mcg/actuation aerosol inhaler RxNorm: 1046621 2 Puff(s) INH TID as needed dyspnea 10/05/2018 No Stop Date Active prednisone 20 mg tablet RxNorm: 568782 2 Tablet(s) PO daily 09/26/2018 Inactive Keflex 500 mg capsule RxNorm: 991307 1 Capsule(s) PO TID 201710/01/2018 Inactive ProAir HFA 90 mcg/actuation aerosol inhaler RxNorm: 5523998 2 Puff(s) INH TID as needed dyspnea 03/29/2018 10/04/2018 Inactive Keflex 500 mg capsule RxNorm: 508173 1 Capsule(s) PO TID 201703/01/2018 Inactive Keflex 500 mg capsule RxNorm: 656811 1 Capsule(s) PO TID 201703/08/2018 Inactive trospium ER 60 mg capsule,extended release 24 hr RxNorm: 767404 1 Capsule(s) PO daily 01/04/2018 12/29/2018 Active D/C Vesicare - insurance denied trospium ER 60 mg capsule,extended release 24 hr RxNorm: 553944 1 Capsule(s) PO daily 01/04/2018 01/03/2018 Inactive metoprolol succinate ER 25 mg tablet,extended release 24 hr RxNorm: 411871 TAKE ONE TABLET BY MOUTH EVERY DAY 12/27/2017 06/24/2018 Inactive Zyrtec-D 5 mg-120 mg tablet,extended release RxNorm: 5966679 1 Tablet(s) PO BID as needed 12/16/2017 01/04/2018 Inactive Zithromax Z-Seng 250 mg tablet RxNorm: 886486 1 Tablet(s) PO UD 09/10/2017 09/14/2017 Inactive ceftriaxone 500 mg solution for injection RxNorm: 3167416 500 Milligram(s) Inj 09/10/2017 09/10/2017 Inactive Kenalog 40 mg/mL suspension for injection RxNorm: 2919905 1 Milliliter(s) Inj 09/10/2017 09/10/2017 Inactive hydrochlorothiazide 25 mg tablet RxNorm: 729504 TAKE ONE TABLET BY MOUTH EVERY DAY 08/09/2017 08/03/2018 Inactive hydrochlorothiazide 25 mg tablet RxNorm: 908357 TAKE ONE TABLET BY MOUTH EVERY DAY 08/09/2017 08/08/2017 Inactive Vesicare 10 mg tablet RxNorm: 716026 TAKE 1/2 TABLET BY MOUTH DAILY 08/09/2017 01/03/2018 Inactive Vesicare 10 mg tablet RxNorm: 611860 TAKE 1/2 TABLET BY MOUTH DAILY 08/09/2017 08/08/2017 Inactive Augmentin 875 mg-125 mg tablet RxNorm: 635138 1 Tablet(s) PO BID take a probiotic when taking the antibiotic 05/18/2017 Inactive Kenalog 40 mg/mL suspension for injection RxNorm: 9982719 1 Milliliter(s) Inj 05/18/2017 05/18/2017 Inactive hydrocodone 5 mg-acetaminophen 325 mg tablet RxNorm: 480649 1 Tablet(s) PO Q4H as needed for pain 01/19/2017 01/23/2017 Inactive Keflex 500 mg capsule RxNorm: 268760 1 Capsule(s) PO TID 201601/21/2017 Inactive Zyrtec-D 5 mg-120 mg tablet,extended release RxNorm: 9236968 1 Tablet(s) PO BID 10/29/2016 11/07/2016 Inactive metoprolol succinate ER 25 mg tablet,extended release 24 hr RxNorm: 106736 TAKE ONE TABLET BY MOUTH EVERY DAY 08/26/2016 02/21/2017 Inactive Xyzal 5 mg tablet RxNorm: 374946 Tablet(s) as needed TAKE ONE TABLET BY MOUTH DAILY 06/15/2016 08/13/2016 Inactive hydrochlorothiazide 25 mg tablet RxNorm: 247493 TAKE ONE TABLET BY MOUTH EVERY DAY 06/09/2016 04/04/2017 Inactive Vesicare 10 mg tablet RxNorm: 789848 1/2 Tablet(s) PO daily TAKE 1/2 TABLET BY MOUTH EVERY DAY 03/16/2016 12/10/2016 Inactive Vesicare 10 mg tablet RxNorm: 533651 1/2 Tablet(s) PO daily TAKE 1/2 TABLET BY MOUTH EVERY DAY 03/16/2016 03/15/2016 Inactive Vesicare 10 mg tablet RxNorm: 046294 1/2 Tablet(s) PO daily TAKE 1/2 TABLET BY MOUTH EVERY DAY 03/16/2016 03/15/2016 Inactive metoprolol succinate ER 25 mg tablet,extended release 24 hr RxNorm: 449150 TAKE ONE TABLET BY MOUTH EVERY DAY 03/02/2016 06/29/2016 Inactive Xyzal 5 mg tablet RxNorm: 278163 TAKE ONE TABLET BY MOUTH DAILY 01/07/2016 03/06/2016 Inactive cefdinir 300 mg capsule RxNorm: 175514 1 Capsule(s) PO BID 12/17/2015 Inactive Vesicare 10 mg tablet RxNorm: 220251 1/2 Tablet(s) TAKE 1/2 TABLET BY MOUTH EVERY DAY 12/11/2015 03/15/2016 Inactive ProAir HFA 90 mcg/actuation aerosol inhaler RxNorm: 835566 2 Puff(s) INH TID x 3 days then bid x 3 days then prn dyspnea 12/11/2015 03/28/2018 Inactive Kenalog 40 mg/mL suspension for injection RxNorm: 7036401 1 Milliliter(s) Inj 08/13/2015 08/13/2015 Inactive acyclovir 800 mg tablet RxNorm: 546094 1 Tablet(s) PO TID 07/1907/18/2015 Inactive acyclovir 800 mg tablet RxNorm: 298088 1 Tablet(s) PO TID 07/1907/28/2015 Inactive metoprolol succinate ER 25 mg tablet,extended release 24 hr RxNorm: 824270 TAKE ONE TABLET BY MOUTH EVERY DAY 05/21/2015 11/16/2015 Inactive hydrochlorothiazide 25 mg tablet RxNorm: 157713 TAKE ONE TABLET BY MOUTH EVERY DAY 05/02/2015 06/08/2016 Inactive Vesicare 10 mg tablet RxNorm: 982676 TAKE ONE TABLET BY MOUTH EVERY DAY 02/05/2015 12/10/2015 Inactive Xyzal 5 mg tablet RxNorm: 331114 1 Tablet(s) PO daily 201404/23/2015 Inactive Kenalog 40 mg/mL suspension for injection RxNorm: 9073842 1 Milliliter(s) Inj 01/24/2015 01/24/2015 Inactive Flonase Allergy Relief 50 mcg/actuation nasal spray, suspension RxNorm: 2 [place] NASAL daily 01/24/2015 12/10/2015 Inactive [place] Allergy 180 mg tablet RxNorm: 782214 1 Tablet(s) PO daily 12/17/2014 12/16/2014 Inactive [place] Allergy 180 mg tablet RxNorm: 008631 1 Tablet(s) PO daily 12/17/2014 02/14/2015 Inactive metoprolol succinate ER 25 mg tablet,extended release 24 hr RxNorm: 975602 Tablet (s) PO TAKE ONE TABLET BY MOUTH EVERY DAY 09/11/2014 05/20/2015 Inactive gemfibrozil 600 mg tablet RxNorm: 859791 1 Tablet(s) PO BID 11/201302/24/2015 Inactive gemfibrozil 600 mg tablet RxNorm: 765962 1 Tablet(s) PO BID 11/201307/29/2014 Inactive hydrochlorothiazide 25 mg tablet RxNorm: 512199 TAKE ONE TABLET BY MOUTH EVERY DAY 04/29/2014 05/01/2015 Inactive Kenalog 40 mg/mL suspension for injection RxNorm: 9920263 Milliliter(s) Inj 01/01/2014 01/01/2014 Inactive cefdinir 300 mg capsule RxNorm: 654526 1 Capsule(s) PO BID 03/201401/07/2014 Inactive Flonase 50 mcg/actuation nasal spray,suspension RxNorm: 801908 2 [place] NASAL daily 01/01/2014 01/07/2014 Inactive Rocephin 500 mg solution for injection RxNorm: 640838 1 Inj 03/201401/01/2014 Inactive Zithromax 500 mg tablet RxNorm: 159341 1 Tablet(s) PO daily 12/201301/02/2014 Inactive metoprolol succinate ER 25 mg tablet,extended release 24 hr RxNorm: 512068 Tablet (s) PO TAKE ONE TABLET BY MOUTH EVERY DAY 12/25/2013 09/10/2014 Inactive Vesicare 10 mg tablet RxNorm: 772663 1 Tablet(s) PO daily TAKE ONE TABLET BY MOUTH EVERY DAY 12/18/2013 01/11/2015 Inactive Kenalog 40 mg/mL suspension for injection RxNorm: 6011764 Milliliter(s) Inj 12/01/2013 12/01/2013 Inactive Zithromax 500 mg tablet RxNorm: 988029 1 Tablet(s) PO daily 03/201412/05/2013 Inactive tolterodine ER 4 mg capsule,extended release 24 hr RxNorm: 621789 1 Capsule(s) PO daily 10/31/2013 12/17/2013 Inactive replaces vesicare hydrochlorothiazide 25 mg tablet RxNorm: 411587 Tablet(s) PO TAKE ONE TABLET BY MOUTH EVERY DAY 10/24/2013 04/28/2014 Inactive hydrochlorothiazide 25 mg tablet RxNorm: 597925 Tablet(s) PO TAKE ONE TABLET BY MOUTH EVERY DAY 08/21/2013 10/23/2013 Inactive hydrochlorothiazide 25 mg tablet RxNorm: 095267 Tablet(s) PO TAKE ONE TABLET BY MOUTH EVERY DAY 02/23/2013 08/20/2013 Inactive Vesicare 10 mg tablet RxNorm: 276606 Tablet(s) PO TAKE ONE TABLET BY MOUTH EVERY DAY 02/13/2013 10/30/2013 Inactive Vesicare 10 mg tablet RxNorm: 306467 Tablet(s) PO TAKE ONE TABLET BY MOUTH EVERY DAY 02/13/2013 10/30/2013 Inactive Kenalog 40 mg/mL Susp for Injection RxNorm: 5869680 1 Milliliter(s) Inj 02/08/2013 02/08/2013 Inactive azithromycin 500 mg tablet RxNorm: 7447962 1 Tablet(s) PO daily 02/08/2013 02/14/2013 Inactive Rocephin 500 mg Solution for Injection RxNorm: 318757 Inj 02/0802/08/2013 Inactive Diflucan 150 mg tablet RxNorm: 058385 1 Tablet(s) PO daily 02/17/2013 Inactive Diflucan 150 mg tablet RxNorm: 990551 1 Tablet(s) PO daily 03/201302/07/2013 Inactive Flagyl 500 mg tablet RxNorm: 572779 1 Tablet(s) PO TID 201201/17/2013 Inactive Cipro 500 mg tablet RxNorm: 200851 1 Tablet(s) PO BID 201201/17/2013 Inactive Flagyl 500 mg tablet RxNorm: 959334 1 Tablet(s) PO TID 201201/27/2013 Inactive Cipro 500 mg tablet RxNorm: 837105 1 Tablet(s) PO BID 201201/27/2013 Inactive metoprolol succinate ER 25 mg tablet,extended release 24 hr RxNorm: 993023 Tablet (s) PO TAKE ONE TABLET BY MOUTH EVERY DAY 12/08/2012 12/24/2013 Inactive Lasix 20 mg tablet RxNorm: 468535 Tablet(s) PO TAKE ONE TABLET BY MOUTH EVERY DAY NEEDED 10/27/2012 08/12/2015 Inactive potassium chloride ER 10 mEq tablet,extended release RxNorm: 426979 1 Tablet(s) PO QDAY PRN 09/12/2012 03/10/2013 Inactive metoprolol succinate ER 25 mg tablet,extended release 24 hr RxNorm: 106828 Tablet (s) PO TAKE ONE TABLET BY MOUTH EVERY DAY 09/09/2012 12/07/2012 Inactive simvastatin 20 mg tablet RxNorm: 986419 Tablet(s) PO 201101/17/2013 Inactive TAKE ONE TABLET BY MOUTH EVERY DAY Lasix 20 mg tablet RxNorm: 384640 Tablet(s) PO 07/15/2012 10/26/2012 Inactive TAKE ONE TABLET BY MOUTH EVERY DAY NEEDED hydrochlorothiazide 25 mg tablet RxNorm: 446425 1 Tablet(s) PO 05/16/2012 02/09/2013 Inactive Vesicare 10 mg tablet RxNorm: 710030 1/2 Tablet(s) PO daily 05/19/2013 Inactive metoprolol succinate ER 25 mg 24 hr Tab RxNorm: 601311 1 Tablet(s) PO daily 03/16/2012 09/11/2012 Inactive metoprolol succinate ER 25 mg tablet,extended release 24 hr RxNorm: 682501 1 Tablet(s) PO daily 03/14/2012 03/15/2012 Inactive Vesicare 10 mg tablet RxNorm: 817489 1 Tablet(s) PO daily 201104/24/2012 Inactive metoprolol succinate ER 25 mg 24 hr Tab RxNorm: 169872 1 Tablet(s) PO daily 01/12/2012 03/13/2012 Inactive simvastatin 20 mg tablet RxNorm: 265848 1 Tablet(s) PO daily 08/15/2012 Inactive levofloxacin 500 mg Tab RxNorm: 026034 1 Tablet(s) PO daily 08/201212/13/2011 Inactive hydrochlorothiazide 12.5 mg tablet RxNorm: 663446 1 Tablet(s) PO daily 12/07/2011 05/15/2012 Inactive Kenalog 40 mg/mL Susp for Injection RxNorm: 4923915 1 Milliliter(s) Inj 11/17/2011 11/17/2011 Inactive cefdinir 300 mg Cap RxNorm: 897703 1 Capsule(s) PO BID 201111/26/2011 Inactive Diflucan 150 mg tablet RxNorm: 081023 1 Tablet(s) PO daily 11/21/2011 Inactive Rocephin 500 mg Solution for Injection RxNorm: 519223 1 Milliliter(s) Inj 11/17/2011 11/17/2011 Inactive azithromycin 500 mg Tab RxNorm: 7672082 1 Tablet(s) PO daily 11/21/2011 Inactive metoprolol succinate ER 25 mg 24 hr Tab RxNorm: 627755 1 Tablet(s) PO daily 11/12/2011 01/11/2012 Inactive metoprolol succinate ER 25 mg 24 hr Tab RxNorm: 886121 1 Tablet(s) PO daily 11/12/2011 11/11/2011 Inactive hydrochlorothiazide 25 mg Tab RxNorm: 111685 1 Tablet(s) PO daily 09/01/2011 12/06/2011 Inactive prednisone 5 mg Tab RxNorm: 191321 Tablet(s) PO 08/18/2011 08/23/2011 Inactive 6 day taper: 6-5-4-3-2-1 Kenalog 40 mg/mL Susp for Injection RxNorm: 3061216 Milliliter(s) Inj 08/18/2011 08/18/2011 Inactive metoprolol succinate ER 25 mg tablet,extended release 24 hr RxNorm: 423584 1 Tablet(s) PO daily No Start Date Active hydrocodone 10 mg-acetaminophen 325 mg tablet RxNorm: 546726 1 Tablet(s) PO as needed No Start Date Active Cipro 500 mg tablet RxNorm: 292179 Oral No Start Date 01/17/2013 Inactive Phenergan with Codeine Syrup RxNorm: 5-10 Milliliter(s) PO Q6 PRN No Start Date 07/25/2014 Inactive potassium chloride ER 10 mEq tablet,extended release RxNorm: 581136 1 Tablet(s) PO QDAY PRN No Start Date 09/11/2012 Inactive simvastatin 20 mg Tab RxNorm: 950446 1 Tablet(s) PO daily No Start Date 12/10/2011 Inactive Lasix 20 mg tablet RxNorm: 364626 1 Tablet(s) PO QDAY PRN No Start Date 07/14/2012 Inactive Vesicare 10 mg Tab RxNorm: 806537 1 Tablet(s) PO daily No Start Date 01/21/2012 Inactive Zithromax 500 mg Tab RxNorm: 4256213 Tablet(s) PO No Start Date 11/16/2011 Inactive 1 tab daily x 3 days, then 1/2 tab daily x 6 days. hydrochlorothiazide 25 mg Tab RxNorm: 470583 1 Tablet(s) PO daily No Start Date 08/31/2011 Inactive Medication Administered Medication Codes Instructions Start Date Status ceftriaxone 500 mg solution for injection RxNorm: 9461997 500Milligram 09/10/2017 No longer Active Kenalog 40 mg/mL suspension for injection RxNorm: 8350318 1Milliliter 09/10/2017 No longer Active Kenalog 40 mg/mL suspension for injection RxNorm: 9412757 1Milliliter 05/18/2017 No longer Active Kenalog 40 mg/mL suspension for injection RxNorm: 7110873 1Milliliter 08/13/2015 No longer Active Kenalog 40 mg/mL suspension for injection RxNorm: 0865720 1Milliliter 01/24/2015 No longer Active Kenalog 40 mg/mL suspension for injection RxNorm: 4185128 Milliliter 01/01/2014 No longer Active Rocephin 500 mg solution for injection RxNorm: 051466 1 01/01/2014 No longer Active Kenalog 40 mg/mL suspension for injection RxNorm: 7191512 Milliliter 12/01/2013 No longer Active Rocephin 500 mg Solution for Injection RxNorm: 387336 02/08/2013 No longer Active Kenalog 40 mg/mL Susp for Injection RxNorm: 4136590 1Milliliter 02/08/2013 No longer Active Rocephin 500 mg Solution for Injection RxNorm: 934514 1Milliliter 11/17/2011 No longer Active Kenalog 40 mg/mL Susp for Injection RxNorm: 7875446 1Milliliter 11/17/2011 No longer Active Kenalog 40 mg/mL Susp for Injection RxNorm: 2591506 Milliliter 08/18/2011 No longer Active Immunizations Vaccine [...] urgency ICD-9: 788.63 10/31/2013 ESSENTIAL HYPERTENSION SNOMED: 79810080 ICD-9: 401.9 10/31/2013 Skin tag ICD-9: 701.9 [...] Item Item Code Result Date Comp Metabolic Ius777 NA 140 mEq/L 03/23/2018 Comp Metabolic Zhn431 K 3.4 mEq/L 03/23/2018 Comp Metabolic Xhr697 CL 103 mEq/L 03/23/2018 Comp Metabolic Zxl342 CO2 27.0 mEq/L 03/23/2018 Comp Metabolic Znp687 ANION GAP 13 03/23/2018 Comp Metabolic Kyz453 GLUCOSE 115 mg/dL 03/23/2018 Comp Metabolic Yar860 Creat 0.9 mg/dL 03/23/2018 Comp Metabolic Tjw628 eGFR 69 ml/min/1.73m2 03/23/2018 Comp Metabolic Xdi533 BUN 14 mg/dL 03/23/2018 Comp Metabolic Uhm240 B/C Ratio 16.5 Ratio 03/23/2018 Comp Metabolic Goe837 CALCIUM 9.1 mg/dL 03/23/2018 Comp Metabolic Vbq384 ALK PHOS 84 U/L 03/23/2018 Comp Metabolic Xkb855 AST(SGOT) 22 U/L 03/23/2018 Comp Metabolic Hyw857 ALT(SGPT) 20 U/L 03/23/2018 Comp Metabolic Smq200 BILI T 0.8 mg/dL 03/23/2018 Comp Metabolic Utt817 ALBUMIN 4.0 g/dL 03/23/2018 Comp Metabolic Viu047 TPRO 7.0 g/dL 03/23/2018 Comp Metabolic Gqk055 GLOB 3.0 g/dL 03/23/2018 Comp Metabolic Gvd812 A/G Ratio 1.3 Ratio 03/23/2018 Comp Metabolic Ctd859 Osmo 281 mOsmo 03/23/2018 Cbc With Differential [...] 92.9 fl 03/23/2018 Cbc With Differential Ord2 MCH 30.4 pg 03/23/2018 Cbc With Differential Ord2 [place]% 10.7 % 03/23/2018 Cbc With Differential Ord2 Eos% 4.9 % 03/23/2018 Cbc With Differential Ord2 MCHC 32.7 pg 03/23/2018 Cbc With Differential Ord2 Baso% 0.2 % 03/23/2018 Cbc With Differential Ord2 PLT 323 K/ul 03/23/2018 Cbc With Differential Ord2 RDW 13.6 % 03/23/2018 Cbc With Differential Ord2 Neut ABS# 5.37 K/ul 03/23/2018 Cbc With Differential Ord2 Lymph ABS# 1.73 K/ul 03/23/2018 Cbc With Differential Ord2 [place] ABS# 0.9 K/ul 03/23/2018 Cbc With Differential [...] Ord30 C/HDL 2.9 Ratio 03/23/2018 Comp Metabolic Lve200 NA 141 mEq/L 08/04/2017 Comp Metabolic Osj638 K 3.6 mEq/L 08/04/2017 Comp Metabolic Ejb760 CL 101 mEq/L 08/04/2017 Comp Metabolic Qwh771 CO2 32.0 mEq/L 08/04/2017 Comp Metabolic Gol357 ANION GAP 12 08/04/2017 Comp Metabolic Emp397 GLUCOSE 99 mg/dL 08/04/2017 Comp Metabolic Ioa300 Creat 1.0 mg/dL 08/04/2017 Comp Metabolic Gxr702 eGFR 60 ml/min/1.73m2 08/04/2017 Comp Metabolic Mbp498 BUN 21 mg/dL 08/04/2017 Comp Metabolic Kdo133 B/C Ratio 21.9 Ratio 08/04/2017 Comp Metabolic Zne240 CALCIUM 9.4 mg/dL 08/04/2017 Comp Metabolic Yjr571 ALK PHOS 107 U/L 08/04/2017 Comp Metabolic Xqs410 AST(SGOT) 21 U/L 08/04/2017 Comp Metabolic Tmr829 ALT(SGPT) 21 U/L 08/04/2017 Comp Metabolic Xbt502 BILI T 0.6 mg/dL 08/04/2017 Comp Metabolic Srt474 ALBUMIN 4.0 g/dL 08/04/2017 Comp Metabolic Due667 TPRO 7.2 g/dL 08/04/2017 Comp Metabolic Kbm712 GLOB 3.2 g/dL 08/04/2017 Comp Metabolic Vfg618 A/G Ratio 1.2 Ratio 08/04/2017 Comp Metabolic Lcx782 Osmo 284 mOsmo 08/04/2017 Cbc With Differential [...] 31.1 pg 08/04/2017 Cbc With Differential Ord2 [place]% 7.8 % 08/04/2017 Cbc With Differential Ord2 [...] 1.79 K/ul 08/04/2017 Cbc With Differential Ord2 [place] ABS# 0.6 K/ul 08/04/2017 Cbc With Differential Ord2 Eos ABS# 0.5 K/ul 08/04/2017 Cbc With Differential Ord2 Baso ABS# 0.0 K/ul 08/04/2017 Tsh Ord6 hTSH II 2.45 uIU/mL 08/04/2017 Lipid Ord30 CHOL 217 mg/dL 08/04/2017 Lipid Ord30 HDL 59.0 mg/dl 08/04/2017 Lipid Ord30 TRIG 97 mg/dL 08/04/2017 Lipid Ord30 LDL 139 mg/dL 08/04/2017 Lipid Ord30 C/HDL 3.7 Ratio 08/04/2017 Comp Metabolic Ahy438 NA 138 mEq/L 07/21/2016 Comp Metabolic Tol259 K 3.8 mEq/L 07/21/2016 Comp Metabolic Hcz723 CL 102 mEq/L 07/21/2016 Comp Metabolic Wes050 CO2 30.0 mEq/L 07/21/2016 Comp Metabolic Hdh424 ANION GAP 10 07/21/2016 Comp Metabolic Fsv052 GLUCOSE 101 mg/dL 07/21/2016 Comp Metabolic Toc335 Creat 0.9 mg/dL 07/21/2016 Comp Metabolic Dce741 eGFR 63 ml/min/1.73m2 07/21/2016 Comp Metabolic Odx658 BUN 19 mg/dL 07/21/2016 Comp Metabolic Kyf897 B/C Ratio 20.4 Ratio 07/21/2016 Comp Metabolic Nls302 CALCIUM 9.3 mg/dL 07/21/2016 Comp Metabolic Zfw035 ALK PHOS 83 U/L 07/21/2016 Comp Metabolic Kms296 AST(SGOT) 20 U/L 07/21/2016 Comp Metabolic Ale159 ALT(SGPT) 18 U/L 07/21/2016 Comp Metabolic Abc749 BILI T 0.6 mg/dL 07/21/2016 Comp Metabolic Oav670 ALBUMIN 4.0 g/dL 07/21/2016 Comp Metabolic Wlt688 TPRO 7.2 g/dL 07/21/2016 Comp Metabolic Nnm105 GLOB 3.3 g/dL 07/21/2016 Comp Metabolic Tsg968 A/G Ratio 1.2 Ratio 07/21/2016 Comp Metabolic Ojw859 Osmo 278 mOsmo 07/21/2016 Cbc With Differential [...] 29.8 pg 07/21/2016 Cbc With Differential Ord2 [place]% 9.6 % 07/21/2016 Cbc With Differential Ord2 [...] 2.10 K/ul 07/21/2016 Cbc With Differential Ord2 [place] ABS# 0.7 K/ul 07/21/2016 Cbc With Differential [...] CPT-4: J0696 09/10/2017 THER/PROPH/DIAG INJ SC/IM CPT-4: 60597 05/18/2017 TRIAMCINOLONE ACET INJ NOS CPT-4: J3301 05/18/2017 DESTRUCT PREMALG LESION CPT-4: 12365 06/24/2016 ADMIN INFLUENZA VIRUS VAC CPT-4: G0008 06/15/2016 ADMIN PNEUMOCOCCAL VACCINE SNOMED CT: 41463110 CPT-4: G0009 06/15/2016 PNEUMOCOCCAL VACC [address]: 67219353 CPT-4: 06883 06/15/2016 FLU VACC PRSV FREE INC ANTIG Formatting Model/CDA Sections, Assigned to/Vianney Bronson CPT-4: 35298Hctgujx 06/15/2016 THER/PROPH/DIAG INJ SC/IM CPT-4: 28042 08/13/2015 TRIAMCINOLONE ACET INJ NOS CPT-4: J3301 08/13/2015 TRIAMCINOLONE ACET INJ NOS CPT-4: J3301 01/24/2015 IMMUNIZATION ADMIN CPT -4: 30738 08/08/2014 FLU VAC NO PRSV 4 DARREL 3 YRS+ Assigned to CPT-4: 11675Naiqfst 08/08/2014 TRIAMCINOLONE ACET INJ NOS CPT-4: J3301 01/01/2014 ROCEPHIN, PER 250 MG CPT-4: J0696 01/01/2014 TRIAMCINOLONE ACET INJ NOS CPT-4: J3301 12/01/2013 REMOVAL OF SKIN TAGS <W/15 CPT-4: 15660 06/29/2013 TRIAMCINOLONE ACET INJ NOS CPT-4: J3301 02/08/2013 ROCEPHIN, PER 250 MG CPT-4: J0696 02/08/2013 [id number] EST. PATIENT, LEVEL III CPT-4: 57150 05/16/2012 TRIAMCINOLONE ACET INJ NOS CPT-4: J3301 11/17/2011 ROCEPHIN, PER 250 MG CPT-4: J0696 11/17/2011 TRIAMCINOLONE ACET INJ NOS CPT-4: J3301 08/18/2011 THER/PROPH/DIAG INJ SC/IM CPT-4: 46515 08/18/2011 Vital Signs Date Vital 10/05/2018 BMI: 38.1 Code: 25869-7 Heart Rate 1: 88 bpm Height: 5'4" Weight: 222 lbs 09/22/2018 Blood Pressure 1: 132/74 Code : 8480-6 BMI: 38.4 Code : 19566-8 Heart Rate 1 : 74 bpm Height: 5'4" SpO2: 96% Weight: 224 lbs 03/29/2018 Blood Pressure 1: 130/82 Code : 8480-6 BMI: 38.1 Code : 30409-8 Heart Rate 1 : 71 bpm Height: 5'4" SpO2: 96% Weight: 222 lbs 09/10/2017 Blood Pressure 1: 130/78 Code : 8480-6 BMI: 37.1 Code : 74709-5 Heart Rate 1 : 76 bpm Height: 5'4" SpO2: 97% Temperature: 36.9 (C) / 98.4 (F) Weight: 216 lbs 07/26/2017 Blood Pressure 1: 118/80 Code : 8480-6 Heart Rate 1: 71 bpm SpO2: 96% 05/18/2017 Blood Pressure 1: 122/80 Code : 8480-6 BMI: 36.9 Code : 53484-3 Heart Rate 1 : 83 bpm Height: 5'4" SpO2: 96% Weight: 215 lbs 05/12/2017 Blood Pressure 1: 132/80 Code : 8480-6 BMI: 36.7 Code : 65194-5 Heart Rate 1 : 86 bpm Height: [...] Code : 8480-6 BMI: 37.8 Code : 48856-1 Heart Rate 1 : 74 bpm Height: 5'4" SpO2: 97% Temperature: 37.1 (C) / 98.7 (F) Weight: 220 lbs 07/20/2016 Blood Pressure 1: 134/80 Code : 8480-6 BMI: 36.9 Code : 91017-4 Heart Rate 1 : 71 bpm Height: 5'4" SpO2: 98% Weight: 215 lbs 06/24/2016 Blood Pressure 1: 134/74 Code : 8480-6 BMI: 37.1 Code : 46718-5 Heart Rate 1 : 85 bpm Height: 5'4" SpO2: 97% Weight: 216 lbs 06/15/2016 Blood Pressure 1: 130/80 Code : 8480-6 BMI: 37.1 Code : 27062-6 Heart Rate 1 : 73 bpm Height: 5'4" SpO2: 97% Weight: 216 lbs 01/15/2016 Blood Pressure 1: 128/80 Code : 8480-6 BMI: 35.7 Code : 95214-3 Heart Rate 1 : 79 bpm Height: 5'4" SpO2: 97% Weight: 208 lbs 12/11/2015 Blood Pressure 1: 134/80 Code : 8480-6 BMI: 34.7 Code : 05164-7 Heart Rate 1 : 65 bpm Height: 5'4" SpO2: 98% Temperature: 36.7 (C) / 98.1 (F) Weight: 202 lbs 08/13/2015 Blood Pressure 1: 120/82 Code : 8480-6 BMI: 34.2 Code : 20135-2 Heart Rate 1 : 74 bpm Height: 5'4" SpO2: 98% Weight: 199 lbs 01/24/2015 Blood Pressure 1: 138/82 Code : 8480-6 BMI: 36.2 Code : 63687-3 Heart Rate 1 : 69 bpm Height: 5'6" SpO2: 94% Temperature: 36.5 (C) / 97.7 (F) Weight: 224 lbs 07/26/2014 Blood Pressure 1: 142/96 Code : 8480-6 BMI: 35.2 Code : 36827-0 Heart Rate 1 : 68 bpm Height: 5'6" Weight: 218 lbs 01/01/2014 Blood Pressure 1: 104/70 Code : 8480-6 BMI: 35.0 Code : 90158-2 Heart Rate 1 : 68 bpm Height: 5'6" Temperature: 36.8 (C) / 98.2 (F) Weight: 217 lbs 12/01/2013 Blood Pressure 1: 112/78 Code : 8480-6 Heart Rate 1: 84 bpm Temperature: 36.7 (C) / 98.0 (F) Weight: 213 lbs 10/31/2013 Blood Pressure 1: 102/70 Code : 8480-6 BMI: 34.9 Code : 59105-9 Heart Rate 1 : 64 bpm Height: 5'6" Weight: 216 lbs 06/29/2013 Blood Pressure 1: 130/84 Code : 8480-6 BMI: 34.5 Code : 15001-4 Heart Rate 1 : 80 bpm Height: 5'6" Weight: 214 lbs 02/08/2013 Blood Pressure 1: 122/80 Code : 8480-6 BMI: 32.9 Code : 17884-3 Heart Rate 1 : 72 bpm Height: 5'6" Temperature: 37.4 (C) / 99.3 (F) Weight: 204 lbs 01/02/2013 Blood Pressure 1: 118/88 Code : 8480-6 BMI: 34.7 Code : 12072-7 Heart Rate 1 : 88 bpm Height: [...] Code : 8480-6 BMI: 35.3 Code : 15378-9 Heart Rate 1 : 68 bpm Height: [...] data Encounters Encounter Performer Location Codes Date 02623 EST. PATIENT, LEVEL III Diagnosis: Cough[ICD10: R05] Diagnosis: Acute laryngopharyngitis[ICD10: J06.0] Diagnosis: Other allergic rhinitis[ICD10: J30.89] Xochilt Lopez MD, [facility] CPT-4: 77516 10/05/2018 [id number] EST. PATIENT, LEVEL III Diagnosis: Acute laryngopharyngitis[ICD10: J06.0] Diagnosis: Other allergic rhinitis[ICD10: J30.89] Diagnosis: Cough[ICD10: R05] Xochilt Lopez MD, [facility] CPT-4: 57566 09/22/2018 ([id number]) 40213 EST. PATIENT, LEVEL IV Diagnosis: Essential (primary) hypertension[ICD10: I10] Diagnosis: Pain in left knee[ICD10: M25.562] Diagnosis: Pain in right knee[ICD10: M25.561] Diagnosis: Shortness of breath[ICD10: R06.02] Ann-Marie Lopez MD, [facility] CPT-4: 63325 03/29/2018 ([id number]) 63047 EST. PATIENT, LEVEL III Diagnosis: Cough[ICD10: R05] Diagnosis: Acute bronchitis, unspecified[ICD10: J20.9] Joceline Lopez MD, [facility] CPT-4: 18242 09/10/2017 ([id number]) Miscellaneous no charge Diagnosis: Essential (primary) hypertension[ICD10: I10] Joceline Lopez MD, [facility] CPT-4: 36761 07/26/2017 ([id number]) 08046 EST. PATIENT, LEVEL III Diagnosis: Otalgia, right ear[ICD10: H92.01] Diagnosis: Other specified disorders of teeth and supporting structures[ICD10: K08.89] Ann-Marie Lopez MD, [facility] CPT-4: 95801 2016 03714 EST. PATIENT, LEVEL III Diagnosis: Acute suppurative otitis media without spontaneous rupture of ear drum, right ear[ICD10: H66.001] Xochilt Lopez MD, [facility] [facility] CPT-4: 42056 05/12/2017 ([id number]) 90863 EST. PATIENT, LEVEL II Diagnosis: Contusion of left lower leg, subsequent encounter[ICD10: S80.12XD] Joceline Lopez MD, [facility] CPT-4: 88478 02/25/2017 ([id number]) 33070 EST. PATIENT, LEVEL III Diagnosis: Cellulitis of right lower limb[ICD10: L03.115] Diagnosis: Contusion of left lower leg, initial encounter[ICD10: S80.12XA] Diagnosis: Laceration without foreign body, right lower leg, initial encounter[ ICD10: S81.811A] Joceline Lopez MD, [facility] CPT-4: 41721 01/15/2017 ([id number]) 40707 EST. PATIENT, LEVEL III Diagnosis: Acute recurrent maxillary sinusitis[ICD10: J01.01] Diagnosis: Cough[ICD10: R05] Ann-Marie Lopez MD, [facility] CPT-4: 71482 10/29/2016 ([id number]) 23112 EST. PATIENT, LEVEL IV Diagnosis: Essential (primary) hypertension[ICD10: I10] Diagnosis: Varicose veins of left lower extremity with inflammation[ICD10: I83.12] Diagnosis: Localized edema[ICD10: R60.0] Ann-Marie Lopez MD, [facility] CPT- 4: 60056 07/20/2016 78000 EST. PATIENT, LEVEL III Diagnosis: Actinic keratosis[ICD10: L57.0] Xochilt Lopez MD, [facility] CPT-4 : 52289 06/24/2016 ([id number]) 84861 EST. PATIENT, LEVEL III Diagnosis: Asymptomatic varicose veins of bilateral lower extremities[ICD10: I83.93] Joceline Lopez MD [facility] CPT-4: 23088 45544 EST. PATIENT, LEVEL III Diagnosis: Rash and other nonspecific skin eruption[ICD10: R21] Xochilt Lopez MD, [facility] CPT-4: 54245 01/15/2016 ([id number]) 06931 EST. PATIENT, LEVEL III Diagnosis: Cough[ICD10: R05] Diagnosis: Dyspnea, unspecified[ICD10: R06.00] Diagnosis: Acute sinusitis, unspecified[ICD10: J01.90] Ann-Marie Lopez MD, [facility] CPT-4: 43516 12/11/2015 37586 EST. PATIENT, LEVEL III Diagnosis: Allergic rhinitis, unspecified[ICD10: J30.9] Diagnosis: Tinnitus, bilateral[ICD10: H93.13] Xochilt Lopez MD, [facility] CPT-4: 82610 08/13/2015 ([id number]) 77707 EST. PATIENT, LEVEL III Diagnosis: ALLERGIC RHINITIS[ICD9: 477.9] Joceline Lopez MD, [facility] CPT-4: 32389 01/24/2015 ([id number]) PER PM REEVAL EST PAT 65+ YR Diagnosis: Routine medical exam[ICD9: V70.0] Ann-Marie Lopez MD, [facility] CPT-4: 91881 07/26/2014 ([id number]) 70762 EST. PATIENT, LEVEL III Diagnosis: ACUTE SINUSITIS[ICD9: 461.9] Diagnosis: ACUTE BRONCHITIS[ICD9: 466.0] Diagnosis: COUGH[ICD9: 786.2] Joceline Lopez MD, [facility] CPT-4: 36927 01/01/2014 ([id number]) 37412 EST. PATIENT, LEVEL III Diagnosis: ALLERGIC RHINITIS[ICD9: 477.9] Joceline Lopez MD, [facility] CPT-4: 49985 12/01/2013 ([id number]) 44037 EST. PATIENT, LEVEL IV Diagnosis: ESSENTIAL HYPERTENSION[SNOMED: 49630190] Diagnosis: Urinary urgency[ICD9: 788.63] Ann-Marie Lopez MD, [facility] CPT- 4: 21944 10/31/2013 ([id number]) 28947 EST. PATIENT, LEVEL III Diagnosis: Cough[ICD9: 786.2] Diagnosis: Diarrhea[ICD9: 787.91] Ann-Marie Lopez MD, [facility] CPT-4: 71380 02/08/2013 ([id number]) 35585 EST. PATIENT, LEVEL III Diagnosis: Diarrhea[ICD9: 787.91] Diagnosis: Abdominal discomfort[ICD9: 789.00] Diagnosis: Fecal urgency[ICD9: 787.63] Ann-Marie Lopez MD [facility] CPT- 4: 00845 01/02/2013 ([id number]) 88405 EST. PATIENT, LEVEL III Diagnosis: EDEMA[ICD9: 782.3] Ann-Marie Lopez MD [facility] CPT-4: 08043 04/25/2012 ([id number]) 63708 EST. PATIENT, LEVEL III Diagnosis: ESSENTIAL HYPERTENSION[SNOMED: 57977368] Diagnosis: BACTERIAL PNEUMONIA[ICD9: 482.9] Ann-Marie Lopez MD, [facility] CPT-4: 06502 12/07/2011 ([id number]) 77894 EST. PATIENT, LEVEL IV Diagnosis: COUGH[ICD9: 786.2] Diagnosis: FEVER NOS[ICD9: 780.60] Ann-Marie Lopez MD, [facility] CPT-4: 50793 11/17/2011 61005 EST. PATIENT, LEVEL IV Diagnosis: Acute bronchitis[ICD9: 466.0] Diagnosis: Cough[ICD9: 786.2] Diagnosis: Dyspnea[ICD9: 786.09] Joceline Lopez MD, [facility] CPT-4: 71734 08/18/2011 Plan of Care Planned Activity Notes [...] in the nasal steroid allergy spray. 10/05/2018 Patient Education: Patient Medication Summary Completed [...] patient's pharmacy. 09/22/2018 Appointment: Xochilt Gardner WPtel: [facility] (15 min) Moderate 09/22/2018 Patient Education: Patient Medication Summary Completed 09/22/2018 Patient Education: Patient Medication Summary Completed 05/04/2018 Care Plan: SCREENINGMAMMOGRAPHYDIGITAL LOINC : 91255-5 Pending 05/04/2018 Appointment: Ann-Marie Lopez WPtel: [address] [place] [address] (15 min) Moderate 04/21/2018 Visit Plan: Hypertension [...] knee pain. 03/29/2018 Appointment: Ann-Marie Lopez WPtel: [facility] (15 min) Moderate 03/29/2018 Patient Education: Patient Medication Summary Completed 03/29/2018 Appointment: Nurse Visit 03/02/2018 Visit Plan: Bronchitis - acute case of bronchitis identified. Pt has been given antibiotics, breathing treatments as appropriate, and pt has been instructed to call if symptoms are not improved, or if symptoms acutely worsen. 09/10/2017 Appointment: Joceline Mario WPtel: [phone] [phone] (15 min) Moderate 09/10/2017 Patient Education: Patient [...] worsen. 05/12/2017 Appointment: [phone] (10 min) Simple 05/12/2017 Patient Education: Patient Medication Summary Completed 05/12/2017 Visit Plan: Contusion/hematoma-left lower leg-improving- continue to monitor Laceration-right ffz-shmldzd-wds neosporin as directed Skin tag-right neck-fell off in the office before having it removed-no treatment today in the office-monitor area 02/25/2017 Appointment: [facility] Mario [phone] [phone] (30 min) Complex 02/25/2017 Patient Education: Patient [...] treatment 01/15/2017 Appointment: [facility] [phone] [phone] (30 min) Complex 01/15/2017 Patient Education: Patient [...] 07/20/2016 Care Plan: Referral Order SNOMED-CT : [id number] Pending 07/20/2016 Visit Plan: Irritated AK to [...] concerns. 06/24/2016 Appointment: [facility] [phone] [phone] (15 min) Moderate 06/24/2016 Patient Education: Patient Medication Summary Completed 06/24/2016 Patient Education: Obesity Completed 06/24/2016 Visit Plan: Varicose veins-recommend compression stockings- on in the am and off at HS-discussed the need for weight loss as well- instructed patient to call if symptoms persist, worsen, or new symptoms develop. Patient verbalized understanding of plan. 06/15/2016 Appointment: [facility] Mario [facility]el[facility] [phone] [phone] [place] (15 min) Moderate 06/15/2016 Patient Education: Patient Medication Summary Completed 06/15/2016 Patient Education: Obesity Completed 06/15/2016 App[facility]ment: [phone] [place] (15 min) Moderate 06/08/2016 Visit [...] Summary Completed 01/24/2015 Appointment: [facility] [phone] [facility] [place] Injection 08/08/2014 Patient Education: Patient Medication [...] at home. 07/26/2014 Appointment: [phone] [facility] Follow up 07/26/2014 Patient Education: Patient [...] anti histamine. 12/01/2013 Appointment: [facility] [phone] [phone] Sick 12/01/2013 Patient Education: Patient Medication Summary [...] symptoms worsen. 10/31/2013 Appointment: Ann-Marie Lopez WPtel: [address] [place] [address] Other 10/31/2013 Patient Education: Patient Medication Summary Completed 10/31/2013 Patient Education: Hypertension Completed 10/31/2013 Appointment: Ann-Marie Lopez WPtel: [address] [place] [address] Surgical Procedure 07/04/2013 Visit Plan: Wound Instructions - Pt was instruced to keep the wound clean, wash with antibacterial soap, use triple antibiotic ointment, call if redness, pustular drainage, or any other acute conerns. 06/29/2013 Appointment: Joceline Mario WPtel: [address] [place], [place] [phone] Surgical Procedure 06/29/2013 Patient Education: Patient Medication [...] with codeine. 02/08/2013 Appointment: Ann-Marie Lopez WPtel: [facility] 02/08/2013 Patient Education: Patient Medication Summary Completed 02/08/2013 Visit Plan: Diarrhea - recommended bland diet, no milk or fatty foods, recommended a gallbladder ultrasound and for pt to have stool studies and start on a probiotic. 01/02/2013 Appointment: Ann-Marie Lopez WPtel: [address] [place], [place] [phone] Sick 01/02/2013 Patient Education: Patient Medication Summary Completed 01/02/2013 Appointment: Ann-Marie Lopez WPtel: [address] [place], [place] [phone] Follow up 06/20/2012 Visit Plan: Edema - [...] labs-order provided 05/16/2012 Appointment: Ann-Marie Lopez WPtel: [address] [place], [place] [phone] Other 05/16/2012 Patient Education: Patient Medication Summary [...] peripheral edema. 04/25/2012 Appointment: Ann-Marie Lopez WPtel: [address] [place], [place] [phone] Other 04/25/2012 Patient Education: Patient Medication Summary Completed 04/25/2012 Appointment: Ann-Marie Lopez WPtel: [address] [place] [address] Other 12/08/2011 Visit Plan: Hypertension - well [...] this illness. 12/07/2011 Appointment: Ann-Marie Lopez WPtel: [phone] [place] [phone] Other 12/07/2011 Patient Education: Patient Medication Summary [...] patient's pharmacy. 08/18/2011 Appointment: Ann-Marie Lopez WPtel: [phone] [facility] Other 08/18/2011 Patient Education: Patient Medication Summary Completed 08/18/2011 Referral: Cornelius Beth Referral Appointment Requested Instructions Comment . URI - Pt advised to increase [...] in the nasal steroid allergy spray. . Allergies - chronic - recommended pt [...] Kenalog injection today in the office. . Allergies - chronic - recommended pt [...] worse. RX sent to patient's pharmacy. . Hypertension - well controlled - continue [...] for acute treatment of this illness. . Hypertension - well controlled - continue [...] and possible nerve irritation. kenalog shot today. rocephin and kenalog today start zpack today call wednesday if not better and we can add on cefdinir . Bronchitis - acute case of bronchitis identified. Pt has been given antibiotics, breathing treatments as appropriate, and pt has been instructed to call if symptoms are not improved, or if symptoms acutely worsen. . Hypertension - well controlled [...] develop. Patient verbalized understanding of plan. . Acute bronchitis - Pt advised to [...] physical exam, and the assessment and plan. take blood pressure two to three times a week - and fax to dr. lopez in 2 weeks - @[phone] . Well Adult - pt was counseled [...] in blood pressure readings at home. . Diarrhea - discussed need to avoid [...] patient start a daily anti histamine. . Cellulitis - right lower leg-RX for abx and instructed on use- return to clinic as previously directed, call for acute change in symptoms, worsening redness, warmth, discharge. Laceration-right lower leg-return in 10 days for suture removal Contusion-left lower opt-omuqfjyvv-kutebpne current treatment . Wound Instructions - Pt was instruced to keep the wound clean, wash with antibacterial soap, use triple antibiotic ointment, call if redness, pustular drainage, or any other acute conerns. . Otitis Media - pt is to [...] improve or if they acutely worsen. . Edema - uncontrolled swelling. I have [...] to further attempt to reduce peripheral edema. flonase nasal spray. If using nasal spray, [...] symptoms worsen or do not improve. . Sinus congestion - RX for zyrtec D - call if not improving, if fever develops may need to consider antibiotic [facility] or [facility] - take three times daily x 10days . Sinusitis - Pt has acute infection - pain in face, maxillary region, Pt informed to use decongestant, RX given to patient, sinus rinses also recommended. Call if symptoms do not show improvement. . Contusion/hematoma-left lower hbe-iwnayfwoq-kmlqusan to monitor Laceration-right tav-qapzzhb-gjr neosporin as directed Skin tag-right neck-fell off in the office before having it removed-no treatment today in the office-monitor area . Diarrhea - recommended bland diet, no [...] see Dr. Cpoe about her knee pain. . Rash/Cellulitis - continue with oral antibiotics as previously directed, return to clinic as previously directed, call for acute change in symptoms, worsening redness, warmth, discharge. . Pneumonia - Pt has been diagnosed with pneumonia by physical exam. A chest xray has been ordered as have antibiotics. The pt is aware of the diagnosis and the need for acute treatment of this illness. cough and fever - check labs - chem and cbc xray did show + left lower lobe pneumonia I sent a prescription for Zithromax (the [...]
--- OUTSIDE RECORDS SUMMARY | 2019-01-31 07:10 | XMS REPORT | CCD ---
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 08/18/[address]: 643281300 Nonsmoker 08/18/2011 Has the patient ever used [...] Instructions doxycycline hyclate 100 mg capsule RxNorm: 0337413 1 Capsule(s) PO BID 10/05/2018 10/14/2018 Active ProAir HFA 90 mcg/actuation aerosol inhaler RxNorm: 4490168 2 Puff(s) INH TID as needed dyspnea 10/05/2018 No Stop Date Active prednisone 20 mg tablet RxNorm: 955212 2 Tablet(s) PO daily 09/26/2018 Inactive Keflex 500 mg capsule RxNorm: 428885 1 Capsule(s) PO TID 201710/01/2018 Inactive ProAir HFA 90 mcg/actuation aerosol inhaler RxNorm: 6283926 2 Puff(s) INH TID as needed dyspnea 03/29/2018 10/04/2018 Inactive Keflex 500 mg capsule RxNorm: 274700 1 Capsule(s) PO TID 201703/01/2018 Inactive Keflex 500 mg capsule RxNorm: 094808 1 Capsule(s) PO TID 201703/08/2018 Inactive trospium ER 60 mg capsule,extended release 24 hr RxNorm: 963342 1 Capsule(s) PO daily 01/04/2018 12/29/2018 Active D/C Vesicare - insurance denied trospium ER 60 mg capsule,extended release 24 hr RxNorm: 591857 1 Capsule(s) PO daily 01/04/2018 01/03/2018 Inactive metoprolol succinate ER 25 mg tablet,extended release 24 hr RxNorm: 887626 TAKE ONE TABLET BY MOUTH EVERY DAY 12/27/2017 06/24/2018 Inactive Zyrtec-D 5 mg-120 mg tablet,extended release RxNorm: 4287879 1 Tablet(s) PO BID as needed 12/16/2017 01/04/2018 Inactive Zithromax Z-Seng 250 mg tablet RxNorm: 089123 1 Tablet(s) PO UD 09/10/2017 09/14/2017 Inactive ceftriaxone 500 mg solution for injection RxNorm: 8695548 500 Milligram(s) Inj 09/10/2017 09/10/2017 Inactive Kenalog 40 mg/mL suspension for injection RxNorm: 4127468 1 Milliliter(s) Inj 09/10/2017 09/10/2017 Inactive hydrochlorothiazide 25 mg tablet RxNorm: 483672 TAKE ONE TABLET BY MOUTH EVERY DAY 08/09/2017 08/03/2018 Inactive hydrochlorothiazide 25 mg tablet RxNorm: 021703 TAKE ONE TABLET BY MOUTH EVERY DAY 08/09/2017 08/08/2017 Inactive Vesicare 10 mg tablet RxNorm: 085014 TAKE 1/2 TABLET BY MOUTH DAILY 08/09/2017 01/03/2018 Inactive Vesicare 10 mg tablet RxNorm: 471647 TAKE 1/2 TABLET BY MOUTH DAILY 08/09/2017 08/08/2017 Inactive Augmentin 875 mg-125 mg tablet RxNorm: 604210 1 Tablet(s) PO BID take a probiotic when taking the antibiotic 05/18/2017 Inactive Kenalog 40 mg/mL suspension for injection RxNorm: 7667810 1 Milliliter(s) Inj 05/18/2017 05/18/2017 Inactive hydrocodone 5 mg-acetaminophen 325 mg tablet RxNorm: 950174 1 Tablet(s) PO Q4H as needed for pain 01/19/2017 01/23/2017 Inactive Keflex 500 mg capsule RxNorm: 300308 1 Capsule(s) PO TID 201601/21/2017 Inactive Zyrtec-D 5 mg-120 mg tablet,extended release RxNorm: 2709455 1 Tablet(s) PO BID 10/29/2016 11/07/2016 Inactive metoprolol succinate ER 25 mg tablet,extended release 24 hr RxNorm: 103243 TAKE ONE TABLET BY MOUTH EVERY DAY 08/26/2016 02/21/2017 Inactive Xyzal 5 mg tablet RxNorm: 411967 Tablet(s) as needed TAKE ONE TABLET BY MOUTH DAILY 06/15/2016 08/13/2016 Inactive hydrochlorothiazide 25 mg tablet RxNorm: 911204 TAKE ONE TABLET BY MOUTH EVERY DAY 06/09/2016 04/04/2017 Inactive Vesicare 10 mg tablet RxNorm: 008090 1/2 Tablet(s) PO daily TAKE 1/2 TABLET BY MOUTH EVERY DAY 03/16/2016 12/10/2016 Inactive Vesicare 10 mg tablet RxNorm: 333144 1/2 Tablet(s) PO daily TAKE 1/2 TABLET BY MOUTH EVERY DAY 03/16/2016 03/15/2016 Inactive Vesicare 10 mg tablet RxNorm: 327598 1/2 Tablet(s) PO daily TAKE 1/2 TABLET BY MOUTH EVERY DAY 03/16/2016 03/15/2016 Inactive metoprolol succinate ER 25 mg tablet,extended release 24 hr RxNorm: 941396 TAKE ONE TABLET BY MOUTH EVERY DAY 03/02/2016 06/29/2016 Inactive Xyzal 5 mg tablet RxNorm: 592988 TAKE ONE TABLET BY MOUTH DAILY 01/07/2016 03/06/2016 Inactive cefdinir 300 mg capsule RxNorm: 781853 1 Capsule(s) PO BID 12/17/2015 Inactive Vesicare 10 mg tablet RxNorm: 299681 1/2 Tablet(s) TAKE 1/2 TABLET BY MOUTH EVERY DAY 12/11/2015 03/15/2016 Inactive ProAir HFA 90 mcg/actuation aerosol inhaler RxNorm: 823316 2 Puff(s) INH TID x 3 days then bid x 3 days then prn dyspnea 12/11/2015 03/28/2018 Inactive Kenalog 40 mg/mL suspension for injection RxNorm: 8645703 1 Milliliter(s) Inj 08/13/2015 08/13/2015 Inactive acyclovir 800 mg tablet RxNorm: 375742 1 Tablet(s) PO TID 07/1907/18/2015 Inactive acyclovir 800 mg tablet RxNorm: 998699 1 Tablet(s) PO TID 07/1907/28/2015 Inactive metoprolol succinate ER 25 mg tablet,extended release 24 hr RxNorm: 041108 TAKE ONE TABLET BY MOUTH EVERY DAY 05/21/2015 11/16/2015 Inactive hydrochlorothiazide 25 mg tablet RxNorm: 833358 TAKE ONE TABLET BY MOUTH EVERY DAY 05/02/2015 06/08/2016 Inactive Vesicare 10 mg tablet RxNorm: 950881 TAKE ONE TABLET BY MOUTH EVERY DAY 02/05/2015 12/10/2015 Inactive Xyzal 5 mg tablet RxNorm: 374901 1 Tablet(s) PO daily 201404/23/2015 Inactive Kenalog 40 mg/mL suspension for injection RxNorm: 9029991 1 Milliliter(s) Inj 01/24/2015 01/24/2015 Inactive Flonase Allergy Relief 50 mcg/actuation nasal spray, suspension RxNorm: 2 [place] NASAL daily 01/24/2015 12/10/2015 Inactive [place] Allergy 180 mg tablet RxNorm: 023997 1 Tablet(s) PO daily 12/17/2014 12/16/2014 Inactive [place] Allergy 180 mg tablet RxNorm: 789007 1 Tablet(s) PO daily 12/17/2014 02/14/2015 Inactive metoprolol succinate ER 25 mg tablet,extended release 24 hr RxNorm: 490029 Tablet (s) PO TAKE ONE TABLET BY MOUTH EVERY DAY 09/11/2014 05/20/2015 Inactive gemfibrozil 600 mg tablet RxNorm: 410512 1 Tablet(s) PO BID 11/201302/24/2015 Inactive gemfibrozil 600 mg tablet RxNorm: 977284 1 Tablet(s) PO BID 11/201307/29/2014 Inactive hydrochlorothiazide 25 mg tablet RxNorm: 374370 TAKE ONE TABLET BY MOUTH EVERY DAY 04/29/2014 05/01/2015 Inactive Kenalog 40 mg/mL suspension for injection RxNorm: 8967173 Milliliter(s) Inj 01/01/2014 01/01/2014 Inactive cefdinir 300 mg capsule RxNorm: 333095 1 Capsule(s) PO BID 03/201401/07/2014 Inactive Flonase 50 mcg/actuation nasal spray,suspension RxNorm: 926688 2 [place] NASAL daily 01/01/2014 01/07/2014 Inactive Rocephin 500 mg solution for injection RxNorm: 522493 1 Inj 03/201401/01/2014 Inactive Zithromax 500 mg tablet RxNorm: 450629 1 Tablet(s) PO daily 12/201301/02/2014 Inactive metoprolol succinate ER 25 mg tablet,extended release 24 hr RxNorm: 309764 Tablet (s) PO TAKE ONE TABLET BY MOUTH EVERY DAY 12/25/2013 09/10/2014 Inactive Vesicare 10 mg tablet RxNorm: 670159 1 Tablet(s) PO daily TAKE ONE TABLET BY MOUTH EVERY DAY 12/18/2013 01/11/2015 Inactive Kenalog 40 mg/mL suspension for injection RxNorm: 0527112 Milliliter(s) Inj 12/01/2013 12/01/2013 Inactive Zithromax 500 mg tablet RxNorm: 368401 1 Tablet(s) PO daily 03/201412/05/2013 Inactive tolterodine ER 4 mg capsule,extended release 24 hr RxNorm: 567983 1 Capsule(s) PO daily 10/31/2013 12/17/2013 Inactive replaces vesicare hydrochlorothiazide 25 mg tablet RxNorm: 065493 Tablet(s) PO TAKE ONE TABLET BY MOUTH EVERY DAY 10/24/2013 04/28/2014 Inactive hydrochlorothiazide 25 mg tablet RxNorm: 422203 Tablet(s) PO TAKE ONE TABLET BY MOUTH EVERY DAY 08/21/2013 10/23/2013 Inactive hydrochlorothiazide 25 mg tablet RxNorm: 447889 Tablet(s) PO TAKE ONE TABLET BY MOUTH EVERY DAY 02/23/2013 08/20/2013 Inactive Vesicare 10 mg tablet RxNorm: 649760 Tablet(s) PO TAKE ONE TABLET BY MOUTH EVERY DAY 02/13/2013 10/30/2013 Inactive Vesicare 10 mg tablet RxNorm: 424631 Tablet(s) PO TAKE ONE TABLET BY MOUTH EVERY DAY 02/13/2013 10/30/2013 Inactive Kenalog 40 mg/mL Susp for Injection RxNorm: 8272286 1 Milliliter(s) Inj 02/08/2013 02/08/2013 Inactive azithromycin 500 mg tablet RxNorm: 6310134 1 Tablet(s) PO daily 02/08/2013 02/14/2013 Inactive Rocephin 500 mg Solution for Injection RxNorm: 831603 Inj 02/0802/08/2013 Inactive Diflucan 150 mg tablet RxNorm: 608791 1 Tablet(s) PO daily 02/17/2013 Inactive Diflucan 150 mg tablet RxNorm: 813196 1 Tablet(s) PO daily 03/201302/07/2013 Inactive Flagyl 500 mg tablet RxNorm: 878981 1 Tablet(s) PO TID 201201/17/2013 Inactive Cipro 500 mg tablet RxNorm: 449254 1 Tablet(s) PO BID 201201/17/2013 Inactive Flagyl 500 mg tablet RxNorm: 241422 1 Tablet(s) PO TID 201201/27/2013 Inactive Cipro 500 mg tablet RxNorm: 357862 1 Tablet(s) PO BID 201201/27/2013 Inactive metoprolol succinate ER 25 mg tablet,extended release 24 hr RxNorm: 464085 Tablet (s) PO TAKE ONE TABLET BY MOUTH EVERY DAY 12/08/2012 12/24/2013 Inactive Lasix 20 mg tablet RxNorm: 025064 Tablet(s) PO TAKE ONE TABLET BY MOUTH EVERY DAY NEEDED 10/27/2012 08/12/2015 Inactive potassium chloride ER 10 mEq tablet,extended release RxNorm: 434297 1 Tablet(s) PO QDAY PRN 09/12/2012 03/10/2013 Inactive metoprolol succinate ER 25 mg tablet,extended release 24 hr RxNorm: 591665 Tablet (s) PO TAKE ONE TABLET BY MOUTH EVERY DAY 09/09/2012 12/07/2012 Inactive simvastatin 20 mg tablet RxNorm: 025437 Tablet(s) PO 201101/17/2013 Inactive TAKE ONE TABLET BY MOUTH EVERY DAY Lasix 20 mg tablet RxNorm: 077670 Tablet(s) PO 07/15/2012 10/26/2012 Inactive TAKE ONE TABLET BY MOUTH EVERY DAY NEEDED hydrochlorothiazide 25 mg tablet RxNorm: 405411 1 Tablet(s) PO 05/16/2012 02/09/2013 Inactive Vesicare 10 mg tablet RxNorm: 477403 1/2 Tablet(s) PO daily 05/19/2013 Inactive metoprolol succinate ER 25 mg 24 hr Tab RxNorm: 223415 1 Tablet(s) PO daily 03/16/2012 09/11/2012 Inactive metoprolol succinate ER 25 mg tablet,extended release 24 hr RxNorm: 698718 1 Tablet(s) PO daily 03/14/2012 03/15/2012 Inactive Vesicare 10 mg tablet RxNorm: 281151 1 Tablet(s) PO daily 201104/24/2012 Inactive metoprolol succinate ER 25 mg 24 hr Tab RxNorm: 047436 1 Tablet(s) PO daily 01/12/2012 03/13/2012 Inactive simvastatin 20 mg tablet RxNorm: 191265 1 Tablet(s) PO daily 08/15/2012 Inactive levofloxacin 500 mg Tab RxNorm: 419240 1 Tablet(s) PO daily 08/201212/13/2011 Inactive hydrochlorothiazide 12.5 mg tablet RxNorm: 178808 1 Tablet(s) PO daily 12/07/2011 05/15/2012 Inactive Kenalog 40 mg/mL Susp for Injection RxNorm: 9087009 1 Milliliter(s) Inj 11/17/2011 11/17/2011 Inactive cefdinir 300 mg Cap RxNorm: 159200 1 Capsule(s) PO BID 201111/26/2011 Inactive Diflucan 150 mg tablet RxNorm: 530081 1 Tablet(s) PO daily 11/21/2011 Inactive Rocephin 500 mg Solution for Injection RxNorm: 546986 1 Milliliter(s) Inj 11/17/2011 11/17/2011 Inactive azithromycin 500 mg Tab RxNorm: 7842587 1 Tablet(s) PO daily 11/21/2011 Inactive metoprolol succinate ER 25 mg 24 hr Tab RxNorm: 362626 1 Tablet(s) PO daily 11/12/2011 01/11/2012 Inactive metoprolol succinate ER 25 mg 24 hr Tab RxNorm: 648465 1 Tablet(s) PO daily 11/12/2011 11/11/2011 Inactive hydrochlorothiazide 25 mg Tab RxNorm: 379245 1 Tablet(s) PO daily 09/01/2011 12/06/2011 Inactive prednisone 5 mg Tab RxNorm: 215385 Tablet(s) PO 08/18/2011 08/23/2011 Inactive 6 day taper: 6-5-4-3-2-1 Kenalog 40 mg/mL Susp for Injection RxNorm: 9073055 Milliliter(s) Inj 08/18/2011 08/18/2011 Inactive metoprolol succinate ER 25 mg tablet,extended release 24 hr RxNorm: 311423 1 Tablet(s) PO daily No Start Date Active hydrocodone 10 mg-acetaminophen 325 mg tablet RxNorm: 632330 1 Tablet(s) PO as needed No Start Date Active Cipro 500 mg tablet RxNorm: 140110 Oral No Start Date 01/17/2013 Inactive Phenergan with Codeine Syrup RxNorm: 5-10 Milliliter(s) PO Q6 PRN No Start Date 07/25/2014 Inactive potassium chloride ER 10 mEq tablet,extended release RxNorm: 452430 1 Tablet(s) PO QDAY PRN No Start Date 09/11/2012 Inactive simvastatin 20 mg Tab RxNorm: 920157 1 Tablet(s) PO daily No Start Date 12/10/2011 Inactive Lasix 20 mg tablet RxNorm: 615213 1 Tablet(s) PO QDAY PRN No Start Date 07/14/2012 Inactive Vesicare 10 mg Tab RxNorm: 369505 1 Tablet(s) PO daily No Start Date 01/21/2012 Inactive Zithromax 500 mg Tab RxNorm: 5055247 Tablet(s) PO No Start Date 11/16/2011 Inactive 1 tab daily x 3 days, then 1/2 tab daily x 6 days. hydrochlorothiazide 25 mg Tab RxNorm: 300893 1 Tablet(s) PO daily No Start Date 08/31/2011 Inactive Medication Administered Medication Codes Instructions Start Date Status ceftriaxone 500 mg solution for injection RxNorm: 6127852 500Milligram 09/10/2017 No longer Active Kenalog 40 mg/mL suspension for injection RxNorm: 9448811 1Milliliter 09/10/2017 No longer Active Kenalog 40 mg/mL suspension for injection RxNorm: 4214967 1Milliliter 05/18/2017 No longer Active Kenalog 40 mg/mL suspension for injection RxNorm: 5705933 1Milliliter 08/13/2015 No longer Active Kenalog 40 mg/mL suspension for injection RxNorm: 4085784 1Milliliter 01/24/2015 No longer Active Kenalog 40 mg/mL suspension for injection RxNorm: 8454242 Mill[place] 01/01/2014 No longer Active Rocephin 500 mg solution for injection RxNorm: 145701 1 01/01/2014 No longer Active Kenalog 40 mg/mL suspension for injection RxNorm: 1756186 Millil[place] 12/01/2013 No longer Active Rocephin 500 mg Solution for Injection RxNorm: 258653 02/08/2013 No longer Active Kenalog 40 mg/mL Susp for Injection RxNorm: 2747249 1Milliliter 02/08/2013 No longer Active Rocephin 500 mg Solution for Injection RxNorm: 897625 1Milliliter 11/17/2011 No longer Active Kenalog 40 mg/mL Susp for Injection RxNorm: 1452897 1Milliliter 11/17/2011 No longer Active Kenalog 40 mg/mL Susp for Injection RxNorm: 9202758 Milliliter 08/18/2011 No longer Active Immunizations Vaccine [...] urgency ICD-9: 788.63 10/31/2013 ESSENTIAL HYPERTENSION SNOMED: 71290117 ICD-9: 401.9 10/31/2013 Skin tag ICD-9: 701.9 [...] Item Item Code Result Date Comp Metabolic Nwp310 NA 140 mEq/L 03/23/2018 Comp Metabolic Xzl753 K 3.4 mEq/L 03/23/2018 Comp Metabolic Mbp861 CL 103 mEq/L 03/23/2018 Comp Metabolic Vlg378 CO2 27.0 mEq/L 03/23/2018 Comp Metabolic Hlw452 ANION GAP 13 03/23/2018 Comp Metabolic Ckr820 GLUCOSE 115 mg/dL 03/23/2018 Comp Metabolic Lxv404 Creat 0.9 mg/dL 03/23/2018 Comp Metabolic Tvh080 eGFR 69 ml/min/1.73m2 03/23/2018 Comp Metabolic Tjd646 BUN 14 mg/dL 03/23/2018 Comp Metabolic Ozi264 B/C Ratio 16.5 Ratio 03/23/2018 Comp Metabolic Zab139 CALCIUM 9.1 mg/dL 03/23/2018 Comp Metabolic Mwb872 ALK PHOS 84 U/L 03/23/2018 Comp Metabolic Bck537 AST(SGOT) 22 U/L 03/23/2018 Comp Metabolic Ffh065 ALT(SGPT) 20 U/L 03/23/2018 Comp Metabolic Xcc396 BILI T 0.8 mg/dL 03/23/2018 Comp Metabolic Zun591 ALBUMIN 4.0 g/dL 03/23/2018 Comp Metabolic Sib370 TPRO 7.0 g/dL 03/23/2018 Comp Metabolic Uqg306 GLOB 3.0 g/dL 03/23/2018 Comp Metabolic Mgg385 A/G Ratio 1.3 Ratio 03/23/2018 Comp Metabolic Zyi563 Osmo 281 mOsmo 03/23/2018 Cbc With Differential [...] 30.4 pg 03/23/2018 Cbc With Differential Ord2 [place]% 10.7 % 03/23/2018 Cbc With Differential Ord2 [...] 1.73 K/ul 03/23/2018 Cbc With Differential Ord2 [place] ABS# 0.9 K/ul 03/23/2018 Cbc With Differential [...] Ord30 C/HDL 2.9 Ratio 03/23/2018 Comp Metabolic Fvg297 NA 141 mEq/L 08/04/2017 Comp Metabolic Xgi842 K 3.6 mEq/L 08/04/2017 Comp Metabolic Jdc021 CL 101 mEq/L 08/04/2017 Comp Metabolic Fri638 CO2 32.0 mEq/L 08/04/2017 Comp Metabolic Xdh175 ANION GAP 12 08/04/2017 Comp Metabolic Ogl664 GLUCOSE 99 mg/dL 08/04/2017 Comp Metabolic Hcz339 Creat 1.0 mg/dL 08/04/2017 Comp Metabolic Ebz322 eGFR 60 ml/min/1.73m2 08/04/2017 Comp Metabolic Mtd944 BUN 21 mg/dL 08/04/2017 Comp Metabolic Lla397 B/C Ratio 21.9 Ratio 08/04/2017 Comp Metabolic Qiw667 CALCIUM 9.4 mg/dL 08/04/2017 Comp Metabolic Ecw432 ALK PHOS 107 U/L 08/04/2017 Comp Metabolic Jhf395 AST(SGOT) 21 U/L 08/04/2017 Comp Metabolic Xhl192 ALT(SGPT) 21 U/L 08/04/2017 Comp Metabolic Bit464 BILI T 0.6 mg/dL 08/04/2017 Comp Metabolic Ogu904 ALBUMIN 4.0 g/dL 08/04/2017 Comp Metabolic Ljo325 TPRO 7.2 g/dL 08/04/2017 Comp Metabolic Xer618 GLOB 3.2 g/dL 08/04/2017 Comp Metabolic Czr819 A/G Ratio 1.2 Ratio 08/04/2017 Comp Metabolic Pps664 Osmo 284 mOsmo 08/04/2017 Cbc With Differential [...] 31.1 pg 08/04/2017 Cbc With Differential Ord2 [place]% 7.8 % 08/04/2017 Cbc With Differential Ord2 [...] 1.79 K/ul 08/04/2017 Cbc With Differential Ord2 [place] ABS# 0.6 K/ul 08/04/2017 Cbc With Differential Ord2 Eos ABS# 0.5 K/ul 08/04/2017 Cbc With Differential Ord2 Baso ABS# 0.0 K/ul 08/04/2017 Tsh Ord6 hTSH II 2.45 uIU/mL 08/04/2017 Lipid Ord30 CHOL 217 mg/dL 08/04/2017 Lipid Ord30 HDL 59.0 mg/dl 08/04/2017 Lipid Ord30 TRIG 97 mg/dL 08/04/2017 Lipid Ord30 LDL 139 mg/dL 08/04/2017 Lipid Ord30 C/HDL 3.7 Ratio 08/04/2017 Comp Metabolic Uol407 NA 138 mEq/L 07/21/2016 Comp Metabolic Utj700 K 3.8 mEq/L 07/21/2016 Comp Metabolic Wcn415 CL 102 mEq/L 07/21/2016 Comp Metabolic Rqr162 CO2 30.0 mEq/L 07/21/2016 Comp Metabolic Ucs860 ANION GAP 10 07/21/2016 Comp Metabolic Kdk855 GLUCOSE 101 mg/dL 07/21/2016 Comp Metabolic Hyb196 Creat 0.9 mg/dL 07/21/2016 Comp Metabolic Azs421 eGFR 63 ml/min/1.73m2 07/21/2016 Comp Metabolic Vkd420 BUN 19 mg/dL 07/21/2016 Comp Metabolic Cyl618 B/C Ratio 20.4 Ratio 07/21/2016 Comp Metabolic Aom833 CALCIUM 9.3 mg/dL 07/21/2016 Comp Metabolic Uvo475 ALK PHOS 83 U/L 07/21/2016 Comp Metabolic Nph951 AST(SGOT) 20 U/L 07/21/2016 Comp Metabolic Xle689 ALT(SGPT) 18 U/L 07/21/2016 Comp Metabolic Yfd591 BILI T 0.6 mg/dL 07/21/2016 Comp Metabolic Yua730 ALBUMIN 4.0 g/dL 07/21/2016 Comp Metabolic Bhs341 TPRO 7.2 g/dL 07/21/2016 Comp Metabolic Bqr458 GLOB 3.3 g/dL 07/21/2016 Comp Metabolic Lag672 A/G Ratio 1.2 Ratio 07/21/2016 Comp Metabolic Vss158 Osmo 278 mOsmo 07/21/2016 Cbc With Differential [...] 29.8 pg 07/21/2016 Cbc With Differential Ord2 [place]% 9.6 % 07/21/2016 Cbc With Differential Ord2 [...] 2.10 K/ul 07/21/2016 Cbc With Differential Ord2 [place] ABS# 0.7 K/ul 07/21/2016 Cbc With Differential [...] CPT-4: J0696 09/10/2017 THER/PROPH/DIAG INJ SC/IM CPT-4: 81268 05/18/2017 TRIAMCINOLONE ACET INJ NOS CPT-4: J3301 05/18/2017 DESTRUCT PREMALG LESION CPT-4: 04247 06/24/2016 ADMIN INFLUENZA VIRUS VAC CPT-4: G0008 06/15/2016 ADMIN PNEUMOCOCCAL VACCINE SNOMED CT: 64812910 CPT-4: G0009 06/15/2016 PNEUMOCOCCAL VACC [address]: 77822083 CPT-4: 89958 06/15/2016 FLU VACC PRSV FREE INC ANTIG Assigned to/Vianney Bronson, Formatting Model/CDA Sections CPT-4: 00117Hluovmw 06/15/2016 THER/PROPH/DIAG INJ SC/IM CPT-4: 96290 08/13/2015 TRIAMCINOLONE ACET INJ NOS CPT-4: J3301 08/13/2015 TRIAMCINOLONE ACET INJ NOS CPT-4: J3301 01/24/2015 IMMUNIZATION ADMIN CPT -4: 54258 08/08/2014 FLU VAC NO PRSV 4 DARREL 3 YRS+ Assigned to CPT-4: 57239Jrxlzys 08/08/2014 TRIAMCINOLONE ACET INJ NOS CPT-4: J3301 01/01/2014 ROCEPHIN, PER 250 MG CPT-4: J0696 01/01/2014 TRIAMCINOLONE ACET INJ NOS CPT-4: J3301 12/01/2013 REMOVAL OF SKIN TAGS <W/15 CPT-4: 92718 06/29/2013 TRIAMCINOLONE ACET INJ NOS CPT-4: J3301 02/08/2013 ROCEPHIN, PER 250 MG CPT-4: J0696 02/08/2013 [id number] EST. PATIENT, LEVEL III CPT-4: 04933 05/16/2012 TRIAMCINOLONE ACET INJ NOS CPT-4: J3301 11/17/2011 ROCEPHIN, PER 250 MG CPT-4: J0696 11/17/2011 TRIAMCINOLONE ACET INJ NOS CPT-4: J3301 08/18/2011 THER/PROPH/DIAG INJ SC/IM CPT-4: 31469 08/18/2011 Vital Signs Date Vital 10/05/2018 BMI: 38.1 Code: 70790-0 Heart Rate 1: 88 bpm Height: 5'4" Weight: 222 lbs 09/22/2018 Blood Pressure 1: 132/74 Code : 8480-6 BMI: 38.4 Code : 82108-4 Heart Rate 1 : 74 bpm Height: 5'4" SpO2: 96% Weight: 224 lbs 03/29/2018 Blood Pressure 1: 130/82 Code : 8480-6 BMI: 38.1 Code : 90458-5 Heart Rate 1 : 71 bpm Height: 5'4" SpO2: 96% Weight: 222 lbs 09/10/2017 Blood Pressure 1: 130/78 Code : 8480-6 BMI: 37.1 Code : 60809-6 Heart Rate 1 : 76 bpm Height: 5'4" SpO2: 97% Temperature: 36.9 (C) / 98.4 (F) Weight: 216 lbs 07/26/2017 Blood Pressure 1: 118/80 Code : 8480-6 Heart Rate 1: 71 bpm SpO2: 96% 05/18/2017 Blood Pressure 1: 122/80 Code : 8480-6 BMI: 36.9 Code : 64592-5 Heart Rate 1 : 83 bpm Height: 5'4" SpO2: 96% Weight: 215 lbs 05/12/2017 Blood Pressure 1: 132/80 Code : 8480-6 BMI: 36.7 Code : 88939-3 Heart Rate 1 : 86 bpm Height: [...] Code : 8480-6 BMI: 37.8 Code : 82182-4 Heart Rate 1 : 74 bpm Height: 5'4" SpO2: 97% Temperature: 37.1 (C) / 98.7 (F) Weight: 220 lbs 07/20/2016 Blood Pressure 1: 134/80 Code : 8480-6 BMI: 36.9 Code : 78172-3 Heart Rate 1 : 71 bpm Height: 5'4" SpO2: 98% Weight: 215 lbs 06/24/2016 Blood Pressure 1: 134/74 Code : 8480-6 BMI: 37.1 Code : 52168-8 Heart Rate 1 : 85 bpm Height: 5'4" SpO2: 97% Weight: 216 lbs 06/15/2016 Blood Pressure 1: 130/80 Code : 8480-6 BMI: 37.1 Code : 99130-9 Heart Rate 1 : 73 bpm Height: 5'4" SpO2: 97% Weight: 216 lbs 01/15/2016 Blood Pressure 1: 128/80 Code : 8480-6 BMI: 35.7 Code : 13442-4 Heart Rate 1 : 79 bpm Height: 5'4" SpO2: 97% Weight: 208 lbs 12/11/2015 Blood Pressure 1: 134/80 Code : 8480-6 BMI: 34.7 Code : 06884-2 Heart Rate 1 : 65 bpm Height: 5'4" SpO2: 98% Temperature: 36.7 (C) / 98.1 (F) Weight: 202 lbs 08/13/2015 Blood Pressure 1: 120/82 Code : 8480-6 BMI: 34.2 Code : 24851-7 Heart Rate 1 : 74 bpm Height: 5'4" SpO2: 98% Weight: 199 lbs 01/24/2015 Blood Pressure 1: 138/82 Code : 8480-6 BMI: 36.2 Code : 86609-1 Heart Rate 1 : 69 bpm Height: 5'6" SpO2: 94% Temperature: 36.5 (C) / 97.7 (F) Weight: 224 lbs 07/26/2014 Blood Pressure 1: 142/96 Code : 8480-6 BMI: 35.2 Code : 09510-7 Heart Rate 1 : 68 bpm Height: 5'6" Weight: 218 lbs 01/01/2014 Blood Pressure 1: 104/70 Code : 8480-6 BMI: 35.0 Code : 02188-9 Heart Rate 1 : 68 bpm Height: 5'6" Temperature: 36.8 (C) / 98.2 (F) Weight: 217 lbs 12/01/2013 Blood Pressure 1: 112/78 Code : 8480-6 Heart Rate 1: 84 bpm Temperature: 36.7 (C) / 98.0 (F) Weight: 213 lbs 10/31/2013 Blood Pressure 1: 102/70 Code : 8480-6 BMI: 34.9 Code : 84792-2 Heart Rate 1 : 64 bpm Height: 5'6" Weight: 216 lbs 06/29/2013 Blood Pressure 1: 130/84 Code : 8480-6 BMI: 34.5 Code : 29717-2 Heart Rate 1 : 80 bpm Height: 5'6" Weight: 214 lbs 02/08/2013 Blood Pressure 1: 122/80 Code : 8480-6 BMI: 32.9 Code : 87691-1 Heart Rate 1 : 72 bpm Height: 5'6" Temperature: 37.4 (C) / 99.3 (F) Weight: 204 lbs 01/02/2013 Blood Pressure 1: 118/88 Code : 8480-6 BMI: 34.7 Code : 27363-0 Heart Rate 1 : 88 bpm Height: [...] Code : 8480-6 BMI: 35.3 Code : 31830-2 Heart Rate 1 : 68 bpm Height: [...] data Encounters Encounter Performer Location Codes Date 77846 EST. PATIENT, LEVEL III Diagnosis: Cough[ICD10: R05] Diagnosis: Acute laryngopharyngitis[ICD10: J06.0] Diagnosis: Other allergic rhinitis[ICD10: J30.89] Xochilt Lopez MD, [facility] CPT-4: 48147 10/05/2018 55550 EST. PATIENT, LEVEL III Diagnosis: Acute laryngopharyngitis[ICD10: J06.0] Diagnosis: Other allergic rhinitis[ICD10: J30.89] Diagnosis: Cough[ICD10: R05] Xochilt Lopez MD, [facility] CPT-4: 66751 09/22/2018 ([id number]) 07193 EST. PATIENT, LEVEL IV Diagnosis: Essential (primary) hypertension[ICD10: I10] Diagnosis: Pain in left knee[ICD10: M25.562] Diagnosis: Pain in right knee[ICD10: M25.561] Diagnosis: Shortness of breath[ICD10: R06.02] Ann-Marie Lopez MD, [facility] CPT-4: 11483 03/29/2018 ([id number]) 48108 EST. PATIENT, LEVEL III Diagnosis: Cough[ICD10: R05] Diagnosis: Acute bronchitis, unspecified[ICD10: J20.9] Joceline Lopez MD, [facility] CPT-4: 40932 09/10/2017 ([id number]) Miscellaneous no charge Diagnosis: Essential (primary) hypertension[ICD10: I10] Joceline Lopez MD, [facility] CPT-4: 55096 07/26/2017 ([id number]) 65335 EST. PATIENT, LEVEL III Diagnosis: Otalgia, right ear[ICD10: H92.01] Diagnosis: Other specified disorders of teeth and supporting structures[ICD10: K08.89] Ann-Marie Lopez MD, [facility] CPT-4: 75807 2016 [id number] EST. PATIENT, LEVEL III Diagnosis: Acute suppurative otitis media without spontaneous rupture of ear drum, right ear[ICD10: H66.001] Xochilt Lopez MD, [facility] CPT-4: 46317 05/12/2017 ([id number]) 70730 EST. PATIENT, LEVEL II Diagnosis: Contusion of left lower leg, subsequent encounter[ICD10: S80.12XD] Joceline Lopez MD, [facility] CPT-4: 45812 02/25/2017 ([id number]) 67725 EST. PATIENT, LEVEL III Diagnosis: Cellulitis of right lower limb[ICD10: L03.115] Diagnosis: Contusion of left lower leg, initial encounter[ICD10: S80.12XA] Diagnosis: Laceration without foreign body, right lower leg, initial encounter[ ICD10: S81.811A] Joceline Lopez MD, [facility] CPT-4: 22437 01/15/2017 ([id number]) 59266 EST. PATIENT, LEVEL III Diagnosis: Acute recurrent maxillary sinusitis[ICD10: J01.01] Diagnosis: Cough[ICD10: R05] Ann-Marie Lopez MD, [facility] CPT-4: 37260 10/29/2016 ([id number]) 80598 EST. PATIENT, LEVEL IV Diagnosis: Essential (primary) hypertension[ICD10: I10] Diagnosis: Varicose veins of left lower extremity with inflammation[ICD10: I83.12] Diagnosis: Localized edema[ICD10: R60.0] Ann-Marie Lopez MD, [facility] CPT- 4: 33537 07/20/2016 61695 EST. PATIENT, LEVEL III Diagnosis: Actinic keratosis[ICD10: L57.0] Xochilt Lopez MD, [facility] CPT-4 : 65149 06/24/2016 ([id number]) 85721 EST. PATIENT, LEVEL III Diagnosis: Asymptomatic varicose veins of bilateral lower extremities[ICD10: I83.93] Joceline Lopez MD [facility] CPT-4: 56161 17187 EST. PATIENT, LEVEL III Diagnosis: Rash and other nonspecific skin eruption[ICD10: R21] Xochilt Lopez MD, [facility] CPT-4: 96286 01/15/2016 ([id number]) 91803 EST. PATIENT, LEVEL III Diagnosis: Cough[ICD10: R05] Diagnosis: Dyspnea, unspecified[ICD10: R06.00] Diagnosis: Acute sinusitis, unspecified[ICD10: J01.90] Ann-Marie Lopez MD, [facility] CPT-4: 49316 12/11/2015 98045 EST. PATIENT, LEVEL III Diagnosis: Allergic rhinitis, unspecified[ICD10: J30.9] Diagnosis: Tinnitus, bilateral[ICD10: H93.13] Xochilt Lopez MD, [facility] CPT-4: 58011 08/13/2015 ([id number]) 39033 EST. PATIENT, LEVEL III Diagnosis: ALLERGIC RHINITIS[ICD9: 477.9] Joceline Lopez MD, [facility] CPT-4: 36877 01/24/2015 ([id number]) PER PM REEVAL EST PAT 65+ YR Diagnosis: Routine medical exam[ICD9: V70.0] Ann-Marie Lopez MD, [facility] CPT-4: 53553 07/26/2014 ([id number]) 05030 EST. PATIENT, LEVEL III Diagnosis: ACUTE SINUSITIS[ICD9: 461.9] Diagnosis: ACUTE BRONCHITIS[ICD9: 466.0] Diagnosis: COUGH[ICD9: 786.2] Joceline Lopez MD, [facility] CPT-4: 42706 01/01/2014 ([id number]) 23149 EST. PATIENT, LEVEL III Diagnosis: ALLERGIC RHINITIS[ICD9: 477.9] Joceline Lopez MD, [facility] CPT-4: 35358 12/01/2013 ([id number]) 46914 EST. PATIENT, LEVEL IV Diagnosis: ESSENTIAL HYPERTENSION[SNOMED: 22217653] Diagnosis: Urinary urgency[ICD9: 788.63] Ann-Marie Lopez MD, [facility] CPT- 4: 95237 10/31/2013 ([id number]) 73792 EST. PATIENT, LEVEL III Diagnosis: Cough[ICD9: 786.2] Diagnosis: Diarrhea[ICD9: 787.91] Ann-Marie Lopez MD, [facility] CPT-4: 38285 02/08/2013 ([id number]) 84144 EST. PATIENT, LEVEL III Diagnosis: Diarrhea[ICD9: 787.91] Diagnosis: Abdominal discomfort[ICD9: 789.00] Diagnosis: Fecal urgency[ICD9: 787.63] Ann-Marie Lopez MD [facility] CPT- 4: 06534 01/02/2013 ([id number]) 39717 EST. PATIENT, LEVEL III Diagnosis: EDEMA[ICD9: 782.3] Ann-Marie Lopez MD [facility] CPT-4: 58735 04/25/2012 ([id number]) 48071 EST. PATIENT, LEVEL III Diagnosis: ESSENTIAL HYPERTENSION[SNOMED: 44852984] Diagnosis: BACTERIAL PNEUMONIA[ICD9: 482.9] Ann-Marie Lopez MD, [facility] CPT-4: 01913 12/07/2011 ([id number]) 32671 EST. PATIENT, LEVEL IV Diagnosis: COUGH[ICD9: 786.2] Diagnosis: FEVER NOS[ICD9: 780.60] Ann-Marie Lopez MD, [facility] CPT-4: 75070 11/17/2011 47994 EST. PATIENT, LEVEL IV Diagnosis: Acute bronchitis[ICD9: 466.0] Diagnosis: Cough[ICD9: 786.2] Diagnosis: Dyspnea[ICD9: 786.09] Joceline Lopez MD, [facility] CPT-4: 35765 08/18/2011 Plan of Care Planned Activity Notes [...] patient's pharmacy. 09/22/2018 Appointment: Xochilt Gardner WPtel: [facility] (15 min) Moderate 09/22/2018 Patient Education: Patient Medication Summary Completed 09/22/2018 Patient Education: Patient Medication Summary Completed 05/04/2018 Care Plan: SCREENINGMAMMOGRAPHYDIGITAL LOINC : 49931-0 Pending 05/04/2018 Appointment: Ann-Marie Lopez WPtel: [address] [place] [address] (15 min) Moderate 04/21/2018 Visit Plan: Hypertension [...] knee pain. 03/29/2018 Appointment: Ann-Marie Lopez WPtel: [facility]3 [facility] (15 min) Moderate 03/29/2018 Patient Education: Patient Medication Summary Completed 03/29/2018 Appointment: Nurse Visit 03/02/2018 Visit Plan: Bronchitis - acute case of bronchitis identified. Pt has been given antibiotics, breathing treatments as appropriate, and pt has been instructed to call if symptoms are not improved, or if symptoms acutely worsen. 09/10/2017 Appointment: Joceline Mario WPtel: [phone] [phone] (15 min) Moderate 09/10/2017 Patient Education: Patient [...] worsen. 05/12/2017 Appointment: [facility] Gardner [phone] (10 min) Simple 05/12/2017 Patient Education: Patient Medication Summary Completed 05/12/2017 Visit Plan: Contusion/hematoma-left lower leg-improving- continue to monitor Laceration-right wwa-uxijgdo-kyw neosporin as directed Skin tag-right neck-fell off in the office before having it removed-no treatment today in the office-monitor area 02/25/2017 Appointment: Joc[facility] Mario [facility]el[phone] [phone] (30 min) Complex 02/25/2017 Patient Education: Patient [...] treatment 01/15/2017 Appointment: [facility] Mario [facility]el[phone] [phone] (30 min) Complex 01/15/2017 Patient Education: Patient [...] 07/20/2016 Care Plan: Referral Order SNOMED-CT : [id number] Pending 07/20/2016 Visit Plan: Irritated [place] to [...] concerns. 06/24/2016 Appointment: Joc[facility] Mario [facility]el[facility] [phone] [facility] [phone] (15 min) Moderate 06/24/2016 Patient Education: Patient Medication Summary Completed 06/24/2016 Patient Education: Obesity Completed 06/24/2016 Visit Plan: Varicose veins-recommend compression stockings- on in the am and off at HS-discussed the need for weight loss as well- instructed patient to call if symptoms persist, worsen, or new symptoms develop. Patient verbalized understanding of plan. 06/15/2016 Appointment: Joceline Mario WPtel: [phone] [facility] [phone] [place] (15 min) Moderate 06/15/2016 Patient Education: Patient Medication Summary Completed 06/15/2016 Patient Education: Obesity Completed 06/15/2016 Appointment: [phone] [place] (15 min) Moderate 06/08/2016 Visit [...] Summary Completed 01/24/2015 Appointment: [phone] [facility] [place] Injection 08/08/2014 Patient Education: Patient [...] home. 07/26/2014 Appointment: [phone] Follow up 07/26/2014 Patient Education: Patient [...] anti histamine. 12/01/2013 Appointment: Joceline Mario WPtel: [phone] [phone] Sick 12/01/2013 Patient Education: Patient Medication Summary [...] symptoms worsen. 10/31/2013 Appointment: Ann-Marie Lopez WPtel: [address] [place] [address] Other 10/31/2013 Patient Education: Patient Medication Summary Completed 10/31/2013 Patient Education: Hypertension Completed 10/31/2013 Appointment: Ann-Marie Lopez WPtel: [address] [place] [address] Surgical Procedure 07/04/2013 Visit Plan: Wound Instructions - Pt was instruced to keep the wound clean, wash with antibacterial soap, use triple antibiotic ointment, call if redness, pustular drainage, or any other acute conerns. 06/29/2013 Appointment: Joceline Mario WPtel: [address] [place], [place] [phone] Surgical Procedure 06/29/2013 Patient Education: Patient Medication [...] with codeine. 02/08/2013 Appointment: Ann-Marie Lopez WPtel: [facility] 02/08/2013 Patient Education: Patient Medication Summary Completed 02/08/2013 Visit Plan: Diarrhea - recommended bland diet, no milk or fatty foods, recommended a gallbladder ultrasound and for pt to have stool studies and start on a probiotic. 01/02/2013 Appointment: Ann-Marie Lopez WPtel: [address] [place], [place] [phone] Sick 01/02/2013 Patient Education: Patient Medication Summary Completed 01/02/2013 Appointment: Ann-Marie Lopez WPtel: [address] [place], [place] [phone] Follow up 06/20/2012 Visit Plan: Edema - [...] lasix. Check labs-order provided 05/16/2012 Appointment: Ann-Marie oLpez WPtel: [address] [place], [place] [phone] Other 05/16/2012 Patient Education: Patient Medication [...] peripheral edema. 04/25/2012 Appointment: Ann-Marie Lopez WPtel: [address] [place], [place] [phone] Other 04/25/2012 Patient Education: Patient Medication Summary Completed 04/25/2012 Appointment: Ann-Marie Lopez WPtel: [address] [place] [address] Other 12/08/2011 Visit Plan: Hypertension - well [...] illness. 12/07/2011 Appointment: Ann-Marie Lopez WPtel: [phone] [facility] Other 12/07/2011 Patient Education: Patient Medication Summary [...] pharmacy. 08/18/2011 Appointment: Ann-Marie Lopez WPtel: [phone] [facility] Other 08/18/2011 Patient Education: Patient Medication Summary [...] treatment plan and call if symptoms worsen. R-Squared or Adype - take three times daily x 10days [...] 10 days for suture removal Contusion-left lower kle-uddxynhae-lwmtqnej current treatment . Allergies - chronic - [...] to dr. lopez in 2 weeks - @[id number] . [facility] - pt was counseled [...] or do not improve. . Contusion/hematoma-left lower tlf-glkdxszbl-ctfmlbki to monitor Laceration-right zww-xbmyhkc-xng neosporin as directed Skin tag-right neck-fell off in the office before having it removed-no treatment today in the office-monitor area
[2019-01-31 07:11] LABS: BASOPHILS % (AUTO) 0 % (0-10); EOSINOPHILS # (AUTO) 0.2 10^3/uL (0.0-0.3); EOSINOPHILS % (AUTO) 2 % (0-10); HEMATOCRIT 43 % (35-52); LYMPHOCYTES # (AUTO) 2.3 X 10^3 (1.0-4.0); LYMPHOCYTES % (AUTO) 26 % (12-44); MEAN CORPUSCULAR HEMOGLOBIN 31 PG (25-34); MEAN CORPUSCULAR HGB CONC 32 G/DL (32-36); MEAN CORPUSCULAR VOLUME 95 FL (80-99); MONOCYTES # (AUTO) 0.8 X 10^3 (0.0-1.0); MONOCYTES % (AUTO) 9 % (0-12); NEUTROPHILS # (AUTO) 5.7 X 10^3 (1.8-7.8); NEUTROPHILS % (AUTO) 63 % (42-75); PLATELET COUNT 316 10^3/uL (130-400); RED CELL DISTRIBUTION WIDTH 14.2 % (10.0-14.5); WHITE BLOOD COUNT 9.1 10^3/uL (4.3-11.0)
[2019-01-31] MEDS ORDERED: NS IV 1000 ML 1,000 ML IV ONE (07:13)
--- OUTSIDE RECORDS SUMMARY | 2019-01-31 07:14 | XMS REPORT | CCD ---
Author Author Joceline Mario MD, [facility] Address [address] [place] [address] Phone Care Team Providers Care Tip Inserter Name Role Phone PP Unavailable CCM Unavailable Summary Purpose Interface Exchange Insurance Providers Payer name Policy type / Coverage type Covered libertarian ID Effective Begin Date Effective End Date WPS Medicare Part B Medicare Part B [id number] 2017 Unknown Cigna Medicare Part B [id number] Unknown Family history Mother Diagnosis Age At [...] employed SRS 08/18/[address]: 501578987 Nonsmoker 08/18/2011 Has the patient ever used [...] Unknown Cough ICD-9: 786.2 ICD-10: R05 Active 09/22/2018 Unknown Other allergic rhinitis ICD-9: [...] 09/22/2018 Active Cough ICD-9: 786.2 ICD-10: R05 09/22/2018 Active Other allergic rhinitis ICD-9: 477.8 [...] Start Date Stop Date Status Fill Instructions Keflex 500 mg capsule RxNorm: 346219 1 Capsule(s) PO TID 201710/01/2018 Active prednisone 20 mg tablet RxNorm: 790197 2 Tablet(s) PO daily 09/26/2018 Inactive ProAir HFA 90 mcg/actuation aerosol inhaler RxNorm: 448493 2 Puff(s) INH TID as needed dyspnea 03/29/2018 No Stop Date Active Keflex 500 mg capsule RxNorm: 692181 1 Capsule(s) PO TID 201703/01/2018 Inactive Keflex 500 mg capsule RxNorm: 404153 1 Capsule(s) PO TID 201703/08/2018 Inactive trospium ER 60 mg capsule,extended release 24 hr RxNorm: 361782 1 Capsule(s) PO daily 01/04/2018 12/29/2018 Active D/C Vesicare - insurance denied trospium ER 60 mg capsule,extended release 24 hr RxNorm: 270334 1 Capsule(s) PO daily 01/04/2018 01/03/2018 Inactive metoprolol succinate ER 25 mg tablet,extended release 24 hr RxNorm: 482004 TAKE ONE TABLET BY MOUTH EVERY DAY 12/27/2017 06/24/2018 Inactive Zyrtec-D 5 mg-120 mg tablet,extended release RxNorm: 3368954 1 Tablet(s) PO BID as needed 12/16/2017 01/04/2018 Inactive Zithromax Z-Seng 250 mg tablet RxNorm: 539266 1 Tablet(s) PO UD 09/10/2017 09/14/2017 Inactive ceftriaxone 500 mg solution for injection RxNorm: 5620750 500 Milligram(s) Inj 09/10/2017 09/10/2017 Inactive Kenalog 40 mg/mL suspension for injection RxNorm: 4947097 1 Milliliter(s) Inj 09/10/2017 09/10/2017 Inactive hydrochlorothiazide 25 mg tablet RxNorm: 516071 TAKE ONE TABLET BY MOUTH EVERY DAY 08/09/2017 08/03/2018 Inactive hydrochlorothiazide 25 mg tablet RxNorm: 580786 TAKE ONE TABLET BY MOUTH EVERY DAY 08/09/2017 08/08/2017 Inactive Vesicare 10 mg tablet RxNorm: 926474 TAKE 1/2 TABLET BY MOUTH DAILY 08/09/2017 01/03/2018 Inactive Vesicare 10 mg tablet RxNorm: 528140 TAKE 1/2 TABLET BY MOUTH DAILY 08/09/2017 08/08/2017 Inactive Augmentin 875 mg-125 mg tablet RxNorm: 389430 1 Tablet(s) PO BID take a probiotic when taking the antibiotic 05/18/2017 Inactive Kenalog 40 mg/mL suspension for injection RxNorm: 2399543 1 Milliliter(s) Inj 05/18/2017 05/18/2017 Inactive hydrocodone 5 mg-acetaminophen 325 mg tablet RxNorm: 103369 1 Tablet(s) PO Q4H as needed for pain 01/19/2017 01/23/2017 Inactive Keflex 500 mg capsule RxNorm: 205595 1 Capsule(s) PO TID 201601/21/2017 Inactive Zyrtec-D 5 mg-120 mg tablet,extended release RxNorm: 5083299 1 Tablet(s) PO BID 10/29/2016 11/07/2016 Inactive metoprolol succinate ER 25 mg tablet,extended release 24 hr RxNorm: 898880 TAKE ONE TABLET BY MOUTH EVERY DAY 08/26/2016 02/21/2017 Inactive Xyzal 5 mg tablet RxNorm: 595595 Tablet(s) as needed TAKE ONE TABLET BY MOUTH DAILY 06/15/2016 08/13/2016 Inactive hydrochlorothiazide 25 mg tablet RxNorm: 837496 TAKE ONE TABLET BY MOUTH EVERY DAY 06/09/2016 04/04/2017 Inactive Vesicare 10 mg tablet RxNorm: 145696 1/2 Tablet(s) PO daily TAKE 1/2 TABLET BY MOUTH EVERY DAY 03/16/2016 12/10/2016 Inactive Vesicare 10 mg tablet RxNorm: 946162 1/2 Tablet(s) PO daily TAKE 1/2 TABLET BY MOUTH EVERY DAY 03/16/2016 03/15/2016 Inactive Vesicare 10 mg tablet RxNorm: 823660 1/2 Tablet(s) PO daily TAKE 1/2 TABLET BY MOUTH EVERY DAY 03/16/2016 03/15/2016 Inactive metoprolol succinate ER 25 mg tablet,extended release 24 hr RxNorm: 397757 TAKE ONE TABLET BY MOUTH EVERY DAY 03/02/2016 06/29/2016 Inactive Xyzal 5 mg tablet RxNorm: 550829 TAKE ONE TABLET BY MOUTH DAILY 01/07/2016 03/06/2016 Inactive cefdinir 300 mg capsule RxNorm: 057573 1 Capsule(s) PO BID 12/17/2015 Inactive Vesicare 10 mg tablet RxNorm: 541873 1/2 Tablet(s) TAKE 1/2 TABLET BY MOUTH EVERY DAY 12/11/2015 03/15/2016 Inactive ProAir HFA 90 mcg/actuation aerosol inhaler RxNorm: 607916 2 Puff(s) INH TID x 3 days then bid x 3 days then prn dyspnea 12/11/2015 03/28/2018 Inactive Kenalog 40 mg/mL suspension for injection RxNorm: 5902336 1 Milliliter(s) Inj 08/13/2015 08/13/2015 Inactive acyclovir 800 mg tablet RxNorm: 108369 1 Tablet(s) PO TID 07/1907/18/2015 Inactive acyclovir 800 mg tablet RxNorm: 778580 1 Tablet(s) PO TID 07/1907/28/2015 Inactive metoprolol succinate ER 25 mg tablet,extended release 24 hr RxNorm: 143805 TAKE ONE TABLET BY MOUTH EVERY DAY 05/21/2015 11/16/2015 Inactive hydrochlorothiazide 25 mg tablet RxNorm: 766367 TAKE ONE TABLET BY MOUTH EVERY DAY 05/02/2015 06/08/2016 Inactive Vesicare 10 mg tablet RxNorm: 769883 TAKE ONE TABLET BY MOUTH EVERY DAY 02/05/2015 12/10/2015 Inactive Xyzal 5 mg tablet RxNorm: 597076 1 Tablet(s) PO daily 201404/23/2015 Inactive Kenalog 40 mg/mL suspension for injection RxNorm: 5894815 1 Milliliter(s) Inj 01/24/2015 01/24/2015 Inactive Flonase Allergy Relief 50 mcg/actuation nasal spray, suspension RxNorm: 2 [place] NASAL daily 01/24/2015 12/10/2015 Inactive [place] Allergy 180 mg tablet RxNorm: 801701 1 Tablet(s) PO daily 12/17/2014 12/16/2014 Inactive [place] Allergy 180 mg tablet RxNorm: 259540 1 Tablet(s) PO daily 12/17/2014 02/14/2015 Inactive metoprolol succinate ER 25 mg tablet,extended release 24 hr RxNorm: 914521 Tablet (s) PO TAKE ONE TABLET BY MOUTH EVERY DAY 09/11/2014 05/20/2015 Inactive gemfibrozil 600 mg tablet RxNorm: 025556 1 Tablet(s) PO BID 11/201302/24/2015 Inactive gemfibrozil 600 mg tablet RxNorm: 350458 1 Tablet(s) PO BID 11/201307/29/2014 Inactive hydrochlorothiazide 25 mg tablet RxNorm: 055599 TAKE ONE TABLET BY MOUTH EVERY DAY 04/29/2014 05/01/2015 Inactive Kenalog 40 mg/mL suspension for injection RxNorm: 5139752 Milliliter(s) Inj 01/01/2014 01/01/2014 Inactive cefdinir 300 mg capsule RxNorm: 684374 1 Capsule(s) PO BID 03/201401/07/2014 Inactive Flonase 50 mcg/actuation nasal spray,suspension RxNorm: 043485 2 [place] NASAL daily 01/01/2014 01/07/2014 Inactive Rocephin 500 mg solution for injection RxNorm: 360911 1 Inj 03/201401/01/2014 Inactive Zithromax 500 mg tablet RxNorm: 532622 1 Tablet(s) PO daily 12/201301/02/2014 Inactive metoprolol succinate ER 25 mg tablet,extended release 24 hr RxNorm: 645948 Tablet (s) PO TAKE ONE TABLET BY MOUTH EVERY DAY 12/25/2013 09/10/2014 Inactive Vesicare 10 mg tablet RxNorm: 945142 1 Tablet(s) PO daily TAKE ONE TABLET BY MOUTH EVERY DAY 12/18/2013 01/11/2015 Inactive Kenalog 40 mg/mL suspension for injection RxNorm: 9454231 Milliliter(s) Inj 12/01/2013 12/01/2013 Inactive Zithromax 500 mg tablet RxNorm: 089493 1 Tablet(s) PO daily 03/201412/05/2013 Inactive tolterodine ER 4 mg capsule,extended release 24 hr RxNorm: 565159 1 Capsule(s) PO daily 10/31/2013 12/17/2013 Inactive replaces vesicare hydrochlorothiazide 25 mg tablet RxNorm: 435579 Tablet(s) PO TAKE ONE TABLET BY MOUTH EVERY DAY 10/24/2013 04/28/2014 Inactive hydrochlorothiazide 25 mg tablet RxNorm: 499549 Tablet(s) PO TAKE ONE TABLET BY MOUTH EVERY DAY 08/21/2013 10/23/2013 Inactive hydrochlorothiazide 25 mg tablet RxNorm: 158711 Tablet(s) PO TAKE ONE TABLET BY MOUTH EVERY DAY 02/23/2013 08/20/2013 Inactive Vesicare 10 mg tablet RxNorm: 077657 Tablet(s) PO TAKE ONE TABLET BY MOUTH EVERY DAY 02/13/2013 10/30/2013 Inactive Vesicare 10 mg tablet RxNorm: 043404 Tablet(s) PO TAKE ONE TABLET BY MOUTH EVERY DAY 02/13/2013 10/30/2013 Inactive Kenalog 40 mg/mL Susp for Injection RxNorm: 4367947 1 Milliliter(s) Inj 02/08/2013 02/08/2013 Inactive azithromycin 500 mg tablet RxNorm: 3283441 1 Tablet(s) PO daily 02/08/2013 02/14/2013 Inactive Rocephin 500 mg Solution for Injection RxNorm: 539566 Inj 02/0802/08/2013 Inactive Diflucan 150 mg tablet RxNorm: 435798 1 Tablet(s) PO daily 02/17/2013 Inactive Diflucan 150 mg tablet RxNorm: 593435 1 Tablet(s) PO daily 03/201302/07/2013 Inactive Flagyl 500 mg tablet RxNorm: 117636 1 Tablet(s) PO TID 201201/17/2013 Inactive Cipro 500 mg tablet RxNorm: 806376 1 Tablet(s) PO BID 201201/17/2013 Inactive Flagyl 500 mg tablet RxNorm: 553144 1 Tablet(s) PO TID 201201/27/2013 Inactive Cipro 500 mg tablet RxNorm: 393941 1 Tablet(s) PO BID 201201/27/2013 Inactive metoprolol succinate ER 25 mg tablet,extended release 24 hr RxNorm: 384232 Tablet (s) PO TAKE ONE TABLET BY MOUTH EVERY DAY 12/08/2012 12/24/2013 Inactive Lasix 20 mg tablet RxNorm: 992253 Tablet(s) PO TAKE ONE TABLET BY MOUTH EVERY DAY NEEDED 10/27/2012 08/12/2015 Inactive potassium chloride ER 10 mEq tablet,extended release RxNorm: 659182 1 Tablet(s) PO QDAY PRN 09/12/2012 03/10/2013 Inactive metoprolol succinate ER 25 mg tablet,extended release 24 hr RxNorm: 180619 Tablet (s) PO TAKE ONE TABLET BY MOUTH EVERY DAY 09/09/2012 12/07/2012 Inactive simvastatin 20 mg tablet RxNorm: 432599 Tablet(s) PO 201101/17/2013 Inactive TAKE ONE TABLET BY MOUTH EVERY DAY Lasix 20 mg tablet RxNorm: 893996 Tablet(s) PO 07/15/2012 10/26/2012 Inactive TAKE ONE TABLET BY MOUTH EVERY DAY NEEDED hydrochlorothiazide 25 mg tablet RxNorm: 818435 1 Tablet(s) PO 05/16/2012 02/09/2013 Inactive Vesicare 10 mg tablet RxNorm: 389869 1/2 Tablet(s) PO daily 05/19/2013 Inactive metoprolol succinate ER 25 mg 24 hr Tab RxNorm: 821742 1 Tablet(s) PO daily 03/16/2012 09/11/2012 Inactive metoprolol succinate ER 25 mg tablet,extended release 24 hr RxNorm: 834703 1 Tablet(s) PO daily 03/14/2012 03/15/2012 Inactive Vesicare 10 mg tablet RxNorm: 617628 1 Tablet(s) PO daily 201104/24/2012 Inactive metoprolol succinate ER 25 mg 24 hr Tab RxNorm: 551036 1 Tablet(s) PO daily 01/12/2012 03/13/2012 Inactive simvastatin 20 mg tablet RxNorm: 719398 1 Tablet(s) PO daily 08/15/2012 Inactive levofloxacin 500 mg Tab RxNorm: 850482 1 Tablet(s) PO daily 08/201212/13/2011 Inactive hydrochlorothiazide 12.5 mg tablet RxNorm: 578141 1 Tablet(s) PO daily 12/07/2011 05/15/2012 Inactive Kenalog 40 mg/mL Susp for Injection RxNorm: 5162913 1 Milliliter(s) Inj 11/17/2011 11/17/2011 Inactive cefdinir 300 mg Cap RxNorm: 565717 1 Capsule(s) PO BID 201111/26/2011 Inactive Diflucan 150 mg tablet RxNorm: 972597 1 Tablet(s) PO daily 11/21/2011 Inactive Rocephin 500 mg Solution for Injection RxNorm: 746619 1 Milliliter(s) Inj 11/17/2011 11/17/2011 Inactive azithromycin 500 mg Tab RxNorm: 7107129 1 Tablet(s) PO daily 11/21/2011 Inactive metoprolol succinate ER 25 mg 24 hr Tab RxNorm: 789046 1 Tablet(s) PO daily 11/12/2011 01/11/2012 Inactive metoprolol succinate ER 25 mg 24 hr Tab RxNorm: 414262 1 Tablet(s) PO daily 11/12/2011 11/11/2011 Inactive hydrochlorothiazide 25 mg Tab RxNorm: 531322 1 Tablet(s) PO daily 09/01/2011 12/06/2011 Inactive prednisone 5 mg Tab RxNorm: 740896 Tablet(s) PO 08/18/2011 08/23/2011 Inactive 6 day taper: 6-5-4-3-2-1 Kenalog 40 mg/mL Susp for Injection RxNorm: 7147132 Milliliter(s) Inj 08/18/2011 08/18/2011 Inactive metoprolol succinate ER 25 mg tablet,extended release 24 hr RxNorm: 193418 1 Tablet(s) PO daily No Start Date Active hydrocodone 10 mg-acetaminophen 325 mg tablet RxNorm: 003209 1 Tablet(s) PO as needed No Start Date Active Cipro 500 mg tablet RxNorm: 269920 Oral No Start Date 01/17/2013 Inactive Phenergan with Codeine Syrup RxNorm: 5-10 Milliliter(s) PO Q6 PRN No Start Date 07/25/2014 Inactive potassium chloride ER 10 mEq tablet,extended release RxNorm: 596749 1 Tablet(s) PO QDAY PRN No Start Date 09/11/2012 Inactive simvastatin 20 mg Tab RxNorm: 054662 1 Tablet(s) PO daily No Start Date 12/10/2011 Inactive Lasix 20 mg tablet RxNorm: 294983 1 Tablet(s) PO QDAY PRN No Start Date 07/14/2012 Inactive Vesicare 10 mg Tab RxNorm: 830012 1 Tablet(s) PO daily No Start Date 01/21/2012 Inactive Zithromax 500 mg Tab RxNorm: 6111961 Tablet(s) PO No Start Date 11/16/2011 Inactive 1 tab daily x 3 days, then 1/2 tab daily x 6 days. hydrochlorothiazide 25 mg Tab RxNorm: 925054 1 Tablet(s) PO daily No Start Date 08/31/2011 Inactive Medication Administered Medication Codes Instructions Start Date Status Kenalog 40 mg/mL suspension for injection RxNorm: 3065404 1Milliliter 09/10/2017 No longer Active ceftriaxone 500 mg solution for injection RxNorm: 7512494 500Milligram 09/10/2017 No longer Active Kenalog 40 mg/mL suspension for injection RxNorm: 1711700 1Milliliter 05/18/2017 No longer Active Kenalog 40 mg/mL suspension for injection RxNorm: 6474977 1Milliliter 08/13/2015 No longer Active Kenalog 40 mg/mL suspension for injection RxNorm: 4065020 1Milliliter 01/24/2015 No longer Active Kenalog 40 mg/mL suspension for injection RxNorm: 3358815 Millil[place] 01/01/2014 No longer Active Rocephin 500 mg solution for injection RxNorm: 034140 1 01/01/2014 No longer Active Kenalog 40 mg/mL suspension for injection RxNorm: 7821894 Milliliter 12/01/2013 No longer Active Rocephin 500 mg Solution for Injection RxNorm: 681447 02/08/2013 No longer Active Kenalog 40 mg/mL Susp for Injection RxNorm: 5994859 1Milliliter 02/08/2013 No longer Active Rocephin 500 mg Solution for Injection RxNorm: 792404 1Milliliter 11/17/2011 No longer Active Kenalog 40 mg/mL Susp for Injection RxNorm: 0472180 1Milliliter 11/17/2011 No longer Active Kenalog 40 mg/mL Susp for Injection RxNorm: 2114162 Milliliter 08/18/2011 No longer Active Immunizations Vaccine Codes Date Status Influenza CVX: 141 06/23/2017 completed Influenza CVX: 141 06/15/2016 completed Pneumococcal (Adult) CVX: 133 06/15/2016 completed Influenza CVX: 141 08/08/2014 completed Zoster CVX: 121 05/23/2012 completed Influenza CVX: 141 07/27/2011 completed Assessments Condition Codes Effective Dates Other allergic rhinitis ICD-10: J30.89 ICD-9: 477.8 09/22/2018 Acute laryngopharyngitis ICD-10: J06.0 ICD-9: 465.0 09/22/2018 Cough ICD-10: R05 ICD-9: 786.2 09/22/2018 Encounter for screening mammogram for malignant neoplasm [...] urgency ICD-9: 788.63 10/31/2013 ESSENTIAL HYPERTENSION SNOMED: 78395590 ICD-9: 401.9 10/31/2013 Skin tag ICD-9: 701.9 06/29/2013 Diarrhea ICD-9: 787.91 02/08/2013 Fecal urgency ICD-9: 787.63 01/02/2013 Abdominal discomfort ICD-9: 789.00 2012 EDEMA ICD-9: 782.3 05/16/2012 BACTERIAL PNEUMONIA ICD-9: 482.9 2011 FEVER NOS ICD-9: 780.60 11/17/2011 Dyspnea ICD-9: 786.09 08/18/2011 Reason For Visit Reason For Visit Effective Dates Notes cough 09/22/2018 fatigue 03/29/2018 cough 09/10/2017 earache [...] Item Item Code Result Date Comp Metabolic Cnt852 NA 140 mEq/L 03/23/2018 Comp Metabolic Lxb943 K 3.4 mEq/L 03/23/2018 Comp Metabolic Vwn917 CL 103 mEq/L 03/23/2018 Comp Metabolic Xtg090 CO2 27.0 mEq/L 03/23/2018 Comp Metabolic Tnm914 ANION GAP 13 03/23/2018 Comp Metabolic Cus972 GLUCOSE 115 mg/dL 03/23/2018 Comp Metabolic Ouj504 Creat 0.9 mg/dL 03/23/2018 Comp Metabolic Yyc211 eGFR 69 ml/min/1.73m2 03/23/2018 Comp Metabolic Zpz198 BUN 14 mg/dL 03/23/2018 Comp Metabolic Egu905 B/C Ratio 16.5 Ratio 03/23/2018 Comp Metabolic Qbt377 CALCIUM 9.1 mg/dL 03/23/2018 Comp Metabolic Lld408 ALK PHOS 84 U/L 03/23/2018 Comp Metabolic Lte924 AST(SGOT) 22 U/L 03/23/2018 Comp Metabolic Cea306 ALT(SGPT) 20 U/L 03/23/2018 Comp Metabolic Zlu480 BILI T 0.8 mg/dL 03/23/2018 Comp Metabolic Cru127 ALBUMIN 4.0 g/dL 03/23/2018 Comp Metabolic Waa037 TPRO 7.0 g/dL 03/23/2018 Comp Metabolic Ovz003 GLOB 3.0 g/dL 03/23/2018 Comp Metabolic Iue016 A/G Ratio 1.3 Ratio 03/23/2018 Comp Metabolic Lqj931 Osmo 281 mOsmo 03/23/2018 Cbc With Differential [...] 30.4 pg 03/23/2018 Cbc With Differential Ord2 Power% 10.7 % 03/23/2018 Cbc With Differential Ord2 [...] 1.73 K/ul 03/23/2018 Cbc With Differential Ord2 Power ABS# 0.9 K/ul 03/23/2018 Cbc With Differential [...] Ord30 C/HDL 2.9 Ratio 03/23/2018 Comp Metabolic Nkx111 NA 141 mEq/L 08/04/2017 Comp Metabolic Qie658 K 3.6 mEq/L 08/04/2017 Comp Metabolic Qyq915 CL 101 mEq/L 08/04/2017 Comp Metabolic Fxd852 CO2 32.0 mEq/L 08/04/2017 Comp Metabolic Ylr335 ANION GAP 12 08/04/2017 Comp Metabolic Lch653 GLUCOSE 99 mg/dL 08/04/2017 Comp Metabolic Otz439 Creat 1.0 mg/dL 08/04/2017 Comp Metabolic Qux088 eGFR 60 ml/min/1.73m2 08/04/2017 Comp Metabolic Pqr499 BUN 21 mg/dL 08/04/2017 Comp Metabolic Exj949 B/C Ratio 21.9 Ratio 08/04/2017 Comp Metabolic Doj318 CALCIUM 9.4 mg/dL 08/04/2017 Comp Metabolic Ikh276 ALK PHOS 107 U/L 08/04/2017 Comp Metabolic Sid065 AST(SGOT) 21 U/L 08/04/2017 Comp Metabolic Kht092 ALT(SGPT) 21 U/L 08/04/2017 Comp Metabolic Mmq081 BILI T 0.6 mg/dL 08/04/2017 Comp Metabolic Fug342 ALBUMIN 4.0 g/dL 08/04/2017 Comp Metabolic Ulf331 TPRO 7.2 g/dL 08/04/2017 Comp Metabolic Klu804 GLOB 3.2 g/dL 08/04/2017 Comp Metabolic Dvk557 A/G Ratio 1.2 Ratio 08/04/2017 Comp Metabolic Fjt626 Osmo 284 mOsmo 08/04/2017 Cbc With Differential [...] 31.1 pg 08/04/2017 Cbc With Differential Ord2 Power% 7.8 % 08/04/2017 Cbc With Differential Ord2 [...] 1.79 K/ul 08/04/2017 Cbc With Differential Ord2 Power ABS# 0.6 K/ul 08/04/2017 Cbc With Differential Ord2 Eos ABS# 0.5 K/ul 08/04/2017 Cbc With Differential Ord2 Baso ABS# 0.0 K/ul 08/04/2017 Tsh Ord6 hTSH II 2.45 uIU/mL 08/04/2017 Lipid Ord30 CHOL 217 mg/dL 08/04/2017 Lipid Ord30 HDL 59.0 mg/dl 08/04/2017 Lipid Ord30 TRIG 97 mg/dL 08/04/2017 Lipid Ord30 LDL 139 mg/dL 08/04/2017 Lipid Ord30 C/HDL 3.7 Ratio 08/04/2017 Comp Metabolic Ons746 NA 138 mEq/L 07/21/2016 Comp Metabolic Bbz681 K 3.8 mEq/L 07/21/2016 Comp Metabolic Pbt979 CL 102 mEq/L 07/21/2016 Comp Metabolic Nte218 CO2 30.0 mEq/L 07/21/2016 Comp Metabolic Kjq241 ANION GAP 10 07/21/2016 Comp Metabolic Wrf249 GLUCOSE 101 mg/dL 07/21/2016 Comp Metabolic Xgb645 Creat 0.9 mg/dL 07/21/2016 Comp Metabolic Hck650 eGFR 63 ml/min/1.73m2 07/21/2016 Comp Metabolic Dwm850 BUN 19 mg/dL 07/21/2016 Comp Metabolic Lxr082 B/C Ratio 20.4 Ratio 07/21/2016 Comp Metabolic Cvh404 CALCIUM 9.3 mg/dL 07/21/2016 Comp Metabolic Khh578 ALK PHOS 83 U/L 07/21/2016 Comp Metabolic Cyb648 AST(SGOT) 20 U/L 07/21/2016 Comp Metabolic Rbp448 ALT(SGPT) 18 U/L 07/21/2016 Comp Metabolic Dqe220 BILI T 0.6 mg/dL 07/21/2016 Comp Metabolic Fav363 ALBUMIN 4.0 g/dL 07/21/2016 Comp Metabolic Xml957 TPRO 7.2 g/dL 07/21/2016 Comp Metabolic Nqp092 GLOB 3.3 g/dL 07/21/2016 Comp Metabolic Sjm030 A/G Ratio 1.2 Ratio 07/21/2016 Comp Metabolic Vnh451 Osmo 278 mOsmo 07/21/2016 Cbc With Differential [...] 29.8 pg 07/21/2016 Cbc With Differential Ord2 Power% 9.6 % 07/21/2016 Cbc With Differential Ord2 [...] 2.10 K/ul 07/21/2016 Cbc With Differential Ord2 Power ABS# 0.7 K/ul 07/21/2016 Cbc With Differential [...] System Result Effective Dates Constitutional recent illness 09/22/2018 Constitutional No chills 09/22/2018 Constitutional No diaphoresis 09/22/2018 Constitutional No fever 09/22/2018 Eyes No eye erythema 09/22/2018 Ears/Nose/Throat/Neck nasal allergies Ears/Nose/Throat/Neck nasal discharge Ears/Nose/Throat/Neck postnasal drip Ears/Nose/Throat/Neck sinus congestion Ears/Nose/Throat/Neck sore throat 12/27/ 2018 Cardiovascular No chest pain/pressure Cardiovascular No dyspnea [...] CPT-4: J0696 09/10/2017 THER/PROPH/DIAG INJ SC/IM CPT-4: 09405 05/18/2017 TRIAMCINOLONE ACET INJ NOS CPT-4: J3301 05/18/2017 DESTRUCT PREMALG LESION CPT-4: 76558 06/24/2016 ADMIN INFLUENZA VIRUS VAC CPT-4: G0008 06/15/2016 ADMIN PNEUMOCOCCAL VACCINE SNOMED CT: 48391045 CPT-4: G0009 06/15/2016 PNEUMOCOCCAL VACC [address]: 85527917 CPT-4: 15088 06/15/2016 FLU VACC PRSV FREE INC ANTIG Formatting Model/CDA Sections, Assigned to/Vianney Bronson CPT-4: 85690Ijoikyh 06/15/2016 THER/PROPH/DIAG INJ SC/IM CPT-4: 49860 08/13/2015 TRIAMCINOLONE ACET INJ NOS CPT-4: J3301 08/13/2015 TRIAMCINOLONE ACET INJ NOS CPT-4: J3301 01/24/2015 IMMUNIZATION ADMIN CPT -4: 70331 08/08/2014 FLU VAC NO PRSV 4 DARREL 3 YRS+ Assigned to CPT-4: 78684Jkusvny 08/08/2014 TRIAMCINOLONE ACET INJ NOS CPT-4: J3301 01/01/2014 ROCEPHIN, PER 250 MG CPT-4: J0696 01/01/2014 TRIAMCINOLONE ACET INJ NOS CPT-4: J3301 12/01/2013 REMOVAL OF SKIN TAGS <W/15 CPT-4: 62192 06/29/2013 TRIAMCINOLONE ACET INJ NOS CPT-4: J3301 02/08/2013 ROCEPHIN, PER 250 MG CPT-4: J0696 02/08/2013 54258 EST. PATIENT, LEVEL III CPT-4: 71420 05/16/2012 TRIAMCINOLONE ACET INJ NOS CPT-4: J3301 11/17/2011 ROCEPHIN, PER 250 MG CPT-4: J0696 11/17/2011 TRIAMCINOLONE ACET INJ NOS CPT-4: J3301 08/18/2011 THER/PROPH/DIAG INJ SC/IM CPT-4: 68154 08/18/2011 Vital Signs Date Vital 09/22/2018 Blood Pressure 1: 132/74 Code : 8480-6 BMI: 38.4 Code : 89497-6 Heart Rate 1 : 74 bpm Height: 5'4" SpO2: 96% Weight: 224 lbs 03/29/2018 Blood Pressure 1: 130/82 Code : 8480-6 BMI: 38.1 Code : 70488-7 Heart Rate 1 : 71 bpm Height: 5'4" SpO2: 96% Weight: 222 lbs 09/10/2017 Blood Pressure 1: 130/78 Code : 8480-6 BMI: 37.1 Code : 92282-5 Heart Rate 1 : 76 bpm Height: 5'4" SpO2: 97% Temperature: 36.9 (C) / 98.4 (F) Weight: 216 lbs 07/26/2017 Blood Pressure 1: 118/80 Code : 8480-6 Heart Rate 1: 71 bpm SpO2: 96% 05/18/2017 Blood Pressure 1: 122/80 Code : 8480-6 BMI: 36.9 Code : 69811-4 Heart Rate 1 : 83 bpm Height: 5'4" SpO2: 96% Weight: 215 lbs 05/12/2017 Blood Pressure 1: 132/80 Code : 8480-6 BMI: 36.7 Code : 76153-0 Heart Rate 1 : 86 bpm Height: [...] Code : 8480-6 BMI: 37.8 Code : 77008-8 Heart Rate 1 : 74 bpm Height: 5'4" SpO2: 97% Temperature: 37.1 (C) / 98.7 (F) Weight: 220 lbs 07/20/2016 Blood Pressure 1: 134/80 Code : 8480-6 BMI: 36.9 Code : 85816-4 Heart Rate 1 : 71 bpm Height: 5'4" SpO2: 98% Weight: 215 lbs 06/24/2016 Blood Pressure 1: 134/74 Code : 8480-6 BMI: 37.1 Code : 58296-4 Heart Rate 1 : 85 bpm Height: 5'4" SpO2: 97% Weight: 216 lbs 06/15/2016 Blood Pressure 1: 130/80 Code : 8480-6 BMI: 37.1 Code : 94427-7 Heart Rate 1 : 73 bpm Height: 5'4" SpO2: 97% Weight: 216 lbs 01/15/2016 Blood Pressure 1: 128/80 Code : 8480-6 BMI: 35.7 Code : 77544-1 Heart Rate 1 : 79 bpm Height: 5'4" SpO2: 97% Weight: 208 lbs 12/11/2015 Blood Pressure 1: 134/80 Code : 8480-6 BMI: 34.7 Code : 93577-2 Heart Rate 1 : 65 bpm Height: 5'4" SpO2: 98% Temperature: 36.7 (C) / 98.1 (F) Weight: 202 lbs 08/13/2015 Blood Pressure 1: 120/82 Code : 8480-6 BMI: 34.2 Code : 31329-3 Heart Rate 1 : 74 bpm Height: 5'4" SpO2: 98% Weight: 199 lbs 01/24/2015 Blood Pressure 1: 138/82 Code : 8480-6 BMI: 36.2 Code : 82842-8 Heart Rate 1 : 69 bpm Height: 5'6" SpO2: 94% Temperature: 36.5 (C) / 97.7 (F) Weight: 224 lbs 07/26/2014 Blood Pressure 1: 142/96 Code : 8480-6 BMI: 35.2 Code : 14449-1 Heart Rate 1 : 68 bpm Height: 5'6" Weight: 218 lbs 01/01/2014 Blood Pressure 1: 104/70 Code : 8480-6 BMI: 35.0 Code : 50280-6 Heart Rate 1 : 68 bpm Height: 5'6" Temperature: 36.8 (C) / 98.2 (F) Weight: 217 lbs 12/01/2013 Blood Pressure 1: 112/78 Code : 8480-6 Heart Rate 1: 84 bpm Temperature: 36.7 (C) / 98.0 (F) Weight: 213 lbs 10/31/2013 Blood Pressure 1: 102/70 Code : 8480-6 BMI: 34.9 Code : 76071-6 Heart Rate 1 : 64 bpm Height: 5'6" Weight: 216 lbs 06/29/2013 Blood Pressure 1: 130/84 Code : 8480-6 BMI: 34.5 Code : 26534-5 Heart Rate 1 : 80 bpm Height: 5'6" Weight: 214 lbs 02/08/2013 Blood Pressure 1: 122/80 Code : 8480-6 BMI: 32.9 Code : 22546-5 Heart Rate 1 : 72 bpm Height: 5'6" Temperature: 37.4 (C) / 99.3 (F) Weight: 204 lbs 01/02/2013 Blood Pressure 1: 118/88 Code : 8480-6 BMI: 34.7 Code : 46182-8 Heart Rate 1 : 88 bpm Height: [...] Code : 8480-6 BMI: 35.3 Code : 29484-1 Heart Rate 1 : 68 bpm Height: 5'6" Respiratory Rate: 16 bpm Temperature: 36.5 ( C) / 97.7 (F) Weight: 219 lbs Functional Status No Functional Status data History of Present Illness Symptom Name Status Result Effective Date Notes Location in the lung 09/22/2018 None Quality [...] Onset of Symptom 3 days ago 02/25/2017 418 Hospital Follow Up Onset and Resolution sudden [...] Onset of Symptom 3 days ago 01/15/2017 418 Hospital Follow Up Onset and Resolution sudden [...] Codes Date EST. PATIENT, LEVEL III Diagnosis: Acute laryngopharyngitis[ICD10: J06.0] Diagnosis: Other allergic rhinitis[ICD10: J30.89] Diagnosis: Cough[ICD10: R05] [facility] CPT-4: 93252 09/22/2018 ([id number]) 79001 EST. PATIENT, LEVEL IV Diagnosis: Essential (primary) hypertension[ICD10: I10] Diagnosis: Pain in left knee[ICD10: M25.562] Diagnosis: Pain in right knee[ICD10: M25.561] Diagnosis: Shortness of breath[ICD10: R06.02] [facility] CPT-4: 02666 03/29/2018 ([id number] 09852 EST. PATIENT, LEVEL III Diagnosis: Cough[ICD10: R05] Diagnosis: Acute bronchitis, unspecified[ICD10: J20.9] Joceline Lopez MD [facility] CPT-4: 28144 09/10/2017 ([id number]) Miscellaneous no charge Diagnosis: Essential (primary) hypertension[ICD10: I10] Joceline Lopez MD [facility] CPT-4: 19020 07/26/2017 ([id number]) 85740 EST. PATIENT, LEVEL III Diagnosis: Otalgia, right ear[ICD10: H92.01] Diagnosis: Other specified disorders of teeth and supporting structures[ICD10: K08.89] Ann-Marie Lopez MD [facility] CPT-4: 69547 2016 64276 EST. PATIENT, LEVEL III Diagnosis: Acute suppurative otitis media without spontaneous rupture of ear drum, right ear[ICD10: H66.001] Xochilt Lopez MD, [facility] CPT-4: 38677 05/12/2017 ([id number]) 36321 EST. PATIENT, LEVEL II Diagnosis: Contusion of left lower leg, subsequent encounter[ICD10: S80.12XD] Joceline Lopez MD [facility] CPT-4: 27861 02/25/2017 ([id number]) 43592 EST. PATIENT, LEVEL III Diagnosis: Cellulitis of right lower limb[ICD10: L03.115] Diagnosis: Contusion of left lower leg, initial encounter[ICD10: S80.12XA] Diagnosis: Laceration without foreign body, right lower leg, initial encounter[ ICD10: S81.811A] Joceline Lopez MD [facility] CPT-4: 83017 01/15/2017 ([id number]) 28807 EST. PATIENT, LEVEL III Diagnosis: Acute recurrent maxillary sinusitis[ICD10: J01.01] Diagnosis: Cough[ICD10: R05] Ann-Marie Lopez MD [facility] CPT-4: 65487 10/29/2016 ([id number]) 66692 EST. PATIENT, LEVEL IV Diagnosis: Essential (primary) hypertension[ICD10: I10] Diagnosis: Varicose veins of left lower extremity with inflammation[ICD10: I83.12] Diagnosis: Localized edema[ICD10: R60.0] Ann-Marie Lopez MD, [facility] CPT- 4: 49417 07/20/2016 10682 EST. PATIENT, LEVEL III Diagnosis: Actinic keratosis[ICD10: L57.0] Xochilt Lopez MD, [facility] CPT-4 : 70035 06/24/2016 ([id number]) 64913 EST. PATIENT, LEVEL III Diagnosis: Asymptomatic varicose veins of bilateral lower extremities[ICD10: I83.93] Joceline Lopez MD, [facility] CPT-4: 12360 33081 EST. PATIENT, LEVEL III Diagnosis: Rash and other nonspecific skin eruption[ICD10: R21] Xochilt Lopez MD, [facility] CPT-4: 67776 01/15/2016 ([id number]) 87428 EST. PATIENT, LEVEL III Diagnosis: Cough[ICD10: R05] Diagnosis: Dyspnea, unspecified[ICD10: R06.00] Diagnosis: Acute sinusitis, unspecified[ICD10: J01.90] Ann-Marie Lopez MD, [facility] CPT-4: 10520 12/11/2015 78726 EST. PATIENT, LEVEL III Diagnosis: Allergic rhinitis, unspecified[ICD10: J30.9] Diagnosis: Tinnitus, bilateral[ICD10: H93.13] Xochilt Lopez MD, [facility] CPT-4: 18085 08/13/2015 ([id number]) 05983 EST. PATIENT, LEVEL III Diagnosis: ALLERGIC RHINITIS[ICD9: 477.9] Joceline Lopez MD, [facility] CPT-4: 40765 01/24/2015 ([id number]) PER PM REEVAL EST PAT 65+ YR Diagnosis: Routine medical exam[ICD9: V70.0] Ann-Marie Lopez MD, [facility] CPT-4: 98261 07/26/2014 ([id number]) 72295 EST. PATIENT, LEVEL III Diagnosis: ACUTE SINUSITIS[ICD9: 461.9] Diagnosis: ACUTE BRONCHITIS[ICD9: 466.0] Diagnosis: COUGH[ICD9: 786.2] Joceline Lopez MD, [facility] CPT-4: 58917 01/01/2014 ([id number]) 97002 EST. PATIENT, LEVEL III Diagnosis: ALLERGIC RHINITIS[ICD9: 477.9] Joceline Lopez MD, [facility] CPT-4: 74118 12/01/2013 [id number]) 36683 EST. PATIENT, LEVEL IV Diagnosis: ESSENTIAL HYPERTENSION[SNOMED: 05087321] Diagnosis: Urinary urgency[ICD9: 788.63] Ann-Marie Lopez MD [facility] CPT- 4: 52745 10/31/2013 ([id number]) 59378 EST. PATIENT, LEVEL III Diagnosis: Cough[ICD9: 786.2] Diagnosis: Diarrhea[ICD9: 787.91] Ann-Marie Lopez MD [facility] CPT-4: 20723 02/08/2013 ([id number]) 13488 EST. PATIENT, LEVEL III Diagnosis: Diarrhea[ICD9: 787.91] Diagnosis: Abdominal discomfort[ICD9: 789.00] Diagnosis: Fecal urgency[ICD9: 787.63] Ann-Marie Lopez MD [facility] CPT- 4: 97498 01/02/2013 ([id number]) 62480 EST. PATIENT, LEVEL III Diagnosis: EDEMA[ICD9: 782.3] Ann-Marie Lopez MD [facility] CPT-4: 43095 04/25/2012 ([id number]) 24654 EST. PATIENT, LEVEL III Diagnosis: ESSENTIAL HYPERTENSION[SNOMED: 57171627] Diagnosis: BACTERIAL PNEUMONIA[ICD9: 482.9] Ann-Marie Lopez MD [facility] CPT-4: 52499 12/07/2011 ([id number]) 83761 EST. PATIENT, LEVEL IV Diagnosis: COUGH[ICD9: 786.2] Diagnosis: FEVER NOS[ICD9: 780.60] Ann-Marie Lopez MD [facility] CPT-4: 29852 11/17/2011 00926 EST. PATIENT, LEVEL IV Diagnosis: Acute bronchitis[ICD9: 466.0] Diagnosis: Cough[ICD9: 786.2] Diagnosis: Dyspnea[ICD9: 786.09] Joceline Lopez MD, [facility] CPT-4: 57989 08/18/2011 Plan of Care Planned Activity Notes Codes Status Date Visit Plan: Allergies - chronic - recommended [...] pharmacy. 09/22/2018 Appointment: Xochilt Gardner WPtel: [facility] (15 min) Moderate 09/22/2018 Patient Education: Patient Medication Summary Completed 09/22/2018 Patient Education: Patient Medication Summary Completed 05/04/2018 Care Plan: SCREENINGMAMMOGRAPHYDIGITAL LOINC : 77705-5 Pending 05/04/2018 Appointment: Ann-Marie Lopez WPtel: [facility] (15 min) Moderate 04/21/2018 Visit Plan: Hypertension [...] knee pain. 03/29/2018 Appointment: Ann-Marie Lopez WPtel: [facility] [place] (15 min) Moderate 03/29/2018 Patient Education: Patient Medication Summary Completed 03/29/2018 Appointment: Nurse Visit 03/02/2018 Visit Plan: Bronchitis - acute case of bronchitis identified. Pt has been given antibiotics, breathing treatments as appropriate, and pt has been instructed to call if symptoms are not improved, or if symptoms acutely worsen. 09/10/2017 Appointment: Joceline Mario WPtel: [phone] [phone] [place] (15 min) Moderate 09/10/2017 Patient Education: [...] worsen. 05/12/2017 Appointment: [facility]och[facility] Gardner [facility]el[facility] (10 min) Simple 05/12/2017 Patient Education: Patient Medication Summary Completed 05/12/2017 Visit Plan: Contusion/hematoma-left lower leg-improving- continue to monitor Laceration-right sin-dzxkste-qgh neosporin as directed Skin tag-right neck-fell off in the office before having it removed-no treatment today in the office-monitor area 02/25/2017 Appointment: Joceline Mario WPtel[phone] (30 min) Complex 02/25/2017 Patient Education: Patient [...] treatment 01/15/2017 Appointment: [phone] [phone] [place] (30 min) Complex 01/15/2017 Patient Education: Patient [...] 07/20/2016 Care Plan: Referral Order SNOMED-CT : [id number] Pending 07/20/2016 Visit Plan: Irritated [place] to [...] acute concerns. 06/24/2016 Appointment: Joceline Mario WPtel: [phone] [phone] (15 min) Moderate 06/24/2016 Patient Education: Patient Medication Summary Completed 06/24/2016 Patient Education: Obesity Completed 06/24/2016 Visit Plan: Varicose veins-recommend compression stockings- on in the am and off at HS-discussed the need for weight loss as well- instructed patient to call if symptoms persist, worsen, or new symptoms develop. Patient verbalized understanding of plan. 06/15/2016 Appointment: Joceline Mario WPtel: [phone] [phone] (15 min) Moderate 06/15/2016 Patient Education: Patient Medication Summary Completed 06/15/2016 Patient Education: Obesity Completed 06/15/2016 [facility]ment: [phone] (15 min) Moderate 06/08/2016 Visit Plan: Rash/Cellulitis [...] Summary Completed 01/24/2015 Appointment: [phone] [place] Injection 08/08/2014 Patient [...] at home. 07/26/2014 Appointment: Ann-Marie Lopez WPtel: [phone] [facility] Follow up 07/26/2014 Patient Education: Patient [...] anti histamine. 12/01/2013 Appointment: [phone] Sick 12/01/2013 Patient Education: Patient Medication Summary [...] symptoms worsen. 10/31/2013 Appointment: Ann-Marie Lopez WPtel: [address] [place] [address] Other 10/31/2013 Patient Education: Patient Medication Summary Completed 10/31/2013 Patient Education: Hypertension Completed 10/31/2013 Appointment: Ann-Marie Lopez WPtel: [address] [place] [address] Surgical Procedure 07/04/2013 Visit Plan: Wound Instructions - Pt was instruced to keep the wound clean, wash with antibacterial soap, use triple antibiotic ointment, call if redness, pustular drainage, or any other acute conerns. 06/29/2013 Appointment: Joceline Mario WPtel: [address] [place], [place] [phone] Surgical Procedure 06/29/2013 Patient Education: Patient Medication [...] with codeine. 02/08/2013 Appointment: Ann-Marie Lopez WPtel: [address] [place], [place] [phone] Sick 02/08/2013 Patient Education: Patient Medication Summary Completed 02/08/2013 Visit Plan: Diarrhea - recommended bland diet, no milk or fatty foods, recommended a gallbladder ultrasound and for pt to have stool studies and start on a probiotic. 01/02/2013 Appointment: Ann-Marie Lopez WPtel: [address] [place] [address] Sick 01/02/2013 Patient Education: Patient Medication Summary Completed 01/02/2013 Appointment: Ann-Marie Lopez WPtel: [address] [place] [address] Follow up 06/20/2012 Visit Plan: Edema - [...] labs-order provided 05/16/2012 Appointment: Ann-Marie Lopez WPtel: [address] [place] [address] Other 05/16/2012 Patient Education: Patient Medication Summary [...] peripheral edema. 04/25/2012 Appointment: Ann-Marie Lopez WPtel: [address] [place] [address] Other 04/25/2012 Patient Education: Patient Medication Summary Completed 04/25/2012 Appointment: Ann-Marie Lopez WPtel: [address] [place] [address] Other 12/08/2011 Visit Plan: Hypertension - well [...] this illness. 12/07/2011 Appointment: Ann-Marie Lopez WPtel: [address] [place] [address] Other 12/07/2011 Patient Education: Patient Medication Summary [...] and plan. 08/18/2011 Appointment: [facility] Lopez [facility]Ptel[facility] [phone] [facility] [place] Other 08/18/2011 Patient Education: Patient Medication Summary Completed 08/18/2011 Referral: Cornelius Beth Referral Appointment Requested Instructions Comment . Allergies - chronic - recommended pt [...] worse. RX sent to patient's pharmacy. . Allergies - chronic - recommended pt [...] to dr. lopez in 2 weeks - @[phone] . Well Adult - pt was counseled [...] in blood pressure readings at home. . Edema - pt has been advised to elevate legs to prevent dependent edema, compression has been recommended to help to naturally decrease peripheral edema. Diuretic use has been discussed and pt has been instructed in appropriate use of such medication as necessary to further attempt to reduce peripheral edema. [employer] or [employer] - take three times daily x 10days . Sinusitis - Pt has acute infection - pain in face, maxillary region, Pt informed to use decongestant, RX given to patient, sinus rinses also recommended. Call if symptoms do not show improvement. . Diarrhea - recommended bland diet, no milk or fatty foods , recommended a gallbladder ultrasound and for pt to have stool studies and start on a probiotic. . Rash/Cellulitis - continue with oral antibiotics [...] drainage, or any other acute concerns. . Cellulitis - right lower leg-RX for abx and instructed on use- return to clinic as previously directed, call for acute change in symptoms, worsening redness, warmth, discharge. Laceration-right lower leg-return in 10 days for suture removal Contusion-left lower gxr-dncpjkxpm-qqwrcegi current treatment . Wound Instructions - Pt was instruced to keep the wound clean, wash with antibacterial soap, use triple antibiotic ointment, call if redness, pustular drainage, or any other acute conerns. . Hypertension - well controlled - continue [...] and possible nerve irritation. kenalog shot today. phenergan with codeine . Sinusitis - Pt [...] not improved, or if symptoms acutely worsen. rocephin and kenalog today start zpack today [...] fever develops may need to consider antibiotic flonase nasal spray. If using nasal spray, [...] symptoms worsen or do not improve. . Hypertension - well controlled - continue [...] plan and call if symptoms worsen. . Contusion/hematoma-left lower cka-apnvsbhwb-mtptxisb to monitor Laceration-right alz-wapvvkg-xpw neosporin as directed Skin tag-right neck-fell off in the office before having it removed-no treatment today in the office-monitor area . Varicose veins-recommend compression stockings-on in the [...]
--- OUTSIDE RECORDS SUMMARY | 2019-01-31 07:14 | XMS REPORT | Continuity of Care Document ---
Author Organization Unknown Address Unknown Allergies Active Description Code Type Severity Reaction Onset Reported/Identified Relationship to Patient Clinical Status Yes No Known Drug Allergies [id number] Drug Allergy Unknown N/A 01/12/2017 Medications There is no data. Problems Date Dx Coded Attending Type Code Diagnosis Diagnosed By DIONY SWANSON STEEL ROD BUSTER Ot S82.832D OTH FX UPR LOW END L FIBULA, SUBS FOR 04/19/2013 BULMARO YU, ZULLY Milner Ot 787.91 DIARRHEA 04/03/2015 TANIA HILL [employer]EN BOAT BUILDER Ot V76.12 03/20/2016 IVETH GATES STE[employer] BUSTER Ot Z12.31 ENCNTR SCREEN MAMMOGRAM FOR MALIGNANT NE 03/20/2016 IVETH GATES STE[employer] BUSTER Ot Z12.31 ENCNTR SCREEN MAMMOGRAM FOR MALIGNANT NE 03/20/2016 IVETH GATES STEEL [employer] BUSTER Ot Z12.31 ENCNTR SCREEN MAMMOGRAM FOR MALIGNANT NE 04/09/2016 IVETH GATES STE[employer] BUSTER Ot Z12.31 ENCNTR SCREEN MAMMOGRAM FOR MALIGNANT NE 07/27/2016 Ot V76.12 OTH SCREEN MAMMO-MALIGN NEOPLASM OF EFRAIN 07/27/2016 Ot 786.2 COUGH 07/27/2016 Ot 793.19 OTHER NONSPECIFIC ABNORMAL FINDING OF BRIDGETT 07/27/2016 Ot 793.89 OTH (ABN) FINDINGS ON RADIOLOGICAL EXAMI 07/27/2016 Ot V76.12 OTH SCREEN MAMMO-MALIGN NEOPLASM OF EFRAIN 07/27/2016 Ot 793.89 OTH (ABN) FINDINGS ON RADIOLOGICAL EXAMI 07/27/2016 Ot 787.60 FULL INCONTINENCE OF FECES 07/27/2016 Ot 787.91 DIARRHEA 07/27/2016 Ot 789.00 ABDOMINAL PAIN, UNSPECIFIED SITE 07/27/2016 ZULLY CHAMBERLAIN MD Ot 793.80 UNSPEC ABNORMAL MAMMOGRAM 07/27/2016 Ot 787.91 DIARRHEA 07/27/2016 ZULLY CHAMBERLAIN MD Ot 611.89 OTHER SPECIFIED DISORDERS OF BREAST 07/27/2016 BULMARO YU, ZULLY Milner Ot 793.80 UNSPEC ABNORMAL MAMMOGRAM 07/27/2016 TANIA HILL Ot V76.12 OTH SCREEN MAMMO-MALIGN NEOPLASM OF EFRAIN 07/27/2016 IVETH GATES ELIEZER Ot Z12.31 ENCNTR SCREEN MAMMOGRAM FOR MALIGNANT NE 07/28/2016 ALFREDO ROSAS MD Ot I07.1 RHEUMATIC TRICUSPID INSUFFICIENCY 07/28/2016 ALFREDO ROSAS MD, Ot I10 ESSENTIAL (PRIMARY) HYPERTENSION 07/28/2016 ALFREDO ROSAS MD Ot I83.90 ASYMPTOMATIC VARICOSE VEINS OF UNSPECIFI 07/28/2016 ALFREDO ROSAS MD Ot R07.9 CHEST PAIN, UNSPECIFIED 07/28/2016 ALFREDO ROSAS MD Ot R60.9 EDEMA, UNSPECIFIED 08/18/2016 ALFREDO ROSAS MD Ot I07.1 RHEUMATIC TRICUSPID INSUFFICIENCY 08/18/2016 ALFREDO ROSAS MD Ot I10 ESSENTIAL (PRIMARY) HYPERTENSION 08/18/2016 ALFREDO ROSAS MD Ot I83.90 ASYMPTOMATIC VARICOSE VEINS OF UNSPECIFI 08/18/2016 ALFREDO ROSAS MD Ot R07.9 CHEST PAIN, UNSPECIFIED 08/18/2016 ALFREDO ROSAS MD Ot R60.9 EDEMA, UNSPECIFIED 08/26/2016 ALFREDO ROSAS MD Ot I07.1 RHEUMATIC TRICUSPID INSUFFICIENCY 08/26/2016 ALFREDO ROSAS MD, Ot I10 ESSENTIAL (PRIMARY) HYPERTENSION 08/26/2016 ALFREDO ROSAS MD Ot I83.90 ASYMPTOMATIC VARICOSE VEINS OF UNSPECIFI 08/26/2016 ALFREDO ROSAS MD Ot R07.9 CHEST PAIN, UNSPECIFIED 08/26/2016 ALFREDO ROSAS MD Ot R60.9 EDEMA, UNSPECIFIED 01/12/2017 Ot 787.91 DIARRHEA 01/12/2017 JUAN MIGUEL PRICE Ot S80.12XA CONTUSION OF LEFT LOWER LEG, INITIAL ENC 01/12/2017 JUAN MIGUEL PRICE Ot S81.811A LACERATION W/O FOREIGN BODY, RIGHT LOWER 01/12/2017 JUAN MIGUEL PRICE Ot W23.0XXA CAUGHT, CRUSH, JAMMED, OR PINCHED BETW M 01/12/2017 NEFTALY EMMANUEL JUAN MIGUEL L Ot Y99.8 OTHER EXTERNAL CAUSE STATUS 01/12/2017 JUAN MIGUEL PRICE Ot Z23 ENCOUNTER FOR IMMUNIZATION 01/20/2017 JUAN MIGUEL PRICE Ot S80.12XA CONTUSION OF LEFT LOWER LEG, INITIAL ENC 01/20/2017 JUAN MIGUEL PRICE Ot S81.811A LACERATION W/O FOREIGN BODY, RIGHT LOWER 01/20/2017 JUAN MIGUEL PRICE Ot W23.0XXA CAUGHT, CRUSH, JAMMED, OR PINCHED BETW M 01/20/2017 NEFTALY EMMANUEL JUAN MIGUEL L Ot Y99.8 OTHER EXTERNAL CAUSE STATUS 01/20/2017 JUAN MIGUEL PRICE Ot Z23 ENCOUNTER FOR IMMUNIZATION 04/20/2017 KIKI, DIONY E STEEL ROD BUSTER Ot S82.832D OTH FX UPR LOW END L FIBULA, SUBS FOR 04/22/2017 KIKI, DIONY E STEEL ROD BUSTER Ot S82.832D OTH FX UPR LOW END L FIBULA, SUBS FOR 05/21/2017 KIKI, DIONY E STEEL ROD BUSTER Ot S82.832D OTH FX UPR LOW END L FIBULA, SUBS FOR 05/26/2017 IVETH GATES STE[employer] R[employer] BUSTER Ot Z12.31 ENCNTR SCREEN MAMMOGRAM FOR MALIGNANT NE 04/06/2018 BULMARO YU, ZULLY Milner Ot R06.09 OTHER FORMS OF DYSPNEA 04/08/2018 ZULLY CHAMBERLAIN MD Ot R06.09 OTHER FORMS OF DYSPNEA 05/24/2018 Asa BYRNE MD Ot E78.5 HYPERLIPIDEMIA, UNSPECIFIED 05/24/2018 Asa BYRNE MD Ot I10 ESSENTIAL (PRIMARY) HYPERTENSION 05/24/2018 Asa BYRNE MD Ot M79.604 PAIN IN RIGHT LEG 05/24/2018 Asa BYRNE MD Ot M79.605 PAIN IN LEFT LEG 05/24/2018 Asa BYRNE MD Ot R06.02 SHORTNESS OF BREATH 05/27/2018 Asa BYRNE MD Ot E78.5 HYPERLIPIDEMIA, UNSPECIFIED 05/27/2018 Asa BYRNE MD Ot I10 ESSENTIAL (PRIMARY) HYPERTENSION 05/27/2018 Asa BYRNE MD Ot M79.604 PAIN IN RIGHT LEG 05/27/2018 Asa BYRNE MD Ot R06.02 SHORTNESS OF BREATH 06/15/2018 Asa BYRNE MD Ot E78.5 HYPERLIPIDEMIA, UNSPECIFIED 06/15/2018 Asa BYRNE MD Ot I10 ESSENTIAL (PRIMARY) HYPERTENSION 06/15/2018 Asa BYRNE MD Ot M79.604 PAIN IN RIGHT LEG 06/15/2018 Asa BYRNE MD Ot R06.02 SHORTNESS OF BREATH 09/08/2018 Ot 787.91 DIARRHEA 09/08/2018 ZULLY CHAMBERLAIN MD Ot 611.89 OTHER SPECIFIED DISORDERS OF BREAST 09/08/2018 ZULLY CHAMBERLAIN MD Ot 793.80 UNSPEC ABNORMAL MAMMOGRAM 09/08/2018 TANIA HILL Ot V76.12 OTH SCREEN MAMMO-MALIGN NEOPLASM OF EFRAIN 09/08/2018 IVETH GATES APRN Ot Z12.31 ENCNTR SCREEN MAMMOGRAM FOR MALIGNANT NE 09/08/2018 ALFREDO ROSAS MD Ot I07.1 RHEUMATIC TRICUSPID INSUFFICIENCY 09/08/2018 ALFREDO ROSAS MD Ot I10 ESSENTIAL (PRIMARY) HYPERTENSION 09/08/2018 ALFREDO ROSAS MD Ot I83.90 ASYMPTOMATIC VARICOSE VEINS OF UNSPECIFI 09/08/2018 ALFREDO ROSAS MD Ot R07.9 CHEST PAIN, UNSPECIFIED 09/08/2018 ALFREDO ROSAS MD Ot R60.9 EDEMA, UNSPECIFIED 09/08/2018 IVETH GATES APRN Ot Z12.31 ENCNTR SCREEN MAMMOGRAM FOR MALIGNANT NE 09/08/2018 ZULLY CHAMBERLAIN MD Ot I10 ESSENTIAL (PRIMARY) HYPERTENSION 09/08/2018 ZULLY CHAMBERLAIN MD Ot R06.09 OTHER FORMS OF DYSPNEA 09/08/2018 Asa BYRNE MD Ot E78.5 HYPERLIPIDEMIA, UNSPECIFIED 09/08/2018 Asa BYRNE MD Ot I10 ESSENTIAL (PRIMARY) HYPERTENSION 09/08/2018 Asa BYRNE MD Ot M79.604 PAIN IN RIGHT LEG 09/08/2018 CHAVEZ YU, Asa TREJO Ot M79.605 PAIN IN LEFT LEG 09/08/2018 Asa BYRNE MD Ot R06.02 SHORTNESS OF BREATH 09/08/2018 Asa BYRNE MD Ot E78.5 HYPERLIPIDEMIA, UNSPECIFIED 09/08/2018 Asa BYRNE MD Ot I10 ESSENTIAL (PRIMARY) HYPERTENSION 09/08/2018 Asa BYRNE MD Ot M79.604 PAIN IN RIGHT LEG 09/08/2018 Asa BYRNE MD Ot R06.02 SHORTNESS OF BREATH 09/09/2018 Ot 787.91 DIARRHEA 09/09/2018 ZULLY CHAMBERLAIN MD Ot 611.89 OTHER SPECIFIED DISORDERS OF BREAST 09/09/2018 ZULLY CHAMBERLAIN MD Ot 793.80 UNSPEC ABNORMAL MAMMOGRAM 09/09/2018 TANIA HILL Ot V76.12 OTH SCREEN MAMMO-MALIGN NEOPLASM OF EFRAIN 09/09/2018 IVETH GATES APRN Ot Z12.31 ENCNTR SCREEN MAMMOGRAM FOR MALIGNANT NE 09/09/2018 ALFREDO ROSAS MD Ot I07.1 RHEUMATIC TRICUSPID INSUFFICIENCY 09/09/2018 ALFREDO ROSAS MD Ot I10 ESSENTIAL (PRIMARY) HYPERTENSION 09/09/2018 ALFREDO ROSAS MD Ot I83.90 ASYMPTOMATIC VARICOSE VEINS OF UNSPECIFI 09/09/2018 ALFREDO ROSAS MD Ot R07.9 CHEST PAIN, UNSPECIFIED 09/09/2018 ALFREDO ROSAS MD Ot R60.9 EDEMA, UNSPECIFIED 09/09/2018 IVETH GATES APRN Ot Z12.31 ENCNTR SCREEN MAMMOGRAM FOR MALIGNANT NE 09/09/2018 ZULLY CHAMBERLAIN MD Ot I10 ESSENTIAL (PRIMARY) HYPERTENSION 09/09/2018 ZULLY CHAMBERLAIN MD Ot R06.09 OTHER FORMS OF DYSPNEA 09/09/2018 Asa BYRNE MD Ot E78.5 HYPERLIPIDEMIA, UNSPECIFIED 09/09/2018 Asa BYRNE MD Ot I10 ESSENTIAL (PRIMARY) HYPERTENSION 09/09/2018 Asa BYRNE MD Ot M79.604 PAIN IN RIGHT LEG 09/09/2018 Asa BYRNE MD Ot M79.605 PAIN IN LEFT LEG 09/09/2018 Asa BYRNE MD Ot R06.02 SHORTNESS OF BREATH 09/09/2018 Asa BYRNE MD Ot E78.5 HYPERLIPIDEMIA, UNSPECIFIED 09/09/2018 Asa BYRNE MD Ot I10 ESSENTIAL (PRIMARY) HYPERTENSION 09/09/2018 Asa BYRNE MD Ot M79.604 PAIN IN RIGHT LEG 09/09/2018 Asa BYRNE MD Ot R06.02 SHORTNESS OF BREATH 09/12/2018 GURVINDER DO FELIPA F Ot M62.89 OTHER SPECIFIED DISORDERS OF MUSCLE 09/12/2018 GURVINDER DO, FELIPA F Ot M75.101 UNSP ROTATR-CUFF TEAR/RUPTR OF RIGHT LI 09/15/2018 GURVINDER DO, FELIPA F Ot M62.89 OTHER SPECIFIED DISORDERS OF MUSCLE 09/15/2018 GURVINDER DO, FELIPA Idalmis Ot M75.101 UNSP ROTATR-CUFF TEAR/RUPTR OF RIGHT LI 09/29/2018 GURVINDER DOFELIPA Ot M62.89 OTHER SPECIFIED DISORDERS OF MUSCLE 09/29/2018 GURVINDER DO, FELIPA Idalmis Ot M75.101 UNSP ROTATR-CUFF TEAR/RUPTR OF RIGHT LI 10/06/2018 IVETH GATES APRN Ot R05 COUGH 10/24/2018 IVETH GATES APRN Ot R05 COUGH Procedures There is no data. Results There is no data. Encounters ACCT No. Visit Date/Time Discharge Status Pt. Type Provider Facility Loc./Unit Complaint [id number] 10/05/2018 08:56:00 10/05/2018 23:59:59 CLS Outpatient IVETH GATES APRN [facility] RAD COUGH [id number] 09/09/2018 08:26:00 09/09/2018 23:59:59 CLS Outpatient FELIPA HOLLINS DO [facility] RAD PAIN,RCTT [id number] 05/26/2018 07:42:00 05/26/2018 23:59:59 CLS Outpatient Asa BYRNE MD [facility] CARD SOB,LEG PAIN BILATERAL, HTN [id number] 04/19/2018 14:05:00 04/19/2018 23:59:59 CLS Outpatient Asa BYRNE MD [facility] CARD SOB,HTN [id number] 04/11/2018 07:58:00 04/11/2018 23:59:59 CLS Outpatient ZULLY CHAMBERLAIN MD [facility] CARD DYSPNEA ON EXERTION [id number] 05/21/2017 09:10:00 05/21/2017 09:59:00 DIS Outpatient DIONY SWANSON [employer] BUSTER [facility] REHAB L DIST FIBULA FX [id number] 05/03/2017 11:28:00 05/03/2017 23:59:59 CLS Outpatient IVETH GATES APRN [facility] RAD SCREENING Z12.31 [id number] 01/12/2017 16:19:00 01/12/2017 18:55:00 DIS Emergency JUAN MIGUEL PRICE [facility] ER BILATERAL LEG INJ [id number] 07/27/2016 08:01:00 07/27/2016 23:59:59 CLS Outpatient RALPH YU, ALFREDO Brice [facility] CARD CHEST PAIN SYNDROME,TR, VARICOSE VEINS [id number] 03/19/2016 09:25:00 03/19/2016 23:59:59 CLS Outpatient IVETH GATES APRN [facility] RAD SCREENING [id number] 12/10/2015 10:14:00 12/10/2015 23:59:59 CLS Outpatient ZARI DORADO [facility] QUICK [id number] 03/18/2015 11:22:00 03/18/2015 23:59:59 CLS Outpatient TANIA HILL [facility] RAD SCREENING [id number] 12/11/2013 13:56:00 12/11/2013 23:59:59 CLS Outpatient ZULLY CHAMBERLAIN MD [facility] RAD SIX MONTH F/U [id number] 01/23/2013 07:27:00 04/19/2013 00:01:00 DIS Outpatient ZULLY CHAMBERLAIN MD [facility] LAB DIARRHEA [id number] 03/16/2013 12:19:00 03/16/2013 23:59:59 CLS Outpatient ZULLY CHAMBERLAIN MD [facility] RAD FOUR MONTH F/U [id number] 09/08/2018 10:11:00 Document Registration [id number] 05/13/2018 12:14:00 Document Registration [id number] 04/20/2013 00:00:00 Document Registration [id number] 01/18/2013 08:48:00 Document Registration [id number] 11/14/2012 13:30:00 Document Registration [id number] 10/31/2012 09:52:00 Document Registration [id number] 11/17/2011 14:24:00 Document Registration [id number] 10/29/2011 10:34:00 Document Registration [id number] 08/04/2017 08:56:40 08/04/2017 23:59:59 CLS Outpatient
[2019-01-31 07:21] LABS: ALANINE AMINOTRANSFERASE 26 U/L (0-55); ALBUMIN 3.9 GM/DL (3.2-4.5); ALKALINE PHOSPHATASE 82 U/L (40-136); BILIRUBIN,TOTAL 0.6 MG/DL (0.1-1.0); BUN/CREATININE RATIO 24; CALCIUM 9.6 MG/DL (8.5-10.1); CARBON DIOXIDE 23 MMOL/L (21-32); CHLORIDE 108 MMOL/L (98-107); CREATININE SERUM 0.87 MG/DL (0.60-1.30); GFR ESTIMATED > 60; GLUCOSE 97 MG/DL (70-105); POTASSIUM 3.7 MMOL/L (3.6-5.0); SODIUM 140 MMOL/L (135-145); TOTAL PROTEIN 7.7 GM/DL (6.4-8.2)
[2019-01-31 07:25] VITALS: BP_SYST 141; BP_SYST 142; BP_SYST 151; BP_DIAS 102; BP_DIAS 87; BP_DIAS 92
--- NOTE | 2019-01-31 07:27 | ED General ---
General Chief Complaint: Cardiac/General Problems Stated Complaint: HIGH BLOOD PRESSURE Nursing Triage Note: pt verbalized woke early this am with dizziness. states BP was elevated. Nursing Sepsis Screen: No Definite Risk Source of Information: Patient Exam Limitations: No Limitations History of Present Illness Date Seen by Provider: January 31, 2019 Time Seen by Provider: 06:50 Initial Comments This 73-year-old woman presents to the emergency room with complaints of sensation of dizziness this morning upon waking at about 05:40. She woke up and moved from her chair to her bed at about 00:15 and felt normal at that time. She describes the dizziness as a sensation of lightheadedness especially upon rising to the sitting or standing position. It is not particularly worse with head movements. She denies any spinning or vertigo sensation. She elaborates that it feels more like lightheadedness. She does feel better lying down. She was able to ambulate on her own power but did have her son with her while walking due to some mild unsteadiness. She is alert and oriented. She is presently being treated for hypertension and is hypertensive this morning. Her son registered a blood pressure 165/98 this morning. Patient is inconsistent about taking her medications but states she did take her blood pressure medications yesterday before noon. She denies any chest pain or shortness of breath. She denies any focal neurologic deficits. She reports having carotid ultrasound studies done at Dr. Beth's office recently. Allergies and Home Medications Allergies Coded Allergies: No Known Drug Allergies (Unverified , 01/12/17) Home Medications Hydrocodone Bit/Acetaminophen 1 Each Tablet, 1 EACH PO Q4H PRN for PAIN Prescribed by: JUAN MIGUEL HIGGINBOTHAM on 01/12/17 8240 Patient Home Medication List Home Medication List Reviewed: Yes Review of Systems Review of Systems Constitutional: no symptoms reported EENTM: no symptoms reported Respiratory: no symptoms reported Cardiovascular: see HPI Gastrointestinal: no symptoms reported Genitourinary: no symptoms reported : No Musculoskeletal: no symptoms reported Skin: no symptoms reported Psychiatric/Neurological: See HPI Hematologic/Lymphatic: No Symptoms Reported Immunological/Allergic: no symptoms reported Past Fmnomlf-Viwqzc-Vpisdf Hx Past Med/Social Hx: Reviewed and Corrections made Patient Social History Recent Foreign Travel: No Contact w/Someone Who Travel: No Recent Infectious Disease Expo: No Recent Hopitalizations: No Physical Abuse: No Sexual Abuse: No Mistreated: No Immunizations Up To Date Tetanus Booster (TDap): More than 5yrs Past Medical History Surgeries: Yes Bladder Surgery, Hysterectomy Respiratory: No Cardiac: Yes High Cholesterol, Hypertension Neurological: No : No 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 0.0oz. 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, Other (normal finger to nose and heel to [place]) Skin: Normal Color, Warm/Dry Progress/Results/Core Measures Suspected Sepsis Recent Fever Within 48 Hours: No Infection Criteria Present: None New/Unexplained Altered Menta: No Sepsis Screen: No Definite Risk SIRS Temperature:98.0 Pulse: 73 Respiratory Rate: 18 Laboratory Tests 01/31/19 06:45: White Blood Count 9.1 Blood Pressure 142 /102 Mean: 115 Laboratory Tests 01/31/19 06:45: Platelet Count 316 01/31/19 06:55: Creatinine 0.87, Total Bilirubin 0.6 Results/Orders Lab Results Laboratory Tests Test 01/31/19 06:45 01/31/19 06:55 01/31/19 07:49 Range/Units White Blood Count 9.1 4.3-11.0 10^3/uL Red Blood Count 4.55 4.35-5.85 10^6/uL Hemoglobin 14.0 11.5-16.0 G/DL Hematocrit 43 35-52 % Mean Corpuscular Volume 95 80-99 FL Mean Corpuscular Hemoglobin 31 25-34 PG Mean Corpuscular Hemoglobin Concent 32 32-36 G/DL Red Cell Distribution Width 14.2 10.0-14.5 % Platelet Count 316 130-400 10^3/uL Mean Platelet Volume 10.0 7.4-10.4 FL Neutrophils (%) (Auto) 63 42-75 % Lymphocytes (%) (Auto) 26 12-44 % Monocytes (%) (Auto) 9 0-12 % Eosinophils (%) (Auto) 2 0-10 % Basophils (%) (Auto) 0 0-10 % Neutrophils # (Auto) 5.7 1.8-7.8 X 10^3 Lymphocytes # (Auto) 2.3 1.0-4.0 X 10^3 Monocytes # (Auto) 0.8 0.0-1.0 X 10^3 Eosinophils # (Auto) 0.2 0.0-0.3 10^3/uL Basophils # (Auto) 0.0 0.0-0.1 10^3/uL Magnesium Level 2.0 1.8-2.4 MG/DL Troponin I < 0.028 <0.028 NG/ML TSH [place] Testing 1.98 0.35-4.94 UIU/ML Sodium Level 140 135-145 MMOL/L Potassium Level 3.7 3.6-5.0 MMOL/L Chloride Level 108 H 98-107 MMOL/L Carbon Dioxide Level 23 21-32 MMOL/L Anion Gap 9 5-14 MMOL/L Blood Urea Nitrogen 21 H 7-18 MG/DL Creatinine 0.87 0.60-1.30 MG/DL Estimat Glomerular Filtration Rate > 60 BUN/Creatinine Ratio 24 Glucose Level 97 70-105 MG/DL Calcium Level 9.6 8.5-10.1 MG/DL Corrected Calcium 9.7 8.5-10.1 MG/DL Total Bilirubin 0.6 0.1-1.0 MG/DL Aspartate Amino Transf (AST/SGOT) 22 5-34 U/L Alanine Aminotransferase (ALT/SGPT) 26 0-55 U/L Alkaline Phosphatase 82 40-136 U/L Total Protein 7.7 6.4-8.2 GM/DL Albumin 3.9 3.2-4.5 GM/DL Urine Color YELLOW Urine Clarity CLEAR Urine pH 5 5-9 Urine Specific [place] 1.025 H 1.016-1.022 Urine Protein NEGATIVE NEGATIVE Urine Glucose (UA) NEGATIVE NEGATIVE Urine Ketones NEGATIVE NEGATIVE Urine Nitrite NEGATIVE NEGATIVE Urine Bilirubin NEGATIVE NEGATIVE Urine Urobilinogen NORMAL NORMAL MG/DL Urine Leukocyte Esterase 1+ H NEGATIVE Urine RBC (Auto) NEGATIVE NEGATIVE Urine RBC NONE /HPF Urine WBC 2-5 /HPF Urine Squamous Epithelial Cells NONE /HPF Urine Crystals NONE /LPF Urine Bacteria NEGATIVE /HPF Urine Casts NONE /LPF Urine Mucus NEGATIVE /LPF Urine Culture Indicated NO My Orders Orders - IRVIN BEGUM MD Cbc With Automated Diff (01/31/19 06:50) Comprehensive Metabolic Panel (01/31/19 06:50) Ua Culture If Indicated (01/31/19 06:50) Ed Iv/Invasive Line Start (01/31/19 06:50) Ekg Tracing (01/31/19 06:50) Monitor-Rhythm Ecg Trace Only (01/31/19 06:50) Magnesium (01/31/19 07:03) Thyroid Analyzer (01/31/19 07:03) Troponin I (01/31/19 07:03) Ns Iv 1000 Ml (Sodium Chloride 0.9%) (01/31/19 07:13) Orthostatic Vital Signs (Adult (01/31/19 07:13) Ct Angio Head/Neck (01/31/19 08:11) Medications Given in ED Current Medications Medications Dose Ordered Sig/[place] Route Start Time Stop Time Status Last Admin Dose Admin Sodium Chloride 1,000 ml @ 0 mls/hr Q0M ONCE IV 01/31/19 07:13 01/31/19 07:14 DC 01/31/19 07:24 0 MLS/HR Vital Signs/I&O 01/31/19 01/31/19 01/31/19 06:52 07:25 07:25 Temp 98.0 Pulse 69 66 66 70 73 Resp 18 B/P (MAP) 154/109 (124) 141/87 (105) 141/87 (105) 151/92 (111) 142/102 (115) Pulse Ox 96 O2 Delivery Room Air Capillary Refill : Less Than 3 Seconds Blood Pressure Mean: 115 Progress Note #1: Time: 07:33 Progress Note Workup is in progress. Patient is receiving IV fluids. Orthostatic blood pressures were as follows: Lying 141/87, heart rate 66 Sitting 151/92, heart rate 70, dizziness upon sitting up Standing 142/102, heart rate 73, dizzy upon standing up. Progress Note #2: Time: 07:46 Progress Note Patient has been able to get up and ambulate on her own power. She did feel little uncomfortable ambulating and nursing staff accompanied her to the bathroom. There is no discoordination or other abnormality noted in her gait. Progress Note #3: Time: 08:19 Progress Note Patient feels a little better after liter of IV fluid. Workup has been unremarkable to this point. I discussed further evaluation with CT angiogram of the head and neck to assess posterior circulation. Patient is agreeable. CT has been ordered. Progress Note #4: Time: 11:[address] angiogram of the head and neck was unremarkable for acute vascular problems. Patient states she does feel better after the IV fluids. She was encouraged to follow up promptly with Dr. Lopez and Dr. Beth. She does have family in town who can help look after her. She is leaving for home in the care of her son. ECG Initial ECG Impression Date: January 31, 2019 Initial ECG Impression Time: 06:32 Initial ECG Rate: 64 Initial ECG Rhythm: Normal Sinus Initial ECG Intervals: Normal Comment Normal sinus rhythm with no ST elevation or depression. Left axis deviation with LVH. No abnormal intervals. Diagnostic Imaging Diagonstic Imaging: CT Plain Films/CT/US/NM/MRI: head Comments CT angiogram head and neck viewed by me and report reviewed. See report below: NAME: NOAH COLLADO [facility] REC#: [id number] PT STATUS: REG ER : 1945 PHYSICIAN: IRVIN BEGUM MD ADMIT DATE: 01/31/19/ER Draft Date of Exam:01/31/19 CT ANGIO HEAD/NECK Clinical indication: Patient has been lightheaded and dizzy since 0430 hrs. This morning. Clinical indication: Exams: 1: Head CT with IV contrast. 2: CT angiogram of the head and neck performed with 100 cc of Omnipaque 350 IV contrast. Sagittal and coronal MIP reformations were created for better visualization of vascular anatomy. Comparison: None. Findings: Head CT: There is no evidence of acute cerebral infarct, intracranial hemorrhage, or gross mass effect. There is no abnormal IV contrast enhancement. The brain parenchymal volume appears appropriate for patient's age. There are small patchy areas of low-attenuation white matter changes involving both cerebral hemispheres, likely representing chronic small vessel ischemic disease. There is normal phan-white matter distinction. There is no significant midline shift or herniation. There is no evidence of hydrocephalus. The basal cisterns are unremarkable. The skull, extracranial soft tissue, and orbits are unremarkable. The paranasal sinuses are unremarkable. Temporal bones show no significant abnormality. CT angiogram: There is dense contrast bolus within the left subclavian vein, and streak artifact obscuring portion aortic arch and proximal great vessels. The distal portion left subclavian artery is obscured by dense contrast bolus streak artifact. There is kinking and mild narrowing of the proximal left subclavian artery. Otherwise remainder the visualized left subclavian artery patent. The brachiocephalic artery, right subclavian artery and bilateral common carotid arteries are patent. There is mild streak artifact obscuring portion of the proximal left subclavian artery. The bilateral cervical ICA and bilateral ECA are patent. There is a hair pin loop with tortuosity involving the mid cervical right ICA. The proximal portions and origins of the bilateral cervical vertebral artery are slightly obscured. Otherwise the visualized cervical bilateral vertebral arteries are patent. Dominant cervical left vertebral artery is seen. Intradural bilateral vertebral arteries are patent. The basilar artery, bilateral superior cerebellar arteries, bilateral retail sales specialist and their distal branches are patent. The petrous and cavernous portions of the bilateral carotid arteries are patent. There is contrast within the cavernous sinus venous component. The bilateral ACAs and distal branches are patent. The bilateral MCAs and their distal branches are patent. The dural venous sinuses are patent as visualized. The neck soft tissue structures are unremarkable. Thyroid gland and bilateral salivary glands are unremarkable. Visualized upper lung blanc show dependent atelectasis. Cervical spine degenerative disease with vertebral body spurs and facet arthropathy. Impression: 1: CT angiogram of the head/neck shows no evidence of significant vascular stenosis, vascular malformation, aneurysm, or dissection. 2: Age-related brain parenchymal changes with no evidence of acute intracranial process. If there is continued concern for acute cerebral infarct, then MRI of the brain would better evaluate. 3: There is no abnormal IV contrast enhancement. Dictated on workstation # [id number] Dict: 01/31/19 1045 Trans: 01/31/19 1106 [facility] [id number] Interpreted by: TIAGO LITTLE MD Departure Impression Primary Impression: Lightheadedness Additional Impression: Hypertension Qualified Codes: I10 - Essential (primary) hypertension Disposition: 01 HOME, SELF-CARE Condition: Improved Departure-Patient Inst. Decision time for Depature: 11:25 Referrals: ZULLY LOPEZ MD (PCP/Family) Primary Care Physician Patient Instructions: High Blood Pressure in Adults Add. Discharge Instructions: Drink plenty of clear liquids and avoid excessive consumption of caffeinated beverages such as tea, coffee, and soda. Take your medications as prescribed consistently every day. Follow-up with Dr. Beth and Dr. Lopez as soon as possible. Return to emergency room if you have worsening symptoms. Do not attempt to walk independently if you do not feel safe doing so. Obtaining a walker may be levi for assistance with walking when needed. All discharge instructions reviewed with patient and/or family. Voiced understanding. Copy Copies To 1: ZULLY LOPEZ MD Copies To 2: ALFREDO BETH MD, JOSHUA T MD January 31, 2019 07:27
[2019-01-31 07:42] LABS: TSH (THYROID ANALYZER) 1.98 UIU/ML (0.35-4.94)
[2019-01-31 07:59] LABS: BILIRUBIN,URINE NEGATIVE (NEGATIVE); GLUCOSE, URINE (UA) NEGATIVE (NEGATIVE); KETONES,URINE NEGATIVE (NEGATIVE); LEUKOCYTE ESTERASE ,URINE 1+ (NEGATIVE); NITRITE,URINE NEGATIVE (NEGATIVE); PH,URINE 5 (5-9); PROTEIN,URINE NEGATIVE (NEGATIVE); UROBILINOGEN,URINE NORMAL (NORMAL)
[2019-01-31 08:00] LABS: CLARITY,URINE CLEAR; COLOR,URINE YELLOW
[2019-01-31 08:02] LABS: BACTERIA,URINE NEGATIVE /HPF
--- NOTE | 2019-01-31 11:07 | Diagnostic Imaging Report ---
Clinical indication: Patient has been lightheaded and dizzy since 0430 hrs. This morning. Clinical indication: Exams: 1: Head CT with IV contrast. 2: CT angiogram of the head and neck performed with 100 cc of Omnipaque 350 IV contrast. Sagittal and coronal MIP reformations were created for better visualization of vascular anatomy. Comparison: None. Findings: Head CT: There is no evidence of acute cerebral infarct, intracranial hemorrhage, or gross mass effect. There is no abnormal IV contrast enhancement. The brain parenchymal volume appears appropriate for patient's age. There are small patchy areas of low-attenuation white matter changes involving both cerebral hemispheres, likely representing chronic small vessel ischemic disease. There is normal phan-white matter distinction. There is no significant midline shift or herniation. There is no evidence of hydrocephalus. The basal cisterns are unremarkable. The skull, extracranial soft tissue, and orbits are unremarkable. The paranasal sinuses are unremarkable. Temporal bones show no significant abnormality. CT angiogram: There is dense contrast bolus within the left subclavian vein, and streak artifact obscuring portion aortic arch and proximal great vessels. The distal portion left subclavian artery is obscured by dense contrast bolus streak artifact. There is kinking and mild narrowing of the proximal left subclavian artery. Otherwise remainder the visualized left subclavian artery patent. The brachiocephalic artery, right subclavian artery and bilateral common carotid arteries are patent. There is mild streak artifact obscuring portion of the proximal left subclavian artery. The bilateral cervical ICA and bilateral ECA are patent. There is a hair pin loop with tortuosity involving the mid cervical right ICA. The proximal portions and origins of the bilateral cervical vertebral artery are slightly obscured. Otherwise the visualized cervical bilateral vertebral arteries are patent. Dominant cervical left vertebral artery is seen. Intradural bilateral vertebral arteries are patent. The basilar artery, bilateral superior cerebellar arteries, bilateral forestry foreman and their distal branches are patent. The petrous and cavernous portions of the bilateral carotid arteries are patent. There is contrast within the cavernous sinus venous component. The bilateral ACAs and distal branches are patent. The bilateral MCAs and their distal branches are patent. The dural venous sinuses are patent as visualized. The neck soft tissue structures are unremarkable. Thyroid gland and bilateral salivary glands are unremarkable. Visualized upper lung blanc show dependent atelectasis. Cervical spine degenerative disease with vertebral body spurs and facet arthropathy. Impression: 1: CT angiogram of the head/neck shows no evidence of significant vascular stenosis, vascular malformation, aneurysm, or dissection. 2: Age-related brain parenchymal changes with no evidence of acute intracranial process. If there is continued concern for acute cerebral infarct, then MRI of the brain would better evaluate. 3: There is no abnormal IV contrast enhancement. Dictated by: Dictated on workstation # [id number]
[2019-01-31 11:35] VITALS: BP 141/97
== END 2019-01-31 11:35 | disposition home or self-care (01) ==
LOC: EDUNIT# 06:42 → ER 06:44
DX: R42 Dizziness and giddiness (principal); I10 Essential (primary) hypertension; E78.00 Pure hypercholesterolemia, unspecified; Z87.448 Personal history of other diseases of urinary system; Z90.710 Acquired absence of both cervix and uterus; Z98.890 Other specified postprocedural states
CPT/HCPCS: 36415; 70496; 70498; 80053; 81000; 83735; 84443; 84484; 85025; 93005; 93041; 96360

== ENCOUNTER 2019-02-09 07:56 | Emergency (ER) | payer OTHER, MEDICARE ==
[~2019-02-09] VITALS: Ht 167.6 cm; Wt 100.7 kg
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
[2019-02-09 08:33] LABS: BASOPHILS % (AUTO) 0 % (0-10); EOSINOPHILS # (AUTO) 0.2 10^3/uL (0.0-0.3); EOSINOPHILS % (AUTO) 3 % (0-10); HEMATOCRIT 41 % (35-52); HEMOGLOBIN 13.3 G/DL (11.5-16.0); LYMPHOCYTES # (AUTO) 2.5 X 10^3 (1.0-4.0); LYMPHOCYTES % (AUTO) 28 % (12-44); MEAN CORPUSCULAR HEMOGLOBIN 31 PG (25-34); MEAN CORPUSCULAR HGB CONC 33 G/DL (32-36); MEAN CORPUSCULAR VOLUME 95 FL (80-99); MEAN PLATELET VOLUME 10.4 FL (7.4-10.4); MONOCYTES # (AUTO) 0.9 X 10^3 (0.0-1.0); MONOCYTES % (AUTO) 10 % (0-12); NEUTROPHILS # (AUTO) 5.3 X 10^3 (1.8-7.8); NEUTROPHILS % (AUTO) 59 % (42-75); PLATELET COUNT 302 10^3/uL (130-400); RED CELL DISTRIBUTION WIDTH 13.7 % (10.0-14.5)
[2019-02-09 08:47] LABS: ALBUMIN 3.8 GM/DL (3.2-4.5); BILIRUBIN,TOTAL 0.7 MG/DL (0.1-1.0); CALCIUM 9.4 MG/DL (8.5-10.1); CREATININE SERUM 1.05 MG/DL (0.60-1.30); POTASSIUM 3.6 MMOL/L (3.6-5.0); TOTAL PROTEIN 7.5 GM/DL (6.4-8.2)
--- NOTE | 2019-02-09 09:00 | NUR ---
ICE PACK APPLIED TO R BREAST
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
[2019-02-09 10:42] VITALS: BP 121/89
== END 2019-02-09 10:59 | disposition home or self-care (01) ==
LOC: EDUNIT# 07:56 → ER 08:01
DX: S20.01XA Contusion of right breast, initial encounter (principal); I10 Essential (primary) hypertension; E78.00 Pure hypercholesterolemia, unspecified; Z90.710 Acquired absence of both cervix and uterus; Z87.448 Personal history of other diseases of urinary system; V49.50XA Passenger injured in collision with unspecified motor vehicles in traffic accident, initial encounter
CPT/HCPCS: 36415; 70450; 71250; 72125; 80053; 85025

== ENCOUNTER → 2019-02-13 | Outpatient (CLI) | payer OTHER, MEDICARE ==
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
== END ==
LOC: RAD 10:47
PROVIDERS: ATTEND Family Medicine
DX: M53.3 Sacrococcygeal disorders, not elsewhere classified (principal); M54.9 Dorsalgia, unspecified; R10.2 Pelvic and perineal pain; V49.9XXA Car occupant (driver) (passenger) injured in unspecified traffic accident, initial encounter
CPT/HCPCS: 72170; 72220

== ENCOUNTER → 2019-11-02 | Outpatient (CLI) | payer MEDICARE, OTHER ==
[~2019-11-02] MED LIST changes: -TRAM50TA2 PO; +TRM50T PO
--- NOTE | 2019-11-02 16:15 | Diagnostic Imaging Report ---
INDICATION: COUGH COMPARISON: 10/05/2018. FINDINGS: Frontal and lateral views of the chest demonstrate normal heart size and pulmonary vascularity. The lungs are clear. There are no signs of infiltrate, pleural effusions or pneumothoraces. The visualized osseous structures show no acute abnormalities. IMPRESSION: 1. No acute process. No signs of infiltrates, effusions or pneumothoraces. Dictated by: Dictated on workstation # [id number]
== END ==
LOC: RAD 15:58
PROVIDERS: ATTEND Family Medicine
DX: R05 Cough (principal)
CPT/HCPCS: 71046

== ENCOUNTER → 2020-10-15 | Outpatient (CLI) | payer MEDICARE, OTHER ==
--- NOTE | 2020-10-15 13:54 | Diagnostic Imaging Report ---
INDICATION: Routine screening. Comparison is made with prior mammogram 05/03/2017 and 03/19/2016. 2-D and 3-D bilateral screening mammography was performed with CAD. Scattered fibroglandular densities are identified bilaterally. Benign calcifications are noted in both breasts. No mass or malignant appearing microcalcifications are seen. Axillae are unremarkable. IMPRESSION: BI-RADS Category 2 No mammographic features suspicious for malignancy are identified. ACR BI-RADS Category 2: Benign findings. Result letter will be mailed to the patient. Note: At least 10% of breast cancer is not imaged by mammography. Dictated by: Dictated on workstation # [id number]
--- NOTE | 2020-10-15 15:22 | Diagnostic Imaging Report ---
INDICATION: Postmenopausal screening COMPARISON: 08/28/2003 FINDINGS: AP Spine L1-L4: [BMD (g/cm2): 1.388] [T-Score: 1.6] [Z-Score: 2.2] [BMD Previous: 1.403] [BMD % Change: -1.1] LT Hip Neck: [BMD (g/cm2): 0.892] [T-Score: -1.1] [Z-Score: 0.2] LT Hip Total: [BMD (g/cm2):0.959] [T-Score:-0.4] [Z-Score: 0.6] [BMD Previous: 1.054] [BMD % Change: -9.0] RT Hip Neck: [BMD (g/cm2):0.961] [T-Score:-0.6] [Z-Score:0.7] RT Hip Total: [BMD (g/cm2):0.941] [T-score:-0.5] [Z-Score:0.5] [BMD Previous:1.028] [BMD % Change:-8.5] *Indicates significant change from prior examination based on 95% confidence level. World Health Organization criteria for BMD interpretation classify patients as Normal (T-score at or above -1.0), Osteopenic (T-score between -1.0 and -2.5) or Osteoporotic (T-score at or below -2.5). LIMITATIONS AND MODIFICATION: None. FRACTURE RISK (FRAX SCORE): The ten year probability of (%): Major Osteoporotic Fracture: [NA] Hip Fracture: [NA] IMPRESSION: 1. Osteopenia (Low bone mass). 2. Bone mineral density has decreased by a statistically significant amount, as detailed above. 3. See below National Osteoporosis Foundation guidelines on when to potentially initiate pharmacologic therapy. Based on the National Osteoporosis Foundation Guidelines, pharmacologic treatment should be initiated in any of the following, unless clinical conditions suggest otherwise: * Any patient with prior fragility fracture of the hip or vertebrae. A spine fracture indicates 5X risk for subsequent spine fracture and 2X risk for subsequent hip fracture. * Osteoporosis (T-score <-2.5). * Postmenopausal women and men age 50 and older with low bone mass/osteopenia (T-score between -1.0 and -2.5) by DXA and 10-year major osteoporotic fracture greater than 20% or a 10-year probability of hip fracture greater than 3%. These fracture risks are supplied above in the FRAX score, if applicable. * Clinician judgement and/or patient preferences may indicate treatment for people with 10-year fracture probabilities above or below these levels. Dictated by: Dictated on workstation # [id number]
== END ==
LOC: RAD 09:31
PROVIDERS: ATTEND Family Medicine
DX: Z12.31 Encounter for screening mammogram for malignant neoplasm of breast (principal); M85.88 Other specified disorders of bone density and structure, other site; Z78.0 Asymptomatic menopausal state
CPT/HCPCS: 77063; 77067; 77080

== ENCOUNTER 2020-10-23 05:28 | Outpatient (RCR) | payer MEDICARE, OTHER ==
[~2020-10-23] VITALS: Ht 167.7 cm; Wt 102.3 kg
[~2020-10-23 05:28] MED LIST changes: +ASPI-999 PO; +ATOR10TA66 PO; +HYDR25TA4 PO; +LOSA50TA63 PO; +METO50TA7 PO; +TOLT4CAP13 PO
== END 2020-10-23 10:05 | disposition home or self-care (01) ==
LOC: PREOP 05:28
PROVIDERS: ATTEND Internal Medicine
DX: Z01.812 Encounter for preprocedural laboratory examination (principal); Z20.822 Contact with and (suspected) exposure to COVID-19
CPT/HCPCS: 87635

== ENCOUNTER 2020-10-25 08:05 | Day surgery (SDC) | payer MEDICARE, OTHER ==
--- NOTE | 2020-10-18 17:25 | HISTORY AND PHYSICAL ---
DATE OF SERVICE: COLONOSCOPY HISTORY AND PHYSICAL HISTORY OF PRESENT ILLNESS: The patient is a 75-year-old white female referred by Dr. Lopez for screening colonoscopy. I performed her only other colonoscopy in 2008, at which time she had no evidence for neoplasia. She reports one aunt who may have had colon cancer in her 70s. She had one brother who of liver cancer, but she does not believe it had anything to do with his colon, this was in his late 50s. No other siblings are noted. The patient reports that she generally has been feeling well. She has had no bowel habit change and denies melena or bright red blood per rectum and reports no change in weight. FAMILY HISTORY: Other than above, father of a heart attack at age of 55 and mother in her early 80s of complications of breast cancer. PAST SURGICAL HISTORY: She had a tonsillectomy and adenoidectomy at a young age, had total abdominal hysterectomy in 1977, ovaries were left and she had a bladder suspension. PAST MEDICAL HISTORY: Significant for hypertension and hyperlipidemia with no known history of coronary artery disease. She has history of overactive bladder. SOCIAL HISTORY: She has no past drinking or smoking history, is retired. PHYSICAL EXAMINATION: GENERAL: Reveals a pleasant white female in no acute distress. VITAL SIGNS: Weight 226 pounds, blood pressure 110/70. CHEST: Clear. CARDIOVASCULAR: Regular rate and rhythm without murmur, S3 or S4. ABDOMEN: Soft, supple without mass, organomegaly or tenderness. EXTREMITIES: Reveal no cyanosis, clubbing or edema. ASSESSMENT AND PLAN: The patient is being set up for screening colonoscopy at the end of September. On previous colonoscopy, we did note a submucosal distal rectal vault 4 mm nodule at the 3 o'clock position with an otherwise normal colonoscopy. This was in 2008. Prep instructions were given, and questions were answered. We will have the patient hold aspirin starting today and continue her other medications unchanged. I thank you for the referral of this pleasant lady. Job ID: [id number] DocumentID: [id number] Dictated Date: 10/17/2020 13:41:18 Waste Management Recycling Technician Date: 10/17/2020 13:53:30 Dictated By: SHAY MULLER MD
[~2020-10-25] VITALS: Ht 167 cm; Wt 102.0 kg
[2020-10-25] VITALS (7 sets, daily range): BP systolic 107–142; BP diastolic 64–88
[~2020-10-25 08:05] MED LIST changes: +LACTATED RINGERS 1,000 ML IV ONE; +LACTATED RINGERS 1,000 ML IV STA
[2020-10-25] MEDS ORDERED: LIDOCAINE JELLY 2% 6 ML SYRINGE MM PRN (08:15)
[2020-10-25] MEDS ORDERED: PROPOFOL INJECTION 50 ML IV ONE (08:26)
[2020-10-25] MEDS ORDERED: LIDOCAINE JELLY 2% 6 ML SYRINGE ONE (08:42)
--- NOTE | 2020-10-25 09:16 | Pre-Op Note & Conscious Sedat ---
Pre-Operative Progress Note H&P Reviewed The H&P was reviewed, patient examined and no changes noted. Date H&P Reviewed: Oct 25, 2020 Time H&P Reviewed: 08:20 Conscious Sedation Pre-Proced ASA Score 2 For ASA 3 and 4: Consider anesthesia and medical clearance. Also, for patients with a history of failed moderate sedation consider anesthesia. Airway Lungs Heart ASA score ASA 1: a normal healthy patient ASA 2: a patient with a mild systemic disease (mid diabetes, controlled hypertension, obesity ASA 3: a patient with a severe systemic disease that limits activity (angina, COPD, prior Myocardial infarction) ASA 4: a patient with an incapacitating disease that is a constant threat to life (CHF, renal failure) ASA 5: a moribund patient not expected to survive 24 hrs. (ruptured aneurysm) ASA 6: a declared brain- patient whose organs are being harvested. For emergent operations, add the letter E after the classification Mallampati Classification Grade 2 Sedation Plan Analgesia, Amnesia, Plan communicated to team members, Discussed options with patient/fam, Discussed risks with patient/fam The patient is an appropriate candidate to undergo the planned procedure, sedation, and anesthesia. The patient immediately re-assessed prior to indication. SHAY MULLER MD Oct 25, 2020 09:16
--- NOTE | 2020-10-25 14:55 | Anesthesia-General Post-Op ---
General Patient Condition Mental Status/LOC: Same as Preop Cardiovascular: Satisfactory Nausea/Vomiting: Absent Respiratory: Satisfactory Pain: Controlled Complications: Absent Post Op Complications Complications None Follow Up Care/Instructions Patient Instructions None needed. Anesthesia/Patient Condition Patient Condition Patient is doing well, no complaints, stable vital signs, no apparent adverse anesthesia problems. No complications reported per nursing. CURTIS SALOMON CRNA Oct 25, 2020 14:55
--- NOTE | 2020-10-25 15:30 | OPERATIVE REPORT ---
DATE OF SERVICE: COLONOSCOPY SUMMARY INDICATION FOR THE PROCEDURE: Screening colonoscopy. DESCRIPTION OF PROCEDURE: The patient was placed in the left lateral decubitus position. Prior to undergoing colonoscopy, digital rectal evaluation was performed. Anal sphincter tone was normal and the perianal reflex was intact. The colonoscope was then inserted into the rectum and under direct visualization advanced to cecum. The cecum was identified by identification of the ileocecal valve and cecal strap. Photographic documentation was obtained. Careful inspection was made as colonoscope withdrawn. Quality of prep was good. FINDINGS: No evidence for internal or external hemorrhoids and the rectum was unremarkable. The sigmoid colon was unremarkable with no evidence for diverticular disease and the descending colon and splenic flexure were unremarkable. Present in the mid transverse colon was a diminutive 3 mm sessile polyp was photographed and biopsied and ablated with no subsequent blood loss. The remainder of the transverse colon, hepatic flexure, ascending colon and cecum were unremarkable. ASSESSMENT: One diminutive polyp was removed from the mid transverse colon under good prep conditions. This was otherwise normal colonoscopy to the cecum. Considering the patient's age as long as there is no surprise on histopathology report, would not advocate future screening colonoscopy. Thank you for the referral of this pleasant lady. Job ID: [id number] DocumentID: [id number] Dictated Date: 10/25/2020 11:43:01 Casino Floor Walker Date: 10/25/2020 15:28:58 Dictated By: SHAY MULLER MD
== END 2020-10-25 10:50 | disposition home or self-care (01) ==
LOC: ENDO 08:05
PROVIDERS: ATTEND Internal Medicine
DX: Z12.11 Encounter for screening for malignant neoplasm of colon (principal); D12.3 Benign neoplasm of transverse colon; I10 Essential (primary) hypertension; E78.5 Hyperlipidemia, unspecified; Z79.899 Other long term (current) drug therapy; Z80.3 Family history of malignant neoplasm of breast
CPT/HCPCS: 88305

== ENCOUNTER 2021-08-15 14:23 | Outpatient (RCR) | payer MEDICARE, OTHER ==
[~2021-08-15 14:23] MED LIST changes: -LACTATED RINGERS 1,000 ML IV ONE; -LACTATED RINGERS 1,000 ML IV STA; -TOLT4CAP13 PO; +TOLT4CAP26 PO
== END 2021-08-15 15:56 | disposition home or self-care (01) ==
PROVIDERS: ATTEND Nurse Practitioner Family
DX: Z96.651 Presence of right artificial knee joint (principal)

== ENCOUNTER → 2022-08-11 | Outpatient (CLI) | payer OTHER, MEDICARE ==
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
== END ==
LOC: RAD 12:40
PROVIDERS: ATTEND Nurse Practitioner Family
DX: M25.561 Pain in right knee (principal); M79.89 Other specified soft tissue disorders; Z96.651 Presence of right artificial knee joint; V89.2XXA Person injured in unspecified motor-vehicle accident, traffic, initial encounter; W22.10XA Striking against or struck by unspecified automobile airbag, initial encounter; W55.32XA Struck by other hoof stock, initial encounter
CPT/HCPCS: 73562; 73590